=== PATIENT | male | born 1940 | race Caucasian/White ===

== ENCOUNTER 2017-06-13 09:46 | Inpatient (IN) | payer OTHER, MEDICARE ==
[~2017-06-13] VITALS: Ht 195.6 cm; Wt 99.0 kg
[2017-06-13] VITALS (45 sets, daily range): BP systolic 102–181; BP diastolic 60–157; PULSE 106–177; RESP 16–33; TEMP 97.2–99.8; O2SAT 91–99
[~2017-06-13 09:46] MED LIST: ASPI81TA82 PO; LISI-363 PO; ZOCO40TA PO
[2017-06-13] MEDS ORDERED: CARD120T4 PO (09:53)
[2017-06-13] MEDS ORDERED: SIMV20TA PO (09:53)
[2017-06-13] MEDS ORDERED: CARD240C6 PO (09:53)
[2017-06-13] MEDS ORDERED: ASPI81CH6 CHEW (09:53)
--- NOTE | 2017-06-13 10:08 | PD ---
HPI Chief Complaint: Cardiac Complaint Time Seen by Provider: 09:53 Travel History International Travel<30 days: No Contact w/Intl Traveler<30days: No Traveled to known affect area: No History of Present Illness HPI This patient complains of generalized weakness. He feels lightheaded. He called paramedics. He was brought here and found to be in A. fib with RVR with a rate of 170. He's been having some low central sternal chest pain. He says he had a nuclear stress test 2 weeks ago in the office of his manager investment Dr. Butts. He denies syncope. Symptoms severity is moderate. No shortness of breath. No alleviating factors. No exacerbating factors. He denies blood thinners. He says he has no history of atrial fibrillation or flutter. Duration one day PFSH Past Medical History Hx Anticoagulant Therapy: Yes Cancer: No Cardiovascular Problems: Yes High Cholesterol: Yes Endocrine: No Gastrointestinal Disorders: Yes (DIARHEA FOR 1 WEEK 04-29-11) Genitourinary: No Hypertension: Yes Immune Disorder: No Musculoskeletal: No Neurologic: Yes Psychiatric: No Reproductive: No Respiratory: No Seizures: Yes (TODAY 04-29-11) Past Surgical History Surgical History: No Previous Surgery Social History Alcohol Use: No Tobacco Use: No Substance Use: No Allergies-Medications (Allergen,Severity, Reaction): Coded Allergies: No Known Allergies (Unverified Allergy, Unknown, 06/13/17) Reported Meds & Prescriptions Reported Meds & Active Scripts Active Reported [Blood Thinner] Simvastatin 20 Mg Tab 20 Mg PO DAILY Cardizem CD 24 HR (Diltiazem CD 24 HR) 240 Mg Caper 240 Mg PO AM Cardizem (Diltiazem HCl) 120 Mg Tab 120 Mg PO QID Review of Systems General / Constitutional: No: Fever Eyes: No: Visual changes HENT: Positive: Lightheadedness, No: Headaches Cardiovascular: Positive: Chest Pain or Discomfort, Irregular Rhythm, Tachycardia Respiratory: No: Shortness of Breath Gastrointestinal: No: Abdominal Pain Genitourinary: No: Dysuria Musculoskeletal: No: Pain Skin: No Rash Neurologic: No: Weakness Psychiatric: No: Depression Endocrine: No: Polydipsia Hematologic/Lymphatic: No: Easy Bruising Physical Exam Narrative GENERAL: Well-nourished, well-developed patient with rapid A. fib of 170 . SKIN: Focused skin assessment reveals no rash and nodules. Skin is Warm and dry. HEAD: Atraumatic. Normocephalic. EYES: Pupils equal and round. No scleral icterus. No injection or drainage. ENT: No nasal bleeding or discharge. Mucous membranes pink and moist. NECK: Trachea midline. No JVD. CARDIOVASCULAR: Irregularly irregular rhythm. No murmur appreciated. Heart rate 170 RESPIRATORY: No accessory muscle use. Clear to auscultation. Breath sounds equal bilaterally. GASTROINTESTINAL: Abdomen soft, non-tender, nondistended. Hepatic and splenic margins not palpable. MUSCULOSKELETAL: No obvious deformities. No clubbing. No cyanosis. No edema. NEUROLOGICAL: Awake and alert. No obvious cranial nerve deficits. Motor grossly within normal limits. Normal speech. PSYCHIATRIC: Appropriate mood and affect; insight and judgment normal. Data Data Last Documented VS Vital Signs Date Time Temp Pulse Resp B/P (MAP) Pulse Ox O2 Delivery O2 Flow Rate FiO2 06/13/17 10:53 139 18 119/76 (90) 92 Nasal Cannula 2.00 06/13/17 09:48 99.2 Orders Orders Electrocardiogram (06/13/17 10:02) Basic Metabolic Panel (Bmp) (06/13/17 10:02) Ckmb (Isoenzyme) Profile (06/13/17 10:02) Complete Blood Count With Diff (06/13/17 10:02) Magnesium (Mg) (06/13/17 10:02) Prothrombin Time / Inr (Pt) (06/13/17 10:02) Act Partial Throm Time (Ptt) (06/13/17 10:02) Troponin I (06/13/17 10:02) Chest, Single Ap (06/13/17 10:02) Ecg Monitoring (06/13/17 10:02) Iv Access Insert/Monitor (06/13/17 10:02) Oximetry (06/13/17 10:02) Aspirin (Aspirin) (06/13/17 10:15) Sodium Chloride 0.9% Flush (Ns Flush) (06/13/17 10:15) Diltiazem Inj (Cardizem Inj) (06/13/17 10:15) Diltiazem Inj (Cardizem Inj) (06/13/17 11:00) Sodium Chloride 0.9% Flush (Ns Flush) (06/13/17 11:00) Diltiazem Inj (Cardizem Inj) (06/13/17 11:00) Admit Order (Ed Use Only) (06/13/17 11:16) Labs Laboratory Tests Test 06/13/17 09:50 White Blood Count 15.0 TH/MM3 Red Blood Count 4.61 MIL/MM3 Hemoglobin 15.2 GM/DL Hematocrit 45.2 % Mean Corpuscular Volume 97.9 FL Mean Corpuscular Hemoglobin 33.0 PG Mean Corpuscular Hemoglobin Concent 33.7 % Red Cell Distribution Width 14.1 % Platelet Count 180 TH/MM3 Mean Platelet Volume 9.5 FL Neutrophils (%) (Auto) 81.2 % Lymphocytes (%) (Auto) 6.4 % Monocytes (%) (Auto) 7.6 % Eosinophils (%) (Auto) 0.0 % Basophils (%) (Auto) 4.8 % Neutrophils # (Auto) 12.2 TH/MM3 Lymphocytes # (Auto) 1.0 TH/MM3 Monocytes # (Auto) 1.1 TH/MM3 Eosinophils # (Auto) 0.0 TH/MM3 Basophils # (Auto) 0.7 TH/MM3 CBC Comment AUTO DIFF Prothrombin Time 11.3 SEC Prothromb Time International Ratio 1.1 RATIO Activated Partial Thromboplast Time 32.6 SEC Blood Urea Nitrogen 12 MG/DL Creatinine 1.10 MG/DL Random Glucose 122 MG/DL Calcium Level 9.1 MG/DL Magnesium Level 1.9 MG/DL Sodium Level 136 MEQ/L Potassium Level 3.8 MEQ/L Chloride Level 100 MEQ/L Carbon Dioxide Level 26.4 MEQ/L Anion Gap 10 MEQ/L Estimat Glomerular Filtration Rate 65 ML/MIN Total Creatine Kinase 80 U/L Troponin I LESS THAN 0.02 NG/ML MDM Medical Decision Making Medical Screen Exam Complete: Yes Emergency Medical Condition: Yes Medical Record Reviewed: Yes Differential Diagnosis A. fib with RVR, SVT, ACS Narrative Course I have reviewed the patient's electronic medical record. Reviewed his EKG which shows A. fib at a rate of 170 Is confirmed on extended cardiac monitoring I gave him 20 mg IV Cardizem for rate control He is slightly hypertensive on arrival Lab studies sent On recheck his heart rate is now 130s. I gave him a second bolus of Cardizem I am initiating a Cardizem drip I reviewed his labs. CBC and metabolic studies reasonably normal Cardiac enzymes negative for one set an INR 1.1 Patient thinks he may be on a blood thinner but doesn't know for sure He is certainly not therapeutic on Coumadin but may be a novel anti-coagulant I placed a call to the hospitalist to discuss He will require admission for rate control and cardiac monitoring Critical Care Narrative Aggregate critical care time was 36 minutes. Time to perform other separately billable procedures was not included in the critical care time. My time did not include minutes spent treating any other patients simultaneously or on activities that did not directly contribute to the patient's treatment. The services I provided to this patient were to treat and/or prevent clinically significant deterioration that could result in: Cardiogenic shock, lethal arrhythmia, cardiopulmonary arrest I provided critical care services requiring my management, as noted below: Chart data review, documentation time, medication orders and management, vital sign assessments/reviewing monitor data, ordering and reviewing lab tests, ordering and interpreting/reviewing x-rays and diagnostic studies, care of the patient and discussion of the patient with the admitting physicians. Diagnosis Primary Impression: Atrial fibrillation with RVR Additional Impression: Generalized weakness Admitting Information Admitting Physician Requests: Zackary Sevilla MD Jun 13, 2017 10:08
[2017-06-13] MEDS ORDERED: DILTIAZEM HCL 25 MG/5 ML VIAL IV ONE ×2 (10:15→11:00)
[2017-06-13] MEDS ORDERED: ASPIRIN 325 MG TAB PO ONE (10:15)
[2017-06-13] MEDS ORDERED: SODIUM CHLORIDE 0.9% FLUSH 10 ML FLUSH IVF PRN (10:15)
[2017-06-13 10:21] LABS: AUTOMATED NEUTROPHIL # 12.2 TH/MM3 (1.8-7.7); BASOPHIL # 0.7 TH/MM3 (0-0.2); BASOPHIL % 4.8 % (0.0-2.0); CHLORIDE 100 MEQ/L (98-107); HEMATOCRIT 45.2 % (39.0-51.0); HEMOGLOBIN 15.2 GM/DL (13.0-17.0); LYMPH % 6.4 % (9.0-44.0); MEAN CELL VOLUME 97.9 FL (80.0-100.0); MEAN CORPUSCULAR HGB CONC 33.7 % (32.0-36.0); MEAN PLATELET VOLUME 9.5 FL (7.0-11.0); MONO % 7.6 % (0.0-8.0); MONOCYTE # 1.1 TH/MM3 (0-0.9); NEUT % 81.2 % (16.0-70.0); PLATELET COUNT 180 TH/MM3 (150-450); RED BLOOD COUNT 4.61 MIL/MM3 (4.50-5.90); RED CELL DISTRIBUTION WIDTH 14.1 % (11.6-17.2); SODIUM (NA) 136 MEQ/L (136-145)
[2017-06-13 10:24] LABS: BICARBONATE 26.4 MEQ/L (21.0-32.0); BLOOD UREA NITROGEN 12 MG/DL (7-18); CALCIUM 9.1 MG/DL (8.5-10.1); GLUCOSE,RANDOM 122 MG/DL (74-106); MAGNESIUM 1.9 MG/DL (1.5-2.5)
[2017-06-13 10:25] LABS: INTERNATIONAL NORMALIZED RATIO 1.1 RATIO; PROTHROMBIN TIME - PATIENT 11.3 SEC (9.8-11.6)
[2017-06-13 10:28] LABS: GLOMERULAR FILTRATION RATE 65 ML/MIN (>89)
[2017-06-13 10:32] LABS: TROPONIN I LESS THAN 0.02 NG/ML (0.02-0.05)
--- NOTE | 2017-06-13 10:32 | RADRPT ---
EXAM DATE/TIME: 06/13/2017 10:08 [facility] COMPARISON: No previous studies available for comparison. INDICATIONS : Chest pain. MEDICAL HISTORY : Hypertension. SURGICAL HISTORY : None. ENCOUNTER: Initial ACUITY: 1 day PAIN SCORE: 7/10 LOCATION: Bilateral chest FINDINGS: The heart is at the upper limits of normal in size. There are diffuse chronic appearing interstitial changes. There are atelectatic changes at the left lung base. No pneumothorax is present. Visualized bony structures demonstrate degenerative changes and an old, healed fracture of the left p roximal humerus but are otherwise intact. CONCLUSION: 1. COPD changes with left basilar atelectasis or scarring. Bonifacio Bradshaw MD on June 13, 2017 at 10:29 Board Certified Radiologist. This report was verified electronically.
[2017-06-13] MEDS ORDERED: SODIUM CHLORIDE 0.9% FLUSH 10 ML FLUSH IV FLUSH PRN ×2 (11:00→11:30)
[2017-06-13] MEDS ORDERED: BLOOD THINNER (11:10)
[2017-06-13 11:23] LABS: BANDS 4 % (0-6); LYMPHOCYTES 5 % (9-44); MONOCYTES 6 % (0-8); NEUTROPHIL # MANUAL DIFF 13.4 TH/MM3 (1.8-7.7); POLYS (SEG NEUTROPHILS) 85 % (16-70)
[2017-06-13] MEDS: DILTIAZEM INJ 125 MG in SODIUM CHLORIDE 0.9% INJ 100 ML IV PRN (11:26)
[2017-06-13] MEDS ORDERED: NALOXONE HCL 0.4 MG/ML AMP IV PUSH PRN (11:30)
--- NOTE | 2017-06-13 11:33 | HHI.HP ---
[facility] Primary Care Physician Jaky Ragland MD Admission Diagnosis afib with rvr, gen weakness Diagnoses: Travel History International Travel<30 Days: No Contact w/Intl Traveler <30 Da: No Traveled to Known Affected Are: No History of Present Illness Mr. Lugo is a 77-year-old male. He is here secondary to weakness and chest pain. He is found to have an acute onset of atrial fibrillation with RVR. He cannot recall any prior history of atrial fibrillation but he is on Cardizem baseline and may take Coumadin. However, this may be new onset atrial fibrillation. He is chest pain-free when seen. At time of admit and with chest pain his heart rate have been in the 170s. She is now in the 130s when seen in the ER. Symptoms are improved. As an outpatient he follows with Dr. Butts as his senior officer. He reports that he had a recent workup with cardiology and cannot recall any concerning findings on the workup. He has no other complaints at this time. She's been started on IV diltiazem and will be admitted to the ICU. Review of Systems Constitutional: DENIES: Fatigue, Fever, Chills Eyes: DENIES: Blurred vision, Diplopia, Eye inflammation Ears, nose, mouth, throat: DENIES: Hearing loss, Vertigo, Nasal discharge Respiratory: COMPLAINS OF: Shortness of breath, DENIES: Cough, Wheezing Cardiovascular: COMPLAINS OF: Chest pain, DENIES: Palpitations, Syncope Gastrointestinal: DENIES: Abdominal pain, Black stools, Bloody stools Musculoskeletal: DENIES: Joint pain, Muscle aches, Stiffness, Joint Swelling Integumentary: DENIES: Abnormal pigmentation, Nail changes, Pruritus, Rash Hematologic/lymphatic: DENIES: Bruising, Lymphadenopathy Immunologic/allergic: DENIES: Eczema, Urticaria Neurologic: DENIES: Abnormal gait, Headache, Paresthesias Psychiatric: DENIES: Anxiety, Confusion, Hallucinations Past Family Social History Past Medical History Hyperlipidemia Hypertension History of seizure Past Surgical History None Reported Medications Reported Meds & Active Scripts Active Reported [Blood Thinner] Simvastatin 20 Mg Tab 20 Mg PO DAILY Cardizem CD 24 HR (Diltiazem CD 24 HR) 240 Mg Caper 240 Mg PO AM Cardizem (Diltiazem HCl) 120 Mg Tab 120 Mg PO QID Allergies: Coded Allergies: No Known Allergies (Unverified Allergy, Unknown, 06/13/17) Active Ordered Medications Administered Medications Medications (Trade) Dose Ordered Sig/Low Route PRN Reason Start Time Stop Time Status Last Admin Dose Admin Sodium Chloride (NS Flush) 2 ml UNSCH PRN IVF FLUSH AFTER USING IV ACCESS 06/13/17 10:15 06/13/17 10:11 Diltiazem HCl 125 mg/Sodium Chloride 125 ml @ 5 mls/hr TITRATE PRN IV tachycardia 06/13/17 11:00 06/13/17 11:26 Sodium Chloride (NS Flush) 2 ml UNSCH PRN IV FLUSH FLUSH AFTER USING IV ACCESS 06/13/17 11:00 06/13/17 11:02 Family History Continuous cardiac arrest in patient's daughter No known disease in mother and father Social History No smoking, no alcohol abuse, no illicit substance abuse Physical Exam Vital Signs Vital Signs Date Time Temp Pulse Resp B/P (MAP) Pulse Ox O2 Delivery O2 Flow Rate FiO2 06/13/17 11:26 150 115/67 06/13/17 11:17 143 16 115/67 (83) 92 Nasal Cannula 2.00 06/13/17 10:53 139 18 119/76 (90) 92 Nasal Cannula 2.00 06/13/17 10:14 129 20 102/68 (79) 95 Nasal Cannula 2.00 06/13/17 10:04 18 99 Nasal Cannula 2.00 06/13/17 09:48 99.2 177 20 149/105 (120) 93 Physical Exam GENERAL: NAD, A&Ox3 HEAD: Normocephalic. NECK: Supple, trachea midline. No lymphadenopathy. EYES: No scleral icterus. No injection or drainage. CARDIOVASCULAR: Tachycardic rhythm with irregular rate. Without murmurs, gallops, or rubs. RESPIRATORY: Breath sounds equal bilaterally. No accessory muscle use. GASTROINTESTINAL: Abdomen soft, non-tender, nondistended. MUSCULOSKELETAL: No cyanosis, or edema. SKIN: Warm and dry. NEURO: No focal neurological deficitis. Laboratory Laboratory Tests Test 06/13/17 09:50 White Blood Count 15.0 Red Blood Count 4.61 Hemoglobin 15.2 Hematocrit 45.2 Mean Corpuscular Volume 97.9 Mean Corpuscular Hemoglobin 33.0 Mean Corpuscular Hemoglobin Concent 33.7 Red Cell Distribution Width 14.1 Platelet Count 180 Mean Platelet Volume 9.5 Neutrophils (%) (Auto) 81.2 Lymphocytes (%) (Auto) 6.4 Monocytes (%) (Auto) 7.6 Eosinophils (%) (Auto) 0.0 Basophils (%) (Auto) 4.8 Neutrophils # (Auto) 12.2 Lymphocytes # (Auto) 1.0 Monocytes # (Auto) 1.1 Eosinophils # (Auto) 0.0 Basophils # (Auto) 0.7 CBC Comment AUTO DIFF Differential Total Cells Counted 100 Neutrophils % (Manual) 85 Band Neutrophils % 4 Lymphocytes % 5 Monocytes % 6 Neutrophils # (Manual) 13.4 Differential Comment FINAL DIFF MANUAL Platelet Estimate NORMAL Platelet Morphology Comment NORMAL Prothrombin Time 11.3 Prothromb Time International Ratio 1.1 Activated Partial Thromboplast Time 32.6 Blood Urea Nitrogen 12 Creatinine 1.10 Random Glucose 122 Calcium Level 9.1 Magnesium Level 1.9 Sodium Level 136 Potassium Level 3.8 Chloride Level 100 Carbon Dioxide Level 26.4 Anion Gap 10 Estimat Glomerular Filtration Rate 65 Total Creatine Kinase 80 Troponin I LESS THAN 0.02 Result Diagram: 06/13/1750 06/13/1750 Caprini VTE Risk Assessment Caprini VTE Risk Assessment: Mod/High Risk (score >= 2) Caprini Risk Assessment Model Point Value = 1 Point Value = 2 Point Value = 3 Point Value = 5 Age 41-60 Minor surgery BMI > 25 kg/m2 Swollen legs Varicose veins or History of unexplained or recurrent spontaneous Oral contraceptives or hormone replacement Sepsis (< 1 month) Serious lung disease, including pneumonia (< 1 month) Abnormal pulmonary function Acute myocardial infarction Congestive heart failure (< 1 month) History of inflammatory bowel disease Medical patient at bed rest Age 61-74 Arthroscopic surgery Major open surgery (> 45 min) Laparoscopic surgery (> 45 min) Malignancy Confined to bed (> 72 hours) Immobilizing plaster cast Central venous access Age >= 75 History of VTE Family history of VTE Factor V Leiden Prothrombin [id number] Lupus anticoagulant Anticardiolipin antibodies Elevated serum homocysteine Heparin-induced thrombocytopenia Other congenital or acquired thrombophilia Stroke (< 1 month) Elective arthroplasty Hip, pelvis, or leg fracture Acute spinal cord injury (< 1 month) Prophylaxis Regimen Total Risk Factor Score Risk Level Prophylaxis Regimen 0-1 Low Early ambulation 2 Moderate Order ONE of the following: *Sequential Compression Device (SCD) *Heparin 5000 units SQ BID 3-4 Higher Order ONE of the following medications: *Heparin 5000 units SQ TID *Enoxaparin/Lovenox 40 mg SQ daily (WT < 150 kg, CrCl > 30 mL/min) *Enoxaparin/Lovenox 30 mg SQ daily (WT < 150 kg, CrCl > 10-29 mL/min) *Enoxaparin/Lovenox 30 mg SQ BID (WT < 150 kg, CrCl > 30 mL/min) AND/OR *Sequential Compression Device (SCD) 5 or more Highest Order ONE of the following medications: *Heparin 5000 units SQ TID (Preferred with Epidurals) *Enoxaparin/Lovenox 40 mg SQ daily (WT < 150 kg, CrCl > 30 mL/min) *Enoxaparin/Lovenox 30 mg SQ daily (WT < 150 kg, CrCl > 10-29 mL/min) *Enoxaparin/Lovenox 30 mg SQ BID (WT < 150 kg, CrCl > 30 mL/min) AND *Sequential Compression Device (SCD) Assessment and Plan Problem List: (1) Atrial fibrillation with RVR ICD Code: I48.91 - Unspecified atrial fibrillation Status: Acute (2) Generalized weakness ICD Code: R53.1 - Weakness Status: Acute Assessment and Plan 77-year-old male admitted secondary to A. fib RVR A. fib RVR Chest pain IV diltiazem Admit to ICU Cardiology consulted Lovenox initiated Monitor for rate control Evaluate for ACS Follow cardiac enzymes Follow serial EKGs Aspirin daily When necessary oxygen When necessary morphine for pain. When necessary nitroglycerin Follow on telemetry Hyperlipidemia Continue present treatment Follow as an outpatient Hypertension Continue baseline treatment Follow blood pressures Adjust treatments as needed History of seizure Renal history in isolated, no recurrence Follow clinically DVT prophylaxis Lovenox Physician Certification 2 Midnight Certification Type: Admission for Inpatient Services Order for Inpatient Services The services are ordered in accordance with Medicare regulations or non- Medicare payer requirements, as applicable. In the case of services not specified as inpatient-only, they are appropriately provided as inpatient services in accordance with the 2-midnight benchmark. Estimated LOS (days): 3 days is the estimated time the patient will need to remain in the hospital, assuming treatment plan goals are met and no additional complications. Post-Hospital Plan: Home Bonifacio Vega MD Jun 13, 2017 11:33
[2017-06-13] MEDS ORDERED: ENOXAPARIN SODIUM 40 MG/0.4 ML SYRINGE SQ SCH (12:00)
[2017-06-13] MEDS ORDERED: ONDANSETRON HCL 4 MG/2 ML VIAL IVP PRN (12:00)
[2017-06-13] MEDS ORDERED: MAGNESIUM HYDROXIDE SUSP 30 ML CUP PO PRN (12:00)
[2017-06-13] MEDS ORDERED: NITROGLYCERIN 0.4 MG SL 25 TABS/BTL SL PRN (13:00)
[2017-06-13] MEDS ORDERED: MORPHINE SULFATE 4 MG/ML INJ IV PUSH PRN ×2 (13:00)
--- NOTE | 2017-06-13 13:41 | EKG ---
Date Performed: 06/13/2017 Time Performed: 09:50:59 PTAGE: 77 years EKG: ATRIAL FIBRILLATION WITH RAPID VENTRICULAR RESPONSE WITH ABERRANT CONDUCTION OR VENTRICULAR PREMATURE COMPLEXES RIGHT BUNDLE BRANCH BLOCK ST DEPRESSION, CONSIDER SUBENDOCARDIAL INJURY ABNORMAL ECG Compared to PREVIOUS TRACING the patient has developed atrial fibrillation with a rapid v response. There has been an increase in the inferolateral ST segment changes PREVIOUS TRACIN04/29/2011 11.17 DOCTOR: Criss Larson Interpretating Date/Time 06/13/2017 13:39:23
[2017-06-13] MEDS: SODIUM CHLORIDE 0.9% FLUSH 10 ML FLUSH IV FLUSH SCH (20:50)
[2017-06-14] VITALS (34 sets, daily range): BP systolic 110–147; BP diastolic 60–78; PULSE 94–120; RESP 25–43; TEMP 98.9–100.2; O2SAT 88–96
[2017-06-14] MEDS: DILTIAZEM INJ 125 MG in SODIUM CHLORIDE 0.9% INJ 100 ML IV PRN ×2 (02:48→11:21)
[2017-06-14 04:41] LABS: AUTOMATED NEUTROPHIL # 9.9 TH/MM3 (1.8-7.7); BASOPHIL # 0.2 TH/MM3 (0-0.2); BASOPHIL % 1.8 % (0.0-2.0); EOSINOPHIL % 0.1 % (0.0-4.0); HEMATOCRIT 43.1 % (39.0-51.0); HEMOGLOBIN 14.2 GM/DL (13.0-17.0); LYMPH % 7.3 % (9.0-44.0); LYMPHOCYTE # 0.9 TH/MM3 (1.0-4.8); MEAN CELL VOLUME 98.5 FL (80.0-100.0); MEAN CORPUSCULAR HEMOGLOBIN 32.4 PG (27.0-34.0); MEAN CORPUSCULAR HGB CONC 32.9 % (32.0-36.0); MEAN PLATELET VOLUME 9.3 FL (7.0-11.0); MONO % 6.3 % (0.0-8.0); MONOCYTE # 0.7 TH/MM3 (0-0.9); NEUT % 84.5 % (16.0-70.0); PLATELET COUNT 166 TH/MM3 (150-450); RED BLOOD COUNT 4.37 MIL/MM3 (4.50-5.90); WHITE BLOOD COUNT 11.8 TH/MM3 (4.0-11.0)
[2017-06-14 04:49] LABS: CHLORIDE 100 MEQ/L (98-107); SODIUM (NA) 134 MEQ/L (136-145)
[2017-06-14 04:52] LABS: CALCIUM 8.3 MG/DL (8.5-10.1)
[2017-06-14 04:53] LABS: ALBUMIN 2.7 GM/DL (3.4-5.0); BICARBONATE 24.3 MEQ/L (21.0-32.0); BLOOD UREA NITROGEN 16 MG/DL (7-18); GLUCOSE,RANDOM 123 MG/DL (74-106)
[2017-06-14 04:56] LABS: ALT (GPT) 14 U/L (12-78); AST (GOT) 40 U/L (15-37); GLOMERULAR FILTRATION RATE 72 ML/MIN (>89)
[2017-06-14 04:57] LABS: TOTAL BILIRUBIN ADULT 1.3 MG/DL (0.2-1.0)
[2017-06-14 04:58] LABS: TOTAL PROTEIN 7.3 GM/DL (6.4-8.2)
[2017-06-14 04:59] LABS: ALKALINE PHOSPHATASE 61 U/L (45-117)
[2017-06-14] MEDS: SODIUM CHLORIDE 0.9% FLUSH 10 ML FLUSH IV FLUSH SCH ×2 (09:00→20:30)
[2017-06-14] MEDS: METOPROLOL TARTRATE 25 MG TAB PO SCH ×2 (09:31→20:30)
[2017-06-14] MEDS: DILTIAZEM-CD 240 MG CAP ER PO SCH (09:31)
[2017-06-14] MEDS: ENOXAPARIN SODIUM 60 MG/0.6 ML SYRINGE SQ SCH ×2 (09:31→20:30)
--- NOTE | 2017-06-14 09:34 | MB ---
cc: Sabine Tejada MD DATE OF CONSULT: 06/14/2017 REASON FOR CONSULTATION: Atrial fibrillation. HISTORY OF PRESENT ILLNESS: Mr. Lugo is a 77-year-old patient of my partner, Dr. Butts. He was diagnosed with atrial fibrillation earlier this year. He did have further testing with a nuclear stress test that showed an EF of 57% and a probable inferior OH. The patient reports he was doing well until about 3 days ago when he began having diarrhea. He had progressive weakness and presented to the emergency room with diarrhea, and was found to have a heart rate in the 170s. The patient does report that he had some chest pain and pointed to his epigastric region. The patient is currently pain free. PAST MEDICAL HISTORY: Significant for hypertension, hyperlipidemia, atrial fibrillation, COPD, right bundle branch block, aortic and mitral regurgitation. ALLERGIES: NO KNOWN DRUG ALLERGIES. OUTPATIENT MEDICATIONS: 1. Reportedly include Cardizem 240 mg q.a.m. and 120 mg q.p.m. 2. Simvastatin. 3. Coumadin - though the patient does not recall. FAMILY HISTORY: Positive for daughter who had a cardiac arrest. SOCIAL HISTORY: The patient does not drink or smoke. REVIEW OF SYSTEMS: Except as mentioned in the HPI, all 12 systems are negative. PHYSICAL EXAMINATION: VITAL SIGNS: 108, 20, 114/69 with a saturation of 90. GENERAL: He is an obese man, who is in no apparent distress. NECK: Free from JVD. LUNGS: A bit decreased and clear to auscultation. CARDIOVASCULAR: He has an irregularly irregular rhythm. No rubs or gallops were appreciated. ABDOMEN: Soft. EXTREMITIES: Free from edema. Chest x-ray shows COPD changes with left basilar atelectasis or scarring. LABORATORY DATA: Significant for an INR of 1.1, a white count initially of 15. His serial troponins are less than 0.02 and his glucose is 123. Telemetry - shows atrial fibrillation with rapid ventricular rate. EKG - shows atrial fibrillation with rapid ventricular rate. There is a right bundle branch block and nonspecific ST-T wave changes. IMPRESSIONS AND RECOMMENDATIONS: Atrial fibrillation - the patient does report compliance. It is not clear if he was actually absorbing the Cardizem in light of his 3 days of diarrhea. He is doing fair with the IV Cardizem and did not get his p.m. dose of medications. At this point, I would like to restart his p.o. Cardizem. I will add metoprolol to optimize his rate control. Regarding anticoagulation, Lovenox is reasonable until he achieves a therapeutic ACT with his Coumadin. Coumadin should be started and managed by the primary team to achieve an INR of 2.0-3.0. Atypical chest pain - the patient did have a recent stress test, which was not ischemic. His enzymes were negative for acute event. As well his pain was epigastric in origin and may have been related to his GI issues or his atrial fibrillation rapid ventricular response. At this point, I would follow him closely and consider further evaluation if he has recurrent symptoms. Elevated glucose - this would be per the primary team to evaluate further for diabetes. Diarrhea - per the primary team and as above, this may have exacerbated his atrial fibrillation. MD CECILLE Miller/FRANCISCO , 08:51 AM , 09:32 AM
--- NOTE | 2017-06-14 11:13 | EKG ---
Date Performed: 06/13/2017 Time Performed: 20:46:06 PTAGE: 77 years EKG: ATRIAL FIBRILLATION WITH RAPID VENTRICULAR RESPONSE WITH ABERRANT CONDUCTION OR VENTRICULAR PREMATURE COMPLEXES RIGHT BUNDLE BRANCH BLOCK ABNORMAL ECG PREVIOUS TRACING : 06/13/2017 13.51 Since the previous tracing, no significant change noted DOCTOR: Mazin Palacio Interpretating Date/Time 06/14/2017 11:10:23
--- NOTE | 2017-06-14 14:06 | EKG ---
Date Performed: 06/13/2017 Time Performed: 13:51:47 PTAGE: 77 years EKG: ATRIAL FIBRILLATION WITH RAPID VENTRICULAR RESPONSE WITH ABERRANT CONDUCTION OR VENTRICULAR PREMATURE COMPLEXES RIGHT BUNDLE BRANCH BLOCK ST DEPRESSION, CONSIDER SUBENDOCARDIAL INJURY ABNORMAL ECG PREVIOUS TRACING : 06/13/2017 09.50 Continued clinical correlation recommended. DOCTOR: Mazin Palacio Interpretating Date/Time 06/14/2017 14:04:49
--- NOTE | 2017-06-14 17:36 | HHI.PR ---
Subjective Remarks Rate control is improved but not resolved. Patient is starting to feel better. Metoprolol has been added to by mouth Cardizem. Coumadin recommended. Objective Vital Signs Date Time Temp Pulse Resp B/P (MAP) Pulse Ox O2 Delivery O2 Flow Rate FiO2 06/14/17 16:02 104 37 120/71 (87) 93 06/14/17 15:15 112 06/14/17 15:02 102 35 132/72 (92) 89 06/14/17 14:02 98 34 116/69 (85) 91 06/14/17 13:02 98 38 133/60 (84) 91 06/14/17 13:02 98.9 98 38 133/60 (84) 91 06/14/17 13:00 100 39 90 06/14/17 12:02 98 43 121/67 (85) 91 06/14/17 11:21 100 111/78 06/14/17 11:15 99 06/14/17 11:02 94 35 111/78 (89) 96 06/14/17 10:02 114 31 110/68 (82) 92 06/14/17 09:02 99.6 114 32 128/61 (83) 93 06/14/17 08:05 93 Nasal Cannula 2.00 06/14/17 08:02 100 25 124/72 (89) 92 06/14/17 07:15 106 06/14/17 07:02 100 27 118/74 (89) 93 06/14/17 06:02 108 26 114/69 (84) 90 06/14/17 05:12 114 34 118/72 (87) 91 06/14/17 04:43 113 06/14/17 04:02 99.5 106 28 135/71 (92) 91 06/14/17 03:02 104 27 123/70 (87) 90 06/14/17 03:00 105 06/14/17 02:48 116 132/73 06/14/17 02:03 100.2 118 31 132/73 (92) 90 06/14/17 01:45 108 27 135/76 (95) 90 06/14/17 01:30 120 31 135/76 (95) 89 06/14/17 01:15 110 30 146/66 (92) 91 06/14/17 01:00 110 30 147/65 (92) 91 06/14/17 00:02 114 06/14/17 00:00 112 30 144/70 (94) 91 06/13/17 23:23 97.2 114 31 152/80 (104) 93 06/13/17 23:15 118 33 128/82 (97) 92 06/13/17 23:00 115 06/13/17 23:00 114 32 128/70 (89) 94 06/13/17 22:45 116 33 139/87 (104) 91 06/13/17 22:30 112 31 117/69 (85) 93 06/13/17 22:15 108 30 138/77 (97) 94 06/13/17 22:00 112 30 131/72 (91) 94 06/13/17 22:00 92 Nasal Cannula 2.00 06/13/17 22:00 114 06/13/17 21:45 116 29 152/89 (110) 93 06/13/17 21:30 112 28 140/69 (92) 93 06/13/17 21:15 112 29 155/72 (99) 92 06/13/17 21:00 114 29 155/78 (103) 91 06/13/17 20:00 110 31 119/74 (89) 92 06/13/17 19:52 99.8 106 28 108/70 (83) 92 06/13/17 18:45 120 31 140/67 (91) 92 06/13/17 18:30 128 33 121/73 (89) 92 06/13/17 18:15 124 33 145/77 (99) 91 06/13/17 18:00 98.0 132 32 147/73 (97) 91 06/13/17 17:45 128 33 124/79 (94) 91 I/O 06/13/17 06/13/17 06/13/17 06/14/17 06/14/17 06/14/17 07:00 15:00 23:00 07:00 15:00 23:00 # Voids 2 # Bowel Movements 1 Result Diagram: 06/14/1742906/14/17429 Objective Remarks GENERAL: NAD, A&Ox3 HEAD: Normocephalic. NECK: Supple, trachea midline. No lymphadenopathy. EYES: No scleral icterus. No injection or drainage. CARDIOVASCULAR: Irregularly irregular rhythm with tachycardic rate. Without murmurs, gallops, or rubs. RESPIRATORY: Breath sounds equal bilaterally. No accessory muscle use. GASTROINTESTINAL: Abdomen soft, non-tender, nondistended. MUSCULOSKELETAL: No cyanosis, or edema. SKIN: Warm and dry. NEURO: No focal neurological deficitis. A/P Problem List: (1) Atrial fibrillation with RVR ICD Code: I48.91 - Unspecified atrial fibrillation Status: Acute (2) Generalized weakness ICD Code: R53.1 - Weakness Status: Acute Assessment and Plan 77-year-old male admitted secondary to A. fib RVR Constipation treatment started. Cardizem and metoprolol for a-fib RVR. Continue to monitor on telemetry. Labs reviewed. Follow electrolytes and CBC. Continue to monitor labs. Labs ordered for further monitoring. A. fib RVR Chest pain IV diltiazem Admit to ICU Cardiology consulted Tomasanox initiated Monitor for rate control Negative ACS evaluation Follow cardiac enzymes Follow on telemetry Hyperlipidemia Continue present treatment Follow as an outpatient Hypertension Continue baseline treatment Follow blood pressures Adjust treatments as needed History of seizure Renal history in isolated, no recurrence Follow clinically DVT prophylaxis Bonifacio Varma MD Jun 14, 2017 17:36
[2017-06-14] MEDS ORDERED: MAGNESIUM HYDROXIDE SUSP 30 ML CUP PO PRN (17:45)
[2017-06-14] MEDS: DILTIAZEM-CD 120 MG CAP ER PO SCH (17:50)
[2017-06-14] MEDS ORDERED: WARFARIN SOD 5 MG TAB PO ONE (18:00)
[2017-06-14] MEDS: DOCUSATE SODIUM 100 MG CAP PO SCH (20:30)
[2017-06-14] MEDS ORDERED: FUROSEMIDE 20 MG/2 ML VIAL IV PUSH ONE (22:30)
[2017-06-15] VITALS (16 sets, daily range): BP systolic 101–151; BP diastolic 57–72; PULSE 78–114; RESP 28–40; TEMP 97.9–99.3; O2SAT 90–94
[2017-06-15 06:11] LABS: AUTOMATED NEUTROPHIL # 9.4 TH/MM3 (1.8-7.7); BASOPHIL # 0.1 TH/MM3 (0-0.2); BASOPHIL % 0.9 % (0.0-2.0); EOSINOPHIL % 0.1 % (0.0-4.0); HEMATOCRIT 42.3 % (39.0-51.0); HEMOGLOBIN 14.2 GM/DL (13.0-17.0); LYMPH % 7.1 % (9.0-44.0); LYMPHOCYTE # 0.8 TH/MM3 (1.0-4.8); MEAN CELL VOLUME 98.5 FL (80.0-100.0); MEAN CORPUSCULAR HEMOGLOBIN 33.1 PG (27.0-34.0); MEAN CORPUSCULAR HGB CONC 33.6 % (32.0-36.0); MEAN PLATELET VOLUME 8.9 FL (7.0-11.0); MONO % 5.7 % (0.0-8.0); MONOCYTE # 0.6 TH/MM3 (0-0.9); NEUT % 86.2 % (16.0-70.0); PLATELET COUNT 164 TH/MM3 (150-450); RED CELL DISTRIBUTION WIDTH 14.3 % (11.6-17.2); WHITE BLOOD COUNT 10.9 TH/MM3 (4.0-11.0)
[2017-06-15 06:20] LABS: CHLORIDE 102 MEQ/L (98-107); SODIUM (NA) 138 MEQ/L (136-145)
[2017-06-15 06:22] LABS: INTERNATIONAL NORMALIZED RATIO 1.1 RATIO; PROTHROMBIN TIME - PATIENT 11.2 SEC (9.8-11.6)
[2017-06-15 06:25] LABS: CALCIUM 8.6 MG/DL (8.5-10.1)
[2017-06-15 06:26] LABS: ALBUMIN 2.7 GM/DL (3.4-5.0); BICARBONATE 27.6 MEQ/L (21.0-32.0); BLOOD UREA NITROGEN 24 MG/DL (7-18); GLUCOSE,RANDOM 121 MG/DL (74-106)
[2017-06-15 07:49] LABS: ALKALINE PHOSPHATASE 66 U/L (45-117); ALT (GPT) 30 U/L (12-78); AST (GOT) 68 U/L (15-37); GLOMERULAR FILTRATION RATE 65 ML/MIN (>89); TOTAL BILIRUBIN ADULT 1.1 MG/DL (0.2-1.0); TOTAL PROTEIN 7.5 GM/DL (6.4-8.2)
[2017-06-15] MEDS: METOPROLOL TARTRATE 25 MG TAB PO SCH ×2 (07:56→20:07)
[2017-06-15] MEDS: DILTIAZEM-CD 240 MG CAP ER PO SCH (07:56)
[2017-06-15] MEDS: SODIUM CHLORIDE 0.9% FLUSH 10 ML FLUSH IV FLUSH SCH ×2 (07:56→20:08)
[2017-06-15] MEDS: ASPIRIN 325 MG TAB PO SCH (07:56)
[2017-06-15] MEDS: DOCUSATE SODIUM 100 MG CAP PO SCH ×2 (07:56→20:08)
[2017-06-15] MEDS: ENOXAPARIN SODIUM 60 MG/0.6 ML SYRINGE SQ SCH ×2 (08:00→20:07)
--- NOTE | 2017-06-15 11:20 | RADRPT ---
EXAM DATE/TIME: 06/15/2017 11:04 [facility] COMPARISON: CHEST SINGLE AP, June 13, 2017, 10:08. INDICATIONS : Short of breath MEDICAL HISTORY : None. SURGICAL HISTORY : None. ENCOUNTER: Subsequent ACUITY: 4 - 6 days PAIN SCORE: 0/10 LOCATION: Bilateral chest FINDINGS: AP upright portable view of the chest again demonstrate mild enlargement of the cardiac silhouette wi th bilateral interstitial prominence, worse within the lung bases. 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 CONCLUSION: Stable lung exam concerning for interstitial fibrosis. Kimber Alvarez MD on June 15, 2017 at 11:16 Board Certified Radiologist. This report was verified electronically.
--- NOTE | 2017-06-15 11:24 | HHI.PR ---
Subjective Remarks White blood cell count has trended back to normal. Patient continues to have shortness of breath. Heart rate is stabilized with Cardizem and metoprolol. Coumadin showed no increase in INR and patient was switched to Xarelto as a treatment. Objective Vital Signs Date Time Temp Pulse Resp B/P (MAP) Pulse Ox O2 Delivery O2 Flow Rate FiO2 06/15/17 10:02 78 28 101/63 (76) 93 06/15/17 08:02 97.9 106 40 135/64 (87) 91 06/15/17 08:00 86 06/15/17 04:02 99.3 90 28 107/67 (80) 93 06/15/17 04:00 92 06/15/17 00:02 82 29 105/63 (77) 92 06/15/17 00:00 80 06/14/17 21:50 93 Venturi Mask 6.00 50 06/14/17 21:04 93 Nasal Cannula 4.00 06/14/17 20:02 100.0 98 26 115/63 (80) 91 06/14/17 20:00 102 06/14/17 18:02 106 35 134/69 (90) 88 06/14/17 17:02 99.1 104 31 131/69 (89) 92 06/14/17 16:02 104 37 120/71 (87) 93 06/14/17 15:15 112 06/14/17 15:02 102 35 132/72 (92) 89 06/14/17 14:02 98 34 116/69 (85) 91 06/14/17 13:02 98 38 133/60 (84) 91 06/14/17 13:02 98.9 98 38 133/60 (84) 91 06/14/17 13:00 100 39 90 06/14/17 12:02 98 43 121/67 (85) 91 I/O 06/14/17 06/14/17 06/14/17 06/15/17 06/15/17 06/15/17 06:59 14:59 22:59 06:59 14:59 22:59 Intake Total 360 ml Output Total 750 ml Balance 360 ml -750 ml Intake Oral 360 ml Output Urine Total 750 ml # Voids 2 # Bowel Movements 0 Result Diagram: 06/15/17 0550 06/15/17 0550 Objective Remarks GENERAL: NAD, A&Ox3 HEAD: Normocephalic. NECK: Supple, trachea midline. No lymphadenopathy. EYES: No scleral icterus. No injection or drainage. CARDIOVASCULAR: Irregularly irregular rhythm with tachycardic rate. Without murmurs, gallops, or rubs. RESPIRATORY: Breath sounds equal bilaterally. No accessory muscle use. GASTROINTESTINAL: Abdomen soft, non-tender, nondistended. MUSCULOSKELETAL: No cyanosis, or edema. SKIN: Warm and dry. NEURO: No focal neurological deficitis. A/P Problem List: (1) Atrial fibrillation with RVR ICD Code: I48.91 - Unspecified atrial fibrillation Status: Acute (2) Generalized weakness ICD Code: R53.1 - Weakness Status: Acute Assessment and Plan 77-year-old male admitted secondary to A. fib RVR Not yet stable for discharge due to respiratory distress. Obtain chest x-ray and echocardiogram. Consider Lasix of pulmonary edema is a part of this. For now his heart rate is improved and he will be treated with Cardizem, metoprolol , and Xarelto, in regards his previous A. fib with RVR. Labs reviewed. Follow potassium and replace as needed. Continue to monitor labs. Labs ordered for further monitoring. A. fib RVR Chest pain IV diltiazem Admit to ICU Cardiology consulted Lovenox initiated Monitor for rate control Negative ACS evaluation Follow cardiac enzymes Follow on telemetry Hyperlipidemia Continue present treatment Follow as an outpatient Hypertension Continue baseline treatment Follow blood pressures Adjust treatments as needed History of seizure Renal history in isolated, no recurrence Follow clinically DVT prophylaxis Bonifacio Varma MD Jun 15, 2017 11:24
[2017-06-15] MEDS: RIVAROXABAN 15 MG TAB PO SCH ×2 (11:36→20:07)
[2017-06-15 13:55] LABS: HEMOGLOBIN A1C 5.3 % (4.3-6.0)
[2017-06-15] MEDS ORDERED: WARFARIN SOD 5 MG TAB PO SCH (16:00)
[2017-06-15] MEDS: DILTIAZEM-CD 120 MG CAP ER PO SCH (16:48)
[2017-06-15] MEDS ORDERED: predniSONE 20 MG TAB PO ONE (17:00)
[2017-06-15] MEDS: predniSONE 20 MG TAB PO SCH (20:07)
[2017-06-16] VITALS (26 sets, daily range): BP systolic 109–157; BP diastolic 55–75; PULSE 88–154; RESP 25–45; TEMP 97.6–98.8; O2SAT 86–93
[2017-06-16] MEDS: DILTIAZEM-CD 240 MG CAP ER PO SCH (08:09)
[2017-06-16] MEDS: RIVAROXABAN 15 MG TAB PO SCH ×2 (08:09→19:43)
[2017-06-16] MEDS: DOCUSATE SODIUM 100 MG CAP PO SCH ×2 (08:09→19:43)
[2017-06-16] MEDS: predniSONE 20 MG TAB PO SCH ×2 (08:10→19:43)
[2017-06-16] MEDS: SODIUM CHLORIDE 0.9% FLUSH 10 ML FLUSH IV FLUSH SCH ×2 (08:10→19:42)
[2017-06-16] MEDS: ASPIRIN 325 MG TAB PO SCH (08:10)
[2017-06-16] MEDS: METOPROLOL TARTRATE 25 MG TAB PO SCH ×2 (08:11→19:42)
--- NOTE | 2017-06-16 11:57 | HHI.PR ---
Subjective Remarks Echocardiogram results pending. Steroids initiated yesterday without much benefit seen thus far. Pulmonology evaluation pending. Further history, patient says that his grandmother may have had lung disease and his 26-year-old granddaughter has been diagnosed with COPD, she is not a smoker. There may be an element of familial palmar fibrosis if x-ray findings are accurate. Objective Vital Signs Date Time Temp Pulse Resp B/P (MAP) Pulse Ox O2 Delivery O2 Flow Rate FiO2 06/16/17 07:50 92 Venturi Mask 50 06/16/17 04:02 98.8 90 25 109/66 (80) 93 06/16/17 04:00 88 06/16/17 00:02 97.6 92 31 119/69 (86) 91 06/16/17 00:00 94 06/15/17 22:05 92 Venturi Mask 6.00 50 06/15/17 20:02 98.8 114 39 151/72 (98) 90 06/15/17 20:00 112 06/15/17 16:02 100 06/15/17 16:02 98.5 100 31 148/62 (90) 91 06/15/17 14:02 92 32 117/66 (83) 92 06/15/17 14:00 94 06/15/17 13:02 92 06/15/17 13:02 92 35 118/57 (77) 94 06/15/17 12:02 98.2 82 34 106/63 (77) 94 06/15/17 12:02 82 I/O 06/15/17 06/15/17 06/15/17 06/16/17 06/16/17 06/16/17 07:00 15:00 23:00 07:00 15:00 23:00 Output Total 750 ml 600 ml Balance -750 ml -600 ml Output Urine Total 750 ml 600 ml # Bowel Movements 0 Result Diagram: 06/15/17 0550 06/15/17 0550 Objective Remarks GENERAL: NAD, A&Ox3 HEAD: Normocephalic. NECK: Supple, trachea midline. No lymphadenopathy. EYES: No scleral icterus. No injection or drainage. CARDIOVASCULAR: Irregularly irregular rhythm with tachycardic rate. Without murmurs, gallops, or rubs. RESPIRATORY: Breath sounds equal bilaterally. No accessory muscle use. GASTROINTESTINAL: Abdomen soft, non-tender, nondistended. MUSCULOSKELETAL: No cyanosis, or edema. SKIN: Warm and dry. NEURO: No focal neurological deficitis. A/P Problem List: (1) Atrial fibrillation with RVR ICD Code: I48.91 - Unspecified atrial fibrillation Status: Acute (2) Generalized weakness ICD Code: R53.1 - Weakness Status: Acute Assessment and Plan 77-year-old male admitted secondary to A. fib RVR Pulmonary fibrosis may be present and contributory. Steroids initiated yesterday. Pulmonary consult pending. This is likely representing an acute exacerbation of his condition. Echocardiogram report pending which may shed further light on the situation. A. fib RVR Chest pain IV diltiazem Admit to ICU Cardiology consulted Lovenox initiated Monitor for rate control Negative ACS evaluation Follow cardiac enzymes Follow on telemetry Hyperlipidemia Continue present treatment Follow as an outpatient Hypertension Continue baseline treatment Follow blood pressures Adjust treatments as needed History of seizure Renal history in isolated, no recurrence Follow clinically DVT prophylaxis Bonifacio Varma MD Jun 16, 2017 11:57
--- NOTE | 2017-06-16 14:55 | MB ---
cc: Charly Payton MD DATE OF CONSULT: REASON FOR CONSULTATION: Possible pulmonary fibrosis. HISTORY OF PRESENT ILLNESS: The patient is a pleasant 77-year-old gentleman who came to the hospital because he was having weakness and chest pain. He was found to have atrial fibrillation with RVR. The patient does have some shortness of breath. He denied any significant wheezing or coughing. He is not aware of any previous CAT scans or history of any interstitial lung disease. He does not have any hemoptysis or sputum production. PAST MEDICAL HISTORY: Reviewed in detail. It is positive for hyperlipidemia, hypertension and seizures. MEDICATIONS: Reviewed in detail. He is on Cardizem and simvastatin. FAMILY HISTORY: Positive for cardiac arrest in his daughter. SOCIAL HISTORY: No history of smoking or alcohol use. REVIEW OF SYSTEMS: Negative except for as mentioned in the HPI. PHYSICAL EXAMINATION: VITAL SIGNS: Showed temperature 98.8, pulse 90, respiratory rate 25, blood pressure 109/66, sating 93% on 50% Ventimask. HEAD AND NECK: Atraumatic, normocephalic. Trachea midline. LUNGS: Mild basilar crackles. HEART: Normal S1, S2. ABDOMEN: Soft. It is not tender. EXTREMITIES: Trace edema. NEUROLOGIC: Alert, oriented x 3, moves all extremities. IMAGING: I reviewed his imaging. I reviewed his last chest x-ray. That did show interstitial infiltrates, more over the bases suggestive of possible pulmonary edema with possible interstitial lung disease as well. LABORATORY DATA: Reviewed. He has a WBC 10.9, hemoglobin 14.2. BUN 12, creatinine 1.1. ASSESSMENT AND PLAN: 1. Possible interstitial lung disease. 2. Atrial fibrillation with rapid ventricular response. 3. Possible congestive heart failure. I had a long discussion with the patient and at this point, to me, it is not clear how much his interstitial lung disease is contributing to his symptoms and the hypoxia. I would like the patient to be optimized from a cardiac perspective and from a volume perspective. Once he is optimized cardiac and volume , I would like to get a high resolution CAT scan that includes expiratory, inspiratory, prone and supine films. This will give us a good idea about the interstitial lung disease that he has and that will help us in our differential diagnosis. At this point, I do not recommend any steroid therapy, and I do not recommend any treatment or intervention for his possible interstitial lung disease until we finish our workup. At this point, I would like to have him optimized from a cardiac perspective. Thank you for this consultation. MD JOSH Escobar/FRANCISCO , 01:45 PM , 02:52 PM
--- NOTE | 2017-06-16 16:46 | ECHRPT ---
Indication: ATRIAL FIB AND FLUTTER CONCLUSIONS Normal left ventricular size. Wall thickness is normal. The left ventricular systolic function is low normal with an estimated ejection fraction in the rang e of 50- 55%. Trace mitral valve regurgitation. There is trace tricuspid valve regurgitation. The estimated pulmonary arterial pressure is 44 mmHg. BP: 109 / 66 HR: 92 Rhythm: MEASUREMENTS (Male / Female) Normal Values Technical Quality: 2D ECHO LV Diastolic Diameter PLAX 4.4 cm 4.2 - 5.9 / 3.9 - 5.3 cm LV Systolic Diameter PLAX 3.5 cm IVS Diastolic Thickness 0.9 cm 0.6 - 1.0 / 0.6 - 0.9 cm LVPW Diastolic Thickness 0.9 cm 0.6 - 1.0 / 0.6 - 0.9 cm LV Relative Wall Thickness 0.4 RV Internal Dim ED PLAX 2.3 cm LVOT Diameter 2.5 cm Aortic Root Diameter 3.6 cm LA Systolic Diameter LX 4.1 cm 3.0 - 4.0 / 2.7 - 3.8 cm M-MODE AV Cusp Separation MM 2.0 cm DOPPLER AV Peak Velocity 117.3 cm/s AV Peak Gradient 5.5 mmHg AV Mean Gradient 3.5 mmHg AV Velocity Time Integral 15.0 cm LVOT Peak Velocity 56.6 cm/s LVOT Peak Gradient 1.3 mmHg LVOT Velocity Time Integral 8.6 cm AV Area Cont Eq vti 2.8 cm AV Area Cont Eq pk 2.4 cm Mitral E Point Velocity 56.9 cm/s LV E' Lateral Velocity 11.0 cm/s Mitral E to LV E' Lateral Ratio 5.2 LV E' Septal Velocity 11.4 cm/s Mitral E to LV E' Septal Ratio 5.0 TR Peak Velocity 290.0 cm/s TR Peak Gradient 33.6 mmHg Right Atrial Pressure 10.0 mmHg Pulmonary Artery Systolic Pressu 43.6 mmHg Right Ventricular Systolic Press 43.6 mmHg PV Peak Velocity 81.6 cm/s PV Peak Gradient 2.7 mmHg FINDINGS LEFT VENTRICLE Normal left ventricular size. Wall thickness is normal. The left ventricular systolic function is low normal with an estimated ejection fraction in the rang e of 50- 55%. RIGHT VENTRICLE Normal right ventricular size and systolic function. LEFT ATRIUM The left atrial size is normal. RIGHT ATRIUM The right atrial size is normal. ATRIAL SEPTUM The interatrial septum not well visualized. AORTA The aortic root and proximal ascending aorta are not well visualized. MITRAL VALVE Trace mitral valve regurgitation. AORTIC VALVE Trileaflet aortic valve. No aortic valve stenosis or regurgitation. TRICUSPID VALVE There is trace tricuspid valve regurgitation. The estimated pulmonary arterial pressure is 43.6 mmHg. PULMONARY VALVE The pulmonary valve is not well visualized. VESSELS The inferior vena cava is normal in size. PERICARDIUM A prominent epicardial fat pad is present. Jef Avila MD, FACC (Electronically Signed) Final Date:16 June 2017 16:45
[2017-06-16] MEDS: DILTIAZEM-CD 120 MG CAP ER PO SCH (18:00)
[2017-06-17] VITALS (14 sets, daily range): BP systolic 98–135; BP diastolic 57–74; PULSE 92–122; RESP 22–37; TEMP 97.2–98.9; O2SAT 88–97
[2017-06-17 04:52] LABS: HEMOGLOBIN 11.9 GM/DL (13.0-17.0); MEAN CELL VOLUME 98.4 FL (80.0-100.0); MEAN CORPUSCULAR HEMOGLOBIN 32.7 PG (27.0-34.0); MEAN CORPUSCULAR HGB CONC 33.2 % (32.0-36.0); MEAN PLATELET VOLUME 10.3 FL (7.0-11.0); PLATELET COUNT 214 TH/MM3 (150-450); RED BLOOD COUNT 3.66 MIL/MM3 (4.50-5.90); RED CELL DISTRIBUTION WIDTH 14.3 % (11.6-17.2); WHITE BLOOD COUNT 10.5 TH/MM3 (4.0-11.0)
[2017-06-17 05:08] LABS: CALCIUM 8.2 MG/DL (8.5-10.1)
[2017-06-17 05:09] LABS: BICARBONATE 27.3 MEQ/L (21.0-32.0)
[2017-06-17 05:32] LABS: CREATININE 1.1 MG/DL (0.60-1.30)
[2017-06-17] MEDS: SODIUM CHLORIDE 0.9% FLUSH 10 ML FLUSH IV FLUSH SCH ×2 (09:10→21:20)
[2017-06-17] MEDS: ASPIRIN 325 MG TAB PO SCH (09:11)
[2017-06-17] MEDS: RIVAROXABAN 15 MG TAB PO SCH ×2 (09:11→21:19)
[2017-06-17] MEDS: DILTIAZEM-CD 240 MG CAP ER PO SCH (09:11)
[2017-06-17] MEDS: METOPROLOL TARTRATE 25 MG TAB PO SCH ×2 (09:11→21:20)
[2017-06-17] MEDS: DOCUSATE SODIUM 100 MG CAP PO SCH ×2 (09:11→21:00)
[2017-06-17] MEDS: predniSONE 20 MG TAB PO SCH (09:11)
--- NOTE | 2017-06-17 14:06 | HHI.PR ---
Subjective Remarks Patient seen and evaluated in follow-up for respiratory failure now known to have pulmonary fibrosis Pulmonary consult appreciated. Patient tolerating current oxygen without difficulty although he did require partial non-rebreather and Venturi mask overnight Diarrhea resolved Objective Vitals Vital Signs Date Time Temp Pulse Resp B/P (MAP) Pulse Ox O2 Delivery O2 Flow Rate FiO2 06/17/17 12:00 92 06/17/17 10:00 96 06/17/17 08:00 110 06/17/17 04:10 98.6 104 25 102/74 (83) 97 06/17/17 04:00 102 06/17/17 00:10 98.9 118 37 132/67 (88) 90 06/17/17 00:00 106 06/16/17 20:45 92 Partial Rebreather 15.00 06/16/17 20:10 97.8 138 45 148/55 (86) 87 06/16/17 20:00 154 06/16/17 17:30 115 18 17:15 150 06/16/17 17:00 140 06/16/17 16:45 146 18 16:30 130 18 16:30 130 35 157/73 (101) 92 06/16/17 16:15 134 06/16/17 16:00 132 06/16/17 16:00 123 06/16/17 16:00 98.1 06/16/17 15:00 122 06/16/17 14:00 112 I/O 06/16/17 06/16/17 06/16/17 06/17/17 06/17/17 06/17/17 07:00 15:00 23:00 07:00 15:00 23:00 Output Total 600 ml 700 ml 800 ml Balance -600 ml -700 ml -800 ml Output Urine Total 600 ml 700 ml 800 ml Result Diagram: 06/17/17 0435 06/17/17 0435 Imaging Last Impressions Chest X-Ray 06/15/17 0000 Signed Impressions: Service Date/Time: Thursday, June 15, 2017 11:04 - CONCLUSION: Stable lung exam concerning for interstitial fibrosis. Kimber Alvarez MD Objective Remarks GENERAL: This is a frail elderly gentleman CARDIOVASCULAR: Regular rate and rhythm without murmurs, gallops, or rubs. RESPIRATORY: Decreased airflow bilaterally with fine crackles GASTROINTESTINAL: Abdomen soft, non-tender, nondistended. Normal active bowel sounds MUSCULOSKELETAL: Extremities without clubbing, cyanosis, or edema. NEURO: Alert & Oriented x4 to person, place, time, situation. Moves all ext x4 A/P Problem List: (1) Atrial fibrillation with RVR ICD Code: I48.91 - Unspecified atrial fibrillation Status: Acute Plan: Patient's heart rate is improved Lovenox to bridge with Coumadin and Cardizem as tolerated Blood pressure has been running a bit low, but this appears to be normal for him Cardiology consult appreciated (2) Generalized weakness ICD Code: R53.1 - Weakness Status: Acute (3) Acute hypoxemic respiratory failure ICD Code: J96.01 - Acute respiratory failure with hypoxia Plan: Apparently from chronic fibrosis Pulmonary consult appreciated Continue with bronchodilators, continued workup in progress patient education provided at the bedside CT thorax (4) Diarrhea ICD Code: R19.7 - Diarrhea, unspecified Plan: I called lab re cdiff and apparently the patient's diarrhea has resolved enough that they never did receive a collection Discharge Planning Rehab Amaris Dee MD Jun 17, 2017 14:06
[2017-06-17] MEDS: DILTIAZEM-CD 120 MG CAP ER PO SCH (17:53)
--- NOTE | 2017-06-17 21:22 | HHI.PR ---
Subjective Remarks feekls same still hypoxic Objective Vital Signs Date Time Temp Pulse Resp B/P (MAP) Pulse Ox O2 Delivery O2 Flow Rate FiO2 06/17/17 20:00 122 06/17/17 20:00 97.2 121 22 135/64 (87) 96 06/17/17 16:00 97.6 112 27 104/57 (73) 89 06/17/17 16:00 108 06/17/17 14:00 94 06/17/17 14:00 96 27 112/72 (85) 89 06/17/17 12:00 92 06/17/17 12:00 97.4 92 27 98/71 (80) 89 06/17/17 11:30 90 Nasal Cannula 6.00 06/17/17 10:00 96 06/17/17 10:00 94 33 127/69 (88) 88 06/17/17 08:00 90 Nasal Cannula 6.00 06/17/17 08:00 97.5 114 26 118/69 (85) 90 06/17/17 08:00 110 06/17/17 07:20 96 Partial Rebreather 15.00 06/17/17 04:10 98.6 104 25 102/74 (83) 97 06/17/17 04:00 102 06/17/17 00:10 98.9 118 37 132/67 (88) 90 06/17/17 00:00 106 I/O 06/16/17 06/16/17 06/16/17 06/17/17 06/17/17 06/17/17 07:00 15:00 23:00 07:00 15:00 23:00 Intake Total 750 ml Output Total 600 ml 700 ml 800 ml 700 ml Balance -600 ml -700 ml -800 ml 50 ml Intake Oral 750 ml Output Urine Total 600 ml 700 ml 800 ml 700 ml # Bowel Movements 0 Result Diagram: 06/17/1743406/17/17434 Objective Remarks HEAD AND NECK: Atraumatic, normocephalic. Trachea midline. LUNGS: Mild basilar crackles. HEART: Normal S1, S2. ABDOMEN: Soft. It is not tender. EXTREMITIES: Trace edema., less NEUROLOGIC: Alert, oriented x 3, moves all extremities. Assessment and Plan Assessment and Plan Hypoxia ILD CHF volume overload cont current plan optimize volume status will follow up on the CT .. wean off fio2 as tolerated D/W RN at bedside .. Charly Payton MD Jun 17, 2017 21:22
[2017-06-18] VITALS (63 sets, daily range): BP systolic 66–171; BP diastolic 43–89; PULSE 89–148; RESP 17–44; TEMP 98–100.7; O2SAT 68–100
[2017-06-18] MEDS ORDERED: DILTIAZEM HCL 25 MG/5 ML VIAL IV SCH (05:00)
[2017-06-18] MEDS ORDERED: DILTIAZEM HCL 25 MG/5 ML VIAL IV ONE (05:00)
--- NOTE | 2017-06-18 05:08 | RADRPT ---
EXAM DATE/TIME: 06/18/2017 04:54 [facility] COMPARISON: CHEST SINGLE AP, June 15, 2017, 11:04. INDICATIONS : Respiratory distress. MEDICAL HISTORY : Hypertension. SURGICAL HISTORY : None. ENCOUNTER: Subsequent ACUITY: 4 - 6 days PAIN SCORE: Non-responsive. LOCATION: Bilateral chest FINDINGS: The hemidiaphragms and costophrenic angles are not included in the [id number] of the exam. There is ill-defined patchy infiltrates in the left lower lung which have similar features prior portable c hest. The heart is mildly enlarged and the descending thoracic aorta is tortuous, similar to prior.. CONCLUSION: Patchy infiltrates in the left lower lung. Hemidiaphragms and costophrenic angles are not included i n the [id number]. Alexys Laurent MD on June 18, 2017 at 5:05 Board Certified Radiologist. This report was verified electronically.
[2017-06-18 05:29] LABS: AUTOMATED NEUTROPHIL # 11.9 TH/MM3 (1.8-7.7); BASOPHIL # 0.3 TH/MM3 (0-0.2); BASOPHIL % 2.1 % (0.0-2.0); LYMPHOCYTE # 1.1 TH/MM3 (1.0-4.8); MEAN CELL VOLUME 97.5 FL (80.0-100.0); MEAN CORPUSCULAR HEMOGLOBIN 32.6 PG (27.0-34.0); MEAN CORPUSCULAR HGB CONC 33.5 % (32.0-36.0); MEAN PLATELET VOLUME 9.5 FL (7.0-11.0); MONO % 7.2 % (0.0-8.0); NEUT % 82.7 % (16.0-70.0); PLATELET COUNT 236 TH/MM3 (150-450); RED BLOOD COUNT 3.38 MIL/MM3 (4.50-5.90); RED CELL DISTRIBUTION WIDTH 14.3 % (11.6-17.2); WHITE BLOOD COUNT 14.3 TH/MM3 (4.0-11.0)
[2017-06-18] MEDS ORDERED: SODIUM CHLORIDE 0.9% 500 ML- REPEAT BAG IV ONE (05:45)
[2017-06-18] MEDS ORDERED: SODIUM CHLORIDE 0.9% 500 ML IV ONE (05:45)
[2017-06-18 05:51] LABS: CHLORIDE 104 MEQ/L (98-107); SODIUM (NA) 140 MEQ/L (136-145)
[2017-06-18 05:56] LABS: CALCIUM 8.2 MG/DL (8.5-10.1)
[2017-06-18] MEDS ORDERED: PANTOPRAZOLE 80 MG/35 ML NS - BOLUS IV ONE ×2 (06:00)
[2017-06-18] MEDS: PANTOPRAZOLE 80 MG/100 ML NS IV SCH ×4 (06:00→15:39)
[2017-06-18 06:11] LABS: LACTIC ACID SEPSIS PROTOCOL 2.5 mmol/L (0.4-2.0)
[2017-06-18 06:16] LABS: BANDS 5 % (0-6); LYMPHOCYTES 9 % (9-44); MONOCYTES 12 % (0-8); NEUTROPHIL # MANUAL DIFF 11.3 TH/MM3 (1.8-7.7); POLYS (SEG NEUTROPHILS) 74 % (16-70)
[2017-06-18 06:19] LABS: ALBUMIN 2.1 GM/DL (3.4-5.0); ALKALINE PHOSPHATASE 68 U/L (45-117); ALT (GPT) 67 U/L (12-78); AST (GOT) 140 U/L (15-37); BICARBONATE 26.1 MEQ/L (21.0-32.0); BLOOD UREA NITROGEN 67 MG/DL (7-18); GLOMERULAR FILTRATION RATE 72 ML/MIN (>89); GLUCOSE,RANDOM 135 MG/DL (74-106); TOTAL BILIRUBIN ADULT 0.4 MG/DL (0.2-1.0); TOTAL PROTEIN 6.3 GM/DL (6.4-8.2); TROPONIN I LESS THAN 0.02 NG/ML (0.02-0.05)
--- NOTE | 2017-06-18 06:32 | RADRPT ---
EXAM DATE/TIME: 06/18/2017 05:38 [facility] COMPARISON: CHEST SINGLE AP, June 15, 2017, 11:04. CHEST SINGLE AP, June 18, 2017, 4:54. INDICATIONS : Short of breath. RADIATION DOSE: 19.70 CTDIvol (mGy) MEDICAL HISTORY : Cardiovascular disease. Seizures. SURGICAL HISTORY : None. ENCOUNTER: Initial ACUITY: 2 days PAIN SCALE: 0/10 LOCATION: chest TECHNIQUE: Volumetric scanning of the chest was performed. Using automated exposure control and adjustment of t he mA and/or kV according to patient size, radiation dose was kept as low as reasonably achievable to obtain optimal diagnostic quality images. DICOM format image data is available electronically for r eview and comparison. Follow-up recommendations for detected pulmonary nodules are based at a minimum on nodule size and pa tient risk factors according to Fleischner Society Guidelines. FINDINGS: LUNGS: Bilateral lower lobe consolidation with air bronchograms involving portions of the basal segments gt aterally; the consolidation is larger on the left than on the right. The upper lobes are clear. No evidence of pneumothorax. PLEURAE: There is no pleural thickening or pleural effusion. MEDIASTINUM: The heart and great vessels demonstrate no acute abnormality. There is no mediastinal or hilar lymph adenopathy. AXILLAE: Within normal limits. No lymphadenopathy. MUSCULOSKELETAL: Within normal limits for patient age. MISCELLANEOUS: The visualized upper abdominal organs demonstrate no acute abnormality. CONCLUSION: 1. Bilateral lower lobe multisegmental consolidative infiltrates, left larger than right. Alexys Laurent MD on June 18, 2017 at 6:29 Board Certified Radiologist. This report was verified electronically.
[2017-06-18] MEDS ORDERED: ETOMIDATE 20 MG/10 ML VIAL ONE (07:17)
[2017-06-18] MEDS ORDERED: PROPOFOL 500 MG/50 ML INJ 50 ML ONE (07:18)
[2017-06-18] MEDS: MIDAZOLAM HCL 5 MG/ML VIAL (1 ML) ONE (07:29)
[2017-06-18] MEDS ORDERED: VANCOMYCIN 1,000 MG/NS 250 ML IV ONE ×2 (07:30)
[2017-06-18] MEDS ORDERED: PIPERACILLIN/TAZ 4.5 GM VIAL 4.5 GM in SODIUM CHLORIDE 0.9% INJ 100 ML IV ONE (08:00)
[2017-06-18] MEDS ORDERED: SUCCINYLCHOLINE CHLORIDE 200 MG/10 ML VIAL IV ONE (08:00)
[2017-06-18] MEDS ORDERED: ETOMIDATE 20 MG/10 ML VIAL IV PUSH ONE (08:00)
[2017-06-18] MEDS ORDERED: MIDAZOLAM HCL 5 MG/5 ML VIAL IV ONE (08:00)
--- NOTE | 2017-06-18 08:12 | RADRPT ---
EXAM DATE/TIME: 06/18/2017 07:45 [facility] COMPARISON: CHEST SINGLE AP, June 18, 2017, 4:54. INDICATIONS : Post intubation. MEDICAL HISTORY : Cardiovascular disease. Hypertension SURGICAL HISTORY : None. ENCOUNTER: Subsequent ACUITY: 4 - 6 days PAIN SCORE: Non-responsive. LOCATION: Bilateral chest FINDINGS: A single view of the chest is again limited as bases are not completely included on this exam. Patchy bibasilar airspace disease is again identified possibly some developing right perihilar infiltrate a s well. As the costophrenic angles are not included on this image, cannot evaluate for effusions. Hea rt size is normal. Endotracheal tube is appropriately positioned above the lobito the level of the cl avicular heads. Nasogastric tube enters the stomach at the GE junction is not included on this image and therefore, cannot determine the distal extent. CONCLUSION: 1. Bibasilar patchy airspace disease and possibly some developing right perihilar infiltrate as well. 2. Endotracheal tube with the tip at the clavicular heads. 3. Limited exam. Bases are incompletely evaluated. Amish Bush MD on June 18, 2017 at 8:06 Board Certified Radiologist. This report was verified electronically.
[2017-06-18] MEDS: fentaNYL DRIP 250 ML IV PRN (08:20)
[2017-06-18] MEDS: MIDAZOLAM 100 MG/100 ML INJ 100 ML IV PRN ×2 (08:20→18:35)
[2017-06-18] MEDS: DILTIAZEM 125 MG/NS 100 ML IV PRN ×4 (08:20→16:16)
[2017-06-18] MEDS: DOCUSATE SODIUM 100 MG CAP PO SCH ×2 (09:00→19:42)
[2017-06-18] MEDS: DILTIAZEM-CD 240 MG CAP ER PO SCH (09:00)
--- NOTE | 2017-06-18 09:01 | PD ---
Physical Exam Date Seen by Provider: Jun 18, 2017 Time Seen by Provider: 04:37 Narrative GENERAL: Well-developed well-nourished pale adult male in moderate respiratory distress with tachypnea; on rn cardiac with atrial fibrillation with RVR and systolic pressure hypotensive; GCS 15 SKIN: Warm and dry. HEAD: Normocephalic. EYES: No scleral icterus. No injection or drainage. NECK: Supple, trachea midline. No JVD or lymphadenopathy. CARDIOVASCULAR: Increased irregularly irregular rate and rhythm without murmurs , gallops, or rubs. RESPIRATORY: Breath sounds equal bilaterally. No accessory muscle use. GASTROINTESTINAL: Abdomen soft, non-tender, nondistended. Rectal exam: Normal sphincter tone melanotic stool on glove briskly Hemoccult positive MUSCULOSKELETAL: No cyanosis, or edema. BACK: Nontender without obvious deformity. No CVA tenderness. Data Data Orders Orders Electrocardiogram (06/13/17 10:02) Basic Metabolic Panel (Bmp) (06/13/17 10:02) Ckmb (Isoenzyme) Profile (06/13/17 10:02) Complete Blood Count With Diff (06/13/17 10:02) Magnesium (Mg) (06/13/17 10:02) Prothrombin Time / Inr (Pt) (06/13/17 10:02) Act Partial Throm Time (Ptt) (06/13/17 10:02) Troponin I (06/13/17 10:02) Chest, Single Ap (06/13/17 10:02) Ecg Monitoring (06/13/17 10:02) Iv Access Insert/Monitor (06/13/17 10:02) Oximetry (06/13/17 10:02) Aspirin (Aspirin) (06/13/17 10:15) Sodium Chloride 0.9% Flush (Ns Flush) (06/13/17 10:15) Diltiazem Inj (Cardizem Inj) (06/13/17 10:15) Diltiazem Inj (Cardizem Inj) (06/13/17 11:00) Sodium Chloride 0.9% Flush (Ns Flush) (06/13/17 11:00) Diltiazem Inj (Cardizem Inj) (06/13/17 11:00) Admit Order (Ed Use Only) (06/13/17 11:16) Labs Laboratory Tests Test 06/13/17 09:50 White Blood Count 15.0 TH/MM3 Red Blood Count 4.61 MIL/MM3 Hemoglobin 15.2 GM/DL Hematocrit 45.2 % Mean Corpuscular Volume 97.9 FL Mean Corpuscular Hemoglobin 33.0 PG Mean Corpuscular Hemoglobin Concent 33.7 % Red Cell Distribution Width 14.1 % Platelet Count 180 TH/MM3 Mean Platelet Volume 9.5 FL Neutrophils (%) (Auto) 81.2 % Lymphocytes (%) (Auto) 6.4 % Monocytes (%) (Auto) 7.6 % Eosinophils (%) (Auto) 0.0 % Basophils (%) (Auto) 4.8 % Neutrophils # (Auto) 12.2 TH/MM3 Lymphocytes # (Auto) 1.0 TH/MM3 Monocytes # (Auto) 1.1 TH/MM3 Eosinophils # (Auto) 0.0 TH/MM3 Basophils # (Auto) 0.7 TH/MM3 CBC Comment AUTO DIFF Differential Total Cells Counted 100 Neutrophils % (Manual) 85 % Band Neutrophils % 4 % Lymphocytes % 5 % Monocytes % 6 % Neutrophils # (Manual) 13.4 TH/MM3 Differential Comment FINAL DIFF MANUAL Platelet Estimate NORMAL Platelet Morphology Comment NORMAL Prothrombin Time 11.3 SEC Prothromb Time International Ratio 1.1 RATIO Activated Partial Thromboplast Time 32.6 SEC Blood Urea Nitrogen 12 MG/DL Creatinine 1.10 MG/DL Random Glucose 122 MG/DL Calcium Level 9.1 MG/DL Magnesium Level 1.9 MG/DL Sodium Level 136 MEQ/L Potassium Level 3.8 MEQ/L Chloride Level 100 MEQ/L Carbon Dioxide Level 26.4 MEQ/L Anion Gap 10 MEQ/L Estimat Glomerular Filtration Rate 65 ML/MIN Total Creatine Kinase 80 U/L Troponin I LESS THAN 0.02 NG/ML [facility] Medical Record Reviewed: Yes Supervised Visit with SONAM: No Differential Diagnosis Atrial fibrillation with RVR, acute respiratory distress impending respiratory failure hypoxemia hypotension GI bleed sepsis; also to consider pulmonary embolism pulmonary edema [facility] Narrative Course Asked to see patient as part of evaluation for [place] patient identified to be in acute distress with BiPAP in place with hypotension and atrial fibrillation with RVR patient with GCS of 15; patient denying any pain; patient administered fluid bolus; chest x-ray ordered along with CBC and metabolic panel troponin CK coagulation studies lactic acid blood culture and ABG; patient identifies ABG to show respiratory alkalosis with hypoxemia patient receiving fluid challenge with improving O2 saturations by rn cardiac and pulse oximetry rate reduction blood pressure elevation; patient's case discussed with managing admission physician Dr. Haji and body engineer Dr. Michel Patient's care transferred back over to Dr. Zarate with plan for care to be transferred to body engineer; plan for patient to be seen this am by body engineer. Patient with ongoing respiratory distress and ongoing tachypnea and work of breathing repeat ABG shows patient with minimal improvement of O2 saturation 100 % BiPAP therefore plan was made to intubate patient patient desirous of intubation and agrees to proceeding with intubation for ongoing problem management. [employer] notified patient has undergone intubation [facility] MD notified of body engineer request patient to be transferred emergently to [facility] Central line placed by Dr Schwartz Procedures Procedure Narrative After the risks and benefits were discussed the following procedure was performed: INTUBATION: The patient was put in optimal position for the procedure. Rapid sequence intubation was initiated by in using 20 milligrams of etomidate IV and 100milligrams of succinyl choline IV. The patient was intubated with a 7.5 cuffed endotracheal tube. Tube placement was confirmed by visualization of the tube and balloon passing through the cords, capnometry and subsequent chest x- ray. Breath sounds were equal and well aerated bilaterally postintubation. No breath sounds over stomach. Patient tolerated procedure well. Postintubation chest x-ray ordered Physician Communication Physician Communication discussed to body engineer and [facility] Diagnosis Primary Impression: Atrial fibrillation with RVR Additional Impressions: Generalized weakness Acute hypoxemic respiratory failure GIB (gastrointestinal bleeding) Qualified Codes: K92.2 - Gastrointestinal hemorrhage, unspecified Amy López MD Jun 18, 2017 09:01
--- NOTE | 2017-06-18 09:05 | PD ---
Physical Exam Narrative CENTRAL VENOUS LINE: The site was prepped with chlorohexidine and sterilely draped. It was infiltrated with 1% lidocaine plain. The deep vein was visualized by ultrasound and cannulated using normal Seldinger technique. A central line was placed in the right femoral site and secured with simple interrupted suture. The site was sterilely dressed. The patient tolerated the procedure well. Data Data Orders Orders Electrocardiogram (06/13/17 10:02) Basic Metabolic Panel (Bmp) (06/13/17 10:02) Ckmb (Isoenzyme) Profile (06/13/17 10:02) Complete Blood Count With Diff (06/13/17 10:02) Magnesium (Mg) (06/13/17 10:02) Prothrombin Time / Inr (Pt) (06/13/17 10:02) Act Partial Throm Time (Ptt) (06/13/17 10:02) Troponin I (06/13/17 10:02) Chest, Single Ap (06/13/17 10:02) Ecg Monitoring (06/13/17 10:02) Iv Access Insert/Monitor (06/13/17 10:02) Oximetry (06/13/17 10:02) Aspirin (Aspirin) (06/13/17 10:15) Sodium Chloride 0.9% Flush (Ns Flush) (06/13/17 10:15) Diltiazem Inj (Cardizem Inj) (06/13/17 10:15) Diltiazem Inj (Cardizem Inj) (06/13/17 11:00) Sodium Chloride 0.9% Flush (Ns Flush) (06/13/17 11:00) Diltiazem Inj (Cardizem Inj) (06/13/17 11:00) Admit Order (Ed Use Only) (06/13/17 11:16) Labs Laboratory Tests Test 06/13/17 09:50 White Blood Count 15.0 TH/MM3 Red Blood Count 4.61 MIL/MM3 Hemoglobin 15.2 GM/DL Hematocrit 45.2 % Mean Corpuscular Volume 97.9 FL Mean Corpuscular Hemoglobin 33.0 PG Mean Corpuscular Hemoglobin Concent 33.7 % Red Cell Distribution Width 14.1 % Platelet Count 180 TH/MM3 Mean Platelet Volume 9.5 FL Neutrophils (%) (Auto) 81.2 % Lymphocytes (%) (Auto) 6.4 % Monocytes (%) (Auto) 7.6 % Eosinophils (%) (Auto) 0.0 % Basophils (%) (Auto) 4.8 % Neutrophils # (Auto) 12.2 TH/MM3 Lymphocytes # (Auto) 1.0 TH/MM3 Monocytes # (Auto) 1.1 TH/MM3 Eosinophils # (Auto) 0.0 TH/MM3 Basophils # (Auto) 0.7 TH/MM3 CBC Comment AUTO DIFF Differential Total Cells Counted 100 Neutrophils % (Manual) 85 % Band Neutrophils % 4 % Lymphocytes % 5 % Monocytes % 6 % Neutrophils # (Manual) 13.4 TH/MM3 Differential Comment FINAL DIFF MANUAL Platelet Estimate NORMAL Platelet Morphology Comment NORMAL Prothrombin Time 11.3 SEC Prothromb Time International Ratio 1.1 RATIO Activated Partial Thromboplast Time 32.6 SEC Blood Urea Nitrogen 12 MG/DL Creatinine 1.10 MG/DL Random Glucose 122 MG/DL Calcium Level 9.1 MG/DL Magnesium Level 1.9 MG/DL Sodium Level 136 MEQ/L Potassium Level 3.8 MEQ/L Chloride Level 100 MEQ/L Carbon Dioxide Level 26.4 MEQ/L Anion Gap 10 MEQ/L Estimat Glomerular Filtration Rate 65 ML/MIN Total Creatine Kinase 80 U/L Troponin I LESS THAN 0.02 NG/ML MDM Supervised Visit with SONAM: Yes Diagnosis Primary Impression: Atrial fibrillation with RVR Additional Impressions: GIB (gastrointestinal bleeding) Qualified Codes: K92.2 - Gastrointestinal hemorrhage, unspecified Generalized weakness Acute hypoxemic respiratory failure Uri Schwartz MD Jun 18, 2017 09:05
[2017-06-18] MEDS ORDERED: CHLORHEXIDINE GLUCONATE 2 % 1 PACK (2 CLOTHS)(extra cloths) TOPICAL PRN (09:30)
[2017-06-18] MEDS ORDERED: ROCURONIUM INJ 50 MG/5 ML VIAL ONE (10:57)
--- NOTE | 2017-06-18 11:22 | RADRPT ---
EXAM DATE/TIME: 06/18/2017 10:56 [place] COMPARISON: CHEST SINGLE AP, June 18, 2017, 7:45. INDICATIONS : Hypoxia. Respiratory failure. MEDICAL HISTORY : Cardiovascular disease. Hypertension SURGICAL HISTORY : None. ENCOUNTER: Subsequent ACUITY: 4 - 6 days PAIN SCORE: Non-responsive. LOCATION: Bilateral chest FINDINGS: The endotracheal tube and NG tube remain in place. There is no pneumothorax. There continues to be sc attered pulmonary infiltrates in both lung bases without significant change compared to the prior italo dy. No significant pleural effusions. The heart size is stable. The bony structures are stable. CONCLUSION: No significant interval change. Slade Olivo MD on June 18, 2017 at 11:18 Board Certified Radiologist. This report was verified electronically.
[2017-06-18] MEDS ORDERED: Vancomycin Consult Pharmacy 1 EA OTHER SCH (11:30)
--- NOTE | 2017-06-18 11:40 | PD.CONS ---
[facility] Service Critical Care Medicine Consult Requested By Hospitalist service Reason for Consult Acute hypoxic respiratory failure Primary Care Physician Jaky Ragland MD History of Present Illness 77-year-old gentleman with history of hypertension, hyperlipidemia, atrial fibrillation, COPD now admitted on 06/13 in [place] with generalized worsening weakness and chest pain. Patient was treated with Cardizem drip and cardiology was consulted. Throughout the hospitalization patient had a gradual worsening hypoxia requiring nonrebreather mask and BiPAP. Pulmonology was consulted and patient had a CT chest that showed possible ILD and pneumonia. This morning patient was found to be in acute respiratory distress that did not respond to BiPAP at 100%, therefore patient was intubated. Patient was also hypotensive and responded to IV fluid bolus. He received 1 dose of vancomycin and 1 dose of Zosyn. There was a report of GI bleed and 2 units PRBC were ordered and 1 unit was transfused already, and patient was started on a PPI drip , however there is no clear documentation about the episode. Patient was transferred to [facility] for further care. Patient was seen immediately on his arrival, hypoxic to low 80s, on PEEP of 5 and FiO2 of 1. Due to vent dyssynchrony and worsening hypoxia patient required 1 dose of paralytic. Stat chest x-ray done did not show evidence of pneumothorax. Vent settings readjusted currently FiO2 of 0.9 and O2 sat of 91%. He is on Cardizem drip at 15 mg/h, on midazolam and fentanyl drips. Review of Systems ROS Limitations: Intubated Past Family Social History Allergies: Coded Allergies: No Known Allergies (Unverified Allergy, Unknown, 06/13/17) Past Medical History Hypertension Hyperlipidemia Atrial fibrillation Right bundle branch block Aortic and mitral regurgitation COPD Past Surgical History None documented Reported Medications Reported Meds & Active Scripts Active Reported [Blood Thinner] Simvastatin 20 Mg Tab 20 Mg PO DAILY Cardizem CD 24 HR (Diltiazem CD 24 HR) 240 Mg Caper 240 Mg PO AM Cardizem (Diltiazem HCl) 120 Mg Tab 120 Mg PO QID Active Ordered Medications Current Medications Medications (Trade) Dose Ordered Sig/Low Route Start Time Stop Time Status Last Admin (NS Flush) 2 ml UNSCH PRN IV FLUSH 06/13/17 11:30 (NS Flush) 2 ml BID IV FLUSH 06/13/17 21:00 06/17/17 21:20 (Zofran Inj) 4 mg Q6H PRN IVP 06/13/17 12:00 (Narcan Inj) 0.4 mg UNSCH PRN IV PUSH 06/13/17 11:30 (Aspirin) 325 mg DAILY PO 06/15/17 09:00 Future Hold 06/17/17 09:11 (Nitrostat Sl) 0.4 mg Q5M PRN SL 06/13/17 13:00 (Morphine Inj) 2 mg Q3H PRN IV PUSH 06/13/17 13:00 (Morphine Inj) 4 mg Q3H PRN IV PUSH 06/13/17 13:00 (Cardizem Cd) 240 mg DAILY PO 06/14/17 09:00 06/17/17 09:11 (Cardizem Cd) 120 mg WITH DINNER PO 06/14/17 18:00 06/17/17 17:53 (Lopressor) 25 mg Q12HR PO 06/14/17 09:00 Future Hold 06/17/17 21:20 (Colace) 100 mg BID PO 06/14/17 21:00 06/17/17 21:00 (Milk Of Magnesia Liq) 30 ml DAILY PRN PO 06/14/17 17:45 (Xarelto) 15 mg BID PO 06/15/17 11:00 Future Hold 06/17/17 21:19 Pantoprazole Sodium 80 mg/ Sodium Chloride 100 ml @ 10 mls/hr Q10H IV 06/18/17 07:00 06/18/17 06:00 Diltiazem HCl 125 mg/Sodium Chloride 125 ml @ 5 mls/hr TITRATE PRN IV 06/18/17 07:00 06/18/17 08:20 Fentanyl Citrate 250 ml @ 5 mls/hr TITRATE PRN IV 06/18/17 08:00 06/18/17 08:20 Midazolam HCl 100 ml @ 2 mls/hr TITRATE PRN IV 06/18/17 08:00 06/18/17 08:20 Miscellaneous Information Patient in critical care unit? Ass... [id number] .XX 06/18/17 10:00 (Chlorhexidine 2% Cloth) 3 pack DAILY@04 TOPICAL 06/19/17 04:00 06/23/17 04:01 (Chlorhexidine 2% Cloth) 3 pack UNSCH PRN TOPICAL 06/18/17 09:30 06/23/17 09:18 (Peridex 0.12% Liq) 15 ml BID@08,20 MT 06/18/17 20:00 Pharmacy Profile Note 0 ml @ 0 mls/hr UNSCH OTHER 06/18/17 11:30 UNV Piperacillin Sod/ Tazobactam Sod 100 ml @ 200 mls/hr Q6H IV 06/18/17 11:30 UNV (Atrovent Neb) 0.5 mg Q4HR NEB NEB 06/18/17 12:00 UNV Family History Unobtainable, patient is intubated Social History Unobtainable, patient is intubated Physical Exam Vital Signs Vital Signs Date Time Temp Pulse Resp B/P (MAP) Pulse Ox O2 Delivery O2 Flow Rate FiO2 06/18/17 10:55 85 100 06/18/17 09:58 130 34 76/58 (64) 92 06/18/17 09:53 132 33 107/61 (76) 93 06/18/17 09:48 128 33 81/46 (58) 92 06/18/17 09:44 100.0 131 33 93/48 92 06/18/17 09:43 130 35 93/48 (63) 92 06/18/17 09:38 138 34 96/64 (75) 93 06/18/17 09:33 140 33 92/60 (71) 93 06/18/17 09:28 132 33 97/58 (71) 94 06/18/17 09:23 132 30 81/48 (59) 95 06/18/17 09:18 134 29 96/57 (70) 95 06/18/17 09:13 130 30 101/64 (76) 94 06/18/17 09:08 132 30 66/52 (57) 94 06/18/17 09:03 138 32 85/64 (71) 94 06/18/17 08:58 132 31 98/60 (73) 92 06/18/17 08:53 136 32 90/51 (64) 91 06/18/17 08:50 138 30 90 06/18/17 08:48 134 32 78/47 (57) 89 06/18/17 08:43 140 28 93/48 (63) 86 06/18/17 08:38 136 26 98/55 (69) 90 318 08:33 136 29 110/66 (81) 95 18 08:28 134 30 110/62 (78) 94 3 08:23 140 31 114/69 (84) 95 318 08:20 130 110/66 3/18 08:18 138 35 118/71 (87) 96 06/18/17 08:13 132 31 104/78 (87) 95 06/18/17 08:08 132 33 113/67 (82) 96 06/18/17 08:03 130 29 91/54 (66) 95 06/18/17 07:58 126 30 100/56 (71) 95 06/18/17 07:55 124 32 66/46 (53) 92 06/18/17 07:53 124 34 93/83 (86) 91 06/18/17 07:45 124 23 171/81 (111) 94 06/18/17 07:45 97 100 06/18/17 07:38 124 17 156/73 (100) 93 06/18/17 07:30 128 38 98/60 (73) 100 06/18/17 07:20 136 37 127/65 (85) 97 06/18/17 07:15 132 37 119/63 (81) 68 06/18/17 07:00 136 39 98/55 (69) 94 18 06:45 128 36 121/63 (82) 93 18 06:39 128 34 111/60 (77) 93 06/18/17 06:30 99.3 128 34 134/61 (85) 96 06/18/17 06:15 134 38 99/59 (72) 93 18 06:06 132 39 75/61 (66) 93 18 05:51 130 37 105/60 (75) 89 06/18/17 05:23 120 38 116/74 (88) 98 06/18/17 05:06 140 32 112/62 (79) 95 18 05:00 144 39 99/59 (72) 91 18 04:54 142 40 103/59 (74) 92 18 04:49 148 41 93/58 (70) 93 06/18/17 04:15 90 100 3 04:14 140 06/18/17 04:11 99.2 138 33 137/65 (89) 91 06/18/17 03:50 140 38 139/61 (87) 89 06/18/17 03:00 124 32 139/61 (87) 90 06/18/17 02:52 98.6 128 34 113/69 (84) 91 06/18/17 02:11 124 31 89/63 (72) 92 06/18/17 00:00 100.7 112 30 110/70 (83) 93 06/18/17 00:00 94 06/17/17 23:00 106 30 114/66 (82) 96 06/17/17 20:30 93 Partial Rebreather 15.00 06/17/17 20:00 122 06/17/17 20:00 97.2 121 22 135/64 (87) 96 06/17/17 19:50 Partial Rebreather 15.00 06/17/17 16:00 97.6 112 27 104/57 (73) 89 06/17/17 16:00 108 06/17/17 14:00 94 06/17/17 14:00 96 27 112/72 (85) 89 06/17/17 12:00 92 06/17/17 12:00 97.4 92 27 98/71 (80) 89 Physical Exam General - elderly gentleman intubated and sedated, ill-appearing HEENT - pupils equal, reactive, sclerae anicteric, neck supple, no nuchal rigidity, neck veins not distended, no carotid bruit, + ETT, + NGT, dried blood around the nose CV - irregular S1, S2, no murmurs, distant, tachycardic Chest - rales at bases, decreased air entry bilateral, no wheezes Abdomen - soft, appears non-tender, distended, BS present, no hepatomegaly, no splenomegaly appreciated Skin - no rashes, no cyanosis Extremities - warm and well perfused, 2+ edema, + peripheral pulses, no clubbing Neuro - limited, intubated, sedated, paralyzed, pupils equal and reactive Laboratory Laboratory Tests Test 06/18/17 04:45 06/18/17 05:00 06/18/17 05:03 06/18/17 07:18 Blood Gas Puncture Site RT BRACHIAL RT RADIAL Blood Gas Patient Temperature 37.0 37.0 Blood Gas HCO3 27 25 Blood Gas Base Excess 3.2 1.3 Blood Gas Oxygen Saturation 92 94 Arterial Blood pH 7.46 7.42 Arterial Blood Partial Pressure CO2 38 40 Arterial Blood Partial Pressure O2 65 82 Arterial Blood Oxygen Content 13.9 13.2 Arterial Blood Carboxyhemoglobin 1.2 1.1 Arterial Blood Methemoglobin 1.0 1.2 Blood Gas Hemoglobin 10.8 9.9 Oxygen Delivery Device BIPAP BIPAP Blood Gas Ventilator Setting IPAP 15/EPAP 5 IPAP 15/EPAP 5 Blood Gas Inspired Oxygen 100 100 White Blood Count 14.3 Red Blood Count 3.38 Hemoglobin 11.0 Hematocrit 33.0 Mean Corpuscular Volume 97.5 Mean Corpuscular Hemoglobin 32.6 Mean Corpuscular Hemoglobin Concent 33.5 Red Cell Distribution Width 14.3 Platelet Count 236 Mean Platelet Volume 9.5 Neutrophils (%) (Auto) 82.7 Lymphocytes (%) (Auto) 8.0 Monocytes (%) (Auto) 7.2 Eosinophils (%) (Auto) 0.0 Basophils (%) (Auto) 2.1 Neutrophils # (Auto) 11.9 Lymphocytes # (Auto) 1.1 Monocytes # (Auto) 1.0 Eosinophils # (Auto) 0.0 Basophils # (Auto) 0.3 CBC Comment AUTO DIFF Differential Total Cells Counted 100 Neutrophils % (Manual) 74 Band Neutrophils % 5 Lymphocytes % 9 Monocytes % 12 Neutrophils # (Manual) 11.3 Differential Comment FINAL DIFF MANUAL Platelet Estimate NORMAL Platelet Morphology Comment CLUMPED Red Cell Morphology Comment NORMAL Blood Urea Nitrogen 67 Creatinine 1.00 Random Glucose 135 Total Protein 6.3 Albumin 2.1 Calcium Level 8.2 Alkaline Phosphatase 68 Aspartate Amino Transf (AST/SGOT) 140 Alanine Aminotransferase (ALT/SGPT) 67 Total Bilirubin 0.4 Sodium Level 140 Potassium Level 4.5 Chloride Level 104 Carbon Dioxide Level 26.1 Anion Gap 10 Estimat Glomerular Filtration Rate 72 Total Creatine Kinase 167 Creatine Kinase MB 0.8 Troponin I LESS THAN 0.02 B-Type Natriuretic Peptide 169 Lactic Acid Level 2.5 Test 06/18/17 08:30 Blood Gas Puncture Site LT RADIAL Blood Gas Patient Temperature 37.0 Blood Gas HCO3 25 Blood Gas Base Excess 0.0 Blood Gas Oxygen Saturation 92 Arterial Blood pH 7.37 Arterial Blood Partial Pressure CO2 44 Arterial Blood Partial Pressure O2 75 Arterial Blood Oxygen Content 13.9 Arterial Blood Carboxyhemoglobin 0.9 Arterial Blood Methemoglobin 1.1 Blood Gas Hemoglobin 10.7 Oxygen Delivery Device VENTILATOR Blood Gas Ventilator Setting 24/600/PEEP5 Blood Gas Inspired Oxygen 100 Date/Time Source Procedure Growth Status 06/18/17 05:10 Blood Arterial Line Aerobic Blood Culture Pending Received 06/18/17 05:10 Blood Arterial Line Anaerobic Blood Culture Pending Received Result Diagram: 06/18/17 0500 06/18/17 0500 Imaging Last Impressions Chest X-Ray 06/18/17 0000 Signed Impressions: Service Date/Time: Sunday, June 18, 2017 10:56 - CONCLUSION: No significant interval change. Slade Olivo MD Chest CT 06/18/17 0000 Signed Impressions: Service Date/Time: Sunday, June 18, 2017 05:38 - CONCLUSION: 1. Bilateral lower lobe multisegmental consolidative infiltrates, left larger than right. Alexys Laurent MD Assessment and Plan Assessment and Plan 1. Acute severe hypoxic respiratory failure 2. Bibasilar pneumonia 3. Atrial fibrillation with RVR 4. Lactic acidosis 5. GI bleed 6. ILD 7. COPD 1. Ventilator settings readjusted, PEEP of 12, PIP of 28, patient synchronized with the vent post paralysis, no auto PEEP 2. Place arterial line and repeat ABG 3. Ventilator bundle and bronchodilators with ipratropium and levalbuterol 4. Start vancomycin and Zosyn 4.5 g every 6 hours 5. Send additional blood cultures, UA and urine culture, sputum culture, Legionella urinary antigen, influenza antigen 6. Repeat lactic acid, troponin, H&H post PRBC transfusion 7. Continue Cardizem drip 8. Hold anticoagulation in the setting of GI bleed 9. On pantoprazole infusion 10. GI consult 11. Patient has a femoral central line. We will continue for now and will place a neck Iine the next 48 hours 12. GI prophylaxis addressed 13. DVT prophylaxis with SCDs 14. Patient followed by cardiology and pulmonary I spent 45 minutes of critical care time managing life-threatening hypoxia, antibiotics, IV fluids, sedation, reviewing data and ordering labs, discussing with nursing staff and respiratory therapist. Patient is critically ill with severe hypoxic respiratory failure, pneumonia, underlying ILD and COPD and he is at extremely high risk for further deterioration and . No family present at bedside. Addendum: Patient was seen multiple times throughout the day. Arterial line was placed for frequent blood gas. Patient became increasingly hypotensive not requiring phenylephrine infusion due to A. fib with RVR. We will stop Cardizem drip and start amiodarone. We will add digoxin if heart rate remains uncontrolled. Continue phenylephrine support to keep map above 65. Vent settings readjusted based on last blood gas. Discussed in detail patient's critical condition with and daughter present at bedside and patient's high likelihood of further clinical worsening and . Mrs. Lugo was called earlier for an update regarding patient's condition and expressed that based on patient's prior wishes in case his heart would stop he would not want to be resuscitated. We will respect patient's wishes and place a DNR order. We will continue all the other supportive care. Bruno Chilel MD Jun 18, 2017 11:40
[2017-06-18] MEDS ORDERED: ROCURONIUM INJ 50 MG/5 ML VIAL IV PUSH ONE (12:45)
[2017-06-18] MEDS: SODIUM CHLORIDE 0.9% FLUSH 10 ML FLUSH IV FLUSH SCH ×2 (12:51→19:43)
[2017-06-18 12:54] LABS: AUTOMATED NEUTROPHIL # 12.9 TH/MM3 (1.8-7.7); BASOPHIL % 0.1 % (0.0-2.0); EOSINOPHIL % 0.1 % (0.0-4.0); HEMATOCRIT 34.2 % (39.0-51.0); HEMOGLOBIN 11.1 GM/DL (13.0-17.0); LYMPHOCYTE # 1.6 TH/MM3 (1.0-4.8); MEAN CELL VOLUME 98.3 FL (80.0-100.0); MEAN CORPUSCULAR HEMOGLOBIN 31.8 PG (27.0-34.0); MEAN CORPUSCULAR HGB CONC 32.4 % (32.0-36.0); MONO % 8.2 % (0.0-8.0); MONOCYTE # 1.3 TH/MM3 (0-0.9); NEUT % 81.6 % (16.0-70.0); PLATELET COUNT 298 TH/MM3 (150-450); RED BLOOD COUNT 3.48 MIL/MM3 (4.50-5.90); RED CELL DISTRIBUTION WIDTH 15.9 % (11.6-17.2); WHITE BLOOD COUNT 15.8 TH/MM3 (4.0-11.0)
[2017-06-18] MEDS: RESP: IPRATROPIUM 0.5 MG/2.5 ML NEB NEB SCH ×4 (13:01→23:36)
[2017-06-18 13:24] LABS: MONOCYTES 7 % (0-8)
[2017-06-18 13:25] LABS: BANDS 28 % (0-6); LYMPHOCYTES 9 % (9-44); METAMYELOCYTES 2 % (0-1); NEUTROPHIL # MANUAL DIFF 13.3 TH/MM3 (1.8-7.7); POLYS (SEG NEUTROPHILS) 54 % (16-70)
[2017-06-18 13:34] LABS: DOHLE BODIES PRESENT (NONE SEEN); TOXIC GRANULATION 2+ (NORMAL)
--- NOTE | 2017-06-18 13:46 | PD.CONS ---
HPI History of Present Illness This is a 77 year old male who presented with weakness and chest pain. He was found to be in AF with RVR with poss interstitial lung disease, PNA. he has been intubated and is hypotensive and tachycardic with low oxygen sats. GI has been consulted for GIB. There is no clear report of bleeding but he is having dark red/brown output from NGT. There is report of guiac pos stool. Per his he was having diarrhea in the last few days but she has not seen any black tarry stool or gross blood. He has hx LGIB. His does not know when his last colonoscopy was or where it was done but says bleeding was found and since then she makes sure to check his stool daily. He was complaining of mid back pain that radiated to the epigastric region. He takes Advil PM intermittently for sleep. He had been taking alot of tums the last few days. He was on coumadin at some point. Pt intubated, hx obtained from EMR and family. PFSH Past Medical History Hyperlipidemia Hypertension History of seizure Past Surgical History None Coded Allergies: No Known Allergies (Unverified Allergy, Unknown, 06/13/17) Family History Continuous cardiac arrest in patient's daughter No known disease in mother and father Social History No smoking, no alcohol abuse, no illicit substance abuse Review of Systems noncontributory GI Exam Vitals I&O Vital Signs Date Time Temp Pulse Resp B/P (MAP) Pulse Ox O2 Delivery O2 Flow Rate FiO2 06/18/17 10:55 85 100 06/18/17 09:58 130 34 76/58 (64) 92 06/18/17 09:53 132 33 107/61 (76) 93 06/18/17 09:48 128 33 81/46 (58) 92 06/18/17 09:44 100.0 131 33 93/48 92 06/18/17 09:43 130 35 93/48 (63) 92 06/18/17 09:38 138 34 96/64 (75) 93 06/18/17 09:33 140 33 92/60 (71) 93 06/18/17 09:28 132 33 97/58 (71) 94 06/18/17 09:23 132 30 81/48 (59) 95 06/18/17 09:18 134 29 96/57 (70) 95 3/20/18 09:13 130 30 101/64 (76) 94 3/20/18 09:08 132 30 66/52 (57) 94 3/20/18 09:03 138 32 85/64 (71) 94 3/20/18 08:58 132 31 98/60 (73) 92 3/20/18 08:53 136 32 90/51 (64) 91 3/20/18 08:50 138 30 90 3/20/18 08:48 134 32 78/47 (57) 89 3/20/18 08:43 140 28 93/48 (63) 86 3/20/18 08:38 136 26 98/55 (69) 90 3/2018 08:33 136 29 110/66 (81) 95 3/20/18 08:28 134 30 110/62 (78) 94 3/20/18 08:23 140 31 114/69 (84) 95 3/20/18 08:20 130 110/66 320/18 08:18 138 35 118/71 (87) 96 3/18 08:13 132 31 104/78 (87) 95 3/20/18 08:08 132 33 113/67 (82) 96 3/20/18 08:03 130 29 91/54 (66) 95 3//18 07:58 126 30 100/56 (71) 95 3/20/18 07:55 124 32 66/46 (53) 92 3/20/18 07:53 124 34 93/83 (86) 91 3/20/18 07:45 124 23 171/81 (111) 94 320/18 07:45 97 100 3/20/18 07:38 124 17 156/73 (100) 93 3/20/18 07:30 128 38 98/60 (73) 100 3/20/18 07:20 136 37 127/65 (85) 97 3/20/18 07:15 132 37 119/63 (81) 68 3/20/18 07:00 136 39 98/55 (69) 94 3/20/18 06:45 128 36 121/63 (82) 93 3/20/18 06:39 128 34 111/60 (77) 93 3/20/18 06:30 99.3 128 34 134/61 (85) 96 3/20/18 06:15 134 38 99/59 (72) 93 06/18/17 06:06 132 39 75/61 (66) 93 06/18/17 05:51 130 37 105/60 (75) 89 06/18/17 05:23 120 38 116/74 (88) 98 06/18/17 05:06 140 32 112/62 (79) 95 06/18/17 05:00 144 39 99/59 (72) 91 06/18/17 04:54 142 40 103/59 (74) 92 06/18/17 04:49 148 41 93/58 (70) 93 06/18/17 04:15 90 100 06/18/17 04:14 140 06/18/17 04:11 99.2 138 33 137/65 (89) 91 06/18/17 03:50 140 38 139/61 (87) 89 06/18/17 03:00 124 32 139/61 (87) 90 06/18/17 02:52 98.6 128 34 113/69 (84) 91 06/18/17 02:11 124 31 89/63 (72) 92 06/18/17 00:00 100.7 112 30 110/70 (83) 93 06/18/17 00:00 94 06/17/17 23:00 106 30 114/66 (82) 96 06/17/17 20:30 93 Partial Rebreather 15.00 06/17/17 20:00 122 06/17/17 20:00 97.2 121 22 135/64 (87) 96 06/17/17 19:50 Partial Rebreather 15.00 06/17/17 16:00 97.6 112 27 104/57 (73) 89 06/17/17 16:00 108 06/17/17 14:00 94 06/17/17 14:00 96 27 112/72 (85) 89 I/O 06/17/1718 06/17/17 06/18/17 06/18/17 06/18/17 07:00 15:00 23:00 07:00 15:00 23:00 Intake Total 750 ml 535 ml 10 ml Output Total 800 ml 700 ml 450 ml Balance -800 ml 50 ml 85 ml 10 ml Intake Oral 750 ml IV Total 535 ml Blood Product IV Normal Saline Flush 10 ml Output Urine Total 800 ml 700 ml 450 ml # Bowel Movements 0 Imaging Last Impressions Chest X-Ray 06/18/17 0000 Signed Impressions: Service Date/Time: Sunday, June 18, 2017 10:56 - CONCLUSION: No significant interval change. Slade Olivo MD Chest CT 06/18/17 0000 Signed Impressions: Service Date/Time: Sunday, June 18, 2017 05:38 - CONCLUSION: 1. Bilateral lower lobe multisegmental consolidative infiltrates, left larger than right. Alexys Laurent MD Laboratory Test 06/18/17 04:45 06/18/17 05:00 06/18/17 05:03 06/18/17 07:18 Blood Gas Puncture Site RT BRACHIAL RT RADIAL Blood Gas Patient Temperature 37.0 37.0 Blood Gas HCO3 27 mmol/L 25 mmol/L Blood Gas Base Excess 3.2 mmol/L 1.3 mmol/L Blood Gas Oxygen Saturation 92 % 94 % Arterial Blood pH 7.46 7.42 Arterial Blood Partial Pressure CO2 38 mmHg 40 mmHg Arterial Blood Partial Pressure O2 65 mmHg 82 mmHg Arterial Blood Oxygen Content 13.9 Vol % 13.2 Vol % Arterial Blood Carboxyhemoglobin 1.2 % 1.1 % Arterial Blood Methemoglobin 1.0 % 1.2 % Blood Gas Hemoglobin 10.8 G/DL 9.9 G/DL Oxygen Delivery Device BIPAP BIPAP Blood Gas Ventilator Setting IPAP 15/EPAP 5 IPAP 15/EPAP 5 Blood Gas Inspired Oxygen 100 % 100 % White Blood Count 14.3 TH/MM3 Red Blood Count 3.38 MIL/MM3 Hemoglobin 11.0 GM/DL Hematocrit 33.0 % Mean Corpuscular Volume 97.5 FL Mean Corpuscular Hemoglobin 32.6 PG Mean Corpuscular Hemoglobin Concent 33.5 % Red Cell Distribution Width 14.3 % Platelet Count 236 TH/MM3 Mean Platelet Volume 9.5 FL Neutrophils (%) (Auto) 82.7 % Lymphocytes (%) (Auto) 8.0 % Monocytes (%) (Auto) 7.2 % Eosinophils (%) (Auto) 0.0 % Basophils (%) (Auto) 2.1 % Neutrophils # (Auto) 11.9 TH/MM3 Lymphocytes # (Auto) 1.1 TH/MM3 Monocytes # (Auto) 1.0 TH/MM3 Eosinophils # (Auto) 0.0 TH/MM3 Basophils # (Auto) 0.3 TH/MM3 CBC Comment AUTO DIFF Differential Total Cells Counted 100 Neutrophils % (Manual) 74 % Band Neutrophils % 5 % Lymphocytes % 9 % Monocytes % 12 % Neutrophils # (Manual) 11.3 TH/MM3 Differential Comment FINAL DIFF MANUAL Platelet Estimate NORMAL Platelet Morphology Comment CLUMPED Red Cell Morphology Comment NORMAL Blood Urea Nitrogen 67 MG/DL Creatinine 1.00 MG/DL Random Glucose 135 MG/DL Total Protein 6.3 GM/DL Albumin 2.1 GM/DL Calcium Level 8.2 MG/DL Alkaline Phosphatase 68 U/L Aspartate Amino Transf (AST/SGOT) 140 U/L Alanine Aminotransferase (ALT/SGPT) 67 U/L Total Bilirubin 0.4 MG/DL Sodium Level 140 MEQ/L Potassium Level 4.5 MEQ/L Chloride Level 104 MEQ/L Carbon Dioxide Level 26.1 MEQ/L Anion Gap 10 MEQ/L Estimat Glomerular Filtration Rate 72 ML/MIN Total Creatine Kinase 167 U/L Creatine Kinase MB 0.8 NG/ML Troponin I LESS THAN 0.02 NG/ML B-Type Natriuretic Peptide 169 PG/ML Lactic Acid Level 2.5 mmol/L Test 06/18/17 08:30 06/18/17 12:22 06/18/17 12:34 Blood Gas Puncture Site LT RADIAL Blood Gas Patient Temperature 37.0 Blood Gas HCO3 25 mmol/L Blood Gas Base Excess 0.0 mmol/L Blood Gas Oxygen Saturation 92 % Arterial Blood pH 7.37 Arterial Blood Partial Pressure CO2 44 mmHg Arterial Blood Partial Pressure O2 75 mmHg Arterial Blood Oxygen Content 13.9 Vol % Arterial Blood Carboxyhemoglobin 0.9 % Arterial Blood Methemoglobin 1.1 % Blood Gas Hemoglobin 10.7 G/DL Oxygen Delivery Device VENTILATOR Blood Gas Ventilator Setting 24/600/PEEP5 Blood Gas Inspired Oxygen 100 % White Blood Count 15.8 TH/MM3 Red Blood Count 3.48 MIL/MM3 Hemoglobin 11.1 GM/DL Hematocrit 34.2 % Mean Corpuscular Volume 98.3 FL Mean Corpuscular Hemoglobin 31.8 PG Mean Corpuscular Hemoglobin Concent 32.4 % Red Cell Distribution Width 15.9 % Platelet Count 298 TH/MM3 Mean Platelet Volume 10.0 FL Neutrophils (%) (Auto) 81.6 % Lymphocytes (%) (Auto) 10.0 % Monocytes (%) (Auto) 8.2 % Eosinophils (%) (Auto) 0.1 % Basophils (%) (Auto) 0.1 % Neutrophils # (Auto) 12.9 TH/MM3 Lymphocytes # (Auto) 1.6 TH/MM3 Monocytes # (Auto) 1.3 TH/MM3 Eosinophils # (Auto) 0.0 TH/MM3 Basophils # (Auto) 0.0 TH/MM3 CBC Comment AUTO DIFF Lactic Acid Level 2.4 mmol/L Troponin I LESS THAN 0.02 NG/ML Date/Time Source Procedure Growth Status 06/18/17 05:10 Blood Arterial Line Aerobic Blood Culture Pending Received 06/18/17 05:10 Blood Arterial Line Anaerobic Blood Culture Pending Received 06/18/17 12:22 Nasal Aspirate Influenza Types A,B Antigen (DANY) - Final NEGATIVE FOR FLU A AND B ANTIGEN.... Complete Physical Examination HEENT: normocephalic; atraumatic; no jaundice. intubated CHEST: CTA CARDIAC: tachy, irr HR ABDOMEN: Soft,protuberant, no hepatosplenomegaly; bowel sounds are present in all four quadrants. dark reddish brown NGT output EXTREMITIES: No clubbing, cyanosis, or edema. SKIN: Normal; no rash; no jaundice. 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 takes NSAIDs at night intermittently. hx LGIB, had colonoscopy on which bleeding was found- no further details on this. did not see any blood in his stool but he has been having loose stools. not stable for procedures at this time - anemia - 2/2 above. hgb dropped from 14 to 11. symptomatic - respiratory failure, bibasilar PNA, AF w/ RVR, GIB, ILD, COPD per [facility] - continue protonix gtt - EGD when stable if family wishes - monitor labs - PRBC as needed - palliative care consult when family is ready - further recs to follow pt seen by myself and Dr Murillo and this note is on her behalf Samina Salmeron Jun 18, 2017 13:46
[2017-06-18] MEDS: LACTATED RINGER'S 1000 ML INJ 1,000 ML IV SCH (14:15)
[2017-06-18] MEDS: PIPERACIL-TAZO 4.5 GM PREMIX 100 ML IV SCH ×2 (14:15→18:02)
[2017-06-18] MEDS ORDERED: SODIUM CHLORID 0.9% 500 ML INJ 500 ML IV ONE ×2 (14:15→17:45)
--- NOTE | 2017-06-18 14:19 | PD.PROCEDR ---
Procedure Note Procedure Procedure: Arterial Line Placement Diagnosis: hypoxic respiratory failure Indications: worsening hypoxia Consent: procedure was discussed in detail with and daughter both present at bedside Description of the Procedure: The left femoral area was prepped and draped sterilely. 1% lidocaine was used for local anesthesia. The artery was located using ultrasound and a needle was advanced into the artery. A 20g catheter was advanced into the artery using a modified Seldinger technique. The catheter was sutured to the skin and a sterile dressing was applied. The catheter was connected to a pressure transducer and an arterial waveform was noted. There were no immediate complications noted. There was minimal EBL. I personally performed the procedure. Bruno Chilel MD Jun 18, 2017 14:19
[2017-06-18 14:31] LABS: BACTERIA, URINE RARE /hpf; BILIRUBIN, URINE NEG (NEG); BLOOD, URINE SMALL (NEG); GLUCOSE,URINE NEG (NEG); HYALINE CAST, URINE 37 /lpf (RARE); KETONE, URINE NEG (NEG); MUCUS URINE FEW /lpf (OCC); NITRITE,URINE NEG (NEG); SQUAMOUS EPITHELIAL CELL URINE 1 /hpf (0-5); URINE COLOR YELLOW (YELLW/STRAW); URINE LEUKOCYTE ESTERASE TRACE (NEG)
--- NOTE | 2017-06-18 14:54 | EKG ---
Date Performed: 06/18/2017 Time Performed: 06:14:05 PTAGE: 77 years EKG: ATRIAL FIBRILLATION WITH RAPID VENTRICULAR RESPONSE WITH ABERRANT CONDUCTION OR VENTRICULAR PREMATURE COMPLEXES RIGHT BUNDLE BRANCH BLOCK ST DEPRESSION, CONSIDER LATERAL ISCHEMIA ABNORMAL ECG PREVIOUS TRACING : 06/13/2017 20.46 No significant change from previous tracing noted. DOCTOR: Rocael Lawson Interpretating Date/Time 06/18/2017 14:53:28
[2017-06-18] MEDS: RESP: LEVALBUTEROL HYDROCHLORIDE 1.25 MG/3 ML NEB (SCH) NEB ×3 (15:38→23:36)
[2017-06-18] MEDS: VANCOMYCIN INJ 1,500 MG in SODIUM CHLORID 0.9% 500 ML INJ 500 ML IV SCH (15:40)
[2017-06-18] MEDS: DILTIAZEM-CD 120 MG CAP ER PO SCH (16:05)
[2017-06-18] MEDS ORDERED: PHENYLEPHRINE HCL 10 MG/ML VIAL ONE (16:43)
[2017-06-18] MEDS: PHENYLEPHRINE 40 MG in D5W 500 ML IV PRN (16:44)
[2017-06-18] MEDS ORDERED: TERBUTALINE INJ 1 MG/ML AMP SQ PRN (17:00)
[2017-06-18] MEDS ORDERED: AMIODARONE INJ 150 MG in DEXTROSE 5% IN WATER 100ML INJ 100 ML IV ONE ×2 (17:48)
[2017-06-18] MEDS ORDERED: AMIODARONE INJ 450 MG in DEXTROSE 5% IN WATE(EXCEL) INJ 241 ML IV PRN ×2 (17:58)
[2017-06-18] MEDS: CHLORHEXIDINE 0.12% (ORAL KIT) 15 ML CUP MT SCH (19:43)
[2017-06-18] MEDS: AMIODARONE INJ 450 MG in SODIUM CHLOR 0.9% (EXCEL) INJ 250 ML IV PRN (19:45)
[2017-06-18] MEDS ORDERED: SODIUM BICARBONATE 8.4% INJ 50 MEQ/50 ML SYR IV ONE (23:45)
[2017-06-19] VITALS (18 sets, daily range): BP systolic 102–120; BP diastolic 52–62; PULSE 77–104; RESP 16–28; TEMP 97.2–98.9; O2SAT 94–100
[2017-06-19] MEDS: PIPERACIL-TAZO 4.5 GM PREMIX 100 ML IV SCH ×4 (01:15→19:07)
[2017-06-19] MEDS: PANTOPRAZOLE 80 MG/100 ML NS IV SCH ×4 (01:47→11:42)
[2017-06-19] MEDS: RESP: IPRATROPIUM 0.5 MG/2.5 ML NEB NEB SCH ×6 (03:13→23:48)
[2017-06-19] MEDS: RESP: LEVALBUTEROL HYDROCHLORIDE 1.25 MG/3 ML NEB (SCH) NEB ×6 (03:13→23:20)
[2017-06-19] MEDS: AMIODARONE INJ 450 MG in SODIUM CHLOR 0.9% (EXCEL) INJ 250 ML IV PRN ×2 (03:39→13:07)
[2017-06-19] MEDS: LACTATED RINGER'S 1000 ML INJ 1,000 ML IV SCH ×2 (03:40→16:22)
[2017-06-19] MEDS: PHENYLEPHRINE 40 MG in D5W 500 ML IV PRN ×3 (03:40→17:23)
[2017-06-19] MEDS: CHLORHEXIDINE GLUCONATE 2 % 1 PACK (2 CLOTHS)(taper/protocol) TOPICAL SCH (04:00)
[2017-06-19 04:37] LABS: AUTOMATED NEUTROPHIL # 15.6 TH/MM3 (1.8-7.7); BASOPHIL % 0.1 % (0.0-2.0); EOSINOPHIL % 0.1 % (0.0-4.0); HEMATOCRIT 28.9 % (39.0-51.0); HEMOGLOBIN 9.5 GM/DL (13.0-17.0); LYMPH % 7.1 % (9.0-44.0); LYMPHOCYTE # 1.3 TH/MM3 (1.0-4.8); MEAN CELL VOLUME 98.7 FL (80.0-100.0); MEAN CORPUSCULAR HEMOGLOBIN 32.4 PG (27.0-34.0); MEAN CORPUSCULAR HGB CONC 32.9 % (32.0-36.0); MEAN PLATELET VOLUME 10.1 FL (7.0-11.0); MONO % 7.1 % (0.0-8.0); MONOCYTE # 1.3 TH/MM3 (0-0.9); NEUT % 85.6 % (16.0-70.0); PLATELET COUNT 294 TH/MM3 (150-450); RED BLOOD COUNT 2.93 MIL/MM3 (4.50-5.90); RED CELL DISTRIBUTION WIDTH 16.2 % (11.6-17.2); WHITE BLOOD COUNT 18.3 TH/MM3 (4.0-11.0)
[2017-06-19] MEDS: MIDAZOLAM 100 MG/100 ML INJ 100 ML IV PRN ×2 (05:32→13:20)
[2017-06-19 05:39] LABS: ALBUMIN 1.7 GM/DL (3.4-5.0); BICARBONATE 26.4 MEQ/L (21.0-32.0); CALCIUM 7.3 MG/DL (8.5-10.1); CALCIUM-PROTEIN CORRECTED 8.2 MG/DL (8.5-10.1); CREATININE 1.53 MG/DL (0.60-1.30); MAGNESIUM 2.6 MG/DL (1.5-2.5); PHOSPHORUS 5.1 MG/DL (2.5-4.9); TOTAL BILIRUBIN ADULT 0.6 MG/DL (0.2-1.0); TOTAL PROTEIN 5.4 GM/DL (6.4-8.2)
--- NOTE | 2017-06-19 05:41 | RADRPT ---
EXAM DATE/TIME: 06/19/2017 04:14 [facility] COMPARISON: CHEST SINGLE AP, June 18, 2017, 10:56. INDICATIONS : Shortness of breath. MEDICAL HISTORY : Cardiovascular disease. Seizures SURGICAL HISTORY : None. ENCOUNTER: Subsequent ACUITY: 1 week PAIN SCORE: Non-responsive. LOCATION: Bilateral chest FINDINGS: ET tube tip although the lobito. Gastric tube tip projects within the stomach. Increasing consolida tion in the left lower lobe with loss of delineation of the medial one half the left hemidiaphragm. Diffuse areas of acinar density in the right mid and lower lung are also slightly more prominent than on prior. Heart is stable in configuration. CONCLUSION: Increasing left lower lobe consolidation and patchy airspace opacities in the right lung. Alexys Laurent MD on June 19, 2017 at 5:39 Board Certified Radiologist. This report was verified electronically.
[2017-06-19 06:47] LABS: BANDS 19 % (0-6); CORRECTED NUCLEATED RBC 5 /100 WBC (0-0); LYMPHOCYTES 11 % (9-44); METAMYELOCYTES 1 % (0-1); MONOCYTES 7 % (0-8); MYELOCYTES 1 % (0-0); NEUTROPHIL # MANUAL DIFF 14.6 TH/MM3 (1.8-7.7); NUCLEATED RED BLOOD CELL 5 (0-0); PLASMA CELLS 1 % (0-0); POLYS (SEG NEUTROPHILS) 59 % (16-70)
[2017-06-19 06:48] LABS: TOXIC GRANULATION 1+ (NORMAL); TOXIC VACUOLATION PRESENT (NONE SEEN)
[2017-06-19] MEDS: fentaNYL DRIP 250 ML IV PRN (06:52)
[2017-06-19] MEDS: CHLORHEXIDINE 0.12% (ORAL KIT) 15 ML CUP MT SCH (08:53)
[2017-06-19] MEDS: DILTIAZEM-CD 240 MG CAP ER PO SCH (09:00)
[2017-06-19] MEDS: DOCUSATE SODIUM 100 MG CAP PO SCH ×2 (09:00→21:44)
[2017-06-19] MEDS: VANCOMYCIN INJ 1,500 MG in SODIUM CHLORID 0.9% 500 ML INJ 500 ML IV SCH (09:47)
[2017-06-19] MEDS: SODIUM CHLORIDE 0.9% FLUSH 10 ML FLUSH IV FLUSH SCH ×2 (09:47→21:00)
[2017-06-19] MEDS ORDERED: ALBUMIN 5% INJ 500 ML IV ONE (11:30)
--- NOTE | 2017-06-19 11:44 | HHI.CCPN ---
Subjective Remarks/Hospital Course 06/18: 77-year-old gentleman with history of hypertension, hyperlipidemia, atrial fibrillation, COPD now admitted on 06/13 in [place] with generalized worsening weakness and chest pain. Patient was treated with Cardizem drip and cardiology was consulted. Throughout the hospitalization patient had a gradual worsening hypoxia requiring nonrebreather mask and BiPAP. Pulmonology was consulted and patient had a CT chest that showed possible ILD and pneumonia. This morning patient was found to be in acute respiratory distress that did not respond to BiPAP at 100%, therefore patient was intubated. Patient was also hypotensive and responded to IV fluid bolus. He received 1 dose of vancomycin and 1 dose of Zosyn. There was a report of GI bleed and 2 units PRBC were ordered and 1 unit was transfused already, and patient was started on a PPI drip , however there is no clear documentation about the episode. Patient was transferred to [facility] for further care. Patient was seen immediately on his arrival, hypoxic to low 80s, on PEEP of 5 and FiO2 of 1. Due to vent dyssynchrony and worsening hypoxia patient required 1 dose of paralytic. Stat chest x-ray done did not show evidence of pneumothorax. Vent settings readjusted currently FiO2 of 0.9 and O2 sat of 91%. He is on Cardizem drip at 15 mg/h, on midazolam and fentanyl drips. 06/19: No events over the night. Patient remains on an FiO2 of 1 and PEEP of 12. On amiodarone drip off Cardizem with heart rate in the 90s still in A. fib. He requires blood pressure support with phenylephrine currently at 100. T -max of 100.7 yesterday. Patient is sedated with midazolam and fentanyl drips. Chest x-ray reviewed, worsening bilateral infiltrates. ET tube approximately 7 cm above lobito. Objective Vital Signs Date Time Temp Pulse Resp B/P (MAP) Pulse Ox O2 Delivery O2 Flow Rate FiO2 06/19/17 11:20 98 90 06/19/17 09:48 92 108/50 06/19/17 04:00 98.9 16 06/17/17 20:30 Partial Rebreather 15.00 Intake and Output 06/19/17 06/19/17 06/20/17 08:00 16:00 00:00 Intake Total 2740 ml Output Total 500 ml Balance 2240 ml Result Diagram: 06/19/1741006/19/17410 Other Results Blood cultures reviewed, growing gram-positive cocci in pairs, clusters, chains. Microbiology Date/Time Source Procedure Growth Status 06/18/17 12:22 Nasal Aspirate Influenza Types A,B Antigen (DANY) - Final NEGATIVE FOR FLU A AND B ANTIGEN.... Complete 06/18/17 13:20 Urine Catheterized Urine Legionella Antigen - Final PRESUMPTIVE NEGATIVE FOR LEGIONELLA P... Complete Laboratory Tests Test 06/18/17 13:55 06/18/17 15:04 06/18/17 21:28 06/19/17 05:36 Blood Gas Puncture Site ART LINE ART LINE 100 ART LINE Blood Gas Patient Temperature 98.6 98.6 98.6 98.6 Blood Gas HCO3 25 mmol/L (22-26) 24 mmol/L (22-26) 20 mmol/L (22-26) 22 mmol/L (22-26) Blood Gas Base Excess -2.8 mmol/L (-2-2) -3.1 mmol/L (-2-2) -6.0 mmol/L (-2-2) -3.3 mmol/L (-2-2) Blood Gas Oxygen Saturation 90 % (90-100) 92 % (90-100) 93 % (90-100) 97 % ( 90-100) Arterial Blood pH 7.17 (7.380-7.420) 7.22 (7.380-7.420) 7.23 (7.380-7.420) 7.28 (7.380-7.420) Arterial Blood Partial Pressure CO2 70 mmHg (38-42) 60 mmHg (38-42) 50 mmHg (38-42) 49 mmHg (38-42) Arterial Blood Partial Pressure O2 79 mmHg (61-120) 84 mmHg (61-120) 86 mmHg (61-120) 122 mmHg (61-120) Arterial Blood Oxygen Content 14.0 Vol % (12.0-20.0) 13.4 Vol % (12.0-20.0) 13.1 Vol % (12.0-20.0) 12.5 Vol % (12.0-20.0) Arterial Blood Carboxyhemoglobin 0.7 % (0-4) 0.8 % (0-4) 0.8 % (0-4) 0.9 % (0-4) Arterial Blood Methemoglobin 0.8 % (0-2) 0.9 % (0-2) 1.0 % (0-2) 0.8 % (0-2) Blood Gas Hemoglobin 11.0 G/DL (12.0-16.0) 10.2 G/DL (12.0-16.0) 9.9 G/DL (12.0-16.0) 9.0 G/DL (12.0-16.0) Oxygen Delivery Device VENTILATOR VENTILATOR VENTILATOR VENTILATOR Blood Gas Ventilator Setting PRVC/AC PRVC PRVC/ AC PRVC/AC Blood Gas Inspired Oxygen 100 % 100 % 100 % Imaging Last 24 hours Impressions Chest X-Ray 06/19/17 0600 Signed Impressions: Service Date/Time: Monday, June 19, 2017 04:14 - CONCLUSION: Increasing left lower lobe consolidation and patchy airspace opacities in the right lung. Alexys Laurent MD Last Impressions Chest X-Ray 06/18/17 0000 Signed Impressions: Service Date/Time: Sunday, June 18, 2017 10:56 - CONCLUSION: No significant interval change. Slade Olivo MD Chest CT 06/18/17 0000 Signed Impressions: Service Date/Time: Sunday, June 18, 2017 05:38 - CONCLUSION: 1. Bilateral lower lobe multisegmental consolidative infiltrates, left larger than right. Alexys Laurent MD Objective Remarks General - elderly gentleman intubated and sedated, ill-appearing HEENT - pupils are equal, small and reactive, sclerae are anicteric, neck is supple, no rigidity, no JVD, + ETT, + NGT CV - irregular heart sounds, no murmurs, distant Chest - improved air entry bilateral, no wheezes Abdomen - soft, appears non-tender, distended, BS decreased Skin - no rashes, no cyanosis Extremities - warm, 2+ edema, + peripheral pulses, right femoral central line (3 /20) -site is clean, left femoral arterial line (3/20) -site is clean as well Neuro - limited, intubated and sedated, does not withdraw to painful stimuli, does not follow commands, pupils small and sluggishly reactive A/P Assessment and Plan 1. Acute severe hypoxic respiratory failure -still with very high FiO2 and PEEP requirements 2. Bibasilar pneumonia -suspect staph aureus 3. Gram-positive septicemia, suspect staph and possible strep 4. Circulatory shock, likely septic, sedation meds might be contributing 5. Atrial fibrillation with RVR -better controlled, however he remains in A. fib 6. Lactic acidosis 7. GI bleed -no melena, no hematemesis, no hematochezia since admission to [facility] 8. ILD 9. COPD 1. Ventilator settings readjusted after morning ABG, respiratory rate increased to 20, PEEP of 12, FiO2 at 0.9. Patient is synchronized with event, no auto PEEP, PIP 27 2. Ventilator bundle and bronchodilators with ipratropium and levalbuterol 3. Continue phenylephrine to keep map above 65 4. Continue amiodarone at 0.5 5. Continue Vanco and Zosyn pending cultures 6. Repeat blood cultures 2 7. Continue to hold aspirin and anticoagulation in the setting of GI bleed 8. Appreciate GI consult 9. On pantoprazole infusion 10. We will exchange femoral central line 20 internal jugular tomorrow 11. Repeat labs at 3 PM 12. GI prophylaxis addressed 13. DVT prophylaxis with SCDs 14. N.p.o. for now 15. Alternative code per patient's known wishes expressed by . We will ask family if they want palliative care consult involved 16. Advance ET tube 2 cm -done I spent 35 minutes of critical care time managing ventilator, pressors, antibiotics, IV fluids, sedation, reviewing data and ordering labs, discussing with nursing staff and respiratory therapist. Patient is critically ill with severe hypoxic respiratory failure, pneumonia, underlying ILD and COPD and he is at extremely high risk for further deterioration and . No family present at bedside. Bruno Chilel MD Jun 19, 2017 11:44
--- NOTE | 2017-06-19 14:39 | HHI.GIFU ---
Subjective Remarks Resting in the bed currently on mechanical ventilation, sedation, NG tube to low intermittent suction no obvious blood noted Spoke with nurse no melena or rectal bleeding Afebrile Hanks catheter shows medium yellow urine without hematuria (Yaa Hu) Objective Vitals I&O Vital Signs Date Time Temp Pulse Resp B/P (MAP) Pulse Ox O2 Delivery O2 Flow Rate FiO2 06/19/17 13:07 82 114/56 06/19/17 11:20 98 90 06/19/17 11:15 90 06/19/17 10:49 100 100 06/19/17 09:48 92 108/50 06/19/17 08:00 100 06/19/17 07:57 100 100 06/19/17 06:00 94 06/19/17 04:00 100 06/19/17 04:00 91 06/19/17 04:00 98.9 91 16 109/52 (71) 95 06/19/17 03:40 95 94/53 06/19/17 03:39 95 110/52 06/19/17 03:14 94 100 06/19/17 00:00 100 06/19/17 00:00 98.9 104 16 111/52 (71) 95 Automatic Cuff 06/19/17 00:00 98.9 104 28 111/52 (71) 95 06/19/17 00:00 100 06/18/17 23:38 97 100 06/18/17 20:00 89 06/18/17 20:00 100 06/18/17 20:00 98.0 99 29 102/53 (69) 94 06/18/17 19:45 106 92/44 06/18/17 18:44 103 105/48 06/18/17 17:30 103 71/52 06/18/17 17:05 104 98/45 06/18/17 16:44 128 66/49 06/18/17 16:16 118 79/55 06/18/17 16:00 128 06/18/17 16:00 98.2 128 28 96/43 (60) 100 06/18/17 16:00 100 06/18/17 15:39 96 100 I/O 06/18/17 06/18/17 06/18/17 06/19/17 06/19/17 06/19/17 07:00 15:00 23:00 07:00 15:00 23:00 Intake Total 535 ml 1040 ml 1643 ml 2300 ml 940 ml Output Total 450 ml 450 ml 500 ml Balance 85 ml 1040 ml 1193 ml 1800 ml 940 ml IV Total 535 ml 600 ml 1643 ml 2300 ml 940 ml Packed Cells 400 ml Blood Product IV Normal Saline Flush 40 ml Output Urine Total 450 ml 400 ml 500 ml Gastric Drainage Total 50 ml 0 ml # Bowel Movements 1 0 Laboratory Laboratory Tests Test 06/18/17 15:04 06/18/17 20:02 06/18/17 21:28 06/19/17 04:11 Blood Gas Puncture Site ART LINE 100 Blood Gas Patient Temperature 98.6 98.6 Blood Gas HCO3 24 20 Blood Gas Base Excess -3.1 -6.0 Blood Gas Oxygen Saturation 92 93 Arterial Blood pH 7.22 7.23 Arterial Blood Partial Pressure CO2 60 50 Arterial Blood Partial Pressure O2 84 86 Arterial Blood Oxygen Content 13.4 13.1 Arterial Blood Carboxyhemoglobin 0.8 0.8 Arterial Blood Methemoglobin 0.9 1.0 Blood Gas Hemoglobin 10.2 9.9 Oxygen Delivery Device VENTILATOR VENTILATOR Blood Gas Ventilator Setting PRVC PRVC/ AC Blood Gas Inspired Oxygen 100 Lactic Acid Level 2.7 White Blood Count 18.3 Red Blood Count 2.93 Hemoglobin 9.5 Hematocrit 28.9 Mean Corpuscular Volume 98.7 Mean Corpuscular Hemoglobin 32.4 Mean Corpuscular Hemoglobin Concent 32.9 Red Cell Distribution Width 16.2 Platelet Count 294 Mean Platelet Volume 10.1 Neutrophils (%) (Auto) 85.6 Lymphocytes (%) (Auto) 7.1 Monocytes (%) (Auto) 7.1 Eosinophils (%) (Auto) 0.1 Basophils (%) (Auto) 0.1 Neutrophils # (Auto) 15.6 Lymphocytes # (Auto) 1.3 Monocytes # (Auto) 1.3 Eosinophils # (Auto) 0.0 Basophils # (Auto) 0.0 CBC Comment AUTO DIFF Differential Total Cells Counted 100 Neutrophils % (Manual) 59 Band Neutrophils % 19 Lymphocytes % 11 Monocytes % 7 Eosinophils % 1 Neutrophils # (Manual) 14.6 Metamyelocytes 1 Myelocytes 1 Nucleated Red Blood Cells 5 Differential Comment FINAL DIFF MANUAL Plasma Cells 1 Toxic Granulation 1+ Toxic Vacuolation PRESENT Platelet Estimate NORMAL Platelet Morphology Comment NORMAL Blood Urea Nitrogen 71 Creatinine 1.53 Random Glucose 170 Total Protein 5.4 Albumin 1.7 Calcium Level 7.3 Phosphorus Level 5.1 Magnesium Level 2.6 Alkaline Phosphatase 96 Aspartate Amino Transf (AST/SGOT) 56 Alanine Aminotransferase (ALT/SGPT) 41 Total Bilirubin 0.6 Sodium Level 143 Potassium Level 4.9 Chloride Level 108 Carbon Dioxide Level 26.4 Anion Gap 9 Estimat Glomerular Filtration Rate 44 Protein Corrected Calcium 8.2 Test 06/19/17 05:36 Blood Gas Puncture Site ART LINE Blood Gas Patient Temperature 98.6 Blood Gas HCO3 22 Blood Gas Base Excess -3.3 Blood Gas Oxygen Saturation 97 Arterial Blood pH 7.28 Arterial Blood Partial Pressure CO2 49 Arterial Blood Partial Pressure O2 122 Arterial Blood Oxygen Content 12.5 Arterial Blood Carboxyhemoglobin 0.9 Arterial Blood Methemoglobin 0.8 Blood Gas Hemoglobin 9.0 Oxygen Delivery Device VENTILATOR Blood Gas Ventilator Setting PRVC/AC Blood Gas Inspired Oxygen 100 Date/Time Source Procedure Growth Status 06/18/17 05:10 Blood Arterial Line Aerobic Blood Culture - Preliminary Staph Sp Coagulase Negative Resulted 06/18/17 05:10 Anaerobic Blood Culture - Preliminary Gram Positive Cocci Resulted 06/18/17 12:22 Nasal Aspirate Influenza Types A,B Antigen (DANY) - Final NEGATIVE FOR FLU A AND B ANTIGEN.... Complete 06/18/17 13:20 Urine Catheterized Urine Urine Culture - Preliminary RESULTS PENDING Resulted Imaging Last Impressions Chest X-Ray 06/19/17 0600 Signed Impressions: Service Date/Time: Monday, June 19, 2017 04:14 - CONCLUSION: Increasing left lower lobe consolidation and patchy airspace opacities in the right lung. Alexys Laurent MD Chest CT 06/18/17 0000 Signed Impressions: Service Date/Time: Sunday, June 18, 2017 05:38 - CONCLUSION: 1. Bilateral lower lobe multisegmental consolidative infiltrates, left larger than right. Alexys Laurent MD Administered Medications Medications (Trade) Dose Ordered Sig/Low Route PRN Reason Start Time Stop Time Status Last Admin Dose Admin Sodium Chloride (NS Flush) 2 ml BID IV FLUSH 06/13/17 21:00 06/19/17 09:47 Metoprolol Tartrate (Lopressor) 25 mg Q12HR PO 06/14/17 09:00 Future Hold 06/17/17 21:20 Docusate Sodium (Colace) 100 mg BID PO 06/14/17 21:00 06/18/17 19:42 Rivaroxaban (Xarelto) 15 mg BID PO 06/15/17 11:00 Future Hold 06/17/17 21:19 Pantoprazole Sodium 80 mg/ Sodium Chloride 100 ml @ 10 mls/hr Q10H IV 06/18/17 07:00 06/19/17 11:42 Fentanyl Citrate 250 ml @ 5 mls/hr TITRATE PRN IV SEDATION 06/18/17 08:00 06/19/17 06:52 Midazolam HCl 100 ml @ 2 mls/hr TITRATE PRN IV SEDATION 06/18/17 08:00 06/19/17 13:20 Miscellaneous Information Patient in critical care unit? Ass... [id number] .[id number] 06/18/17 10:00 06/18/17 12:51 Chlorhexidine Gluconate (Chlorhexidine 2% Cloth) 3 pack DAILY@04 TOPICAL 06/19/17 04:00 06/23/17 04:01 06/19/17 04:00 Piperacillin Sod/ Tazobactam Sod 100 ml @ 200 mls/hr Q6H IV 06/18/17 13:00 06/19/17 13:21 Ipratropium [place] (Atrovent Neb) 0.5 mg Q4HR NEB NEB 06/18/17 12:00 06/19/17 14:24 Vancomycin HCl 1500 mg/Sodium Chloride 515 ml @ 250 mls/hr Q18H IV 06/18/17 15:00 Future Hold 06/19/17 09:47 Lactated Ringer's 1,000 ml @ 100 mls/hr Q10H IV 06/18/17 14:15 06/19/17 03:40 Levalbuterol HCl (Xopenex Neb) 1.25 mg Q4HR NEB NEB 06/18/17 16:00 06/19/17 14:24 Phenylephrine HCl 40 mg/Dextrose 500 ml @ 30 mls/hr TITRATE PRN IV Blood Pressure Management 06/18/17 17:00 06/19/17 09:48 Amiodarone HCl 450 mg/Sodium Chloride 259 ml @ 33.33 mls/ hr [id number] PRN IV Per Protocol 06/18/17 18:15 06/19/17 13:07 Physical Exam HEENT:normocephalic; atraumatic; no jaundice. Obese, NG tube to low intermittent suction NECK: Neck is supple, large CHEST: Diminished breath sounds predominantly in bases CARDIAC: Regular rate and rhythm ABDOMEN: Large, taut, ,no hepatosplenomegaly; bowel sounds are more prevalent in the lower quadrants. Possible palpable bowel left lower quadrant. EXTREMITIES: No clubbing, cyanosis, or edema. SKIN: Normal; no rash; no jaundice. No rashes SENIOR ARCHITECT: Sedated (Yaa Hu) Assessment and Plan Plan ASSESSMENT - ?guiac pos stool, bloody NGT output - poss UGIB. takes NSAIDs at night intermittently. hx LGIB, had colonoscopy on which bleeding was found- no further details on this. did not see any blood in his stool but he has been having loose stools. not stable for procedures at this time - anemia - 2/2 above. hgb dropped from 14 to 11. symptomatic - respiratory failure, bibasilar PNA, AF w/ RVR, GIB, ILD, COPD per CCM 06/19/17 patient continues to be on ventilator support, sedation, and max Ad- drip. No family is present. NG tube connected to low intermittent suction no obvious bleeding noted. Anemia unspecified an unknown source for now, received 1 unit packed RBCs yesterday. No BM noted, palpable left lower quadrant bowel. Questionable constipation. PLAN - Hemoccult stools 2 - continue protonix gtt - EGD when stable - Dulcolax suppository 1 - monitor labs with special attention to hemoglobin - PRBC as needed - Consider palliative care consult for evaluation of patient's wishes through the eyes of the family, critically ill patient. - further recs to follow pt seen by myself and Dr Murillo and this note is on her behalf (Yaa Hu) Physician Comments agree with above (Miladis Murillo MD) Yaa Hu Jun 19, 2017 14:39 Miladis Murillo MD Jun 19, 2017 19:31
[2017-06-19] MEDS ORDERED: BISACODYL 10 MG SUPP RECTAL ONE (15:00)
[2017-06-19 15:41] LABS: BASOPHIL % 0.2 % (0.0-2.0); EOSINOPHIL # 0.1 TH/MM3 (0-0.4); EOSINOPHIL % 0.3 % (0.0-4.0); HEMATOCRIT 25.9 % (39.0-51.0); HEMOGLOBIN 8.4 GM/DL (13.0-17.0); LYMPH % 5.5 % (9.0-44.0); LYMPHOCYTE # 0.9 TH/MM3 (1.0-4.8); MEAN CELL VOLUME 99.1 FL (80.0-100.0); MEAN CORPUSCULAR HEMOGLOBIN 32.1 PG (27.0-34.0); MEAN CORPUSCULAR HGB CONC 32.4 % (32.0-36.0); MEAN PLATELET VOLUME 10.2 FL (7.0-11.0); MONO % 5.9 % (0.0-8.0); NEUT % 88.1 % (16.0-70.0); PLATELET COUNT 255 TH/MM3 (150-450); RED BLOOD COUNT 2.61 MIL/MM3 (4.50-5.90); RED CELL DISTRIBUTION WIDTH 16.1 % (11.6-17.2); WHITE BLOOD COUNT 17.1 TH/MM3 (4.0-11.0)
[2017-06-19 16:00] LABS: BICARBONATE 29.9 MEQ/L (21.0-32.0); CALCIUM 7.1 MG/DL (8.5-10.1); CREATININE 1.25 MG/DL (0.60-1.30)
[2017-06-19 16:46] LABS: CALCIUM-PROTEIN CORRECTED 7.9 MG/DL (8.5-10.1); TOTAL PROTEIN 5.5 GM/DL (6.4-8.2)
[2017-06-19 18:26] LABS: BANDS 18 % (0-6); LYMPHOCYTES 7 % (9-44); METAMYELOCYTES 1 % (0-1); MONOCYTES 2 % (0-8); NEUTROPHIL # MANUAL DIFF 15.4 TH/MM3 (1.8-7.7); PLASMA CELLS 1 % (0-0); POLYS (SEG NEUTROPHILS) 71 % (16-70)
[2017-06-20] VITALS (17 sets, daily range): BP systolic 111–138; BP diastolic 60–76; PULSE 77–106; RESP 24; TEMP 97.6–98.7; O2SAT 95–100
[2017-06-20] MEDS: PANTOPRAZOLE 80 MG/100 ML NS IV SCH ×6 (00:23→18:39)
[2017-06-20] MEDS: LACTATED RINGER'S 1000 ML INJ 1,000 ML IV SCH ×2 (00:23→06:32)
[2017-06-20] MEDS: PIPERACIL-TAZO 4.5 GM PREMIX 100 ML IV SCH ×4 (00:24→18:39)
[2017-06-20] MEDS: PHENYLEPHRINE 40 MG in D5W 500 ML IV PRN ×3 (00:25→20:11)
[2017-06-20] MEDS: MIDAZOLAM 100 MG/100 ML INJ 100 ML IV PRN ×3 (00:28→20:12)
[2017-06-20 02:45] LABS: AUTOMATED NEUTROPHIL # 14.6 TH/MM3 (1.8-7.7); BASOPHIL % 0.3 % (0.0-2.0); EOSINOPHIL # 0.2 TH/MM3 (0-0.4); EOSINOPHIL % 1.1 % (0.0-4.0); HEMOGLOBIN 8.2 GM/DL (13.0-17.0); LYMPH % 5.4 % (9.0-44.0); LYMPHOCYTE # 0.9 TH/MM3 (1.0-4.8); MEAN CELL VOLUME 98.3 FL (80.0-100.0); MEAN CORPUSCULAR HEMOGLOBIN 32.3 PG (27.0-34.0); MEAN CORPUSCULAR HGB CONC 32.9 % (32.0-36.0); MEAN PLATELET VOLUME 9.8 FL (7.0-11.0); MONO % 4.6 % (0.0-8.0); MONOCYTE # 0.8 TH/MM3 (0-0.9); NEUT % 88.6 % (16.0-70.0); PLATELET COUNT 251 TH/MM3 (150-450); RED BLOOD COUNT 2.55 MIL/MM3 (4.50-5.90); RED CELL DISTRIBUTION WIDTH 16.2 % (11.6-17.2); WHITE BLOOD COUNT 16.5 TH/MM3 (4.0-11.0)
[2017-06-20] MEDS: RESP: LEVALBUTEROL HYDROCHLORIDE 1.25 MG/3 ML NEB (SCH) NEB ×6 (03:03→23:46)
[2017-06-20] MEDS: RESP: IPRATROPIUM 0.5 MG/2.5 ML NEB NEB SCH ×6 (03:04→23:45)
[2017-06-20 03:08] LABS: ALBUMIN 1.9 GM/DL (3.4-5.0); CALCIUM-PROTEIN CORRECTED 7.8 MG/DL (8.5-10.1); MAGNESIUM 2.5 MG/DL (1.5-2.5); PHOSPHORUS 2.2 MG/DL (2.5-4.9); TOTAL BILIRUBIN ADULT 0.4 MG/DL (0.2-1.0); TOTAL PROTEIN 5.5 GM/DL (6.4-8.2)
[2017-06-20 03:09] LABS: BANDS 2 % (0-6); CORRECTED NUCLEATED RBC 4 /100 WBC (0-0); LYMPHOCYTES 9 % (9-44); MONOCYTES 2 % (0-8); MYELOCYTES 1 % (0-0); NEUTROPHIL # MANUAL DIFF 14.2 TH/MM3 (1.8-7.7); NUCLEATED RED BLOOD CELL 4 (0-0); POLYS (SEG NEUTROPHILS) 82 % (16-70); PROMYELOCYTES 1 % (0-0)
[2017-06-20] MEDS: CHLORHEXIDINE GLUCONATE 2 % 1 PACK (2 CLOTHS)(taper/protocol) TOPICAL SCH (03:28)
--- NOTE | 2017-06-20 03:50 | RADRPT ---
EXAM DATE/TIME: 06/20/2017 02:22 [facility] COMPARISON: CHEST SINGLE AP, June 19, 2017, 4:14. INDICATIONS : Short of breath. MEDICAL HISTORY : Cardiovascular disease. Seizures SURGICAL HISTORY : None. ENCOUNTER: Subsequent ACUITY: 1 week PAIN SCORE: Non-responsive. LOCATION: Bilateral chest FINDINGS: ET tube tip well above the lobito. Gastric tube traverses the [id number]. Persistent consolidati on left lower lobe. Patchy infiltrates in the right lower lung similar to prior. Stable heart size. CONCLUSION: Stable left lower lobe consolidation and patchy infiltrates in the right lower lung. Alexys Laurent MD on June 20, 2017 at 3:47 Board Certified Radiologist. This report was verified electronically.
[2017-06-20] MEDS: DOCUSATE SODIUM 100 MG CAP PO SCH ×2 (08:52→21:00)
[2017-06-20] MEDS: SODIUM CHLORIDE 0.9% FLUSH 10 ML FLUSH IV FLUSH SCH ×2 (08:55→21:00)
[2017-06-20] MEDS ORDERED: VANCOMYCIN INJ 1,500 MG in SODIUM CHLORID 0.9% 500 ML INJ 500 ML IV SCH ×2 (11:00→12:00)
--- NOTE | 2017-06-20 11:07 | HHI.CCPN ---
Subjective Remarks/Hospital Course 06/18: 77-year-old gentleman with history of hypertension, hyperlipidemia, atrial fibrillation, COPD now admitted on 06/13 in [place] with generalized worsening weakness and chest pain. Patient was treated with Cardizem drip and cardiology was consulted. Throughout the hospitalization patient had a gradual worsening hypoxia requiring nonrebreather mask and BiPAP. Pulmonology was consulted and patient had a CT chest that showed possible ILD and pneumonia. This morning patient was found to be in acute respiratory distress that did not respond to BiPAP at 100%, therefore patient was intubated. Patient was also hypotensive and responded to IV fluid bolus. He received 1 dose of vancomycin and 1 dose of Zosyn. There was a report of GI bleed and 2 units PRBC were ordered and 1 unit was transfused already, and patient was started on a PPI drip , however there is no clear documentation about the episode. Patient was transferred to [facility] for further care. Patient was seen immediately on his arrival, hypoxic to low 80s, on PEEP of 5 and FiO2 of 1. Due to vent dyssynchrony and worsening hypoxia patient required 1 dose of paralytic. Stat chest x-ray done did not show evidence of pneumothorax. Vent settings readjusted currently FiO2 of 0.9 and O2 sat of 91%. He is on Cardizem drip at 15 mg/h, on midazolam and fentanyl drips. 06/19: No events over the night. Patient remains on an FiO2 of 1 and PEEP of 12. On amiodarone drip off Cardizem with heart rate in the 90s still in A. fib. He requires blood pressure support with phenylephrine currently at 100. T -max of 100.7 yesterday. Patient is sedated with midazolam and fentanyl drips. Chest x-ray reviewed, worsening bilateral infiltrates. ET tube approximately 7 cm above lobito. 06/20: No events over the night. Patient remains on phenylephrine at 110 and amiodarone infusion. Sedated with Versed and fentanyl. Afebrile. Good urine output, more than 2 L over the last 24 hours. On 0.7 FiO2. Chest x-ray reviewed this morning, no significant change compared to yesterday. Dark bloody aspirate in the NG tube noted. Objective Vital Signs Date Time Temp Pulse Resp B/P (MAP) Pulse Ox O2 Delivery O2 Flow Rate FiO2 06/20/17 08:22 99 70 06/20/17 04:00 97.8 100 24 120/66 (84) 06/19/17 23:55 Ventilator 06/17/17 20:30 15.00 Intake and Output 06/20/17 06/20/17 06/20/17 07:59 15:59 23:59 Intake Total 0 ml Output Total 1050 ml Balance -1050 ml Result Diagram: 06/20/17 0230 06/20/17 0230 Other Results Microbiology Date/Time Source Procedure Growth Status 06/19/17 15:51 Blood Peripheral Aerobic Blood Culture Pending Received 06/19/17 15:51 Blood Peripheral Anaerobic Blood Culture Pending Received 06/19/17 15:42 Blood Peripheral Aerobic Blood Culture Pending Received 06/19/17 15:42 Blood Peripheral Anaerobic Blood Culture Pending Received 06/18/17 05:10 Blood Arterial Line Aerobic Blood Culture - Preliminary Staph Sp Coagulase Negative Resulted 06/18/17 05:10 Anaerobic Blood Culture - Preliminary Gram Positive Cocci Resulted 06/18/17 12:22 Nasal Aspirate Influenza Types A,B Antigen (DANY) - Final NEGATIVE FOR FLU A AND B ANTIGEN.... Complete 06/18/17 12:00 Sputum Endotracheal Gram Stain - Final Resulted 06/18/17 12:00 Sputum Culture - Preliminary Streptococcus Pneumoniae Resulted 06/18/17 13:20 Urine Catheterized Urine Urine Culture - Preliminary NO GROWTH IN 24 HOURS. Resulted 06/18/17 13:20 Urine Catheterized Urine Legionella Antigen - Final PRESUMPTIVE NEGATIVE FOR LEGIONELLA P... Complete Microbiology Date/Time Source Procedure Growth Status 06/18/17 12:22 Nasal Aspirate Influenza Types A,B Antigen (DANY) - Final NEGATIVE FOR FLU A AND B ANTIGEN.... Complete 06/18/17 13:20 Urine Catheterized Urine Legionella Antigen - Final PRESUMPTIVE NEGATIVE FOR LEGIONELLA P... Complete Laboratory Tests Test 06/19/17 14:53 06/20/17 04:36 Blood Gas Puncture Site ART LINE ART LINE Blood Gas Patient Temperature 98.6 98.6 Blood Gas HCO3 26 mmol/L (22-26) 26 mmol/L (22-26) Blood Gas Base Excess -0.9 mmol/L (-2-2) 0.8 mmol/L (-2-2) Blood Gas Oxygen Saturation 92 % (90-100) 96 % (90-100) Arterial Blood pH 7.25 (7.380-7.420) 7.35 (7.380-7.420) Arterial Blood Partial Pressure CO2 60 mmHg (38-42) 48 mmHg (38-42) Arterial Blood Partial Pressure O2 78 mmHg (61-120) 95 mmHg (61-120) Arterial Blood Oxygen Content 21.6 Vol % (12.0-20.0) 10.7 Vol % (12.0-20.0) Arterial Blood Carboxyhemoglobin 0.7 % (0-4) 1.1 % (0-4) Arterial Blood Methemoglobin 0.8 % (0-2) 0.9 % (0-2) Blood Gas Hemoglobin 16.6 G/DL (12.0-16.0) 7.8 G/DL (12.0-16.0) Oxygen Delivery Device VENTILATOR VENTILATOR Blood Gas Ventilator Setting PRVC/AC: PRVC/AC Blood Gas Inspired Oxygen 70 % 70 % Imaging Last 24 hours Impressions Chest X-Ray 06/20/17 0600 Signed Impressions: Service Date/Time: May 02:22 - CONCLUSION: Stable left lower lobe consolidation and patchy infiltrates in the right lower lung. Alexys Laurent MD Last 24 hours Impressions Chest X-Ray 06/19/17 0600 Signed Impressions: Service Date/Time: Monday, June 19, 2017 04:14 - CONCLUSION: Increasing left lower lobe consolidation and patchy airspace opacities in the right lung. Alexys Laurent MD Last Impressions Chest X-Ray 06/18/17 0000 Signed Impressions: Service Date/Time: Sunday, June 18, 2017 10:56 - CONCLUSION: No significant interval change. Slade Olivo MD Chest CT 06/18/17 0000 Signed Impressions: Service Date/Time: Sunday, June 18, 2017 05:38 - CONCLUSION: 1. Bilateral lower lobe multisegmental consolidative infiltrates, left larger than right. Alexys Laurent MD Objective Remarks General - elderly gentleman intubated, sedated, ill-appearing HEENT - pupils equal, reactive, sclerae anicteric, neck supple, no neck vein distention, orally intubated, + NGT CV - irregular S1 and S2, no murmurs, rubs or gallops Chest -scattered coarse breath sounds, improved air entry bilateral, no wheezes Abdomen - soft, appears non-tender, distended, BS decreased Skin - no rashes, no cyanosis Extremities - warm, 2+ edema, + peripheral pulses, right femoral central line (3 /20), left femoral arterial line (3/20) -both sites clean Neuro - limited, intubated and sedated, does not withdraw to painful stimuli, does not follow commands, pupils equal and reactive A/P Assessment and Plan 1. Acute severe hypoxic respiratory failure -slightly improved FiO2 requirements, still on a PEEP of 12 2. Strep pneumo pneumonia 3. Gram-positive septicemia -microorganisms in process of being identified 4. Circulatory shock, likely septic, sedation meds might be contributing - remains on phenylephrine drip 5. Atrial fibrillation with RVR -better controlled, however he remains in A. fib 6. Lactic acidosis 7. GI bleed -some bloody aspirate from NG tube, hemoglobin trending down 8. ILD 9. COPD 1. Continue PRVC at current vent settings. PIP is 30, patient synchronized with event, no auto PEEP. Maintain PEEP of 12 for now, taper FiO2 0.6 as tolerated 2. Ventilator bundle and bronchodilators with ipratropium and levalbuterol 3. Continue phenylephrine to keep map above 65 4. Continue amiodarone at 0.5 5. Continue Vanco and Zosyn pending cultures 6. Depending on the microorganism identification in the blood might need ROHITH 7. Continue to hold aspirin and anticoagulation in the setting of GI bleed 8. Appreciate GI consult 9. On pantoprazole infusion 10. We will exchange femoral central line to an internal jugular today if family agrees 11. Repeat CBC later today 12. GI prophylaxis addressed 13. DVT prophylaxis with SCDs 14. N.p.o. for now 15. Alternative code per patient's known wishes expressed by . We will ask family if they want palliative care consult involved I spent 32 minutes of critical care time managing ventilator, pressors, antibiotics, IV fluids, sedation, reviewing data and ordering labs, discussing with nursing staff and respiratory therapist. Patient is critically ill with severe hypoxic respiratory failure, pneumonia, underlying ILD and COPD and he is at extremely high risk for further deterioration and . No family present at bedside. Addendum: Repeat hemoglobin this afternoon at 7.4. Due to continued dark NG tube aspirate, hemodynamic instability requiring phenylephrine (however not due to hemorrhage) and constant decline in hemoglobin we will transfuse 1 unit PRBC in anticipation that the next hemoglobin would be below 7. Bruno Chilel MD Jun 20, 2017 11:07
--- NOTE | 2017-06-20 11:39 | HHI.PR ---
Subjective Remarks This progress note was done on 06/19/2017 however being written on 06/20/2017 the patient deteriorated he is doing worse. he is intubated on mechanical ventilator. he is in shock on pressors. Objective Vital Signs Date Time Temp Pulse Resp B/P (MAP) Pulse Ox O2 Delivery O2 Flow Rate FiO2 06/20/17 08:22 99 70 06/20/17 04:00 97.8 100 24 120/66 (84) 100 06/20/17 04:00 70 06/20/17 04:00 96 06/20/17 03:32 100 70 06/20/17 00:25 95 105/61 06/20/17 00:00 97.7 77 24 116/60 (78) 100 06/20/17 00:00 96 06/20/17 00:00 70 06/19/17 23:55 97 Ventilator 06/19/17 23:49 100 70 06/19/17 20:04 98 70 06/19/17 20:03 98 Ventilator 06/19/17 20:00 70 06/19/17 20:00 77 06/19/17 20:00 97.6 77 24 120/62 (81) 98 06/19/17 17:23 90 105/53 06/19/17 16:00 97.8 86 24 102/57 (72) 98 06/19/17 16:00 86 06/19/17 16:00 70 06/19/17 15:30 70 06/19/17 15:08 94 70 06/19/17 14:30 70 06/19/17 14:00 88 06/19/17 13:07 82 114/56 06/19/17 12:30 80 06/19/17 12:00 90 06/19/17 12:00 91 06/19/17 12:00 97.8 91 20 111/55 (73) 97 I/O 06/19/17 06/19/17 06/19/17 06/20/17 06/20/17 06/20/17 07:00 15:00 23:00 07:00 15:00 23:00 Intake Total 2300 ml 940 ml 2589 ml 0 ml Output Total 500 ml 965 ml 1050 ml Balance 1800 ml 940 ml 1624 ml -1050 ml Intake Oral 0 ml IV Total 2300 ml 940 ml 2589 ml Output Urine Total 500 ml 925 ml 1000 ml Gastric Drainage Total 0 ml 40 ml 50 ml # Bowel Movements 0 0 4 Result Diagram: 06/20/17 0230 06/20/17 0230 Objective Remarks general appearance: Critically ill head and neck: Intubated ET tube in place LUNGS: Mild basilar crackles. HEART: Normal S1, S2. tachycardia ABDOMEN: Soft. It is not tender. EXTREMITIES: Trace edema., less NEUROLOGIC: sedated Assessment and Plan Assessment and Plan acute hypoxic respiratory failure pneumonia sepsis with shockHypoxia possible ILD CHF cont current plan as per the adult health clinical nurse specialist antibiotics optimize volume status wean off fio2 as tolerated D/W RN at bedside .. I will defer all medical management at this point to the laborer operator. Please call me if needed and after extubation. Again this encounter with the patient happened on 06/19/2017 Charly Payton MD Jun 20, 2017 11:39
--- NOTE | 2017-06-20 12:59 | PD.PROCEDR ---
Central Line Procedure REASON FOR PROCEDURE Central venous access PROCEDURE PERFORMED Central line placement: Right internal jugular CONSENT Informed consent for procedure was obtained from . The risks and benefits of the procedure were discussed to include but limited to bleeding, clot formation, infection, and even . ANESTHESIA Local injection of 1% Lidocaine DESCRIPTION OF THE PROCEDURE The patient was placed in supine, mild Trendelenburg position. The area was exposed and cleansed with ChloraPrep, times two. Large sterile drape was used to cover the patient, with the site exposed, under sterile conditions including cap, face mask, sterile gown, and sterile gloves. On single attempt, the introducer needle was inserted with negative pressure in syringe and venous flash was obtained. The guide wire was then advanced without any restriction and the needle was removed. The dilator was used without any complications. Using Seldinger technique the central venous catheter was advanced over the guide wire to a depth of 16 centimeters. The guide wire was removed. All ports were aspirated with dark venous blood return and flushed easily with sterile saline. All ports were capped. Antibiotic disc was placed around central line at puncture site. The central line was secured to the skin with two interrupted 2.0 silk sutures. The area was bandaged with sterile see- through central line bandage. RADIOLOGICAL DATA Ultrasound guidance was used to locate the vein. Doppler/color flow was used to confirm venous flow. Correct guidewire placement was verified using ultrasound. A CXR was ordered. COMPLICATIONS: No apparent complications ESTIMATED BLOOD LOSS: Less than 1 cc. Bruno Chilel MD Jun 20, 2017 12:59
--- NOTE | 2017-06-20 13:48 | HHI.GIFU ---
Subjective Remarks Pt remains sedated and mechanically ventilated NGT to LIWS with dark, bloody secretions Remains on high amount of Ad, per RN BP has been labile Titrating FiO2 down from 70% to 60% (Ayesha Sawant) Objective Vitals I&O Vital Signs Date Time Temp Pulse Resp B/P (MAP) Pulse Ox O2 Delivery O2 Flow Rate FiO2 06/20/17 13:25 100 60 06/20/17 12:00 98.7 106 24 111/63 (79) 100 06/20/17 12:00 85 06/20/17 12:00 70 06/20/17 11:38 100 70 06/20/17 08:22 99 70 06/20/17 08:00 70 06/20/17 08:00 97.6 77 24 120/62 (81) 98 06/20/17 08:00 77 06/20/17 04:00 97.8 100 24 120/66 (84) 100 06/20/17 04:00 70 06/20/17 04:00 96 06/20/17 03:32 100 70 06/20/17 00:25 95 105/61 06/20/17 00:00 97.7 77 24 116/60 (78) 100 06/20/17 00:00 96 06/20/17 00:00 70 06/19/17 23:55 97 Ventilator 06/19/17 23:49 100 70 06/19/17 20:04 98 70 06/19/17 20:03 98 Ventilator 06/19/17 20:00 70 06/19/17 20:00 77 06/19/17 20:00 97.6 77 24 120/62 (81) 98 06/19/17 17:23 90 105/53 06/19/17 16:00 97.8 86 24 102/57 (72) 98 06/19/17 16:00 86 06/19/17 16:00 70 06/19/17 15:30 70 06/19/17 15:08 94 70 06/19/17 14:30 70 06/19/17 14:00 88 I/O 06/19/17 06/19/17 06/19/17 06/20/17 06/20/17 06/20/17 07:00 15:00 23:00 07:00 15:00 23:00 Intake Total 2300 ml 940 ml 2589 ml 0 ml Output Total 500 ml 965 ml 1050 ml Balance 1800 ml 940 ml 1624 ml -1050 ml Intake Oral 0 ml IV Total 2300 ml 940 ml 2589 ml Output Urine Total 500 ml 925 ml 1000 ml Gastric Drainage Total 0 ml 40 ml 50 ml # Bowel Movements 0 0 4 Laboratory Laboratory Tests Test 06/19/17 14:53 06/19/17 15:00 06/19/17 15:09 06/20/17 02:30 Blood Gas Puncture Site ART LINE Blood Gas Patient Temperature 98.6 Blood Gas HCO3 26 Blood Gas Base Excess -0.9 Blood Gas Oxygen Saturation 92 Arterial Blood pH 7.25 Arterial Blood Partial Pressure CO2 60 Arterial Blood Partial Pressure O2 78 Arterial Blood Oxygen Content 21.6 Arterial Blood Carboxyhemoglobin 0.7 Arterial Blood Methemoglobin 0.8 Blood Gas Hemoglobin 16.6 Oxygen Delivery Device VENTILATOR Blood Gas Ventilator Setting PRVC/AC: Blood Gas Inspired Oxygen 70 White Blood Count 17.1 16.5 Red Blood Count 2.61 2.55 Hemoglobin 8.4 8.2 Hematocrit 25.9 25.0 Mean Corpuscular Volume 99.1 98.3 Mean Corpuscular Hemoglobin 32.1 32.3 Mean Corpuscular Hemoglobin Concent 32.4 32.9 Red Cell Distribution Width 16.1 16.2 Platelet Count 255 251 Mean Platelet Volume 10.2 9.8 Neutrophils (%) (Auto) 88.1 88.6 Lymphocytes (%) (Auto) 5.5 5.4 Monocytes (%) (Auto) 5.9 4.6 Eosinophils (%) (Auto) 0.3 1.1 Basophils (%) (Auto) 0.2 0.3 Neutrophils # (Auto) 15.0 14.6 Lymphocytes # (Auto) 0.9 0.9 Monocytes # (Auto) 1.0 0.8 Eosinophils # (Auto) 0.1 0.2 Basophils # (Auto) 0.0 0.0 CBC Comment AUTO DIFF AUTO DIFF Differential Total Cells Counted 100 100 Neutrophils % (Manual) 71 82 Band Neutrophils % 18 2 Lymphocytes % 7 9 Monocytes % 2 2 Neutrophils # (Manual) 15.4 14.2 Metamyelocytes 1 Differential Comment FINAL DIFF MANUAL FINAL DIFF MANUAL Plasma Cells 1 Platelet Estimate NORMAL NORMAL Platelet Morphology Comment ENLARGED NORMAL Blood Urea Nitrogen 61 45 Creatinine 1.25 1.00 Random Glucose 160 129 Total Protein 5.5 5.5 Calcium Level 7.1 7.0 Sodium Level 144 145 Potassium Level 4.4 4.4 Chloride Level 109 110 Carbon Dioxide Level 29.9 29.0 Anion Gap 5 6 Estimat Glomerular Filtration Rate 56 72 Protein Corrected Calcium 7.9 7.8 Lactic Acid Level 2.2 Eosinophils % 3 Myelocytes 1 Promyelocytes 1 Nucleated Red Blood Cells 4 Albumin 1.9 Phosphorus Level 2.2 Magnesium Level 2.5 Alkaline Phosphatase 50 Aspartate Amino Transf (AST/SGOT) 45 Alanine Aminotransferase (ALT/SGPT) 31 Total Bilirubin 0.4 Random Vancomycin Level 11.0 Test 06/20/17 04:36 Blood Gas Puncture Site ART LINE Blood Gas Patient Temperature 98.6 Blood Gas HCO3 26 Blood Gas Base Excess 0.8 Blood Gas Oxygen Saturation 96 Arterial Blood pH 7.35 Arterial Blood Partial Pressure CO2 48 Arterial Blood Partial Pressure O2 95 Arterial Blood Oxygen Content 10.7 Arterial Blood Carboxyhemoglobin 1.1 Arterial Blood Methemoglobin 0.9 Blood Gas Hemoglobin 7.8 Oxygen Delivery Device VENTILATOR Blood Gas Ventilator Setting PRVC/AC Blood Gas Inspired Oxygen 70 Date/Time Source Procedure Growth Status 06/19/17 15:51 Blood Peripheral Aerobic Blood Culture - Preliminary NO GROWTH IN 1 DAY Resulted 06/19/17 15:51 Blood Peripheral Anaerobic Blood Culture - Preliminary NO GROWTH IN 1 DAY Resulted 06/18/17 12:22 Nasal Aspirate Influenza Types A,B Antigen (DANY) - Final NEGATIVE FOR FLU A AND B ANTIGEN.... Complete 06/18/17 13:20 Urine Catheterized Urine Urine Culture - Preliminary NO GROWTH IN 24 HOURS. Resulted Imaging Last Impressions Chest X-Ray 06/20/17 0600 Signed Impressions: Service Date/Time: May 02:22 - CONCLUSION: Stable left lower lobe consolidation and patchy infiltrates in the right lower lung. Alexys Laurent MD Chest CT 06/18/17 0000 Signed Impressions: Service Date/Time: Sunday, June 18, 2017 05:38 - CONCLUSION: 1. Bilateral lower lobe multisegmental consolidative infiltrates, left larger than right. Alexys Laurent MD Physical Exam HEENT: Normocephalic; atraumatic CHEST: Respirations synchronized with vent CARDIAC: Irregular, elevated rate ABDOMEN: Distended, semi-firm, bowel sounds active. NGT to LIWS with dark, bloody output SKIN: Normal; no rash; no jaundice. No rashes [employer]: Sedated (Ayesha Sawant) Assessment and Plan Plan ASSESSMENT - ?guiac pos stool, bloody NGT output - poss UGIB. takes NSAIDs at night intermittently. hx LGIB, had colonoscopy on which bleeding was found- no further details on this. did not see any blood in his stool but he has been having loose stools. not stable for procedures at this time - anemia - 2/2 above. hgb dropped from 14 to 11. symptomatic - respiratory failure, bibasilar PNA, AF w/ RVR, GIB, ILD, COPD per [facility] 06/19/17 patient continues to be on ventilator support, sedation, and max Ad- drip. No family is present. NG tube connected to low intermittent suction no obvious bleeding noted. Anemia unspecified an unknown source for now, received 1 unit packed RBCs yesterday. No BM noted, palpable left lower quadrant bowel. Questionable constipation. (06/20) Pt remains on high dose of Ad gtt, per RN BP has been labile. Respiratory weaned from 70% FiO2 to 60% FiO2. Drop in H/H noted, was 11.1/34.2 on june 18 currently 8.2/25. NGT to LIWS with dark, blood secretions noted. Pt remains unstable at this time. Plan is for EGD when more stable. emergently if requested by [facility]. Will continue to monitor PLAN - Protonix gtt - Monitor H/H - Will continue to monitor and EGD when stable - EGD emergent if needed per [facility] request - Further recommendations based on clinical course Pt has been seen and examined by myself and Dr. Murillo and this note is written on her behalf (Ayesha Sawant) Physician Comments agree with above (Miladis Murillo MD) Ayesha Sawant Jun 20, 2017 13:48 Miladis Murillo MD Jun 20, 2017 15:28
--- NOTE | 2017-06-20 14:13 | RADRPT ---
EXAM DATE/TIME: 06/20/2017 13:09 [facility] COMPARISON: CHEST SINGLE AP, June 20, 2017, 2:22. INDICATIONS : Infiltrate. MEDICAL HISTORY : Cardiovascular disease. Seizures. SURGICAL HISTORY : None. ENCOUNTER: Subsequent ACUITY: 1 week PAIN SCORE: Non-responsive. LOCATION: Bilateral chest FINDINGS: An endotracheal tube has its tip 4 cm above the lobito. A nasogastric tube has tip below diaphragm. R ight internal jugular central line has its tip in the superior vena cava. There is no pneumothorax. B ibasilar infiltrates are stable. CONCLUSION: 1. Stable bibasilar infiltrates. 2. No pneumothorax status post placement of right internal jugular central line which has its tip in superior vena cava. Femi Wade MD on June 20, 2017 at 14:10 Board Certified Radiologist. This report was verified electronically.
[2017-06-20 15:43] LABS: AUTOMATED NEUTROPHIL # 12.9 TH/MM3 (1.8-7.7); BASOPHIL % 0.2 % (0.0-2.0); EOSINOPHIL # 0.2 TH/MM3 (0-0.4); EOSINOPHIL % 1.4 % (0.0-4.0); HEMATOCRIT 22.7 % (39.0-51.0); HEMOGLOBIN 7.4 GM/DL (13.0-17.0); LYMPH % 5.6 % (9.0-44.0); LYMPHOCYTE # 0.8 TH/MM3 (1.0-4.8); MEAN CELL VOLUME 98.9 FL (80.0-100.0); MEAN CORPUSCULAR HEMOGLOBIN 32.3 PG (27.0-34.0); MEAN CORPUSCULAR HGB CONC 32.7 % (32.0-36.0); MEAN PLATELET VOLUME 9.6 FL (7.0-11.0); MONO % 4.8 % (0.0-8.0); MONOCYTE # 0.7 TH/MM3 (0-0.9); PLATELET COUNT 245 TH/MM3 (150-450); RED CELL DISTRIBUTION WIDTH 15.9 % (11.6-17.2); WHITE BLOOD COUNT 14.7 TH/MM3 (4.0-11.0)
[2017-06-20 17:57] LABS: BANDS 7 % (0-6); CORRECTED NUCLEATED RBC 1 /100 WBC (0-0); LYMPHOCYTES 9 % (9-44); MONOCYTES 3 % (0-8); MYELOCYTES 3 % (0-0); NEUTROPHIL # MANUAL DIFF 12.6 TH/MM3 (1.8-7.7); NUCLEATED RED BLOOD CELL 1 (0-0); POLYS (SEG NEUTROPHILS) 72 % (16-70); PROMYELOCYTES 4 % (0-0); TOXIC GRANULATION 1+ (NORMAL)
[2017-06-20 17:58] LABS: TOXIC VACUOLATION PRESENT (NONE SEEN)
[2017-06-20] MEDS: AMIODARONE INJ 450 MG in SODIUM CHLOR 0.9% (EXCEL) INJ 250 ML IV PRN (19:53)
[2017-06-20] MEDS ORDERED: PHARMACY ORDERED LAB ONE (20:45)
[2017-06-21] VITALS (11 sets, daily range): BP systolic 108–135; BP diastolic 53–84; PULSE 91–126; RESP 24–26; TEMP 98.7–100.9; O2SAT 93–98
[2017-06-21] MEDS: PIPERACIL-TAZO 4.5 GM PREMIX 100 ML IV SCH (01:00)
[2017-06-21] MEDS: RESP: IPRATROPIUM 0.5 MG/2.5 ML NEB NEB SCH ×5 (03:32→21:33)
[2017-06-21] MEDS: RESP: LEVALBUTEROL HYDROCHLORIDE 1.25 MG/3 ML NEB (SCH) NEB ×5 (03:32→21:33)
[2017-06-21] MEDS: CHLORHEXIDINE GLUCONATE 2 % 1 PACK (2 CLOTHS)(taper/protocol) TOPICAL SCH (04:00)
--- NOTE | 2017-06-21 04:50 | RADRPT ---
EXAM DATE/TIME: 06/21/2017 02:31 [facility] COMPARISON: CHEST SINGLE AP, June 20, 2017, 13:09. INDICATIONS : Followup pulmonary infiltrate. MEDICAL HISTORY : Cardiovascular disease. Seizures. SURGICAL HISTORY : None. ENCOUNTER: Subsequent ACUITY: 1 week PAIN SCORE: Non-responsive. LOCATION: Bilateral chest FINDINGS: 2 AP semierect views of the chest were obtained and again demonstrated endotracheal tube in place wit h the tip approximately 4 cm above the lobito. The nasogastric tube and right internal jugular centra l venous line remain in place. There has been interval improvement in hazy opacity at the right lung base. Patchy opacity remains in the left lung base. The heart size is at the upper limits of normal. CONCLUSION: 1. Interval improvement in right basilar opacity. 2. The left basilar opacity is stable. Moy Gandhi MD on June 21, 2017 at 4:46 Board Certified Radiologist. This report was verified electronically.
[2017-06-21 05:51] LABS: AUTOMATED NEUTROPHIL # 12.3 TH/MM3 (1.8-7.7); BASOPHIL # 0.1 TH/MM3 (0-0.2); BASOPHIL % 0.7 % (0.0-2.0); EOSINOPHIL # 0.2 TH/MM3 (0-0.4); EOSINOPHIL % 1.3 % (0.0-4.0); HEMATOCRIT 24.4 % (39.0-51.0); HEMOGLOBIN 8.1 GM/DL (13.0-17.0); LYMPH % 9.5 % (9.0-44.0); LYMPHOCYTE # 1.4 TH/MM3 (1.0-4.8); MEAN CELL VOLUME 95.7 FL (80.0-100.0); MEAN CORPUSCULAR HEMOGLOBIN 31.7 PG (27.0-34.0); MEAN CORPUSCULAR HGB CONC 33.1 % (32.0-36.0); MEAN PLATELET VOLUME 9.3 FL (7.0-11.0); MONO % 4.3 % (0.0-8.0); MONOCYTE # 0.6 TH/MM3 (0-0.9); NEUT % 84.2 % (16.0-70.0); PLATELET COUNT 284 TH/MM3 (150-450); RED BLOOD COUNT 2.55 MIL/MM3 (4.50-5.90); WHITE BLOOD COUNT 14.6 TH/MM3 (4.0-11.0)
[2017-06-21 06:07] LABS: ALBUMIN 1.7 GM/DL (3.4-5.0); BICARBONATE 31.7 MEQ/L (21.0-32.0); CALCIUM 7.3 MG/DL (8.5-10.1); CALCIUM-PROTEIN CORRECTED 8.3 MG/DL (8.5-10.1); CREATININE 0.8 MG/DL (0.60-1.30); MAGNESIUM 2.5 MG/DL (1.5-2.5); PHOSPHORUS 1.9 MG/DL (2.5-4.9); TOTAL BILIRUBIN ADULT 0.4 MG/DL (0.2-1.0); TOTAL PROTEIN 5.3 GM/DL (6.4-8.2)
[2017-06-21] MEDS: PANTOPRAZOLE 80 MG/100 ML NS IV SCH ×4 (06:36→15:34)
--- NOTE | 2017-06-21 07:47 | HHI.CCPN ---
Subjective Remarks/Hospital Course 06/18: 77-year-old gentleman with history of hypertension, hyperlipidemia, atrial fibrillation, COPD now admitted on 06/13 in [place] with generalized worsening weakness and chest pain. Patient was treated with Cardizem drip and cardiology was consulted. Throughout the hospitalization patient had a gradual worsening hypoxia requiring nonrebreather mask and BiPAP. Pulmonology was consulted and patient had a CT chest that showed possible ILD and pneumonia. This morning patient was found to be in acute respiratory distress that did not respond to BiPAP at 100%, therefore patient was intubated. Patient was also hypotensive and responded to IV fluid bolus. He received 1 dose of vancomycin and 1 dose of Zosyn. There was a report of GI bleed and 2 units PRBC were ordered and 1 unit was transfused already, and patient was started on a PPI drip , however there is no clear documentation about the episode. Patient was transferred to [facility] for further care. Patient was seen immediately on his arrival, hypoxic to low 80s, on PEEP of 5 and FiO2 of 1. Due to vent dyssynchrony and worsening hypoxia patient required 1 dose of paralytic. Stat chest x-ray done did not show evidence of pneumothorax. Vent settings readjusted currently FiO2 of 0.9 and O2 sat of 91%. He is on Cardizem drip at 15 mg/h, on midazolam and fentanyl drips. 06/19: No events over the night. Patient remains on an FiO2 of 1 and PEEP of 12. On amiodarone drip off Cardizem with heart rate in the 90s still in A. fib. He requires blood pressure support with phenylephrine currently at 100. T -max of 100.7 yesterday. Patient is sedated with midazolam and fentanyl drips. Chest x-ray reviewed, worsening bilateral infiltrates. ET tube approximately 7 cm above lobito. 06/20: No events over the night. Patient remains on phenylephrine at 110 and amiodarone infusion. Sedated with Versed and fentanyl. Afebrile. Good urine output, more than 2 L over the last 24 hours. On 0.7 FiO2. Chest x-ray reviewed this morning, no significant change compared to yesterday. Dark bloody aspirate in the NG tube noted. 06/21: No acute events over the night. Still with some dark NG tube aspirate. Received 1 unit PRBC yesterday evening. Patient still requiring phenylephrine at 150 and amiodarone infusion at 0.5. Sedation is achieved with midazolam and fentanyl. FiO2 currently at 0.55. Chest x-ray without significant change. T- max 98.7. Objective Vital Signs Date Time Temp Pulse Resp B/P (MAP) Pulse Ox O2 Delivery O2 Flow Rate FiO2 06/21/17 04:00 55 06/21/17 04:00 98.7 91 24 135/84 (101) 97 06/19/17 23:55 Ventilator 06/17/17 20:30 15.00 Intake and Output 06/21/17 06/21/17 06/22/17 08:00 16:00 00:00 Intake Total 2209.7 ml Output Total 850 ml Balance 1359.7 ml Result Diagram: 06/21/17 0530 06/21/17 0530 Other Results Microbiology Date/Time Source Procedure Growth Status 06/19/17 15:51 Blood Peripheral Aerobic Blood Culture - Preliminary NO GROWTH IN 1 DAY Resulted 06/19/17 15:51 Blood Peripheral Anaerobic Blood Culture - Preliminary NO GROWTH IN 1 DAY Resulted 06/19/17 15:42 Blood Peripheral Aerobic Blood Culture - Preliminary NO GROWTH IN 1 DAY Resulted 06/19/17 15:42 Blood Peripheral Anaerobic Blood Culture - Preliminary NO GROWTH IN 1 DAY Resulted 06/18/17 12:22 Nasal Aspirate Influenza Types A,B Antigen (DANY) - Final NEGATIVE FOR FLU A AND B ANTIGEN.... Complete 06/18/17 12:00 Sputum Endotracheal Gram Stain - Final Resulted 06/18/17 12:00 Sputum Culture - Preliminary Streptococcus Pneumoniae Resulted 06/18/17 13:20 Urine Catheterized Urine Urine Culture - Preliminary NO GROWTH IN 24 HOURS. Resulted 06/18/17 13:20 Urine Catheterized Urine Legionella Antigen - Final PRESUMPTIVE NEGATIVE FOR LEGIONELLA P... Complete Laboratory Tests Test 06/21/17 03:41 Blood Gas Puncture Site ART LINE Blood Gas Patient Temperature 98.6 Blood Gas HCO3 27 mmol/L (22-26) Blood Gas Base Excess 2.6 mmol/L (-2-2) Blood Gas Oxygen Saturation 95 % (90-100) Arterial Blood pH 7.38 (7.380-7.420) Arterial Blood Partial Pressure CO2 47 mmHg (38-42) Arterial Blood Partial Pressure O2 87 mmHg (61-120) Arterial Blood Oxygen Content 10.9 Vol % (12.0-20.0) Arterial Blood Carboxyhemoglobin 1.3 % (0-4) Arterial Blood Methemoglobin 0.8 % (0-2) Blood Gas Hemoglobin 8.0 G/DL (12.0-16.0) Oxygen Delivery Device VENTILATOR Blood Gas Ventilator Setting SEE COMMENTS Blood Gas Inspired Oxygen 55 % Imaging Last 24 hours Impressions Chest X-Ray 06/21/17 0600 Signed Impressions: Service Date/Time: Wednesday, June 21, 2017 02:31 - CONCLUSION: 1. Interval improvement in right basilar opacity. 2. The left basilar opacity is stable. Moy Gandhi MD Last 24 hours Impressions Chest X-Ray 06/20/17 0600 Signed Impressions: Service Date/Time: May 02:22 - CONCLUSION: Stable left lower lobe consolidation and patchy infiltrates in the right lower lung. Alexys Laurent MD Last 24 hours Impressions Chest X-Ray 06/19/17 0600 Signed Impressions: Service Date/Time: Monday, June 19, 2017 04:14 - CONCLUSION: Increasing left lower lobe consolidation and patchy airspace opacities in the right lung. Alexys Laurent MD Last Impressions Chest X-Ray 06/18/17 0000 Signed Impressions: Service Date/Time: Sunday, June 18, 2017 10:56 - CONCLUSION: No significant interval change. Slade Olivo MD Chest CT 06/18/17 0000 Signed Impressions: Service Date/Time: Sunday, June 18, 2017 05:38 - CONCLUSION: 1. Bilateral lower lobe multisegmental consolidative infiltrates, left larger than right. Alexys Laurent MD Objective Remarks General - elderly gentleman intubated and sedated, ill-appearing, unresponsive HEENT - pupils are equal and reactive, sclerae are anicteric, neck is supple, no JVD, no carotid bruit, + ETT and NGT, + RIJ CVC (06/20) - site is clean CV - irregular heart sounds, no murmurs, rubs or gallops Chest - still with scattered coarse breath sounds, improved air entry bilateral , no wheezes Abdomen - soft, appears non-tender, distended, BS decreased Skin - no rashes, no cyanosis Extremities - 2+ edema, + peripheral pulses, warm and well-perfused, left femoral arterial line (06/18) - site is clear Neuro - limited, intubated and sedated, does not withdraw to painful stimuli, does not follow commands, pupils are equal and reactive A/P Assessment and Plan 1. Acute severe hypoxic respiratory failure -slow improvement in FiO2 requirements, still on a PEEP of 12 2. Strep pneumo pneumonia -afebrile, leukocytosis slowly trending down 3. Viridans strep and coag negative staph septicemia -suspect that coag negative staph is a contaminant 4. Circulatory shock, likely septic, sedation meds might be contributing - remains on phenylephrine drip 5. Atrial fibrillation with RVR -better controlled, however he remains in A. fib 6. Lactic acidosis 7. GI bleed -some bloody aspirate from NG tube, hemoglobin trending down, received PRBC transfusion last night 8. ILD 9. COPD 1. Continue PRVC at current vent settings. PIP is 31, patient synchronized with event, no auto PEEP. Maintain PEEP of 12 for now, taper FiO2 to 0.5 as tolerated. Once patient 0.4 FiO2 would slowly start titrating down PEEP 2. Ventilator bundle and bronchodilators with ipratropium and levalbuterol 3. Continue phenylephrine to keep map above 65 4. Continue amiodarone at 0.5 5. Stop Vanco and continue Zosyn for now but decrease dose to 3.375 every 6 hours 6. Repeat echo to rule out vegetation due to strep viridans in blood 7. Continue to hold aspirin and anticoagulation in the setting of GI bleed 8. Appreciate GI consult. Will need EGD once oxygenation and PEEP are improved or emergently if bleeding worsens 9. On pantoprazole infusion 10. Femoral central line removed 11. Repeat blood cultures are pending 12. GI prophylaxis addressed 13. DVT prophylaxis with SCDs 14. N.p.o. for now 15. Alternative code per patient's known wishes expressed by . I spent 31 minutes of critical care time managing ventilator, pressors, antibiotics, IV fluids, sedation, reviewing data and ordering labs, discussing with nursing staff and respiratory therapist. Patient is critically ill with severe hypoxic respiratory failure, pneumonia, underlying ILD and COPD and he is at extremely high risk for further deterioration and . Discussed with family in detail at bedside. Bruno Chilel MD 23, 2018 07:47
[2017-06-21 08:24] LABS: BANDS 13 % (0-6); CORRECTED NUCLEATED RBC 7 /100 WBC (0-0); LYMPHOCYTES 10 % (9-44); METAMYELOCYTES 3 % (0-1); MONOCYTES 3 % (0-8); MYELOCYTES 3 % (0-0); NEUTROPHIL # MANUAL DIFF 12.7 TH/MM3 (1.8-7.7); NUCLEATED RED BLOOD CELL 7 (0-0); POLYS (SEG NEUTROPHILS) 68 % (16-70)
[2017-06-21] MEDS: ARTIFICIAL TEARS OPTH SOLN 15 ML BTL EACH EYE SCH ×2 (09:00→17:00)
[2017-06-21] MEDS: SODIUM CHLORIDE 0.9% FLUSH 10 ML FLUSH IV FLUSH SCH ×2 (09:00→20:57)
[2017-06-21] MEDS: DOCUSATE SODIUM 100 MG CAP PO SCH ×2 (10:41→20:57)
[2017-06-21] MEDS: PIPERACIL-TAZO 3.375 GM PREMIX 50 ML IV SCH ×3 (10:41→19:50)
[2017-06-21] MEDS ORDERED: ALBUMIN 5% INJ 500 ML IV ONE (14:00)
[2017-06-21] MEDS ORDERED: TERBUTALINE INJ 1 MG/ML AMP SQ PRN (14:15)
--- NOTE | 2017-06-21 16:18 | PD.CONS ---
Consult Service Palliative Care . Consult Requested By Dr. Chilel . Primary Care Physician Jaky Ragland MD . Reason for Consultation a. To assist with evaluation and management of symptoms including: dyspnea; encephalopathy; generalized weakness b. To assist medical decision maker(s) with: better understanding of current medical conditions; weighing benefits/burdens of medical treatment options; making medical treatment decisions. . HPI History of Present Illness Intubated, mechanically ventilated, and sedated in a surgical ICU bed. He is unable to provide history. History is obtained from his and from the medical records. Patient is Mr Lugo is a 77-year-old male with a known medical history of hyperlipidemia; hypertension; and history of seizure who presented to [facility] Emergency Department on 06/13/2017 complaining of generalized weakness, lightheadedness, and some chest pain. tells me that the weakness had been progressive over many months. The patient had been having increasing difficulties getting up out of chairs. In addition he had been having difficulty lifting his feet up when he walked and there were several falls. The patient described pain in his thorax that radiated from his posterior shoulders forward to the mid chest. He felt this was a "gas bubble" and frequently asked for his 's antacid tablets. That pain was not associated with exertion. The patient had just undergone a cardiology evaluation by Dr. Butts in May. This apparently included nuclear stress testing which revealed an old inferior MO and EF of 57%. Atrial fibrillation was apparently first diagnosed at that time and the patient was started on coumadin. The patient underwent pulmonary function testing at [facility] on 11/04/2015. At that point testing revealed moderately severe obstructive lung disease with a good response to bronchodilators. Per , the patient has never required supplemental oxygen and has never been requiring nebulizer treatments. The patient's symptoms became so severe (particularly the weakness) over 2-3 days that he was unable to get up at all and his called the paramedics. On arrival to the emergency department, the patient was found to be in atrial fibrillation with a rapid ventricular rate of 170. Initial vital signs on ER presentation of 06/13/17 revealed the following--> temperature 99.2; pulse 177; respiratory rate 20; blood pressure 149/105; pulse oximetry 93% on room air Initial physical examination by the emergency frozen food department manager noted the following--> heart rhythm was irregularly irregular with tachycardia to a rate of 170. Lungs were clear with no accessory muscle use. No other significant findings. Initial diagnostic studies revealed the following: * CBC showed WBC 15.0; hemoglobin 15.2; platelet count 180 * coagulation profile showed PT 11.3; INR 1.1 * Chemistry profile showed sodium 136; potassium 3.8; chloride 100; CO2 26.4; BUN 12; creatinine 1.1; glucose 122; calcium 9.1; magnesium 1.9; GFR 65; anion gap 10 * Cardiac serology showed troponin less than 0.02; total CK 80 * EKG showed the atrial fibrillation at a rate of 170 * Chest x-ray showed COPD changes with left basilar atelectasis or scarring The patient was bolused with Cardizem in the emergency department and started on a Cardizem drip. Cardiology was consulted. Cardiology did not think the patient's chest pain was from ischemia. In spite of heart rate becoming better controlled, the patient began to have worsening respiratory function. Pulmonology was consulted who felt the patient might have interstitial lung disease. In the wheel presser on 06/18/17, a Halicat was called with patient in acute distress and BiPAP in place. The patient was hypoxemic and hypotensive. He was intubated by the emergency department physician. A central line was placed. An IV fluid bolus was given. Empiric antibiotics were provided. GI bleeding was noted and the patient was transfused with 1 unit of packed red blood cells and placed on a proton pump inhibitor drip. Critical care was consulted. The patient required sedation with fentanyl and midazolam. Mr. Lugo has remained on the ventilator since that time and is now in the surgical intensive care unit. He has required another unit of packed red blood cells and continues to have bleeding via his NG tube. Gastroenterology has been consulted. They plan on doing endoscopy when the patient is medically stable. The patient is requiring pressor support to maintain his blood pressure and is on an amiodarone infusion. Blood cultures grew out coag negative staph and strep viridans. Sputum culture grew out strep pneumonia. Dr. Chilel still believes the patient may be able to wean over time. . Function/Cognitive Trajectory reports that patient's primary pre-hospital problem was some progressive proximal muscle weakness. He was having increasing difficulty getting up out of chairs and was finding it difficult to raise his feet up off the ground when walking. There were falls. Otherwise he was ambulating without any assistive device and taking care of all of his own ADLs. 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 Review of Systems ROS Limitations: Clinical Condition (Patient is intubated, mechanically ventilated, and sedated and is unable to provide his own review of systems. Review of systems taken as well as possible from the patient's and from the medical record.) Constitutional: COMPLAINS OF: Fatigue, Weight gain, Generalized weakness, DENIES: Diaphoretic episodes, Weight loss, Pain Endocrine: DENIES: Polydipsia, Polyuria Eyes: DENIES: Eye pain, Vision loss, Double Vision Ears, nose, mouth, throat: DENIES: Nasal discharge, Throat pain, Running Nose, Epistaxis Respiratory: COMPLAINS OF: Cough, Shortness of breath, DENIES: Wheezing Cardiovascular: COMPLAINS OF: Chest pain, Dyspnea on Exertion, DENIES: Syncope Gastrointestinal: COMPLAINS OF: Diarrhea, Dyspepsia or heartburn, DENIES: Black stools, Bloody stools, Nausea, Vomiting, Difficulty Swallowing Musculoskeletal: DENIES: Joint pain, Muscle aches Neurologic: COMPLAINS OF: Abnormal gait, Seizures, DENIES: Headache, Paresthesias Psychiatric: DENIES: Confusion Past Family Social History Coded Allergies: No Known Allergies (Unverified Allergy, Unknown, 06/13/17) Past Medical History Hyperlipidemia Hypertension History of seizure COPD (per PFTs of 2016) RBBB Atrial fibrillation 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 Significant duodenitis seen on EGD on 05/01/2011 . Past Surgical History None . Reported Medications Prehospital medications include the following: Simvastatin 20 Mg Tab 20 Mg PO DAILY Cardizem CD 24 HR (Diltiazem CD 24 HR) 240 Mg Caper 240 Mg PO AM Cardizem (Diltiazem HCl) 120 Mg Tab 120 Mg PO QID . Current Medications Medications (Trade) Dose Ordered Sig/Low Route Start Time Stop Time Status Last Admin (NS Flush) 2 ml UNSCH PRN IV FLUSH 06/13/17 11:30 (NS Flush) 2 ml BID IV FLUSH 06/13/17 21:00 06/21/17 09:00 (Zofran Inj) 4 mg Q6H PRN IVP 06/13/17 12:00 (Narcan Inj) 0.4 mg UNSCH PRN IV PUSH 06/13/17 11:30 (Nitrostat Sl) 0.4 mg Q5M PRN SL 06/13/17 13:00 (Morphine Inj) 2 mg Q3H PRN IV PUSH 06/13/17 13:00 (Morphine Inj) 4 mg Q3H PRN IV PUSH 06/13/17 13:00 (Lopressor) 25 mg Q12HR PO 06/14/17 09:00 Future Hold 06/17/17 21:20 (Colace) 100 mg BID PO 06/14/17 21:00 06/21/17 10:41 (Milk Of Magnesia Liq) 30 ml DAILY PRN PO 06/14/17 17:45 (Xarelto) 15 mg BID PO 06/15/17 11:00 Future Hold 06/17/17 21:19 Pantoprazole Sodium 80 mg/ Sodium Chloride 100 ml @ 10 mls/hr Q10H IV 06/18/17 07:00 06/21/17 06:36 Fentanyl Citrate 250 ml @ 5 mls/hr TITRATE PRN IV 06/18/17 08:00 06/19/17 06:52 Midazolam HCl 100 ml @ 2 mls/hr TITRATE PRN IV 06/18/17 08:00 06/20/17 20:12 Miscellaneous Information Patient in critical care unit? Ass... [id number] .XX 06/18/17 10:00 06/18/17 12:51 (Chlorhexidine 2% Cloth) 3 pack DAILY@04 TOPICAL 06/19/17 04:00 06/23/17 04:01 06/20/17 03:28 (Chlorhexidine 2% Cloth) 3 pack UNSCH PRN TOPICAL 06/18/17 09:30 06/23/17 09:18 (Atrovent Neb) 0.5 mg Q4HR NEB NEB 06/18/17 12:00 06/21/17 11:08 Lactated Ringer's 1,000 ml @ 50 mls/hr Q20H IV 06/18/17 14:15 06/20/17 06:32 (Xopenex Neb) 1.25 mg Q4HR NEB NEB 06/18/17 16:00 06/21/17 11:08 Phenylephrine HCl 40 mg/Dextrose 500 ml @ 30 mls/hr TITRATE PRN IV 06/18/17 17:00 06/20/17 20:11 Amiodarone HCl 450 mg/Sodium Chloride 259 ml @ 33.33 mls/ hr Q7H47M PRN IV 06/18/17 18:15 06/20/17 19:53 Piperacillin Sod/ Tazobactam Sod 50 ml @ 100 mls/hr Q6H IV 06/21/17 08:00 06/21/17 10:41 (Tears Naturale Opth Soln) 1 drop Q8H EACH EYE 06/21/17 09:00 Albumin Human 500 ml @ 250 mls/hr ONCE ONCE IV 06/21/17 14:00 06/21/17 15:59 Norepinephrine Bitartrate 250 ml @ 7.5 mls/hr TITRATE PRN IV 06/21/17 14:15 (Brethine Inj) 1 mg UNSCH PRN SQ 06/21/17 14:15 . Family History The patient's mother of "old age" at age 93 The patient's father and 1 of his brother suffered strokes. The patient's daughter of a cardiac arrest. No other significant family medical history noted. . Substance Use Tobacco: Patient was pack per day. He quit approximately 20 years ago. Alcohol: indicates the patient would often have at least 2 alcoholic drinks per night. She did not feel he had a history of alcohol abuse. Prescription med abuse: No history of prescription drug abuse Illicits: No known use of illicits . Psychosocial History Patient was born in [place] but grew up in [facility]. He is a graduate of [employer] school and attended [employer]. No history. The patient's family owns a [employer] on 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 He subsequently worked at [employer]. He completely retired about 6 years ago. The patient was once. He has been to José about 48 years. They had one child together--a daughter--who about 6 years ago from a cardiac arrest. José had 2 sons and 2 daughters by a prior marriage who are very close to the patient. . Spiritual/Cultural Factors The patient is Protestant and has been active in the [facility] [employer]. 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 . Living Will: Never completed Health Care Surrogate: Never completed Durable Power of Sweatband Decorating Machine Operator: Never completed Date completed: Per , patient has never completed an advanced directive. . Health Care Surrogate(s): The patient has never completed a written designation of healthcare surrogate. . Documented care wishes: We have no written documentation of patient's healthcare goals/preferences. . Today's verbally stated goals: Patient is sedated, mechanically ventilated and is unable to provide his own healthcare goals/preferences at this time. . Family/friends goals: reports that the patient had said multiple times he would not want to be kept alive on machines and he would not want to undergo cardiac resuscitation. , however, believes that as long as the doctors feel he still has a reasonable chance of being weaned from the ventilator and improving he would want that type of supportive care. . Ethical and Legal Issues Patient is currently incapacitated to make his own healthcare decisions. There is still remains a reasonable probability that he will improve to the point that he will be able to make his own healthcare decisions. . Physical Exam Vital Signs Date Time Temp Pulse Resp B/P (MAP) Pulse Ox O2 Delivery O2 Flow Rate FiO2 06/21/17 11:08 98 40 06/21/17 07:50 97 50 06/21/17 04:00 55 06/21/17 04:00 98.7 91 24 135/84 (101) 97 06/21/17 04:00 91 06/21/17 03:17 95 55 06/21/17 00:00 55 06/21/17 00:00 95 06/21/17 00:00 98.7 95 24 116/69 (85) 97 06/20/17 23:46 99 55 06/20/17 20:35 95 55 06/20/17 20:11 95 122/77 06/20/17 20:00 92 06/20/17 20:00 98.6 92 24 122/68 (86) 97 06/20/17 20:00 55 06/20/17 19:53 89 121/69 06/20/17 18:02 98.0 96 24 113/63 95 06/20/17 18:00 101 06/20/17 17:37 98.0 90 24 138/76 99 06/20/17 16:00 55 06/20/17 16:00 98.0 91 24 126/71 (89) 100 06/20/17 16:00 91 06/20/17 15:37 99 60 . Exam CONSTITUTIONAL/GENERAL: This is an adequately nourished patient, intubated, mechanically ventilated, sedated in a surgical intensive care unit bed. No apparent distress. TUBES/LINES/DRAINS: Right internal jugular central line; left femoral arterial line; soft restraints; nasogastric tube; orotracheal tube; Hanks catheter; soft wrist restraints. SKIN: No jaundice, rashes, or lesions. No wounds seen anteriorly. Skin temperature appropriate. Not diaphoretic. HEAD: Atraumatic. Normocephalic. EYES: Pupils equal and round and reactive. Cannot evaluate extraocular motions. No scleral icterus. No injection or drainage. Fundi not examined. ENT: Unable to evaluate hearing at this time.. NG tube in left naris. nose without bleeding or purulent drainage. Throat without visible erythema, exudates , masses, or lesions though somewhat difficult to see due to intubations. NECK: Trachea midline. Supple, nontender. CARDIOVASCULAR: Irregularly irregular heart rhythm. No audible gallops, or rubs. No JVD. RESPIRATORY/CHEST: Symmetric, unlabored respirations. Air movement approximately equal bilaterally. Diminished breath sounds at both bases. No audible wheezes.. GASTROINTESTINAL: Abdomen distended and moderately firm. No hepato-splenomegaly , or palpable masses but difficult to palpate due to firmness. No guarding. Bowel sounds present. GENITOURINARY: Without palpable bladder distension. Hanks catheter in place. MUSCULOSKELETAL: Extremities without clubbing, cyanosis. 2+ edema is present. No mottling . LYMPHATICS: No palpable cervical or supraclavicular adenopathy. NEUROLOGICAL: Sedated. Minimal withdrawal to noxious stimuli in the upper extremities. No real withdrawal in the lower extremities. Unable to follow commands PSYCHIATRIC: Unable to assess due to level of responsiveness.. . Diagnostic Tests Laboratory Laboratory Tests Test 06/18/17 20:02 06/18/17 21:28 06/19/17 04:11 06/19/17 05:36 Lactic Acid Level 2.7 mmol/L (0.4-2.0) Blood Gas Puncture Site 100 ART LINE Blood Gas Patient Temperature 98.6 98.6 Blood Gas HCO3 20 mmol/L (22-26) 22 mmol/L (22-26) Blood Gas Base Excess -6.0 mmol/L (-2-2) -3.3 mmol/L (-2-2) Blood Gas Oxygen Saturation 93 % (90-100) 97 % (90-100) Arterial Blood pH 7.23 (7.380-7.420) 7.28 (7.380-7.420) Arterial Blood Partial Pressure CO2 50 mmHg (38-42) 49 mmHg (38-42) Arterial Blood Partial Pressure O2 86 mmHg (61-120) 122 mmHg (61-120) Arterial Blood Oxygen Content 13.1 Vol % (12.0-20.0) 12.5 Vol % (12.0-20.0) Arterial Blood Carboxyhemoglobin 0.8 % (0-4) 0.9 % (0-4) Arterial Blood Methemoglobin 1.0 % (0-2) 0.8 % (0-2) Blood Gas Hemoglobin 9.9 G/DL (12.0-16.0) 9.0 G/DL (12.0-16.0) Oxygen Delivery Device VENTILATOR VENTILATOR Blood Gas Ventilator Setting PRVC/ AC PRVC/AC White Blood Count 18.3 TH/MM3 (4.0-11.0) Red Blood Count 2.93 MIL/MM3 (4.50-5.90) Hemoglobin 9.5 GM/DL (13.0-17.0) Hematocrit 28.9 % (39.0-51.0) Mean Corpuscular Volume 98.7 FL (80.0-100.0) Mean Corpuscular Hemoglobin 32.4 PG (27.0-34.0) Mean Corpuscular Hemoglobin Concent 32.9 % (32.0-36.0) Red Cell Distribution Width 16.2 % (11.6-17.2) Platelet Count 294 TH/MM3 (150-450) Mean Platelet Volume 10.1 FL (7.0-11.0) Neutrophils (%) (Auto) 85.6 % (16.0-70.0) Lymphocytes (%) (Auto) 7.1 % (9.0-44.0) Monocytes (%) (Auto) 7.1 % (0.0-8.0) Eosinophils (%) (Auto) 0.1 % (0.0-4.0) Basophils (%) (Auto) 0.1 % (0.0-2.0) Neutrophils # (Auto) 15.6 TH/MM3 (1.8-7.7) Lymphocytes # (Auto) 1.3 TH/MM3 (1.0-4.8) Monocytes # (Auto) 1.3 TH/MM3 (0-0.9) Eosinophils # (Auto) 0.0 TH/MM3 (0-0.4) Basophils # (Auto) 0.0 TH/MM3 (0-0.2) CBC Comment AUTO DIFF Differential Total Cells Counted 100 Neutrophils % (Manual) 59 % (16-70) Band Neutrophils % 19 % (0-6) Lymphocytes % 11 % (9-44) Monocytes % 7 % (0-8) Eosinophils % 1 % (0-4) Neutrophils # (Manual) 14.6 TH/MM3 (1.8-7.7) Metamyelocytes 1 % (0-1) Myelocytes 1 % (0-0) Nucleated Red Blood Cells 5 /100 WBC (0-0) Differential Comment FINAL DIFF MANUAL Plasma Cells 1 % (0-0) Toxic Granulation 1+ (NORMAL) Toxic Vacuolation PRESENT (NONE SEEN) Platelet Estimate NORMAL (NORMAL) Platelet Morphology Comment NORMAL (NORMAL) Blood Urea Nitrogen 71 MG/DL (7-18) Creatinine 1.53 MG/DL (0.60-1.30) Random Glucose 170 MG/DL (74-106) Total Protein 5.4 GM/DL (6.4-8.2) Albumin 1.7 GM/DL (3.4-5.0) Calcium Level 7.3 MG/DL (8.5-10.1) Phosphorus Level 5.1 MG/DL (2.5-4.9) Magnesium Level 2.6 MG/DL (1.5-2.5) Alkaline Phosphatase 96 U/L (45-117) Aspartate Amino Transf (AST/SGOT) 56 U/L (15-37) Alanine Aminotransferase (ALT/SGPT) 41 U/L (12-78) Total Bilirubin 0.6 MG/DL (0.2-1.0) Sodium Level 143 MEQ/L (136-145) Potassium Level 4.9 MEQ/L (3.5-5.1) Chloride Level 108 MEQ/L (98-107) Carbon Dioxide Level 26.4 MEQ/L (21.0-32.0) Anion Gap 9 MEQ/L (5-15) Estimat Glomerular Filtration Rate 44 ML/MIN (>89) Protein Corrected Calcium 8.2 MG/DL (8.5-10.1) Blood Gas Inspired Oxygen 100 % Test 06/19/17 14:53 06/19/17 15:00 06/19/17 15:09 06/20/17 02:30 Blood Gas Puncture Site ART LINE Blood Gas Patient Temperature 98.6 Blood Gas HCO3 26 mmol/L (22-26) Blood Gas Base Excess -0.9 mmol/L (-2-2) Blood Gas Oxygen Saturation 92 % (90-100) Arterial Blood pH 7.25 (7.380-7.420) Arterial Blood Partial Pressure CO2 60 mmHg (38-42) Arterial Blood Partial Pressure O2 78 mmHg (61-120) Arterial Blood Oxygen Content 21.6 Vol % (12.0-20.0) Arterial Blood Carboxyhemoglobin 0.7 % (0-4) Arterial Blood Methemoglobin 0.8 % (0-2) Blood Gas Hemoglobin 16.6 G/DL (12.0-16.0) Oxygen Delivery Device VENTILATOR Blood Gas Ventilator Setting PRVC/AC: Blood Gas Inspired Oxygen 70 % White Blood Count 17.1 TH/MM3 (4.0-11.0) 16.5 TH/MM3 (4.0-11.0) Red Blood Count 2.61 MIL/MM3 (4.50-5.90) 2.55 MIL/MM3 (4.50-5.90) Hemoglobin 8.4 GM/DL (13.0-17.0) 8.2 GM/DL (13.0-17.0) Hematocrit 25.9 % (39.0-51.0) 25.0 % (39.0-51.0) Mean Corpuscular Volume 99.1 FL (80.0-100.0) 98.3 FL (80.0-100.0) Mean Corpuscular Hemoglobin 32.1 PG (27.0-34.0) 32.3 PG (27.0-34.0) Mean Corpuscular Hemoglobin Concent 32.4 % (32.0-36.0) 32.9 % (32.0-36.0) Red Cell Distribution Width 16.1 % (11.6-17.2) 16.2 % (11.6-17.2) Platelet Count 255 TH/MM3 (150-450) 251 TH/MM3 (150-450) Mean Platelet Volume 10.2 FL (7.0-11.0) 9.8 FL (7.0-11.0) Neutrophils (%) (Auto) 88.1 % (16.0-70.0) 88.6 % (16.0-70.0) Lymphocytes (%) (Auto) 5.5 % (9.0-44.0) 5.4 % (9.0-44.0) Monocytes (%) (Auto) 5.9 % (0.0-8.0) 4.6 % (0.0-8.0) Eosinophils (%) (Auto) 0.3 % (0.0-4.0) 1.1 % (0.0-4.0) Basophils (%) (Auto) 0.2 % (0.0-2.0) 0.3 % (0.0-2.0) Neutrophils # (Auto) 15.0 TH/MM3 (1.8-7.7) 14.6 TH/MM3 (1.8-7.7) Lymphocytes # (Auto) 0.9 TH/MM3 (1.0-4.8) 0.9 TH/MM3 (1.0-4.8) Monocytes # (Auto) 1.0 TH/MM3 (0-0.9) 0.8 TH/MM3 (0-0.9) Eosinophils # (Auto) 0.1 TH/MM3 (0-0.4) 0.2 TH/MM3 (0-0.4) Basophils # (Auto) 0.0 TH/MM3 (0-0.2) 0.0 TH/MM3 (0-0.2) CBC Comment AUTO DIFF AUTO DIFF Differential Total Cells Counted 100 100 Neutrophils % (Manual) 71 % (16-70) 82 % (16-70) Band Neutrophils % 18 % (0-6) 2 % (0-6) Lymphocytes % 7 % (9-44) 9 % (9-44) Monocytes % 2 % (0-8) 2 % (0-8) Neutrophils # (Manual) 15.4 TH/MM3 (1.8-7.7) 14.2 TH/MM3 (1.8-7.7) Metamyelocytes 1 % (0-1) Differential Comment FINAL DIFF MANUAL FINAL DIFF MANUAL Plasma Cells 1 % (0-0) Platelet Estimate NORMAL (NORMAL) NORMAL (NORMAL) Platelet Morphology Comment ENLARGED (NORMAL) NORMAL (NORMAL) Blood Urea Nitrogen 61 MG/DL (7-18) 45 MG/DL (7-18) Creatinine 1.25 MG/DL (0.60-1.30) 1.00 MG/DL (0.60-1.30) Random Glucose 160 MG/DL (74-106) 129 MG/DL (74-106) Total Protein 5.5 GM/DL (6.4-8.2) 5.5 GM/DL (6.4-8.2) Calcium Level 7.1 MG/DL (8.5-10.1) 7.0 MG/DL (8.5-10.1) Sodium Level 144 MEQ/L (136-145) 145 MEQ/L (136-145) Potassium Level 4.4 MEQ/L (3.5-5.1) 4.4 MEQ/L (3.5-5.1) Chloride Level 109 MEQ/L (98-107) 110 MEQ/L (98-107) Carbon Dioxide Level 29.9 MEQ/L (21.0-32.0) 29.0 MEQ/L (21.0-32.0) Anion Gap 5 MEQ/L (5-15) 6 MEQ/L (5-15) Estimat Glomerular Filtration Rate 56 ML/MIN (>89) 72 ML/MIN (>89) Protein Corrected Calcium 7.9 MG/DL (8.5-10.1) 7.8 MG/DL (8.5-10.1) Lactic Acid Level 2.2 mmol/L (0.4-2.0) Eosinophils % 3 % (0-4) Myelocytes 1 % (0-0) Promyelocytes 1 % (0-0) Nucleated Red Blood Cells 4 /100 WBC (0-0) Albumin 1.9 GM/DL (3.4-5.0) Phosphorus Level 2.2 MG/DL (2.5-4.9) Magnesium Level 2.5 MG/DL (1.5-2.5) Alkaline Phosphatase 50 U/L (45-117) Aspartate Amino Transf (AST/SGOT) 45 U/L (15-37) Alanine Aminotransferase (ALT/SGPT) 31 U/L (12-78) Total Bilirubin 0.4 MG/DL (0.2-1.0) Random Vancomycin Level 11.0 COMMENT Test 06/20/17 04:36 06/20/17 15:00 06/21/17 03:41 06/21/17 05:30 Blood Gas Puncture Site ART LINE ART LINE Blood Gas Patient Temperature 98.6 98.6 Blood Gas HCO3 26 mmol/L (22-26) 27 mmol/L (22-26) Blood Gas Base Excess 0.8 mmol/L (-2-2) 2.6 mmol/L (-2-2) Blood Gas Oxygen Saturation 96 % (90-100) 95 % (90-100) Arterial Blood pH 7.35 (7.380-7.420) 7.38 (7.380-7.420) Arterial Blood Partial Pressure CO2 48 mmHg (38-42) 47 mmHg (38-42) Arterial Blood Partial Pressure O2 95 mmHg (61-120) 87 mmHg (61-120) Arterial Blood Oxygen Content 10.7 Vol % (12.0-20.0) 10.9 Vol % (12.0-20.0) Arterial Blood Carboxyhemoglobin 1.1 % (0-4) 1.3 % (0-4) Arterial Blood Methemoglobin 0.9 % (0-2) 0.8 % (0-2) Blood Gas Hemoglobin 7.8 G/DL (12.0-16.0) 8.0 G/DL (12.0-16.0) Oxygen Delivery Device VENTILATOR VENTILATOR Blood Gas Ventilator Setting PRVC/AC SEE COMMENTS Blood Gas Inspired Oxygen 70 % 55 % White Blood Count 14.7 TH/MM3 (4.0-11.0) 14.6 TH/MM3 (4.0-11.0) Red Blood Count 2.30 MIL/MM3 (4.50-5.90) 2.55 MIL/MM3 (4.50-5.90) Hemoglobin 7.4 GM/DL (13.0-17.0) 8.1 GM/DL (13.0-17.0) Hematocrit 22.7 % (39.0-51.0) 24.4 % (39.0-51.0) Mean Corpuscular Volume 98.9 FL (80.0-100.0) 95.7 FL (80.0-100.0) Mean Corpuscular Hemoglobin 32.3 PG (27.0-34.0) 31.7 PG (27.0-34.0) Mean Corpuscular Hemoglobin Concent 32.7 % (32.0-36.0) 33.1 % (32.0-36.0) Red Cell Distribution Width 15.9 % (11.6-17.2) 18.0 % (11.6-17.2) Platelet Count 245 TH/MM3 (150-450) 284 TH/MM3 (150-450) Mean Platelet Volume 9.6 FL (7.0-11.0) 9.3 FL (7.0-11.0) Neutrophils (%) (Auto) 88.0 % (16.0-70.0) 84.2 % (16.0-70.0) Lymphocytes (%) (Auto) 5.6 % (9.0-44.0) 9.5 % (9.0-44.0) Monocytes (%) (Auto) 4.8 % (0.0-8.0) 4.3 % (0.0-8.0) Eosinophils (%) (Auto) 1.4 % (0.0-4.0) 1.3 % (0.0-4.0) Basophils (%) (Auto) 0.2 % (0.0-2.0) 0.7 % (0.0-2.0) Neutrophils # (Auto) 12.9 TH/MM3 (1.8-7.7) 12.3 TH/MM3 (1.8-7.7) Lymphocytes # (Auto) 0.8 TH/MM3 (1.0-4.8) 1.4 TH/MM3 (1.0-4.8) Monocytes # (Auto) 0.7 TH/MM3 (0-0.9) 0.6 TH/MM3 (0-0.9) Eosinophils # (Auto) 0.2 TH/MM3 (0-0.4) 0.2 TH/MM3 (0-0.4) Basophils # (Auto) 0.0 TH/MM3 (0-0.2) 0.1 TH/MM3 (0-0.2) CBC Comment AUTO DIFF AUTO DIFF Differential Total Cells Counted 100 100 Neutrophils % (Manual) 72 % (16-70) 68 % (16-70) Band Neutrophils % 7 % (0-6) 13 % (0-6) Lymphocytes % 9 % (9-44) 10 % (9-44) Monocytes % 3 % (0-8) 3 % (0-8) Eosinophils % 2 % (0-4) Neutrophils # (Manual) 12.6 TH/MM3 (1.8-7.7) 12.7 TH/MM3 (1.8-7.7) Myelocytes 3 % (0-0) 3 % (0-0) Promyelocytes 4 % (0-0) Nucleated Red Blood Cells 1 /100 WBC (0-0) 7 /100 WBC (0-0) Differential Comment FINAL DIFF MANUAL FINAL DIFF MANUAL Toxic Granulation 1+ (NORMAL) Toxic Vacuolation PRESENT (NONE SEEN) Platelet Estimate NORMAL (NORMAL) NORMAL (NORMAL) Platelet Morphology Comment NORMAL (NORMAL) NORMAL (NORMAL) Metamyelocytes 3 % (0-1) Blood Urea Nitrogen 23 MG/DL (7-18) Creatinine 0.80 MG/DL (0.60-1.30) Random Glucose 128 MG/DL (74-106) Total Protein 5.3 GM/DL (6.4-8.2) Albumin 1.7 GM/DL (3.4-5.0) Calcium Level 7.3 MG/DL (8.5-10.1) Phosphorus Level 1.9 MG/DL (2.5-4.9) Magnesium Level 2.5 MG/DL (1.5-2.5) Alkaline Phosphatase 61 U/L (45-117) Aspartate Amino Transf (AST/SGOT) 37 U/L (15-37) Alanine Aminotransferase (ALT/SGPT) 21 U/L (12-78) Total Bilirubin 0.4 MG/DL (0.2-1.0) Sodium Level 144 MEQ/L (136-145) Potassium Level 4.7 MEQ/L (3.5-5.1) Chloride Level 109 MEQ/L (98-107) Carbon Dioxide Level 31.7 MEQ/L (21.0-32.0) Anion Gap 3 MEQ/L (5-15) Estimat Glomerular Filtration Rate 93 ML/MIN (>89) Protein Corrected Calcium 8.3 MG/DL (8.5-10.1) . Result Diagram: 06/21/17 0530 06/21/17 0530 Microbiology Microbiology Date/Time Source Procedure Growth Status 06/19/17 15:51 Blood Peripheral Aerobic Blood Culture - Preliminary NO GROWTH IN 2 DAYS Resulted 06/19/17 15:51 Blood Peripheral Anaerobic Blood Culture - Preliminary NO GROWTH IN 2 DAYS Resulted 06/19/17 15:42 Blood Peripheral Aerobic Blood Culture - Preliminary NO GROWTH IN 2 DAYS Resulted 06/19/17 15:42 Blood Peripheral Anaerobic Blood Culture - Preliminary NO GROWTH IN 2 DAYS Resulted . Imaging Last Impressions Chest X-Ray 06/21/17 0600 Signed Impressions: Service Date/Time: Wednesday, June 21, 2017 02:31 - CONCLUSION: 1. Interval improvement in right basilar opacity. 2. The left basilar opacity is stable. Moy Gandhi MD Chest CT 06/18/17 0000 Signed Impressions: Service Date/Time: Sunday, June 18, 2017 05:38 - CONCLUSION: 1. Bilateral lower lobe multisegmental consolidative infiltrates, left larger than right. Alexys Laurent MD . Procedures * Intubation/mechanical ventilation * Right internal jugular line placement * Left femoral artery line placement . Patient/Family Conference Present at Family Conference: . Family Conference Time (mins): 35 Family Conference Location: Telephone Issues Discussed: * Palliative care role, purpose, approach * Additional medical, psychosocial, and spiritual history * Patients general health, functional status, and cognitive changes in the months leading up to the current hospitalization * Family understanding of the current medical problems * Family understanding of prognosis * Patients goals of care as best understood from conversations and/or values * Current medical treatment options and benefits/burdens of those options * Likely scenarios comparing ongoing aggressive care with a transition to comfort measures only * Questions answered to the best of my ability * Palliative care contact information provided . Assessment and Plan Disease Oriented Problem List: (1) Acute hypoxemic respiratory failure (2) Pneumonia (3) Atrial fibrillation with RVR (4) Proximal muscle weakness (5) GIB (gastrointestinal bleeding) (6) Coronary artery disease (7) Hyperlipidemia (8) Hypertension Symptom Scale: (1) Pain 0-10 Scale: Unable to quantify (2) Dyspnea 0-10 Scale: Unable to quantify (3) Encephalopathy 0-10 Scale: Unable to quantify Pertinent Non-Medical Issues Psychosocial: Lives at home with who is wheelchair bound and need 24 hour 02. Well supported by step children. Spiritual: Protestant. 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 Legal: No known advance directives. is proxy Ethical issues impacting care: Pt currently incapacitated but might re-gain capacity. . Important Contacts José Lugo (spouse; health care proxy) [phone] . Prognosis There is still a reasonable chance that patient's pneumonia and respiratory status will improve and we will be able to wean him from the vent. He will be quite deconditioned at that time and will need substantial rehabilitation. Unclear if he might have some sort of underlying neuro-muscular issue that has caused some proximal muscle weakness AND may be contributing to his respiratory issues. This might impact prognosis. Also, we still do not know the cause of the GI bleeding and that might impact prognosis. Should there be a major setback or it become clear that we will not be able to wean him from the vent, spouse indicates that the patient would not want to be prolonged on life support. . Code Status: Alternative Code Plan == Code Status: Alternate code -- patient would not want chest compressions or shock at this time, but would want to continue on the vent until such time as the physicians thought there was no reasonable hope of getting him off the vent. == Decision Making: Patient is currently incapacitated to make his own healthcare decisions. There is a reasonable probability that he will recover capacity to do so if we are able to improve his respiratory status. There is no known written designation of healthcare surrogate. Proxy healthcare decision making therefore falls to his spouse. ==Goals of medical treatment: Goals of medical treatment are aggressive short of resuscitation. Critical care continues to feel there is reason to hope that we can successfully treat his infection and wean him from ventilator support. The patient's bowels wants ongoing aggressive care under the circumstances. , however, is also certain that the patient would not want to be prolonged on life support should there be no reasonable hope for his recovery. ==Symptoms * Pain: Patient did not have any prehospitalization pain syndromes. Current sources of discomfort would include prolonged bedbound status; orotracheal intubation; nasogastric intubation; Hanks catheterization; vascular access lines ; wrist restraints. Patient is currently on fentanyl and midazolam drips. These appear to be adequately controlling his discomfort. No further recommendations at this time. * Encephalopathy: Difficult to evaluate while patient is sedated. Nurses slowly weaning sedating meds. Will hopefully be able to better assess cognitive function when he is less sedated. No further recommendations at this time. * Proximal muscle weakness. gives a very good story for progressively worsening proximal muscle weakness. The patient had been having difficulty getting up from chairs. He is also been having difficulty lifting his feet when walking. This was brought to the attention of the patient's primary care doctor who apparently did not recommend any particular evaluation. * Dyspnea: Currently managed by ventilator support. The sense of shortness of breath should be adequately addressed with the patient's fentanyl and medazepam drips. No further recommendation at this time. == The progressively worsening proximal muscle weakness reported by the makes one concerned for some underlying neuropathy or myopathy that might also be impacting respiratory function. A thyroid myopathy with hyperthyroidism might also bring on atrial fibrillation with rapid ventricular rate. We will go ahead and check thyroid function. Will see if critical care wants to evaluate for Myasthenia, statin myopathy (he was on simvastatin) or other causes of proximal weakness. == May have a better feel for prognosis once patient is well enough to undergo EGD and we can better understand the source of the GI bleeding. Patient does have a history in his chart of duodenal ulcers, duodenitis, and gastritis. He also has an EtOH history of about 2 drinks per night per . == Should there be a major setback or critical care come to believe that the patient has little chance of weaning from the vent, appears accepting of a transition to "comfort measures only." == Palliative care will continue to follow to assist with symptom management and to further clarify goals of medical treatment as the clinical course evolves. . 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 == Should there be a major setback or critical care reaches a point where they feel vent weaning is not likely to happen, spouse has indicated she would not want the patient prolonged on life support. . Thank you for the opportunity to participate in the care of Mr. Lugo. . Attestation To help prompt me to consider important information that might be impacting today's encounter and assessment, information from prior notes written by myself or my colleagues may have been "brought forward" into today's note. My signature on this note, however, is an attestation that I personally performed the exam, history, and/or decision-making noted today, and, unless otherwise indicated, the interactions with patient, family, and staff as well as the review of records all occurred today. I also attest that the listed assessment and stated plan reflect my best clinical judgment today based on the combination of historical information, prior notes, and today's exam/ interactions. When time spent is documented, it refers only to time spent today by the signer, or if indicated, combined time spent today by collaborating physician/nurse practitioner. . Nick Collins MD Jun 21, 2017 16:18
[2017-06-21 17:55] LABS: FREE T4 0.87 NG/DL (0.76-1.46)
[2017-06-21] MEDS: LACTATED RINGER'S 1000 ML INJ 1,000 ML IV SCH (19:45)
[2017-06-21] MEDS: PHENYLEPHRINE 40 MG in D5W 500 ML IV PRN (19:45)
[2017-06-22] VITALS (13 sets, daily range): BP systolic 100–140; BP diastolic 56–76; PULSE 98–123; RESP 24–27; TEMP 98.9–101.3; O2SAT 92–96
[2017-06-22] MEDS: RESP: IPRATROPIUM 0.5 MG/2.5 ML NEB NEB SCH ×7 (00:38→23:33)
[2017-06-22] MEDS: RESP: LEVALBUTEROL HYDROCHLORIDE 1.25 MG/3 ML NEB (SCH) NEB ×3 (00:38→08:33)
[2017-06-22] MEDS: ARTIFICIAL TEARS OPTH SOLN 15 ML BTL EACH EYE SCH ×3 (01:00→17:00)
[2017-06-22] MEDS: fentaNYL DRIP 250 ML IV PRN ×3 (01:01→20:39)
[2017-06-22] MEDS: PANTOPRAZOLE 80 MG/100 ML NS IV SCH ×6 (01:02→20:35)
[2017-06-22] MEDS: PHENYLEPHRINE 40 MG in D5W 500 ML IV PRN ×2 (01:16→09:00)
[2017-06-22] MEDS: PIPERACIL-TAZO 3.375 GM PREMIX 50 ML IV SCH ×4 (02:54→20:45)
[2017-06-22] MEDS: CHLORHEXIDINE GLUCONATE 2 % 1 PACK (2 CLOTHS)(taper/protocol) TOPICAL SCH (04:00)
[2017-06-22 05:00] LABS: MEAN CORPUSCULAR HGB CONC 32.9 % (32.0-36.0); MEAN PLATELET VOLUME 9.1 FL (7.0-11.0); PLATELET COUNT 302 TH/MM3 (150-450); RED BLOOD COUNT 2.12 MIL/MM3 (4.50-5.90); RED CELL DISTRIBUTION WIDTH 17.4 % (11.6-17.2); WHITE BLOOD COUNT 17.7 TH/MM3 (4.0-11.0)
[2017-06-22 05:11] LABS: HEMOGLOBIN 6.8 GM/DL (13.0-17.0)
[2017-06-22 05:12] LABS: HEMATOCRIT 20.5 % (39.0-51.0)
[2017-06-22 05:21] LABS: ALBUMIN 1.8 GM/DL (3.4-5.0); BICARBONATE 27.8 MEQ/L (21.0-32.0); CALCIUM 7.1 MG/DL (8.5-10.1); CREATININE 0.85 MG/DL (0.60-1.30); MAGNESIUM 2.6 MG/DL (1.5-2.5); PHOSPHORUS 2.4 MG/DL (2.5-4.9); TOTAL BILIRUBIN ADULT 0.4 MG/DL (0.2-1.0); TOTAL PROTEIN 5.4 GM/DL (6.4-8.2)
[2017-06-22 06:28] LABS: BANDS 4 % (0-6); CORRECTED NUCLEATED RBC 3 /100 WBC (0-0); LYMPHOCYTES 11 % (9-44); METAMYELOCYTES 8 % (0-1); MONOCYTES 1 % (0-8); MYELOCYTES 6 % (0-0); NEUTROPHIL # MANUAL DIFF 15.6 TH/MM3 (1.8-7.7); NUCLEATED RED BLOOD CELL 3 (0-0); POLYS (SEG NEUTROPHILS) 70 % (16-70)
[2017-06-22] MEDS: SODIUM CHLORIDE 0.9% FLUSH 10 ML FLUSH IV FLUSH SCH ×2 (09:00→20:36)
[2017-06-22] MEDS: DOCUSATE SODIUM 100 MG CAP PO SCH ×2 (09:00→20:35)
[2017-06-22] MEDS: NOREPINEPHRINE-DEXTROSE DRIP 250 ML IV PRN ×2 (09:10→20:46)
--- NOTE | 2017-06-22 11:59 | HHI.CCPN ---
Subjective Remarks/Hospital Course 06/18: 77-year-old gentleman with history of hypertension, hyperlipidemia, atrial fibrillation, COPD now admitted on 06/13 in [place] with generalized worsening weakness and chest pain. Patient was treated with Cardizem drip and cardiology was consulted. Throughout the hospitalization patient had a gradual worsening hypoxia requiring nonrebreather mask and BiPAP. Pulmonology was consulted and patient had a CT chest that showed possible ILD and pneumonia. This morning patient was found to be in acute respiratory distress that did not respond to BiPAP at 100%, therefore patient was intubated. Patient was also hypotensive and responded to IV fluid bolus. He received 1 dose of vancomycin and 1 dose of Zosyn. There was a report of GI bleed and 2 units PRBC were ordered and 1 unit was transfused already, and patient was started on a PPI drip , however there is no clear documentation about the episode. Patient was transferred to [facility] for further care. Patient was seen immediately on his arrival, hypoxic to low 80s, on PEEP of 5 and FiO2 of 1. Due to vent dyssynchrony and worsening hypoxia patient required 1 dose of paralytic. Stat chest x-ray done did not show evidence of pneumothorax. Vent settings readjusted currently FiO2 of 0.9 and O2 sat of 91%. He is on Cardizem drip at 15 mg/h, on midazolam and fentanyl drips. 06/19: No events over the night. Patient remains on an FiO2 of 1 and PEEP of 12. On amiodarone drip off Cardizem with heart rate in the 90s still in A. fib. He requires blood pressure support with phenylephrine currently at 100. T -max of 100.7 yesterday. Patient is sedated with midazolam and fentanyl drips. Chest x-ray reviewed, worsening bilateral infiltrates. ET tube approximately 7 cm above lobito. 06/20: No events over the night. Patient remains on phenylephrine at 110 and amiodarone infusion. Sedated with Versed and fentanyl. Afebrile. Good urine output, more than 2 L over the last 24 hours. On 0.7 FiO2. Chest x-ray reviewed this morning, no significant change compared to yesterday. Dark bloody aspirate in the NG tube noted. 06/21: No acute events over the night. Still with some dark NG tube aspirate. Received 1 unit PRBC yesterday evening. Patient still requiring phenylephrine at 150 and amiodarone infusion at 0.5. Sedation is achieved with midazolam and fentanyl. FiO2 currently at 0.55. Chest x-ray without significant change. T- max 98.7. 06/22: Worsening pressor requirements over the night, currently on phenylephrine at 270mcg/min. Patient developed a difficult amount of melena and worsening dark NG tube aspirate. Hemoglobin this morning down to 6.8 currently being transfused 2 units PRBC. Oxygenation down 0.4 FiO2 however still with high PEEP requirements. Objective Vital Signs Date Time Temp Pulse Resp B/P (MAP) Pulse Ox O2 Delivery O2 Flow Rate FiO2 06/22/17 08:35 95 40 06/22/17 08:00 99.6 107 27 140/69 (92) 06/19/17 23:55 Ventilator Intake and Output 06/22/17 06/22/17 06/22/17 07:59 15:59 23:59 Intake Total 2330.4 ml 400 ml Output Total 1450 ml Balance 880.4 ml 400 ml Result Diagram: 06/22/17 0420 06/22/17 0420 Other Results Microbiology Date/Time Source Procedure Growth Status 06/19/17 15:51 Blood Peripheral Aerobic Blood Culture - Preliminary NO GROWTH IN 3 DAYS Resulted 06/19/17 15:51 Blood Peripheral Anaerobic Blood Culture - Preliminary NO GROWTH IN 3 DAYS Resulted 06/19/17 15:42 Blood Peripheral Aerobic Blood Culture - Preliminary NO GROWTH IN 3 DAYS Resulted 06/19/17 15:42 Blood Peripheral Anaerobic Blood Culture - Preliminary NO GROWTH IN 3 DAYS Resulted Laboratory Tests Test 06/22/17 03:50 Blood Gas Puncture Site ART LINE Blood Gas Patient Temperature 98.6 Blood Gas HCO3 28 mmol/L (22-26) Blood Gas Base Excess 2.8 mmol/L (-2-2) Blood Gas Oxygen Saturation 91 % (90-100) Arterial Blood pH 7.38 (7.380-7.420) Arterial Blood Partial Pressure CO2 48 mmHg (38-42) Arterial Blood Partial Pressure O2 66 mmHG (61-120) Arterial Blood Oxygen Content 11.6 Vol % (12.0-20.0) Arterial Blood Carboxyhemoglobin 1.2 % (0-4) Arterial Blood Methemoglobin 0.4 % (0-2) Blood Gas Hemoglobin 9.0 G/DL (12.0-16.0) Oxygen Delivery Device VENTILATOR Blood Gas Ventilator Setting Blood Gas Inspired Oxygen 40 % Imaging Last 24 hours Impressions Chest X-Ray 06/21/17 0600 Signed Impressions: Service Date/Time: Wednesday, June 21, 2017 02:31 - CONCLUSION: 1. Interval improvement in right basilar opacity. 2. The left basilar opacity is stable. Moy Gandhi MD Last 24 hours Impressions Chest X-Ray 06/20/17 0600 Signed Impressions: Service Date/Time: May 02:22 - CONCLUSION: Stable left lower lobe consolidation and patchy infiltrates in the right lower lung. Alexys Laurent MD Last 24 hours Impressions Chest X-Ray 06/19/17 0600 Signed Impressions: Service Date/Time: Monday, June 19, 2017 04:14 - CONCLUSION: Increasing left lower lobe consolidation and patchy airspace opacities in the right lung. Alexys Laurent MD Last Impressions Chest X-Ray 06/18/17 0000 Signed Impressions: Service Date/Time: Sunday, June 18, 2017 10:56 - CONCLUSION: No significant interval change. Slade Olivo MD Chest CT 06/18/17 0000 Signed Impressions: Service Date/Time: Sunday, June 18, 2017 05:38 - CONCLUSION: 1. Bilateral lower lobe multisegmental consolidative infiltrates, left larger than right. Alexys Laurent MD Objective Remarks General - elderly gentleman intubated, sedated, ill-appearing, unresponsive HEENT - pupils equal and reactive, sclerae anicteric, neck supple, neck veins not distended, + ETT and NGT with dark aspirate, + RIJ CVC (06/20) - site clean CV - irregular S1 and S2, no murmurs, rubs or gallops Chest - scattered coarse breath sounds, good air entry bilateral, no wheezes Abdomen - soft, appears non-tender, distended, BS decreased Extremities -warm and well-perfused, 2+ edema, + peripheral pulses, left femoral arterial line (06/18) - site clean Neuro - limited, intubated and sedated, does not withdraw to painful stimuli, does not follow commands, pupils are equal and reactive A/P Assessment and Plan 1. Acute severe hypoxic respiratory failure -slow improvement in FiO2 requirements, down to 40%, still on a PEEP of 12 2. Strep pneumo pneumonia -afebrile, leukocytosis slowly trending down 3. Viridans strep and coag negative staph septicemia -suspect that coag negative staph is a contaminant 4. Circulatory shock -actually worsening, ? in the setting of GI bleed 5. Atrial fibrillation with RVR -better controlled, however he remains in A. fib 6. Lactic acidosis 7. GIB -likely upper, worsening 8. Acute blood loss anemia secondary to above 9. ILD 10. COPD 1. Continue PRVC at current vent settings. PIP is 30, patient synchronized with event, no auto PEEP. Maintain PEEP at 12 2. Ventilator bundle and bronchodilators with ipratropium and levalbuterol 3. Continue phenylephrine to keep map above 65. Start norepinephrine and titrate down phenylephrine 4. Continue amiodarone at 0.5. If needed we will add digoxin 5. Stop Zosyn and start ceftriaxone 2 g daily 6. Repeat echo to rule out vegetation due to strep viridans in blood 7. Continue to hold aspirin and anticoagulation in the setting of GI bleed 8. Due to worsening GI bleed, worsening hemoglobin requiring PRBC transfusion and worsening hemodynamics requiring double the amount of pressors compared to yesterday patient will need emergent EGD 9. On pantoprazole infusion 10. Repeat blood cultures are negative to date 11. DVT prophylaxis with SCDs 12. N.p.o. for now 13. Alternative code per patient's known wishes expressed by . I spent 34 minutes of critical care time, excluding procedures, managing ventilator, pressors, antibiotics, IV fluids, sedation, reviewing data and ordering labs, discussing with nursing staff, Dr. Murillo and family. Patient is critically ill with severe hypoxic respiratory failure, pneumonia, acute blood loss anemia, shock, GI bleed, underlying ILD and COPD and he is at extremely high risk for further deterioration and . Discussed with family in detail at bedside. Bruno Chilel MD Jun 22, 2017 11:59
--- NOTE | 2017-06-22 12:01 | PD.PROCEDR ---
Central Line Procedure REASON FOR PROCEDURE Central venous access PROCEDURE PERFORMED Central line placement: Left internal jugular CONSENT Informed consent for procedure was obtained from patient's . The risks and benefits of the procedure were discussed to include but limited to bleeding, clot formation, infection, and even . ANESTHESIA Local injection of 1% Lidocaine DESCRIPTION OF THE PROCEDURE The patient was placed in supine, mild Trendelenburg position. The area was exposed and cleansed with ChloraPrep, times two. Large sterile drape was used to cover the patient, with the site exposed, under sterile conditions including cap, face mask, sterile gown, and sterile gloves. On single attempt, the introducer needle was inserted with negative pressure in syringe and venous flash was obtained. The guide wire was then advanced without any restriction and the needle was removed. The dilator was used without any complications. Using Seldinger technique the catheter was advanced over the guide wire to a depth of 18 centimeters. The guide wire was removed. All ports were aspirated with dark venous blood return and flushed easily with sterile saline. All ports were capped. Antibiotic disc was placed around central line at puncture site. The central line was secured to the skin with two interrupted 2.0 silk sutures. The area was bandaged with sterile see-through central line bandage. RADIOLOGICAL DATA Ultrasound guidance was used to locate the vein. Doppler/color flow was used to confirm venous flow. Correct guidewire placement was verified using ultrasound. COMPLICATIONS: No apparent complications ESTIMATED BLOOD LOSS: Less than 1 cc. Of note, old right internal jugular central line was nicked by mistake by nurse this morning therefore a new central line was placed. Bruno Chilel MD Jun 22, 2017 12:01
--- NOTE | 2017-06-22 12:06 | RADRPT ---
EXAM DATE/TIME: 06/22/2017 11:45 [facility] COMPARISON: CHEST SINGLE AP, June 21, 2017, 2:31. INDICATIONS : Central line placement. MEDICAL HISTORY : None. SURGICAL HISTORY : None. ENCOUNTER: Subsequent ACUITY: 4 - 6 days PAIN SCORE: Non-responsive. LOCATION: Bilateral chest FINDINGS: The ET tube, NG tube, and bilateral internal jugular central lines are well placed. The central line tips are at the SVC levels. A pneumothorax is not seen. The heart size is normal. There is increased density at the bases bilaterally. CONCLUSION: Tubes and lines including both central lines in good position. There are bibasilar areas of consolida tion or atelectasis. Nino Roche MD on June 22, 2017 at 12:01 Board Certified Radiologist. This report was verified electronically.
--- NOTE | 2017-06-22 12:33 | HHI.GIFU ---
Subjective Remarks Pt remains sedated and mechanically ventilated in critical condition On two pressors H/H dropped significantly overnight CCM requesting EGD, reports of increasing bloody secretions via NGT and melena in rectal bag Family at bedside (Ayesha Sawant) Objective Vitals I&O Vital Signs Date Time Temp Pulse Resp B/P (MAP) Pulse Ox O2 Delivery O2 Flow Rate FiO2 06/22/17 11:51 95 40 06/22/17 10:15 104 130/70 06/22/17 09:45 103 131/70 06/22/17 09:15 101 144/71 06/22/17 09:10 141/71 06/22/17 09:00 96 141/72 06/22/17 08:35 95 40 06/22/17 08:00 55 06/22/17 08:00 99.6 107 27 140/69 (92) 96 06/22/17 08:00 108 06/22/17 04:35 94 40 06/22/17 04:00 55 06/22/17 04:00 114 06/22/17 04:00 99.0 114 24 100/56 (71) 95 06/22/17 01:16 90 123/60 06/22/17 00:38 94 40 06/22/17 00:00 98 06/22/17 00:00 55 06/22/17 00:00 98.9 98 24 128/69 (88) 94 06/21/17 21:26 94 40 06/21/17 20:00 55 06/21/17 20:00 106 06/21/17 20:00 98.8 106 24 133/66 (88) 94 06/21/17 19:45 103 129/66 06/21/17 16:57 94 40 06/21/17 16:00 104 06/21/17 16:00 55 06/21/17 16:00 100.9 100 25 114/58 (76) 94 I/O 06/21/17 06/21/17 06/21/17 06/22/17 06/22/17 06/22/17 07:00 15:00 23:00 07:00 15:00 23:00 Intake Total 2209.7 ml 1000 ml 2330.4 ml 450 ml Output Total 850 ml 900 ml 1450 ml Balance 1359.7 ml 100 ml 880.4 ml 450 ml IV Total 2209.7 ml 1000 ml 2330.4 ml 50 ml Packed Cells 400 ml Output Urine Total 750 ml 850 ml 1450 ml Gastric Drainage Total 100 ml 50 ml # Bowel Movements 0 1 1 Laboratory Laboratory Tests Test 06/22/17 03:50 06/22/17 04:20 06/22/17 10:26 Blood Gas Puncture Site ART LINE Blood Gas Patient Temperature 98.6 Blood Gas HCO3 28 Blood Gas Base Excess 2.8 Blood Gas Oxygen Saturation 91 Arterial Blood pH 7.38 Arterial Blood Partial Pressure CO2 48 Arterial Blood Partial Pressure O2 66 Arterial Blood Oxygen Content 11.6 Arterial Blood Carboxyhemoglobin 1.2 Arterial Blood Methemoglobin 0.4 Blood Gas Hemoglobin 9.0 Oxygen Delivery Device VENTILATOR Blood Gas Ventilator Setting Blood Gas Inspired Oxygen 40 White Blood Count 17.7 Red Blood Count 2.12 Hemoglobin 6.8 Hematocrit 20.5 Mean Corpuscular Volume 97.0 Mean Corpuscular Hemoglobin 32.0 Mean Corpuscular Hemoglobin Concent 32.9 Red Cell Distribution Width 17.4 Platelet Count 302 Mean Platelet Volume 9.1 CBC Comment AUTO DIFF Differential Total Cells Counted 100 Neutrophils % (Manual) 70 Band Neutrophils % 4 Lymphocytes % 11 Monocytes % 1 Neutrophils # (Manual) 15.6 Metamyelocytes 8 Myelocytes 6 Nucleated Red Blood Cells 3 Differential Comment FINAL DIFF MANUAL Platelet Estimate NORMAL Platelet Morphology Comment NORMAL Basophilic Stippling FAINT Blood Urea Nitrogen 14 Creatinine 0.85 Random Glucose 150 Total Protein 5.4 Albumin 1.8 Calcium Level 7.1 Phosphorus Level 2.4 Magnesium Level 2.6 Alkaline Phosphatase 86 Aspartate Amino Transf (AST/SGOT) 29 Alanine Aminotransferase (ALT/SGPT) 21 Total Bilirubin 0.4 Sodium Level 140 Potassium Level 4.6 Chloride Level 105 Carbon Dioxide Level 27.8 Anion Gap 7 Estimat Glomerular Filtration Rate 87 Protein Corrected Calcium 8.0 Date/Time Source Procedure Growth Status 06/19/17 15:51 Blood Peripheral Aerobic Blood Culture - Preliminary NO GROWTH IN 3 DAYS Resulted 06/19/17 15:51 Blood Peripheral Anaerobic Blood Culture - Preliminary NO GROWTH IN 3 DAYS Resulted 06/18/17 12:22 Nasal Aspirate Influenza Types A,B Antigen (DANY) - Final NEGATIVE FOR FLU A AND B ANTIGEN.... Complete 06/18/17 13:20 Urine Catheterized Urine Urine Culture - Final NO GROWTH IN 48 HOURS. Complete Imaging Last Impressions Chest X-Ray 06/21/17 0600 Signed Impressions: Service Date/Time: Wednesday, June 21, 2017 02:31 - CONCLUSION: 1. Interval improvement in right basilar opacity. 2. The left basilar opacity is stable. Moy Gandhi MD Chest CT 06/18/17 0000 Signed Impressions: Service Date/Time: Sunday, June 18, 2017 05:38 - CONCLUSION: 1. Bilateral lower lobe multisegmental consolidative infiltrates, left larger than right. Alexys Laurent MD Physical Exam HEENT: Normocephalic; atraumatic CHEST: Respirations synchronized with vent CARDIAC: Irregular, elevated rate ABDOMEN: Distended, semi-firm, bowel sounds active. NGT to LIWS with dark, bloody output. Rectal bag SKIN: Normal; no rash; no jaundice. No rashes MEDICAL BILLER/CODER: Sedated (Ayesha Sawant) Assessment and Plan Plan ASSESSMENT - ?guiac pos stool, bloody NGT output - poss UGIB. takes NSAIDs at night intermittently. hx LGIB, had colonoscopy on which bleeding was found- no further details on this. did not see any blood in his stool but he has been having loose stools. not stable for procedures at this time - anemia - 2/2 above. hgb dropped from 14 to 11. symptomatic - respiratory failure, bibasilar PNA, AF w/ RVR, GIB, ILD, COPD per CCM 06/19/17 patient continues to be on ventilator support, sedation, and max Ad- drip. No family is present. NG tube connected to low intermittent suction no obvious bleeding noted. Anemia unspecified an unknown source for now, received 1 unit packed RBCs yesterday. No BM noted, palpable left lower quadrant bowel. Questionable constipation. (06/20) Pt remains on high dose of Ad gtt, per RN BP has been labile. Respiratory weaned from 70% FiO2 to 60% FiO2. Drop in H/H noted, was 11.1/34.2 on june 18 currently 8.2/25. NGT to LIWS with dark, blood secretions noted. Pt remains unstable at this time. Plan is for EGD when more stable. emergently if requested by [facility]. Will continue to monitor (06/22) Pt with significant drop in H/H overnight. H/H yesterday was 8.1/24.2 currently 6.8/20.5 with reports of increasing bloody secretions from NGT and melena in rectal bag. Pt remains critically ill, on two pressors, remains on sedation and mechanically ventilated. [facility] requesting emergent EGD due to drop in H/H, family understands the risks. Addendum- repeat INR came back at 6.4 after my exam. Vit K and FFP per [facility]. US abdomen ordered. PLAN - EGD today - Obtain consent - Keep NGT to LIWS - Monitor stool output - 2 U PRBCs per [facility] - Further recommendations based on findings of above Pt has been seen and examined by myself and Dr. Murillo and this note is written on her behalf (Ayesha Sawant) Physician Comments seen, examined agree with above came to do egd-pt/inr elevated, procedure on hold until corrected possible vit d deficiency us abdomen - large AAA- ct abdomen/pelvis when stable we will fu on repeat pt/inr, cbc post transfusion -patient to receive additional prbc and ffp, and decide about timing of procedure discussed with family (Miladis Murillo MD) Ayesha Sawant Jun 22, 2017 12:33 Miladis Murillo MD Jun 22, 2017 18:15
--- NOTE | 2017-06-22 13:00 | HHI.PR ---
Subjective Remarks still ill he is intubated on mechanical ventilator. he is in shock on pressors. Objective Vital Signs Date Time Temp Pulse Resp B/P (MAP) Pulse Ox O2 Delivery O2 Flow Rate FiO2 06/22/17 12:00 101.3 111 24 122/70 (87) 95 06/22/17 12:00 111 06/22/17 11:51 95 40 06/22/17 10:15 104 130/70 06/22/17 09:45 103 131/70 06/22/17 09:15 101 144/71 06/22/17 09:10 141/71 06/22/17 09:00 96 141/72 06/22/17 08:35 95 40 06/22/17 08:00 55 06/22/17 08:00 99.6 107 27 140/69 (92) 96 06/22/17 08:00 108 06/22/17 04:35 94 40 06/22/17 04:00 55 06/22/17 04:00 114 06/22/17 04:00 99.0 114 24 100/56 (71) 95 06/22/17 01:16 90 123/60 06/22/17 00:38 94 40 06/22/17 00:00 98 06/22/17 00:00 55 06/22/17 00:00 98.9 98 24 128/69 (88) 94 06/21/17 21:26 94 40 06/21/17 20:00 55 06/21/17 20:00 106 06/21/17 20:00 98.8 106 24 133/66 (88) 94 06/21/17 19:45 103 129/66 06/21/17 16:57 94 40 06/21/17 16:00 104 06/21/17 16:00 55 06/21/17 16:00 100.9 100 25 114/58 (76) 94 I/O 06/21/17 06/21/17 06/21/17 06/22/17 06/22/17 06/22/17 07:00 15:00 23:00 07:00 15:00 23:00 Intake Total 2209.7 ml 1000 ml 2330.4 ml 450 ml Output Total 850 ml 900 ml 1450 ml Balance 1359.7 ml 100 ml 880.4 ml 450 ml IV Total 2209.7 ml 1000 ml 2330.4 ml 50 ml Packed Cells 400 ml Output Urine Total 750 ml 850 ml 1450 ml Gastric Drainage Total 100 ml 50 ml # Bowel Movements 0 1 1 Result Diagram: 06/22/1741906/22/17419 Objective Remarks general appearance: Critically ill head and neck: Intubated ET tube in place LUNGS: Mild basilar crackles. HEART: Normal S1, S2. tachycardia ABDOMEN: Soft. It is not tender. EXTREMITIES: Trace edema., less NEUROLOGIC: sedated Assessment and Plan Assessment and Plan acute hypoxic respiratory failure pneumonia sepsis with shock Hypoxia possible ILD CHF cont current plan as per the retail merchandising specialist antibiotics optimize volume status wean off fio2 as tolerated D/W RN at bedside .. I will defer all medical management at this point to the cleaning associate. he will need HRCT after he is better in 6-8 weeks.. Charly Payton MD Jun 22, 2017 13:00
[2017-06-22 13:01] LABS: INTERNATIONAL NORMALIZED RATIO 6.4 RATIO
[2017-06-22] MEDS ORDERED: PHYTONADIONE 10 MG/ML VIAL SQ ONE (14:00)
--- NOTE | 2017-06-22 15:03 | RADRPT ---
EXAM DATE/TIME: 06/22/2017 13:59 [facility] COMPARISON: No previous studies available for comparison. INDICATIONS : Anemia, coagulopathy, evaluate liver and spleen. MEDICAL HISTORY : Hypercholesterolemia. Hypertension. Chronic obstructive pulmonary disease. SURGICAL HISTORY : None. ENCOUNTER: Initial ACUITY: 1 day PAIN SCORE: Nonresponsive. LOCATION: Bilateral upper quadrant MEASUREMENTS: LIVER: 19.6 cm length COMMON DUCT: 6 mm RIGHT KIDNEY: 12.1 x 5.2 x 5.7 cm LEFT KIDNEY: 11.6 x 5.4 x 6.7 cm SPLEEN: 10.8 cm length AORTA: 3.7cm maximal FINDINGS: LIVER: The liver appears enlarged. No focal hepatic masses seen. COMMON DUCT: No intraluminal mass or stone visualized. The common bile duct is upper limits of normal for size gi antwan the patient's age. GALLBLADDER: Contains no stones, demonstrates no wall thickening or pericholecystic fluid. PANCREAS: The pancreas is obscured by bowel gas. RIGHT KIDNEY: No hydronephrosis, stone or mass. LEFT KIDNEY: No hydronephrosis, stone or mass. SPLEEN: No focal lesion. AORTA: There is a 4.4 cm distal abdominal aortic aneurysm seen. IVC: Within normal limits. CONCLUSION: 1. Hepatomegaly 2. 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 Nino Roche MD on June 22, 2017 at 14:58 Board Certified Radiologist. This report was verified electronically.
[2017-06-22] MEDS: MIDAZOLAM 100 MG/100 ML INJ 100 ML IV PRN (15:11)
[2017-06-22] MEDS: LACTATED RINGER'S 1000 ML INJ 1,000 ML IV SCH (16:31)
[2017-06-22 17:08] LABS: AUTOMATED NEUTROPHIL # 11.6 TH/MM3 (1.8-7.7); BASOPHIL % 0.3 % (0.0-2.0); EOSINOPHIL # 0.1 TH/MM3 (0-0.4); LYMPH % 6.9 % (9.0-44.0); LYMPHOCYTE # 0.9 TH/MM3 (1.0-4.8); MEAN CELL VOLUME 91.5 FL (80.0-100.0); MEAN CORPUSCULAR HEMOGLOBIN 30.8 PG (27.0-34.0); MEAN CORPUSCULAR HGB CONC 33.7 % (32.0-36.0); MEAN PLATELET VOLUME 8.9 FL (7.0-11.0); MONO % 3.2 % (0.0-8.0); MONOCYTE # 0.4 TH/MM3 (0-0.9); NEUT % 88.6 % (16.0-70.0); PLATELET COUNT 208 TH/MM3 (150-450); RED BLOOD COUNT 2.25 MIL/MM3 (4.50-5.90); RED CELL DISTRIBUTION WIDTH 20.5 % (11.6-17.2); WHITE BLOOD COUNT 13.1 TH/MM3 (4.0-11.0)
[2017-06-22 17:10] LABS: HEMATOCRIT 20.6 % (39.0-51.0); HEMOGLOBIN 6.9 GM/DL (13.0-17.0)
[2017-06-22 17:21] LABS: INTERNATIONAL NORMALIZED RATIO 2.1 RATIO; PROTHROMBIN TIME - PATIENT 21.2 SEC (9.8-11.6)
[2017-06-22] MEDS: AMIODARONE INJ 450 MG in SODIUM CHLOR 0.9% (EXCEL) INJ 250 ML IV PRN ×2 (18:00→20:37)
[2017-06-22 18:03] LABS: BANDS 13 % (0-6); CORRECTED NUCLEATED RBC 2 /100 WBC (0-0); LYMPHOCYTES 6 % (9-44); METAMYELOCYTES 4 % (0-1); MONOCYTES 3 % (0-8); MYELOCYTES 3 % (0-0); NEUTROPHIL # MANUAL DIFF 11.9 TH/MM3 (1.8-7.7); NUCLEATED RED BLOOD CELL 2 (0-0); POLYS (SEG NEUTROPHILS) 71 % (16-70)
[2017-06-23] VITALS (12 sets, daily range): BP systolic 98–130; BP diastolic 52–87; PULSE 99–124; RESP 24; TEMP 98.4–99.3; O2SAT 93–97
[2017-06-23] MEDS: ARTIFICIAL TEARS OPTH SOLN 15 ML BTL EACH EYE SCH ×3 (00:17→17:00)
[2017-06-23 00:40] LABS: HEMATOCRIT 23.1 % (39.0-51.0); HEMOGLOBIN 8.2 GM/DL (13.0-17.0); MEAN CELL VOLUME 90.2 FL (80.0-100.0); MEAN CORPUSCULAR HEMOGLOBIN 32.1 PG (27.0-34.0); MEAN CORPUSCULAR HGB CONC 35.6 % (32.0-36.0); MEAN PLATELET VOLUME 8.9 FL (7.0-11.0); PLATELET COUNT 193 TH/MM3 (150-450); RED BLOOD COUNT 2.56 MIL/MM3 (4.50-5.90); RED CELL DISTRIBUTION WIDTH 19.7 % (11.6-17.2); WHITE BLOOD COUNT 12.4 TH/MM3 (4.0-11.0)
[2017-06-23 00:51] LABS: INTERNATIONAL NORMALIZED RATIO 1.7 RATIO; PROTHROMBIN TIME - PATIENT 16.7 SEC (9.8-11.6)
[2017-06-23] MEDS: PIPERACIL-TAZO 3.375 GM PREMIX 50 ML IV SCH ×2 (02:00→08:00)
[2017-06-23] MEDS: LACTATED RINGER'S 1000 ML INJ 1,000 ML IV SCH (03:31)
[2017-06-23] MEDS: RESP: IPRATROPIUM 0.5 MG/2.5 ML NEB NEB SCH ×5 (03:45→20:08)
[2017-06-23] MEDS: CHLORHEXIDINE GLUCONATE 2 % 1 PACK (2 CLOTHS)(taper/protocol) TOPICAL SCH (03:51)
[2017-06-23] MEDS: PANTOPRAZOLE 80 MG/100 ML NS IV SCH ×6 (06:15→22:59)
[2017-06-23 06:28] LABS: INTERNATIONAL NORMALIZED RATIO 1.4 RATIO
[2017-06-23 06:38] LABS: AST (GOT) 27 U/L (15-37); BICARBONATE 30.6 MEQ/L (21.0-32.0); BLOOD UREA NITROGEN 10 MG/DL (7-18); CALCIUM 7.6 MG/DL (8.5-10.1); CHLORIDE 105 MEQ/L (98-107); CREATININE 0.77 MG/DL (0.60-1.30); GLOMERULAR FILTRATION RATE 98 ML/MIN (>89); GLUCOSE,RANDOM 109 MG/DL (74-106); MAGNESIUM 2.5 MG/DL (1.5-2.5); SODIUM (NA) 143 MEQ/L (136-145)
[2017-06-23 06:39] LABS: ALT (GPT) 14 U/L (12-78); PHOSPHORUS 1.9 MG/DL (2.5-4.9)
[2017-06-23 06:41] LABS: ALKALINE PHOSPHATASE 131 U/L (45-117); TOTAL BILIRUBIN ADULT 0.9 MG/DL (0.2-1.0); TOTAL PROTEIN 5.9 GM/DL (6.4-8.2)
[2017-06-23 07:44] LABS: HEMATOCRIT 23.7 % (39.0-51.0); HEMOGLOBIN 8.1 GM/DL (13.0-17.0); MEAN CELL VOLUME 89.8 FL (80.0-100.0); MEAN CORPUSCULAR HEMOGLOBIN 30.6 PG (27.0-34.0); MEAN CORPUSCULAR HGB CONC 34.1 % (32.0-36.0); MEAN PLATELET VOLUME 8.7 FL (7.0-11.0); PLATELET COUNT 209 TH/MM3 (150-450); RED BLOOD COUNT 2.65 MIL/MM3 (4.50-5.90); RED CELL DISTRIBUTION WIDTH 19.5 % (11.6-17.2); WHITE BLOOD COUNT 13.2 TH/MM3 (4.0-11.0)
[2017-06-23] MEDS ORDERED: POTASSIUM PHOSPHATE MONOBASIC 500 MG TAB PO/TUBE PRN (08:15)
[2017-06-23] MEDS ORDERED: POTASSIUM CHLORIDE 25 MEQ EFFERVESCENT TAB PO PRN (08:15)
[2017-06-23] MEDS ORDERED: SODIUM PHOSPHATE INJ 30 MMOL in SODIUM CHLOR 0.9% 250 ML INJ 240 ML IV PRN (08:15)
[2017-06-23] MEDS ORDERED: POTASSIUM CHLOR 40 MEQ PREMIX 100 ML IV PRN ×2 (08:15)
[2017-06-23] MEDS ORDERED: MAGNESIUM SULFATE INJ 4 GM in SODIUM CHLORIDE 0.9% INJ 92 ML IV PRN (08:15)
[2017-06-23] MEDS ORDERED: POTASSIUM CHLOR 20 MEQ PREMIX 100 ML IV PRN ×2 (08:15)
[2017-06-23] MEDS ORDERED: MAGNESIUM OXIDE 400 MG TAB PO PRN (08:15)
[2017-06-23] MEDS ORDERED: MAGNESIUM SULFATE INJ 2 GM in SODIUM CHLORIDE 0.9% INJ 96 ML IV PRN (08:15)
[2017-06-23] MEDS ORDERED: POTASSIUM PHOSPHATE MONOBASIC 500 MG TAB PO PRN (08:15)
[2017-06-23] MEDS ORDERED: FUROSEMIDE 40 MG/4 ML VIAL IV PUSH ONE (08:30)
[2017-06-23] MEDS: DOCUSATE SODIUM 100 MG CAP PO SCH ×2 (08:38→21:00)
[2017-06-23] MEDS: SODIUM CHLORIDE 0.9% FLUSH 10 ML FLUSH IV FLUSH SCH ×2 (08:38→21:00)
[2017-06-23] MEDS: PHYTONADIONE 10 MG/ML VIAL SQ SCH (08:39)
[2017-06-23 08:56] LABS: BANDS 7 % (0-6); CORRECTED NUCLEATED RBC 4 /100 WBC (0-0); LYMPHOCYTES 8 % (9-44); METAMYELOCYTES 3 % (0-1); MONOCYTES 4 % (0-8); MYELOCYTES 5 % (0-0); NEUTROPHIL # MANUAL DIFF 11.5 TH/MM3 (1.8-7.7); NUCLEATED RED BLOOD CELL 4 (0-0); POLYS (SEG NEUTROPHILS) 72 % (16-70); TOXIC GRANULATION 1+ (NORMAL); TOXIC VACUOLATION PRESENT (NONE SEEN)
[2017-06-23] MEDS: POTASSIUM PHOSPHATE INJ 30 MMOL in SODIUM CHLOR 0.9% 250 ML INJ 250 ML IV PRN (08:59)
--- NOTE | 2017-06-23 10:30 | HHI.PR ---
Subjective Remarks still ill on mechanical ventilator. on pressors. Objective Vital Signs Date Time Temp Pulse Resp B/P (MAP) Pulse Ox O2 Delivery O2 Flow Rate FiO2 06/23/17 08:07 96 40 06/23/17 08:00 111 06/23/17 08:00 40 06/23/17 08:00 99.3 111 24 122/65 (84) 95 06/23/17 04:00 114 06/23/17 04:00 40 06/23/17 04:00 99.2 113 24 113/70 (84) 96 06/23/17 03:45 96 40 06/23/17 00:00 98.8 124 24 130/87 (101) 95 06/23/17 00:00 40 06/23/17 00:00 124 06/22/17 23:33 96 40 06/22/17 20:46 133 122/71 06/22/17 20:37 124 113/71 06/22/17 20:28 92 40 06/22/17 20:00 99.0 123 24 126/76 (93) 92 06/22/17 20:00 123 06/22/17 20:00 40 06/22/17 18:00 122 111/65 06/22/17 16:24 117 137/82 06/22/17 16:13 96 40 06/22/17 16:00 98.9 109 24 113/67 (82) 94 06/22/17 16:00 109 06/22/17 15:18 104 125/73 06/22/17 12:00 101.3 111 24 122/70 (87) 95 06/22/17 12:00 111 06/22/17 11:51 95 40 I/O 06/22/17 06/22/17 06/22/17 06/23/17 06/23/17 06/23/17 07:00 15:00 23:00 07:00 15:00 23:00 Intake Total 2330.4 ml 1271 ml 2254 ml 0 ml 750 ml Output Total 1450 ml 2325 ml 800 ml Balance 880.4 ml 1271 ml -71 ml -800 ml 750 ml Intake Oral 0 ml IV Total 2330.4 ml 100 ml 350 ml 750 ml Packed Cells 800 ml 800 ml FFP 371 ml 1104 ml Output Urine Total 1450 ml 2275 ml 750 ml Gastric Drainage Total 50 ml Drainage Total 50 ml # Bowel Movements 1 1 2 Result Diagram: 06/23/17 0724 06/23/17 0534 Objective Remarks general appearance: Critically ill head and neck: Intubated ET tube in place LUNGS: Mild basilar crackles. HEART: Normal S1, S2. tachycardia ABDOMEN: Soft. It is not tender. EXTREMITIES: Trace edema., less NEUROLOGIC: sedated Assessment and Plan Assessment and Plan acute hypoxic respiratory failure pneumonia sepsis with shock Hypoxia possible ILD CHF cont current plan as per the grounds/maintenance specialist Continue antibiotics optimize volume status, avoid volume overload as much as possible wean off fio2 as tolerated I will defer all medical management at this point to the diesel mechanic helper. he will need HRCT after he is better in 6-8 weeks.. Charly Payton MD Jun 23, 2017 10:30
[2017-06-23] MEDS: AMIODARONE INJ 450 MG in SODIUM CHLOR 0.9% (EXCEL) INJ 250 ML IV PRN (11:41)
[2017-06-23] MEDS ORDERED: PHARMACY ORDERED LAB ONE (11:45)
[2017-06-23] MEDS ORDERED: PHENYLEPH/NS 1000 MCG/10 ML SYR IV ONE (12:00)
--- NOTE | 2017-06-23 12:24 | HHI.CCPN ---
Subjective Remarks/Hospital Course 06/18: 77-year-old gentleman with history of hypertension, hyperlipidemia, atrial fibrillation, COPD now admitted on 06/13 in [place] with generalized worsening weakness and chest pain. Patient was treated with Cardizem drip and cardiology was consulted. Throughout the hospitalization patient had a gradual worsening hypoxia requiring nonrebreather mask and BiPAP. Pulmonology was consulted and patient had a CT chest that showed possible ILD and pneumonia. This morning patient was found to be in acute respiratory distress that did not respond to BiPAP at 100%, therefore patient was intubated. Patient was also hypotensive and responded to IV fluid bolus. He received 1 dose of vancomycin and 1 dose of Zosyn. There was a report of GI bleed and 2 units PRBC were ordered and 1 unit was transfused already, and patient was started on a PPI drip , however there is no clear documentation about the episode. Patient was transferred to [facility] for further care. Patient was seen immediately on his arrival, hypoxic to low 80s, on PEEP of 5 and FiO2 of 1. Due to vent dyssynchrony and worsening hypoxia patient required 1 dose of paralytic. Stat chest x-ray done did not show evidence of pneumothorax. Vent settings readjusted currently FiO2 of 0.9 and O2 sat of 91%. He is on Cardizem drip at 15 mg/h, on midazolam and fentanyl drips. 06/19: No events over the night. Patient remains on an FiO2 of 1 and PEEP of 12. On amiodarone drip off Cardizem with heart rate in the 90s still in A. fib. He requires blood pressure support with phenylephrine currently at 100. T -max of 100.7 yesterday. Patient is sedated with midazolam and fentanyl drips. Chest x-ray reviewed, worsening bilateral infiltrates. ET tube approximately 7 cm above lobito. 06/20: No events over the night. Patient remains on phenylephrine at 110 and amiodarone infusion. Sedated with Versed and fentanyl. Afebrile. Good urine output, more than 2 L over the last 24 hours. On 0.7 FiO2. Chest x-ray reviewed this morning, no significant change compared to yesterday. Dark bloody aspirate in the NG tube noted. 06/21: No acute events over the night. Still with some dark NG tube aspirate. Received 1 unit PRBC yesterday evening. Patient still requiring phenylephrine at 150 and amiodarone infusion at 0.5. Sedation is achieved with midazolam and fentanyl. FiO2 currently at 0.55. Chest x-ray without significant change. T- max 98.7. 06/22: Worsening pressor requirements over the night, currently on phenylephrine at 270mcg/min. Patient developed a difficult amount of melena and worsening dark NG tube aspirate. Hemoglobin this morning down to 6.8 currently being transfused 2 units PRBC. Oxygenation down 0.4 FiO2 however still with high PEEP requirements. 06/23: No events overnight. Significant improvement in pressor requirement, currently on norepinephrine at 2 mcg/minute. Febrile with a T-max of 101.3 yesterday at noon, afebrile since then. Still with liquid, dark stool and dark NG tube aspirate. Patient remains on an FiO2 of 0.4 and PEEP of 12. 7 L positive since admission. Objective Vital Signs Date Time Temp Pulse Resp B/P (MAP) Pulse Ox O2 Delivery O2 Flow Rate FiO2 06/23/17 11:53 94 40 06/23/17 11:41 102 101/55 06/23/17 08:00 99.3 24 06/19/17 23:55 Ventilator Intake and Output 06/23/17 06/23/17 06/23/17 07:59 15:59 23:59 Intake Total 0 ml 750 ml Output Total 800 ml Balance -800 ml 750 ml Result Diagram: 06/23/17 0724 06/23/17 0534 Other Results Laboratory Tests Test 06/23/17 04:27 Blood Gas Puncture Site ART LINE Blood Gas Patient Temperature 98.6 Blood Gas HCO3 28 mmol/L (22-26) Blood Gas Base Excess 4.4 mmol/L (-2-2) Blood Gas Oxygen Saturation 92 % (90-100) Arterial Blood pH 7.45 (7.380-7.420) Arterial Blood Partial Pressure CO2 42 mmHg (38-42) Arterial Blood Partial Pressure O2 64 mmHg (61-120) Arterial Blood Oxygen Content 15.1 Vol % (12.0-20.0) Arterial Blood Carboxyhemoglobin 1.7 % (0-4) Arterial Blood Methemoglobin 0.8 % (0-2) Blood Gas Hemoglobin 11.7 G/DL (12.0-16.0) Oxygen Delivery Device VENT Blood Gas Ventilator Setting SEE COMMENTS Blood Gas Inspired Oxygen 40 % Imaging Last 24 hours Impressions Chest X-Ray 06/21/17 0600 Signed Impressions: Service Date/Time: Wednesday, June 21, 2017 02:31 - CONCLUSION: 1. Interval improvement in right basilar opacity. 2. The left basilar opacity is stable. Moy Gandhi MD Last 24 hours Impressions Chest X-Ray 06/20/17 0600 Signed Impressions: Service Date/Time: May 02:22 - CONCLUSION: Stable left lower lobe consolidation and patchy infiltrates in the right lower lung. Alexys Laurent MD Last 24 hours Impressions Chest X-Ray 06/19/17 0600 Signed Impressions: Service Date/Time: Monday, June 19, 2017 04:14 - CONCLUSION: Increasing left lower lobe consolidation and patchy airspace opacities in the right lung. Alexys Laurent MD Last Impressions Chest X-Ray 06/18/17 0000 Signed Impressions: Service Date/Time: Sunday, June 18, 2017 10:56 - CONCLUSION: No significant interval change. Slade Olivo MD Chest CT 06/18/17 0000 Signed Impressions: Service Date/Time: Sunday, June 18, 2017 05:38 - CONCLUSION: 1. Bilateral lower lobe multisegmental consolidative infiltrates, left larger than right. Alexys Laurent MD Objective Remarks General - elderly gentleman intubated and sedated, ill-appearing, unresponsive HEENT - pupils are equal and reactive, sclerae are anicteric, neck is supple, no rigidity, no JVD, orally intubated, NGT with dark aspirate, + LIJ CVC (06/23) - site clean CV - irregular heart sounds, no murmurs, rubs or gallops Chest - coarse breath sounds, good air entry bilateral, scattered wheezes Abdomen - soft, appears non-tender, distended, BS decreased Extremities - warm and well-perfused, 3+ edema, + peripheral pulses, left femoral arterial line (06/18) - site clean Neuro - limited, intubated and sedated, does not withdraw to painful stimuli, does not follow commands, pupils are equal and reactive A/P Assessment and Plan 1. Acute severe hypoxic respiratory failure -slow improvement in FiO2 requirements, down to 40%, still on a PEEP of 12 2. Strep pneumo pneumonia -one episode of fever yesterday 3. Viridans strep and coag negative staph septicemia -suspect that coag negative staph is a contaminant 4. Circulatory shock -significantly improved compared to yesterday 5. Atrial fibrillation with RVR -better controlled, however he remains in A. fib 6. Lactic acidosis 7. GIB -likely upper, worsening 8. Acute blood loss anemia secondary to above -required 4 units PRBC transfusion on 06/22, now improved 9. Coagulopathy with INR of 6, status post 6 units FFP on 06/22 and vitamin K, now normalized 10. ILD 11. COPD 12. Volume overload -7 L positive since admission 1. Continue PRVC at current vent settings. PIP is 30, patient synchronized with event, no auto PEEP. Unable to wean the PEEP yet since PO2 is borderline normal on morning blood gas patient desaturates to mid 80s every time he coughs 2. Ventilator bundle and bronchodilators with ipratropium and levalbuterol 3. Was on phenylephrine, now on low-dose norepinephrine 4. Decrease amiodarone to 0.25. Add digoxin if heart rate is uncontrolled 5. Stop Zosyn and start ceftriaxone 2 g daily (day 6 of antibiotics) 6. Repeat echo to rule out vegetation due to strep viridans in blood 7. Continue to hold aspirin and anticoagulation in the setting of GI bleed 8. Serial hemoglobin 9. Discussed with Dr. Murillo, patient will undergo EGD today 10. On pantoprazole infusion 11. Vitamin K 10 mg day 2/3 12. Lasix 40 mg IV once 13. DVT prophylaxis with SCDs 14. N.p.o. for now 15. Alternative code per patient's known wishes expressed by . Followed by palliative care I spent 32 minutes of critical care time, excluding procedures, managing ventilator, pressors, antibiotics, sedation, antiarrhythmics, diuretics, reviewing data and ordering labs, discussing with nursing staff and family. Patient is critically ill with severe hypoxic respiratory failure, pneumonia, acute blood loss anemia, shock, GI bleed, underlying ILD and COPD and he is at extremely high risk for further deterioration and . Discussed with family in detail at bedside. Bruno Chilel MD Jun 23, 2017 12:24
--- NOTE | 2017-06-23 12:54 | GIPROC ---
[facility] [address] [facility]. [facility], [id number] EGD PROCEDURE REPORT EXAM DATE: 06/23/2017 PATIENT NAME: James Lugo MR #: [id number] BIRTHDATE: 1940 ATTENDING: Miladis Murillo MD ORDER #: [id number] PROCESS ENGINEERING INTERN: Kaylee Jean and Gilmer Bell STATUS: inpatient INDICATIONS: The patient is a 77 yr old male here for an EGD due to gi bleeding anemia PROCEDURE PERFORMED: EGD w/ biopsy MEDICATIONS: None and Per Anesthesia. TOPICAL ANESTHETIC: none CONSENT: The patient understands the risks and benefits of the procedure and understands that these risks include, but are not limited to: sedation, allergic reaction, infection, perforation and/or bleeding. Alternative means of evaluation and treatment include, among others: physical exam, x-rays, and/or surgical intervention. The patient elects to proceed with this endoscopic procedure. medical equipment was checked for proper function. Hand hygiene and appropriate measures for infection prevention was taken. After the risks, benefits and alternatives of the procedure were thoroughly explained, Informed consent was verified, confirmed and timeout was successfully executed by the treatment team. The patient was anesthetized with topical anesthesia and the Pentax EG-[id number] endoscope was introduced through the mouth and advanced to the second portion of the duodenum. Retroflexed views revealed a hiatal hernia The gastroscope was then slowly withdrawn and removed. Nodule duodenal bulb biopsy gastritis no active bleeding no old blood seen. ADVERSE EVENTS: There were no complications. IMPRESSIONS: 1. Nodule duodenal bulb biopsy gastritis no active bleeding no old blood seen 2. Retroflexed views revealed a hiatal hernia RECOMMENDATIONS: 1. Await biopsy results. Biopsy results will not be ready for 7-10 days. If you don't hear from us in two weeks, call our office for biopsy results. 2. Anti-reflux regimen 3. Colonoscopy in am ct abdomen/pelvis when stable PATIENT CONDITION: stable DISPOSITION: Inpatient REPEAT EXAM: Return 8 weeks EGD Miladis Murillo MD eSigned: Miladis Murillo MD 06/23/2017 12:54 PM cc: PATIENT NAME: James Lugo MR#: [id number]
[2017-06-23] MEDS: cefTRIAXone INJ 2,000 MG in SODIUM CHLORIDE 0.9% INJ 100 ML IV SCH (13:28)
[2017-06-23] MEDS ORDERED: PEG (High)/E-LYTE SOLN 4000 ML BTL PO ONE (13:30)
[2017-06-23 14:19] LABS: AUTOMATED NEUTROPHIL # 10.9 TH/MM3 (1.8-7.7); BASOPHIL % 0.2 % (0.0-2.0); EOSINOPHIL # 0.3 TH/MM3 (0-0.4); EOSINOPHIL % 2.1 % (0.0-4.0); HEMATOCRIT 24.9 % (39.0-51.0); HEMOGLOBIN 8.5 GM/DL (13.0-17.0); LYMPH % 6.9 % (9.0-44.0); LYMPHOCYTE # 0.9 TH/MM3 (1.0-4.8); MEAN CELL VOLUME 90.2 FL (80.0-100.0); MEAN CORPUSCULAR HEMOGLOBIN 30.7 PG (27.0-34.0); MEAN CORPUSCULAR HGB CONC 34.1 % (32.0-36.0); MEAN PLATELET VOLUME 8.5 FL (7.0-11.0); MONO % 4.3 % (0.0-8.0); MONOCYTE # 0.5 TH/MM3 (0-0.9); NEUT % 86.5 % (16.0-70.0); PLATELET COUNT 211 TH/MM3 (150-450); RED BLOOD COUNT 2.76 MIL/MM3 (4.50-5.90); RED CELL DISTRIBUTION WIDTH 19.4 % (11.6-17.2); WHITE BLOOD COUNT 12.6 TH/MM3 (4.0-11.0)
[2017-06-23 14:43] LABS: BICARBONATE 30.8 MEQ/L (21.0-32.0); CALCIUM 7.5 MG/DL (8.5-10.1); CREATININE 0.72 MG/DL (0.60-1.30); MAGNESIUM 2.2 MG/DL (1.5-2.5)
[2017-06-23] MEDS ORDERED: DIATRIZOATE MEGLUM/DIATRIZOATE SOD 9 ML CUP PO ONE (15:00)
[2017-06-23 15:10] LABS: BANDS 1 % (0-6); BASOPHILS 1 % (0-2); CORRECTED NUCLEATED RBC 1 /100 WBC (0-0); LYMPHOCYTES 7 % (9-44); METAMYELOCYTES 3 % (0-1); MONOCYTES 4 % (0-8); NEUTROPHIL # MANUAL DIFF 10.6 TH/MM3 (1.8-7.7); NUCLEATED RED BLOOD CELL 1 (0-0); POLYS (SEG NEUTROPHILS) 80 % (16-70); STOMATOCYTES 1+ (NORMAL)
[2017-06-23] MEDS: fentaNYL DRIP 250 ML IV PRN (18:40)
[2017-06-23] MEDS: MIDAZOLAM 100 MG/100 ML INJ 100 ML IV PRN (21:36)
[2017-06-24] VITALS (14 sets, daily range): BP systolic 102–138; BP diastolic 58–98; PULSE 100–146; RESP 24; TEMP 98.6–99.6; O2SAT 90–99
[2017-06-24] MEDS: RESP: IPRATROPIUM 0.5 MG/2.5 ML NEB NEB SCH ×6 (00:09→19:43)
[2017-06-24 00:25] LABS: HEMATOCRIT 26.1 % (39.0-51.0); MEAN CELL VOLUME 90.4 FL (80.0-100.0); MEAN CORPUSCULAR HEMOGLOBIN 31.1 PG (27.0-34.0); MEAN CORPUSCULAR HGB CONC 34.4 % (32.0-36.0); MEAN PLATELET VOLUME 8.7 FL (7.0-11.0); PLATELET COUNT 220 TH/MM3 (150-450); RED BLOOD COUNT 2.88 MIL/MM3 (4.50-5.90); RED CELL DISTRIBUTION WIDTH 19.2 % (11.6-17.2); WHITE BLOOD COUNT 10.9 TH/MM3 (4.0-11.0)
[2017-06-24] MEDS: ARTIFICIAL TEARS OPTH SOLN 15 ML BTL EACH EYE SCH ×4 (01:00→23:16)
[2017-06-24] MEDS ORDERED: LACTATED RINGER'S 1000 ML IV PRN (01:15)
[2017-06-24] MEDS ORDERED: METOPROLOL TARTRATE 25 MG TAB PO PRN (01:15)
[2017-06-24] MEDS ORDERED: POVIDONE IODINE 5% (ANTISEPSIS KIT) 4 APPLICATIONS EACH NARE PRN (01:15)
[2017-06-24] MEDS ORDERED: CHLORHEXIDINE GLUCONATE 2 % 1 PACK (2 CLOTHS) TOPICAL PRN (01:15)
[2017-06-24 05:08] LABS: INTERNATIONAL NORMALIZED RATIO 1.1 RATIO; PROTHROMBIN TIME - PATIENT 11.4 SEC (9.8-11.6)
[2017-06-24 05:19] LABS: ALBUMIN 1.9 GM/DL (3.4-5.0); AST (GOT) 31 U/L (15-37); BICARBONATE 29.7 MEQ/L (21.0-32.0); BLOOD UREA NITROGEN 12 MG/DL (7-18); CALCIUM 7.6 MG/DL (8.5-10.1); CHLORIDE 108 MEQ/L (98-107); CREATININE 0.75 MG/DL (0.60-1.30); GLOMERULAR FILTRATION RATE 101 ML/MIN (>89); GLUCOSE,RANDOM 95 MG/DL (74-106); MAGNESIUM 2.3 MG/DL (1.5-2.5); SODIUM (NA) 145 MEQ/L (136-145)
[2017-06-24 05:24] LABS: ALKALINE PHOSPHATASE 62 U/L (45-117); ALT (GPT) 14 U/L (12-78); PHOSPHORUS 2.4 MG/DL (2.5-4.9); TOTAL BILIRUBIN ADULT 0.5 MG/DL (0.2-1.0); TOTAL PROTEIN 5.8 GM/DL (6.4-8.2)
[2017-06-24] MEDS: NOREPINEPHRINE-DEXTROSE DRIP 250 ML IV PRN (06:00)
[2017-06-24] MEDS: POTASSIUM PHOSPHATE INJ 30 MMOL in SODIUM CHLOR 0.9% 250 ML INJ 250 ML IV PRN (06:00)
--- NOTE | 2017-06-24 06:25 | RADRPT ---
EXAM DATE/TIME: 06/24/2017 04:29 [facility] COMPARISON: CHEST SINGLE AP, June 22, 2017, 11:45. INDICATIONS : Short of breath. MEDICAL HISTORY : None. SURGICAL HISTORY : None. ENCOUNTER: Subsequent ACUITY: 1 week PAIN SCORE: 0/10 LOCATION: Bilateral chest FINDINGS: A single view of the chest demonstrates cardiomegaly with interstitial prominence and bibasilar airsp noelle disease, slightly improved in the right lower lobe. Endotracheal tube, nasogastric tube and left jugular central line unchanged. Right jugular line has been removed.. The cardiomediastinal contours are unremarkable. Osseous structures are intact. CONCLUSION: 1. Cardiomegaly with interstitial prominence and bibasilar airspace disease, with slight improvement in the right lung base. Yoni Navarro MD on June 24, 2017 at 6:21 Board Certified Radiologist. This report was verified electronically.
[2017-06-24] MEDS: DOCUSATE SODIUM 100 MG CAP PO SCH ×2 (08:36→20:17)
[2017-06-24] MEDS: PHYTONADIONE 10 MG/ML VIAL SQ SCH (08:36)
[2017-06-24] MEDS: SODIUM CHLORIDE 0.9% FLUSH 10 ML FLUSH IV FLUSH SCH ×2 (08:36→20:17)
--- NOTE | 2017-06-24 08:45 | HHI.CCPN ---
Subjective Remarks/Hospital Course 06/18: 77-year-old gentleman with history of hypertension, hyperlipidemia, atrial fibrillation, COPD now admitted on 06/13 in [place] with generalized worsening weakness and chest pain. Patient was treated with Cardizem drip and cardiology was consulted. Throughout the hospitalization patient had a gradual worsening hypoxia requiring nonrebreather mask and BiPAP. Pulmonology was consulted and patient had a CT chest that showed possible ILD and pneumonia. This morning patient was found to be in acute respiratory distress that did not respond to BiPAP at 100%, therefore patient was intubated. Patient was also hypotensive and responded to IV fluid bolus. He received 1 dose of vancomycin and 1 dose of Zosyn. There was a report of GI bleed and 2 units PRBC were ordered and 1 unit was transfused already, and patient was started on a PPI drip , however there is no clear documentation about the episode. Patient was transferred to [facility] for further care. Patient was seen immediately on his arrival, hypoxic to low 80s, on PEEP of 5 and FiO2 of 1. Due to vent dyssynchrony and worsening hypoxia patient required 1 dose of paralytic. Stat chest x-ray done did not show evidence of pneumothorax. Vent settings readjusted currently FiO2 of 0.9 and O2 sat of 91%. He is on Cardizem drip at 15 mg/h, on midazolam and fentanyl drips. 06/19: No events over the night. Patient remains on an FiO2 of 1 and PEEP of 12. On amiodarone drip off Cardizem with heart rate in the 90s still in A. fib. He requires blood pressure support with phenylephrine currently at 100. T -max of 100.7 yesterday. Patient is sedated with midazolam and fentanyl drips. Chest x-ray reviewed, worsening bilateral infiltrates. ET tube approximately 7 cm above lobito. 06/20: No events over the night. Patient remains on phenylephrine at 110 and amiodarone infusion. Sedated with Versed and fentanyl. Afebrile. Good urine output, more than 2 L over the last 24 hours. On 0.7 FiO2. Chest x-ray reviewed this morning, no significant change compared to yesterday. Dark bloody aspirate in the NG tube noted. 06/21: No acute events over the night. Still with some dark NG tube aspirate. Received 1 unit PRBC yesterday evening. Patient still requiring phenylephrine at 150 and amiodarone infusion at 0.5. Sedation is achieved with midazolam and fentanyl. FiO2 currently at 0.55. Chest x-ray without significant change. T- max 98.7. 06/22: Worsening pressor requirements over the night, currently on phenylephrine at 270mcg/min. Patient developed a difficult amount of melena and worsening dark NG tube aspirate. Hemoglobin this morning down to 6.8 currently being transfused 2 units PRBC. Oxygenation down 0.4 FiO2 however still with high PEEP requirements. 06/23: No events overnight. Significant improvement in pressor requirement, currently on norepinephrine at 2 mcg/minute. Febrile with a T-max of 101.3 yesterday at noon, afebrile since then. Still with liquid, dark stool and dark NG tube aspirate. Patient remains on an FiO2 of 0.4 and PEEP of 12. 7 L positive since admission. 06/24: Remains sedated, orally intubated on mechanical ventilation. Objective Vital Signs Date Time Temp Pulse Resp B/P (MAP) Pulse Ox O2 Delivery O2 Flow Rate FiO2 06/24/17 07:54 95 45 06/24/17 06:00 97 133/67 06/24/17 04:00 99.2 24 06/23/17 20:09 Ventilator Intake and Output 06/24/17 06/24/17 06/25/17 08:00 16:00 00:00 Output Total 2350 ml Balance -2350 ml Result Diagram: 06/24/17 0000 06/24/17 0405 Other Results Laboratory Tests Test 06/24/17 04:08 Blood Gas Puncture Site ART LINE Blood Gas Patient Temperature 98.6 Blood Gas HCO3 27 mmol/L (22-26) Blood Gas Base Excess 2.9 mmol/L (-2-2) Blood Gas Oxygen Saturation 91 % (90-100) Arterial Blood pH 7.43 (7.380-7.420) Arterial Blood Partial Pressure CO2 41 mmHg (38-42) Arterial Blood Partial Pressure O2 65 mmHg (61-120) Arterial Blood Oxygen Content 14.5 Vol % (12.0-20.0) Arterial Blood Carboxyhemoglobin 1.4 % (0-4) Arterial Blood Methemoglobin 0.7 % (0-2) Blood Gas Hemoglobin 11.3 G/DL (12.0-16.0) Oxygen Delivery Device VENTILATOR Blood Gas Ventilator Setting PRVC/AC Blood Gas Inspired Oxygen 40 % Imaging Last 24 hours Impressions Chest X-Ray 06/21/17 0600 Signed Impressions: Service Date/Time: Wednesday, June 21, 2017 02:31 - CONCLUSION: 1. Interval improvement in right basilar opacity. 2. The left basilar opacity is stable. Moy Gandhi MD Last 24 hours Impressions Chest X-Ray 06/20/17 0600 Signed Impressions: Service Date/Time: May 02:22 - CONCLUSION: Stable left lower lobe consolidation and patchy infiltrates in the right lower lung. Alexys Laurent MD Last 24 hours Impressions Chest X-Ray 06/19/17 0600 Signed Impressions: Service Date/Time: Monday, June 19, 2017 04:14 - CONCLUSION: Increasing left lower lobe consolidation and patchy airspace opacities in the right lung. Alexys Laurent MD Last Impressions Chest X-Ray 06/18/17 0000 Signed Impressions: Service Date/Time: Sunday, June 18, 2017 10:56 - CONCLUSION: No significant interval change. Salde Olivo MD Chest CT 06/18/17 0000 Signed Impressions: Service Date/Time: Sunday, June 18, 2017 05:38 - CONCLUSION: 1. Bilateral lower lobe multisegmental consolidative infiltrates, left larger than right. Alexys Laurent MD Objective Remarks General - elderly gentleman intubated and sedated, ill-appearing, unresponsive HEENT - pupils are equal and reactive, sclerae are anicteric, neck is supple, no rigidity, no JVD, orally intubated, NGT with dark aspirate, + LIJ CVC (06/23) - site clean CV - irregular heart sounds, no murmurs, rubs or gallops Chest - coarse breath sounds, good air entry bilateral, scattered wheezes Abdomen - soft, appears non-tender, distended, BS decreased Extremities - warm and well-perfused, 3+ edema, + peripheral pulses, left femoral arterial line (06/18) - site clean Neuro - limited, intubated and sedated, does not withdraw to painful stimuli, does not follow commands, pupils are equal and reactive A/P Assessment and Plan 1. Acute severe hypoxic respiratory failure -slow improvement in FiO2 requirements, down to 40%, still on a PEEP of 12 2. Strep pneumo pneumonia -one episode of fever yesterday 3. Viridans strep and coag negative staph septicemia -suspect that coag negative staph is a contaminant 4. Circulatory shock -significantly improved compared to yesterday 5. Atrial fibrillation with RVR -better controlled, however he remains in A. fib 6. Lactic acidosis 7. GIB -likely upper, worsening 8. Acute blood loss anemia secondary to above -required 4 units PRBC transfusion on 06/22, now improved 9. Coagulopathy with INR of 6, status post 6 units FFP on 06/22 and vitamin K, now normalized 10. ILD 11. COPD 12. Volume overload -7 L positive since admission 1. Continue PRVC at current vent settings. PIP is 30, patient synchronized with event, no auto PEEP. Wean PEEP as tolerated. Patient desaturates to mid 80s every time he coughs 2. Ventilator bundle and bronchodilators with ipratropium and levalbuterol 3. Was on phenylephrine, now on low-dose norepinephrine 4. amiodarone gtt 0.25. Add digoxin if heart rate is uncontrolled 5. Stop Zosyn and start ceftriaxone 2 g daily (day 6 of antibiotics) 6. Repeat echo to rule out vegetation due to strep viridans in blood 7. Continue to hold aspirin and anticoagulation in the setting of GI bleed 8. Serial hemoglobin 9. Followed by Dr. Murillo, EGD done on 06/23 showed gastritis, hiatal hernia. Colonoscopy planned 10. On pantoprazole infusion 11. Vitamin K 10 mg day 05/04 12. Lasix 40 mg IV once 13. DVT prophylaxis with SCDs 14. N.p.o. for now 15. Alternative code per patient's known wishes expressed by . Followed by palliative care I spent 30 minutes of critical care time, excluding procedures, managing ventilator, pressors, antibiotics, sedation, antiarrhythmics, diuretics, reviewing data and ordering labs, discussing with nursing staff and family. Patient is critically ill with severe hypoxic respiratory failure, pneumonia, acute blood loss anemia, shock, GI bleed, underlying ILD and COPD and he is at extremely high risk for further deterioration and . Shankar Dupont MD Jun 24, 2017 08:45
[2017-06-24] MEDS: PANTOPRAZOLE 80 MG/100 ML NS IV SCH ×4 (09:06→20:10)
[2017-06-24] MEDS ORDERED: PROPOFOL 200 MG/20 ML AMP IV ONE (12:00)
[2017-06-24] MEDS: fentaNYL DRIP 250 ML IV PRN (12:52)
[2017-06-24] MEDS: cefTRIAXone INJ 2,000 MG in SODIUM CHLORIDE 0.9% INJ 100 ML IV SCH (12:52)
[2017-06-24] MEDS ORDERED: PROPOFOL 1000 MG/100 ML INJ 100 ML IV PRN (15:00)
[2017-06-24] MEDS: AMIODARONE INJ 450 MG in SODIUM CHLOR 0.9% (EXCEL) INJ 250 ML IV PRN (18:37)
--- NOTE | 2017-06-24 18:38 | PD.PROCEDR ---
GI Procedure PROCEDURE PERFORMED Colonoscopy with snare polypectomy INDICATION FOR PROCEDURE Guaiac positive stools, anemia PROCEDURE: The procedure, risks and benefits were discussed with Mr. Lugo and informed consent was obtained. Anesthesia sedated him with Diprivan. He was placed in the left lateral decubitus position. Colonoscopy: The Pentax videoscope was introduced through the rectum and advanced to cecum where the ileocecal valve and appendiceal orifice were identified. Retroflexion was performed in the rectum. Colonic prep was fair FINDINGS: Colonic withdrawal time greater than 6 minutes. As the scope was slowly withdrawn colonic mucosa was carefully inspected the patient was noted to have multiple numerous polyps about 15 polyps were removed from the ascending and transverse and descending and sigmoid region the largest one was a sessile polyp in the mid transverse colon the rest were also sessile but small to medium in size there were still numerous more polyps left behind otherwise colonic examination revealed a healthy colon mucosa patient was also noted to have moderately severe diverticulosis of the sigmoid region retroflexion in the rectum and rectal examination were unremarkable ESTIMATED BLOOD LOSS: None SPECIMENS REMOVED: Colon polyps COMPLICATIONS: None IMPRESSION: Colon polyps Diverticulosis PLAN: Await biopsies High-fiber diet Colonoscopy in 3 months if his general condition allows Continue with current supportive care Shubham Bryant MD Jun 24, 2017 18:38
[2017-06-24] MEDS ORDERED: DIGOXIN 0.5 MG/2 ML VIAL IV ONE (19:45)
[2017-06-24] MEDS: VASOPRESSIN INJ 40 UNITS in DEXTROSE 5% IN WATER 100ML INJ 98 ML IV SCH ×2 (20:11)
[2017-06-24] MEDS: MIDAZOLAM 100 MG/100 ML INJ 100 ML IV PRN (23:16)
[2017-06-25] VITALS (21 sets, daily range): BP systolic 115–134; BP diastolic 50–74; PULSE 60–126; RESP 24–25; TEMP 97.7–100; O2SAT 97–100
[2017-06-25] MEDS: RESP: IPRATROPIUM 0.5 MG/2.5 ML NEB NEB SCH ×6 (00:32→23:37)
[2017-06-25] MEDS: fentaNYL DRIP 250 ML IV PRN ×2 (02:04→21:33)
[2017-06-25 05:18] LABS: HEMATOCRIT 25.5 % (39.0-51.0); HEMOGLOBIN 8.6 GM/DL (13.0-17.0); MEAN CORPUSCULAR HEMOGLOBIN 30.8 PG (27.0-34.0); MEAN CORPUSCULAR HGB CONC 33.5 % (32.0-36.0); MEAN PLATELET VOLUME 8.3 FL (7.0-11.0); PLATELET COUNT 209 TH/MM3 (150-450); RED BLOOD COUNT 2.78 MIL/MM3 (4.50-5.90); RED CELL DISTRIBUTION WIDTH 18.5 % (11.6-17.2); WHITE BLOOD COUNT 10.5 TH/MM3 (4.0-11.0)
[2017-06-25 05:26] LABS: INTERNATIONAL NORMALIZED RATIO 1.1 RATIO; PROTHROMBIN TIME - PATIENT 11.4 SEC (9.8-11.6)
[2017-06-25 06:10] LABS: ALBUMIN 1.7 GM/DL (3.4-5.0); ALKALINE PHOSPHATASE 55 U/L (45-117); ALT (GPT) 12 U/L (12-78); AST (GOT) 25 U/L (15-37); BLOOD UREA NITROGEN 12 MG/DL (7-18); CALCIUM 7.7 MG/DL (8.5-10.1); CHLORIDE 110 MEQ/L (98-107); CREATININE 0.71 MG/DL (0.60-1.30); GLOMERULAR FILTRATION RATE 107 ML/MIN (>89); GLUCOSE,RANDOM 91 MG/DL (74-106); MAGNESIUM 2.2 MG/DL (1.5-2.5); PHOSPHORUS 3.1 MG/DL (2.5-4.9); SODIUM (NA) 146 MEQ/L (136-145); TOTAL BILIRUBIN ADULT 0.4 MG/DL (0.2-1.0); TOTAL PROTEIN 5.5 GM/DL (6.4-8.2)
[2017-06-25] MEDS: PANTOPRAZOLE 80 MG/100 ML NS IV SCH ×4 (06:30→16:45)
[2017-06-25] MEDS: SODIUM CHLORIDE 0.9% FLUSH 10 ML FLUSH IV FLUSH SCH ×2 (08:46→20:22)
[2017-06-25] MEDS: DOCUSATE SODIUM 100 MG CAP PO SCH ×2 (08:46→20:21)
[2017-06-25] MEDS: ARTIFICIAL TEARS OPTH SOLN 15 ML BTL EACH EYE SCH ×2 (08:46→17:00)
--- NOTE | 2017-06-25 08:57 | HHI.GIFU ---
Objective Vitals I&O Vital Signs Date Time Temp Pulse Resp B/P (MAP) Pulse Ox O2 Delivery O2 Flow Rate FiO2 06/25/17 07:38 99 45 06/25/17 06:00 60 06/25/17 04:00 67 06/25/17 04:00 99.2 67 24 118/50 (72) 97 06/25/17 04:00 45 06/25/17 03:48 98 45 06/25/17 02:29 70 132/57 06/25/17 02:09 68 129/57 06/25/17 02:00 68 06/25/17 00:34 99 45 06/25/17 00:30 70 06/25/17 00:26 71 103/45 06/25/17 00:00 116 06/25/17 00:00 45 06/25/17 00:00 100.0 116 24 115/63 (80) 97 06/24/17 23:25 130 111/72 06/24/17 22:00 124 06/24/17 22:00 140 96/57 06/24/17 20:11 151 99/57 06/24/17 20:00 146 06/24/17 20:00 45 06/24/17 20:00 99.6 146 24 102/58 (73) 94 06/24/17 19:38 96 45 06/24/17 18:37 145 104/60 06/24/17 18:01 99 45 06/24/17 16:50 100 06/24/17 16:00 98.8 100 24 120/73 (89) 90 06/24/17 16:00 100 06/24/17 13:32 96 45 06/24/17 12:00 118 06/24/17 12:00 98.6 118 24 138/80 (99) 96 06/24/17 09:45 94 45 I/O 06/24/17 06/24/17 06/24/17 06/25/17 06/25/17 06/25/17 07:00 15:00 23:00 07:00 15:00 23:00 Intake Total 450 ml 213 ml 769 ml Output Total 2350 ml 400 ml 375 ml Balance -2350 ml 450 ml -187 ml 394 ml IV Total 450 ml 163 ml 709 ml Tube Irrigant 60 ml Other 50 ml Output Urine Total 350 ml 400 ml 375 ml Stool Total 1950 ml 0 ml 0 ml Gastric Drainage Total 50 ml 0 ml 0 ml Laboratory Laboratory Tests Test 06/25/17 05:05 06/25/17 05:21 White Blood Count 10.5 Red Blood Count 2.78 Hemoglobin 8.6 Hematocrit 25.5 Mean Corpuscular Volume 92.0 Mean Corpuscular Hemoglobin 30.8 Mean Corpuscular Hemoglobin Concent 33.5 Red Cell Distribution Width 18.5 Platelet Count 209 Mean Platelet Volume 8.3 Prothrombin Time 11.4 Prothromb Time International Ratio 1.1 Activated Partial Thromboplast Time 28.9 Blood Urea Nitrogen 12 Creatinine 0.71 Random Glucose 91 Total Protein 5.5 Albumin 1.7 Calcium Level 7.7 Phosphorus Level 3.1 Magnesium Level 2.2 Alkaline Phosphatase 55 Aspartate Amino Transf (AST/SGOT) 25 Alanine Aminotransferase (ALT/SGPT) 12 Total Bilirubin 0.4 Sodium Level 146 Potassium Level 4.2 Chloride Level 110 Carbon Dioxide Level 29.0 Anion Gap 7 Estimat Glomerular Filtration Rate 107 Blood Gas Puncture Site ART LINE Blood Gas Patient Temperature 98.6 Blood Gas HCO3 26 Blood Gas Base Excess 2.0 Blood Gas Oxygen Saturation 96 Arterial Blood pH 7.40 Arterial Blood Partial Pressure CO2 43 Arterial Blood Partial Pressure O2 91 Arterial Blood Oxygen Content 9.8 Arterial Blood Carboxyhemoglobin 1.3 Arterial Blood Methemoglobin 0.8 Blood Gas Hemoglobin 7.2 Oxygen Delivery Device VENTILATOR Blood Gas Ventilator Setting PRVC/ AC Blood Gas Inspired Oxygen 45 Date/Time Source Procedure Growth Status 06/19/17 15:51 Blood Peripheral Aerobic Blood Culture - Final NO GROWTH IN 5 DAYS Complete 06/19/17 15:51 Blood Peripheral Anaerobic Blood Culture - Final NO GROWTH IN 5 DAYS Complete 06/18/17 12:22 Nasal Aspirate Influenza Types A,B Antigen (DANY) - Final NEGATIVE FOR FLU A AND B ANTIGEN.... Complete 06/18/17 13:20 Urine Catheterized Urine Urine Culture - Final NO GROWTH IN 48 HOURS. Complete Physical Exam HEENT: Normocephalic; atraumatic CHEST: Respirations synchronized with vent CARDIAC: Irregular, elevated rate ABDOMEN: Distended, semi-firm, bowel sounds active. NGT to LIWS with dark, bloody output. Rectal bag SKIN: Normal; no rash; no jaundice. 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 takes NSAIDs at night intermittently. hx LGIB, had colonoscopy on which bleeding was found- no further details on this. did not see any blood in his stool but he has been having loose stools. not stable for procedures at this time - anemia - 2/2 above. hgb dropped from 14 to 11. symptomatic - respiratory failure, bibasilar PNA, AF w/ RVR, GIB, ILD, COPD per CCM 06/19/17 patient continues to be on ventilator support, sedation, and max Ad- drip. No family is present. NG tube connected to low intermittent suction no obvious bleeding noted. Anemia unspecified an unknown source for now, received 1 unit packed RBCs yesterday. No BM noted, palpable left lower quadrant bowel. Questionable constipation. 06/24/17 Colonoscopy , Found Colon polyps and Diverticulosis (06/20) Pt remains on high dose of Ad gtt, per RN BP has been labile. Respiratory weaned from 70% FiO2 to 60% FiO2. Drop in H/H noted, was 11.1/34.2 on june 18 currently 8.2/25. NGT to LIWS with dark, blood secretions noted. Pt remains unstable at this time. Plan is for EGD when more stable. emergently if requested by [facility]. Will continue to monitor (06/22) Pt with significant drop in H/H overnight. H/H yesterday was 8.1/24.2 currently 6.8/20.5 with reports of increasing bloody secretions from NGT and melena in rectal bag. Pt remains critically ill, on two pressors, remains on sedation and mechanically ventilated. CCM requesting emergent EGD due to drop in H/H, family understands the risks. Addendum- repeat INR came back at 6.4 after my exam. Vit K and FFP per CCM. US abdomen ordered. PLAN: Await biopsies High-fiber diet Colonoscopy in 3 months if his general condition allows Continue with current supportive care Monitor stool output Further recommendations based on findings of above Pt has been seen and examined by myself and Dr. Bryant and this note is written on his behalf Yaa Hu Jun 25, 2017 08:57
[2017-06-25] MEDS: VASOPRESSIN INJ 40 UNITS in DEXTROSE 5% IN WATER 100ML INJ 98 ML IV SCH ×2 (12:25)
[2017-06-25] MEDS: cefTRIAXone INJ 2,000 MG in SODIUM CHLORIDE 0.9% INJ 100 ML IV SCH (12:54)
--- NOTE | 2017-06-25 14:27 | ECHRPT ---
Indication: Endocarditis CONCLUSIONS The left ventricular systolic function is low normal with an estimated ejection fraction in the rang e of 50- 55%. There is mild to moderate tricuspid valve regurgitation. The estimated pulmonary arterial pressure is 44.3 mmHg. aortic valve sclerosis BP: 121 / 74 HR: 104 Rhythm: MEASUREMENTS (Male / Female) Normal Values Technical Quality:Technically difficult study DOPPLER TR Peak Velocity 293.0 cm/s TR Peak Gradient 34.3 mmHg Right Atrial Pressure 10.0 mmHg Pulmonary Artery Systolic Pressu 44.3 mmHg Right Ventricular Systolic Press 44.3 mmHg FINDINGS LEFT VENTRICLE The left ventricular systolic function is low normal with an estimated ejection fraction in the rang e of 50- 55%. TRICUSPID VALVE Structurally normal tricuspid valve. There is mild to moderate tricuspid valve regurgitation. The estimated pulmonary arterial pressure is 44.3 mmHg. Diaz Oliver MD, FACC, [facility] [place] (Electronically Signed) Final Date:25 June 2017 14:26
--- NOTE | 2017-06-25 14:48 | HHI.CCPN ---
Subjective Remarks/Hospital Course 06/18: 77-year-old gentleman with history of hypertension, hyperlipidemia, atrial fibrillation, COPD now admitted on 06/13 in [place] with generalized worsening weakness and chest pain. Patient was treated with Cardizem drip and cardiology was consulted. Throughout the hospitalization patient had a gradual worsening hypoxia requiring nonrebreather mask and BiPAP. Pulmonology was consulted and patient had a CT chest that showed possible ILD and pneumonia. This morning patient was found to be in acute respiratory distress that did not respond to BiPAP at 100%, therefore patient was intubated. Patient was also hypotensive and responded to IV fluid bolus. He received 1 dose of vancomycin and 1 dose of Zosyn. There was a report of GI bleed and 2 units PRBC were ordered and 1 unit was transfused already, and patient was started on a PPI drip , however there is no clear documentation about the episode. Patient was transferred to [facility] for further care. Patient was seen immediately on his arrival, hypoxic to low 80s, on PEEP of 5 and FiO2 of 1. Due to vent dyssynchrony and worsening hypoxia patient required 1 dose of paralytic. Stat chest x-ray done did not show evidence of pneumothorax. Vent settings readjusted currently FiO2 of 0.9 and O2 sat of 91%. He is on Cardizem drip at 15 mg/h, on midazolam and fentanyl drips. 06/19: No events over the night. Patient remains on an FiO2 of 1 and PEEP of 12. On amiodarone drip off Cardizem with heart rate in the 90s still in A. fib. He requires blood pressure support with phenylephrine currently at 100. T -max of 100.7 yesterday. Patient is sedated with midazolam and fentanyl drips. Chest x-ray reviewed, worsening bilateral infiltrates. ET tube approximately 7 cm above lobito. 06/20: No events over the night. Patient remains on phenylephrine at 110 and amiodarone infusion. Sedated with Versed and fentanyl. Afebrile. Good urine output, more than 2 L over the last 24 hours. On 0.7 FiO2. Chest x-ray reviewed this morning, no significant change compared to yesterday. Dark bloody aspirate in the NG tube noted. 06/21: No acute events over the night. Still with some dark NG tube aspirate. Received 1 unit PRBC yesterday evening. Patient still requiring phenylephrine at 150 and amiodarone infusion at 0.5. Sedation is achieved with midazolam and fentanyl. FiO2 currently at 0.55. Chest x-ray without significant change. T- max 98.7. 06/22: Worsening pressor requirements over the night, currently on phenylephrine at 270mcg/min. Patient developed a difficult amount of melena and worsening dark NG tube aspirate. Hemoglobin this morning down to 6.8 currently being transfused 2 units PRBC. Oxygenation down 0.4 FiO2 however still with high PEEP requirements. 06/23: No events overnight. Significant improvement in pressor requirement, currently on norepinephrine at 2 mcg/minute. Febrile with a T-max of 101.3 yesterday at noon, afebrile since then. Still with liquid, dark stool and dark NG tube aspirate. Patient remains on an FiO2 of 0.4 and PEEP of 12. 7 L positive since admission. 06/24: Remains sedated, orally intubated on mechanical ventilation. 06/25: Remains sedated, orally intubated on mechanical ventilation. Underwent colonoscopy yesterday. Objective Vital Signs Date Time Temp Pulse Resp B/P (MAP) Pulse Ox O2 Delivery O2 Flow Rate FiO2 06/25/17 14:00 126 06/25/17 13:04 99 45 06/25/17 04:00 99.2 24 118/50 (72) 06/23/17 20:09 Ventilator Intake and Output 06/25/17 06/25/17 06/26/17 08:00 16:00 00:00 Intake Total 669 ml Output Total 375 ml Balance 294 ml Result Diagram: 06/25/17 0505 06/25/17 0505 Other Results Laboratory Tests Test 06/25/17 05:21 Blood Gas Puncture Site ART LINE Blood Gas Patient Temperature 98.6 Blood Gas HCO3 26 mmol/L (22-26) Blood Gas Base Excess 2.0 mmol/L (-2-2) Blood Gas Oxygen Saturation 96 % (90-100) Arterial Blood pH 7.40 (7.380-7.420) Arterial Blood Partial Pressure CO2 43 mmHg (38-42) Arterial Blood Partial Pressure O2 91 mmHg (61-120) Arterial Blood Oxygen Content 9.8 Vol % (12.0-20.0) Arterial Blood Carboxyhemoglobin 1.3 % (0-4) Arterial Blood Methemoglobin 0.8 % (0-2) Blood Gas Hemoglobin 7.2 G/DL (12.0-16.0) Oxygen Delivery Device VENTILATOR Blood Gas Ventilator Setting PRVC/ AC Blood Gas Inspired Oxygen 45 % Imaging Last 24 hours Impressions Chest X-Ray 06/21/17 0600 Signed Impressions: Service Date/Time: Wednesday, June 21, 2017 02:31 - CONCLUSION: 1. Interval improvement in right basilar opacity. 2. The left basilar opacity is stable. Moy Gandhi MD Last 24 hours Impressions Chest X-Ray 06/20/17 0600 Signed Impressions: Service Date/Time: May 02:22 - CONCLUSION: Stable left lower lobe consolidation and patchy infiltrates in the right lower lung. Alexys Laurent MD Last 24 hours Impressions Chest X-Ray 06/19/17 0600 Signed Impressions: Service Date/Time: Monday, June 19, 2017 04:14 - CONCLUSION: Increasing left lower lobe consolidation and patchy airspace opacities in the right lung. Alexys Laurent MD Last Impressions Chest X-Ray 06/18/17 0000 Signed Impressions: Service Date/Time: Sunday, June 18, 2017 10:56 - CONCLUSION: No significant interval change. Slade Olivo MD Chest CT 06/18/17 0000 Signed Impressions: Service Date/Time: Sunday, June 18, 2017 05:38 - CONCLUSION: 1. Bilateral lower lobe multisegmental consolidative infiltrates, left larger than right. Alexys Laurent MD Objective Remarks General - elderly gentleman intubated and sedated, ill-appearing, unresponsive HEENT - pupils are equal and reactive, sclerae are anicteric, neck is supple, no rigidity, no JVD, orally intubated, NGT with dark aspirate, + LIJ CVC (06/23) - site clean CV - irregular heart sounds, no murmurs, rubs or gallops Chest - coarse breath sounds, good air entry bilateral, scattered wheezes Abdomen - soft, appears non-tender, distended, BS decreased Extremities - warm and well-perfused, 3+ edema, + peripheral pulses, left femoral arterial line (06/18) - site clean Neuro - limited, intubated and sedated, does not withdraw to painful stimuli, does not follow commands, pupils are equal and reactive A/P Assessment and Plan 1. Acute severe hypoxic respiratory failure -slow improvement in FiO2 requirements, down to 40%, still on a PEEP of 12 2. Strep pneumo pneumonia -one episode of fever yesterday 3. Viridans strep and coag negative staph septicemia -suspect that coag negative staph is a contaminant 4. Circulatory shock -significantly improved compared to yesterday 5. Atrial fibrillation with RVR -better controlled, however he remains in A. fib 6. Lactic acidosis 7. GIB -likely upper, worsening 8. Acute blood loss anemia secondary to above -required 4 units PRBC transfusion on 06/22, now improved 9. Coagulopathy with INR of 6, status post 6 units FFP on 06/22 and vitamin K, now normalized 10. ILD 11. COPD 12. Volume overload -7 L positive since admission 1. Continue PRVC at current vent settings. PIP is 30, patient synchronized with event, no auto PEEP. Wean PEEP as tolerated. Patient desaturates to mid 80s every time he coughs 2. Ventilator bundle and bronchodilators with ipratropium and levalbuterol. Start daily C Pap trials. 3. Was on phenylephrine, now on low-dose vasopressin. Norepinephrine off. 4. amiodarone gtt 0.25. Add digoxin if heart rate is uncontrolled 5. Stop Zosyn and start ceftriaxone 2 g daily (day 6 of antibiotics) 6. Repeat echo to rule out vegetation due to strep viridans in blood 7. Continue to hold aspirin and anticoagulation in the setting of GI bleed 8. Serial hemoglobin 9. Followed by Dr. Murillo, EGD done on 06/23 showed gastritis, hiatal hernia. Colonoscopy planned 10. On pantoprazole infusion 11. Vitamin K 10 mg day 05/04 12. Lasix 40 mg IV once 13. DVT prophylaxis with SCDs 14. Start tube feeds 06/25 15. Alternative code per patient's known wishes expressed by . Followed by palliative care I spent 30 minutes of critical care time, excluding procedures, managing ventilator, pressors, antibiotics, sedation, antiarrhythmics, diuretics, reviewing data and ordering labs, discussing with nursing staff and family. Patient is critically ill with severe hypoxic respiratory failure, pneumonia, acute blood loss anemia, shock, GI bleed, underlying ILD and COPD and he is at extremely high risk for further deterioration and . Shankar Dupont MD Jun 25, 2017 14:48
--- NOTE | 2017-06-25 15:26 | HHI.HCPN ---
Reason for visit a. To assist with evaluation and management of symptoms including: dyspnea; encephalopathy; generalized weakness b. To assist medical decision maker(s) with: better understanding of current medical conditions; weighing benefits/burdens of medical treatment options; making medical treatment decisions. . Subjective/Interval History Palliative care follow-up for further clarifications of goals of care. Patient remains in critical condition. Seen in surgical ICU, endotracheally intubated on mechanical ventilation. No sedation vacation or spontaneous breathing trials given critical condition, patient on vasopressin and Levophed. Clinical course complicated by persistent atrial fibrillation with RVR, acute respiratory failure, cardiac shock, upper GI bleed and anemia secondary to acute blood loss. GI following. Patient underwent EGD on 06/23 revealing gastritis and hiatal hernia. Colonoscopy today 06/24 revealing multiple colon polyps, biopsy performed. Patient sedated on fentanyl and Versed. Unresponsive to verbal or tactile stimuli. He remains afebrile, heart rate in the mid 120s-140s, FiO2 45% with oxygen saturation in the high 90s. Laboratory workup today revealing WBC 10.5, Hgb 8.6, platelet count 219. Sodium 146, potassium 4.2, BUN/creatinine 12/0.71. Repeat blood culture 06/19 with no growth in 5 days. Telephone conversation with patient's Mrs. Lugo. She reports that she visited patient earlier today as well with son Sanju. Medical update provided. Goal of therapy is to allow a few more days for clinical improvement, attempt medical extubation if patient is able to tolerate. Family not likely to proceed with trach/PEG tube if patient is unable to medically extubate, likely to transition to comfort-directed care/withdrawal life support at that time. Palliative care to meet with family tomorrow 06/26 at 1 PM for further clarifications of goals of care, medical update and emotional support. Case discussed with bedside RN Kristian. . Family/friend interactions See interval note. . Advance Directives Living Will: Never completed Health Care Surrogate: Never completed Durable Power of Cloth Measurer Machine: Never completed Advance Directive Specifics Date completed: Per , patient has never completed an advanced directive. . Health Care Surrogate(s): The patient has never completed a written designation of healthcare surrogate. . Documented care wishes: We have no written documentation of patient's healthcare goals/preferences. . Significant change in goals: Aggressive management short of no cardiac resuscitation. . Objective Vital Signs Date Time Temp Pulse Resp B/P (MAP) Pulse Ox O2 Delivery O2 Flow Rate FiO2 06/25/17 14:00 126 06/25/17 13:04 99 45 06/25/17 12:00 111 06/25/17 12:00 45 06/25/17 12:00 97.8 111 25 116/63 (80) 99 06/25/17 10:34 97 45 06/25/17 10:00 125 06/25/17 08:00 97.7 98 24 134/57 (82) 99 06/25/17 08:00 45 06/25/17 08:00 98 06/25/17 07:38 99 45 06/25/17 06:00 60 06/25/17 04:00 67 06/25/17 04:00 99.2 67 24 118/50 (72) 97 06/25/17 04:00 45 06/25/17 03:48 98 45 06/25/17 02:29 70 132/57 06/25/17 02:09 68 129/57 06/25/17 02:00 68 06/25/17 00:34 99 45 06/25/17 00:30 70 06/25/17 00:26 71 103/45 06/25/17 00:00 116 06/25/17 00:00 45 06/25/17 00:00 100.0 116 24 115/63 (80) 97 06/24/17 23:25 130 111/72 06/24/17 22:00 124 06/24/17 22:00 140 96/57 06/24/17 20:11 151 99/57 06/24/17 20:00 146 06/24/17 20:00 45 06/24/17 20:00 99.6 146 24 102/58 (73) 94 06/24/17 19:38 96 45 06/24/17 18:37 145 104/60 06/24/17 18:01 99 45 06/24/17 16:50 100 06/24/17 16:00 98.8 100 24 120/73 (89) 90 06/24/17 16:00 100 Intake & Output 06/25/17 06/25/17 06:59 18:59 Intake Total 869 ml Output Total 375 ml Balance 494 ml IV Total 809 ml Tube Irrigant 60 ml Output Urine Total 375 ml Stool Total 0 ml Gastric Drainage Total 0 ml Physical Exam CONSTITUTIONAL/GENERAL: This is an adequately nourished patient, intubated, mechanically ventilated, sedated in a surgical intensive care unit bed. No apparent distress. TUBES/LINES/DRAINS: Right internal jugular central line triple-lumen; left femoral arterial line; bilateral soft restraints; nasogastric tube; orotracheal tube; Hanks catheter; rectal tube, PIV. SKIN: No jaundice. Skin temperature appropriate. Not diaphoretic. Abrasion/ erythema to forehead and nose. Scattered dry/scaly rash to bilateral arms. HEAD: Atraumatic. Normocephalic. EYES: Pupils equal and round and reactive. Cannot evaluate extraocular motions. No scleral icterus. No injection or drainage. ENT: Unable to evaluate hearing at this time. NG tube in left naris. nose without bleeding or purulent drainage. Moist oral mucosa. NECK: Trachea midline. Supple. CARDIOVASCULAR: Irregularly irregular heart rhythm. No audible gallops, or rubs. No JVD. RESPIRATORY/CHEST: Symmetric, unlabored respirations. Air movement approximately equal bilaterally. Diminished breath sounds at both bases. No audible wheezes. GASTROINTESTINAL: Abdomen is obese, large, round, distended and moderately firm. No hepato-splenomegaly, or palpable masses but difficult to palpate due to firmness/body habitus. Bowel sounds present. GENITOURINARY: Without palpable bladder distension. Hanks catheter in place. MUSCULOSKELETAL: Extremities without clubbing, cyanosis. 2+ edema is present. No mottling. NEUROLOGICAL: Sedated. Unresponsive to verbal or tactile stimuli. PSYCHIATRIC: Unable to assess due to level of responsiveness. . Diagnostic Tests Laboratory Laboratory Tests Test 06/22/17 16:34 06/22/17 23:50 06/23/17 04:27 06/23/17 05:34 White Blood Count 13.1 TH/MM3 (4.0-11.0) 12.4 TH/MM3 (4.0-11.0) Red Blood Count 2.25 MIL/MM3 (4.50-5.90) 2.56 MIL/MM3 (4.50-5.90) Hemoglobin 6.9 GM/DL (13.0-17.0) 8.2 GM/DL (13.0-17.0) Hematocrit 20.6 % (39.0-51.0) 23.1 % (39.0-51.0) Mean Corpuscular Volume 91.5 FL (80.0-100.0) 90.2 FL (80.0-100.0) Mean Corpuscular Hemoglobin 30.8 PG (27.0-34.0) 32.1 PG (27.0-34.0) Mean Corpuscular Hemoglobin Concent 33.7 % (32.0-36.0) 35.6 % (32.0-36.0) Red Cell Distribution Width 20.5 % (11.6-17.2) 19.7 % (11.6-17.2) Platelet Count 208 TH/MM3 (150-450) 193 TH/MM3 (150-450) Mean Platelet Volume 8.9 FL (7.0-11.0) 8.9 FL (7.0-11.0) Neutrophils (%) (Auto) 88.6 % (16.0-70.0) Lymphocytes (%) (Auto) 6.9 % (9.0-44.0) Monocytes (%) (Auto) 3.2 % (0.0-8.0) Eosinophils (%) (Auto) 1.0 % (0.0-4.0) Basophils (%) (Auto) 0.3 % (0.0-2.0) Neutrophils # (Auto) 11.6 TH/MM3 (1.8-7.7) Lymphocytes # (Auto) 0.9 TH/MM3 (1.0-4.8) Monocytes # (Auto) 0.4 TH/MM3 (0-0.9) Eosinophils # (Auto) 0.1 TH/MM3 (0-0.4) Basophils # (Auto) 0.0 TH/MM3 (0-0.2) CBC Comment AUTO DIFF Differential Total Cells Counted 100 Neutrophils % (Manual) 71 % (16-70) Band Neutrophils % 13 % (0-6) Lymphocytes % 6 % (9-44) Monocytes % 3 % (0-8) Neutrophils # (Manual) 11.9 TH/MM3 (1.8-7.7) Metamyelocytes 4 % (0-1) Myelocytes 3 % (0-0) Nucleated Red Blood Cells 2 /100 WBC (0-0) Differential Comment FINAL DIFF MANUAL Platelet Estimate NORMAL (NORMAL) Platelet Morphology Comment NORMAL (NORMAL) Prothrombin Time 21.2 SEC (9.8-11.6) 16.7 SEC (9.8-11.6) 14.0 SEC (9.8-11.6) Prothromb Time International Ratio 2.1 RATIO 1.7 RATIO 1.4 RATIO Blood Gas Puncture Site ART LINE Blood Gas Patient Temperature 98.6 Blood Gas HCO3 28 mmol/L (22-26) Blood Gas Base Excess 4.4 mmol/L (-2-2) Blood Gas Oxygen Saturation 92 % (90-100) Arterial Blood pH 7.45 (7.380-7.420) Arterial Blood Partial Pressure CO2 42 mmHg (38-42) Arterial Blood Partial Pressure O2 64 mmHg (61-120) Arterial Blood Oxygen Content 15.1 Vol % (12.0-20.0) Arterial Blood Carboxyhemoglobin 1.7 % (0-4) Arterial Blood Methemoglobin 0.8 % (0-2) Blood Gas Hemoglobin 11.7 G/DL (12.0-16.0) Oxygen Delivery Device VENT Blood Gas Ventilator Setting SEE COMMENTS Blood Gas Inspired Oxygen 40 % Activated Partial Thromboplast Time 36.4 SEC (24.3-30.1) Fibrinogen 576 mg/dL (227-377) Blood Urea Nitrogen 10 MG/DL (7-18) Creatinine 0.77 MG/DL (0.60-1.30) Random Glucose 109 MG/DL (74-106) Total Protein 5.9 GM/DL (6.4-8.2) Albumin 2.0 GM/DL (3.4-5.0) Calcium Level 7.6 MG/DL (8.5-10.1) Phosphorus Level 1.9 MG/DL (2.5-4.9) Magnesium Level 2.5 MG/DL (1.5-2.5) Alkaline Phosphatase 131 U/L (45-117) Aspartate Amino Transf (AST/SGOT) 27 U/L (15-37) Alanine Aminotransferase (ALT/SGPT) 14 U/L (12-78) Total Bilirubin 0.9 MG/DL (0.2-1.0) Sodium Level 143 MEQ/L (136-145) Potassium Level 3.9 MEQ/L (3.5-5.1) Chloride Level 105 MEQ/L (98-107) Carbon Dioxide Level 30.6 MEQ/L (21.0-32.0) Anion Gap 7 MEQ/L (5-15) Estimat Glomerular Filtration Rate 98 ML/MIN (>89) Test 06/23/17 07:24 06/23/17 14:00 06/24/17 00:00 06/24/17 04:05 White Blood Count 13.2 TH/MM3 (4.0-11.0) 12.6 TH/MM3 (4.0-11.0) 10.9 TH/MM3 (4.0-11.0) Red Blood Count 2.65 MIL/MM3 (4.50-5.90) 2.76 MIL/MM3 (4.50-5.90) 2.88 MIL/MM3 (4.50-5.90) Hemoglobin 8.1 GM/DL (13.0-17.0) 8.5 GM/DL (13.0-17.0) 9.0 GM/DL (13.0-17.0) Hematocrit 23.7 % (39.0-51.0) 24.9 % (39.0-51.0) 26.1 % (39.0-51.0) Mean Corpuscular Volume 89.8 FL (80.0-100.0) 90.2 FL (80.0-100.0) 90.4 FL (80.0-100.0) Mean Corpuscular Hemoglobin 30.6 PG (27.0-34.0) 30.7 PG (27.0-34.0) 31.1 PG (27.0-34.0) Mean Corpuscular Hemoglobin Concent 34.1 % (32.0-36.0) 34.1 % (32.0-36.0) 34.4 % (32.0-36.0) Red Cell Distribution Width 19.5 % (11.6-17.2) 19.4 % (11.6-17.2) 19.2 % (11.6-17.2) Platelet Count 209 TH/MM3 (150-450) 211 TH/MM3 (150-450) 220 TH/MM3 (150-450) Mean Platelet Volume 8.7 FL (7.0-11.0) 8.5 FL (7.0-11.0) 8.7 FL (7.0-11.0) CBC Comment AUTO DIFF AUTO DIFF Differential Total Cells Counted 100 100 Neutrophils % (Manual) 72 % (16-70) 80 % (16-70) Band Neutrophils % 7 % (0-6) 1 % (0-6) Lymphocytes % 8 % (9-44) 7 % (9-44) Monocytes % 4 % (0-8) 4 % (0-8) Eosinophils % 1 % (0-4) 4 % (0-4) Neutrophils # (Manual) 11.5 TH/MM3 (1.8-7.7) 10.6 TH/MM3 (1.8-7.7) Metamyelocytes 3 % (0-1) 3 % (0-1) Myelocytes 5 % (0-0) Nucleated Red Blood Cells 4 /100 WBC (0-0) 1 /100 WBC (0-0) Differential Comment FINAL DIFF MANUAL FINAL DIFF MANUAL Toxic Granulation 1+ (NORMAL) Toxic Vacuolation PRESENT (NONE SEEN) Platelet Estimate NORMAL (NORMAL) NORMAL (NORMAL) Platelet Morphology Comment NORMAL (NORMAL) NORMAL (NORMAL) Basophilic Stippling FAINT (NORMAL) Neutrophils (%) (Auto) 86.5 % (16.0-70.0) Lymphocytes (%) (Auto) 6.9 % (9.0-44.0) Monocytes (%) (Auto) 4.3 % (0.0-8.0) Eosinophils (%) (Auto) 2.1 % (0.0-4.0) Basophils (%) (Auto) 0.2 % (0.0-2.0) Neutrophils # (Auto) 10.9 TH/MM3 (1.8-7.7) Lymphocytes # (Auto) 0.9 TH/MM3 (1.0-4.8) Monocytes # (Auto) 0.5 TH/MM3 (0-0.9) Eosinophils # (Auto) 0.3 TH/MM3 (0-0.4) Basophils # (Auto) 0.0 TH/MM3 (0-0.2) Basophils % 1 % (0-2) Stomatocytes 1+ (NORMAL) Blood Urea Nitrogen 11 MG/DL (7-18) 12 MG/DL (7-18) Creatinine 0.72 MG/DL (0.60-1.30) 0.75 MG/DL (0.60-1.30) Random Glucose 110 MG/DL (74-106) 95 MG/DL (74-106) Calcium Level 7.5 MG/DL (8.5-10.1) 7.6 MG/DL (8.5-10.1) Magnesium Level 2.2 MG/DL (1.5-2.5) 2.3 MG/DL (1.5-2.5) Sodium Level 144 MEQ/L (136-145) 145 MEQ/L (136-145) Potassium Level 4.0 MEQ/L (3.5-5.1) 3.4 MEQ/L (3.5-5.1) Chloride Level 106 MEQ/L (98-107) 108 MEQ/L (98-107) Carbon Dioxide Level 30.8 MEQ/L (21.0-32.0) 29.7 MEQ/L (21.0-32.0) Anion Gap 7 MEQ/L (5-15) 7 MEQ/L (5-15) Estimat Glomerular Filtration Rate 106 ML/MIN (>89) 101 ML/MIN (>89) Phosphorus Level 2.5 MG/DL (2.5-4.9) 2.4 MG/DL (2.5-4.9) Prothrombin Time 11.4 SEC (9.8-11.6) Prothromb Time International Ratio 1.1 RATIO Activated Partial Thromboplast Time 32.1 SEC (24.3-30.1) Total Protein 5.8 GM/DL (6.4-8.2) Albumin 1.9 GM/DL (3.4-5.0) Alkaline Phosphatase 62 U/L (45-117) Aspartate Amino Transf (AST/SGOT) 31 U/L (15-37) Alanine Aminotransferase (ALT/SGPT) 14 U/L (12-78) Total Bilirubin 0.5 MG/DL (0.2-1.0) Test 06/24/17 04:08 06/25/17 05:05 06/25/17 05:21 Blood Gas Puncture Site ART LINE ART LINE Blood Gas Patient Temperature 98.6 98.6 Blood Gas HCO3 27 mmol/L (22-26) 26 mmol/L (22-26) Blood Gas Base Excess 2.9 mmol/L (-2-2) 2.0 mmol/L (-2-2) Blood Gas Oxygen Saturation 91 % (90-100) 96 % (90-100) Arterial Blood pH 7.43 (7.380-7.420) 7.40 (7.380-7.420) Arterial Blood Partial Pressure CO2 41 mmHg (38-42) 43 mmHg (38-42) Arterial Blood Partial Pressure O2 65 mmHg (61-120) 91 mmHg (61-120) Arterial Blood Oxygen Content 14.5 Vol % (12.0-20.0) 9.8 Vol % (12.0-20.0) Arterial Blood Carboxyhemoglobin 1.4 % (0-4) 1.3 % (0-4) Arterial Blood Methemoglobin 0.7 % (0-2) 0.8 % (0-2) Blood Gas Hemoglobin 11.3 G/DL (12.0-16.0) 7.2 G/DL (12.0-16.0) Oxygen Delivery Device VENTILATOR VENTILATOR Blood Gas Ventilator Setting PRVC/AC PRVC/ AC Blood Gas Inspired Oxygen 40 % 45 % White Blood Count 10.5 TH/MM3 (4.0-11.0) Red Blood Count 2.78 MIL/MM3 (4.50-5.90) Hemoglobin 8.6 GM/DL (13.0-17.0) Hematocrit 25.5 % (39.0-51.0) Mean Corpuscular Volume 92.0 FL (80.0-100.0) Mean Corpuscular Hemoglobin 30.8 PG (27.0-34.0) Mean Corpuscular Hemoglobin Concent 33.5 % (32.0-36.0) Red Cell Distribution Width 18.5 % (11.6-17.2) Platelet Count 209 TH/MM3 (150-450) Mean Platelet Volume 8.3 FL (7.0-11.0) Prothrombin Time 11.4 SEC (9.8-11.6) Prothromb Time International Ratio 1.1 RATIO Activated Partial Thromboplast Time 28.9 SEC (24.3-30.1) Blood Urea Nitrogen 12 MG/DL (7-18) Creatinine 0.71 MG/DL (0.60-1.30) Random Glucose 91 MG/DL (74-106) Total Protein 5.5 GM/DL (6.4-8.2) Albumin 1.7 GM/DL (3.4-5.0) Calcium Level 7.7 MG/DL (8.5-10.1) Phosphorus Level 3.1 MG/DL (2.5-4.9) Magnesium Level 2.2 MG/DL (1.5-2.5) Alkaline Phosphatase 55 U/L (45-117) Aspartate Amino Transf (AST/SGOT) 25 U/L (15-37) Alanine Aminotransferase (ALT/SGPT) 12 U/L (12-78) Total Bilirubin 0.4 MG/DL (0.2-1.0) Sodium Level 146 MEQ/L (136-145) Potassium Level 4.2 MEQ/L (3.5-5.1) Chloride Level 110 MEQ/L (98-107) Carbon Dioxide Level 29.0 MEQ/L (21.0-32.0) Anion Gap 7 MEQ/L (5-15) Estimat Glomerular Filtration Rate 107 ML/MIN (>89) Result Diagram: 06/25/17 0505 06/25/17 0505 Imaging Last 48 hours Impressions Chest X-Ray 06/24/17 0600 Signed Impressions: Service Date/Time: Saturday, June 24, 2017 04:29 - CONCLUSION: 1. Cardiomegaly with interstitial prominence and bibasilar airspace disease, with slight improvement in the right lung base. Yoni Navarro MD Procedures * 06/18/17 -Intubation/mechanical ventilation * 06/18/17 -Right internal jugular line placement * 06/18/17 -Left femoral artery line placement * 06/23/17 -EGD * 06/24/17 -colonoscopy with biopsy . Assessment and Plan Disease Oriented Problem List: (1) Acute hypoxemic respiratory failure (2) Pneumonia (3) Atrial fibrillation with RVR (4) Proximal muscle weakness (5) GIB (gastrointestinal bleeding) (6) Coronary artery disease (7) Hyperlipidemia (8) Hypertension Symptom Scale: (1) Pain 0-10 Scale: Unable to quantify (2) Dyspnea 0-10 Scale: Unable to quantify (3) Encephalopathy 0-10 Scale: Unable to quantify Pertinent Non-Medical Issues Psychosocial: Lives at home with who is wheelchair bound and need 24 hour 02. Well supported by step children. Spiritual: Restorationist. Requests finisher denture support. Legal: No known advance directives. is proxy Ethical issues impacting care: Pt currently incapacitated but might re-gain capacity. . Important Contacts José Lugo (spouse; health care proxy) [phone] . Prognosis There is still a reasonable chance that patient's pneumonia and respiratory status will improve and we will be able to wean him from the vent. He will be quite deconditioned at that time and will need substantial rehabilitation. Unclear if he might have some sort of underlying neuro-muscular issue that has caused some proximal muscle weakness AND may be contributing to his respiratory issues. This might impact prognosis. Also, we still do not know the cause of the GI bleeding and that might impact prognosis. Should there be a major setback or it become clear that we will not be able to wean him from the vent, spouse indicates that the patient would not want to be prolonged on life support. Patient remains at a very high risk for further complications, continued decline and . . Code Status: Alternative Code Plan == Code Status: Alternate code/intubation only. No cardiac resuscitation. == Decision Making: Patient is currently incapacitated to make his own healthcare decisions. There is a reasonable probability that he will recover capacity to do so if we are able to improve his respiratory status. There is no known written designation of healthcare surrogate. As per [place] statue, proxy healthcare decision making therefore falls to his spouse José Lugo. has accepted this role. == Goals of medical treatment: Goals of medical treatment are aggressive short of NO cardiac resuscitation. Goal of therapy is to allow a few more days for clinical improvement, attempt medical extubation if patient is able to tolerate. Family not likely to proceed with trach/PEG tube if patient is unable to medically extubate, likely to transition to comfort-directed care/ withdrawal life support at that time. Palliative care to meet with family tomorrow 06/26 at 1 PM for further clarifications of goals of care, medical update and emotional support. == Symptoms * Pain: Patient did not have any prehospitalization pain syndromes. Current sources of discomfort would include prolonged bedbound status; orotracheal intubation; nasogastric intubation; Hanks catheterization; vascular access lines ; wrist restraints. Patient is currently on fentanyl and midazolam drips. These appear to be adequately controlling his discomfort. No further recommendations at this time. * Proximal muscle weakness. gives a very good story for progressively worsening proximal muscle weakness. The patient had been having difficulty getting up from chairs. He is also been having difficulty lifting his feet when walking. This was brought to the attention of the patient's primary care doctor who apparently did not recommend any particular evaluation. * Dyspnea: Currently managed by ventilator support. No vacation sedation or spontaneous breathing trials given patient's critical condition/unstable. No further recommendation at this time. == Palliative care will continue to follow to assist with symptom management and to further clarify goals of medical treatment as the clinical course evolves. . Time Spent Total Floor Time (mins): 31 (Total time to include review medical records, physical exam, conversation with patient's , case discussion with bedside RN.) >50% Counseling/Coord of Care: Yes Attestation To help prompt me to consider important information that might be impacting today's encounter and assessment, information from prior notes written by myself or my colleagues may have been "brought forward" into today's note. My signature on this note, however, is an attestation that I personally performed the exam, history, and/or decision-making noted today, and, unless otherwise indicated, the interactions with patient, family, and staff as well as the review of records all occurred today. I also attest that the listed assessment and stated plan reflect my best clinical judgment today based on the combination of historical information, prior notes, and today's exam/ interactions. When time spent is documented, it refers only to time spent today by the signer, or if indicated, combined time spent today by collaborating physician/nurse practitioner. Natasha Nielsen Jun 25, 2017 15:26
[2017-06-25] MEDS: MIDAZOLAM 100 MG/100 ML INJ 100 ML IV PRN (21:34)
[2017-06-26] VITALS (18 sets, daily range): BP systolic 91–124; BP diastolic 48–70; PULSE 56–157; RESP 20–26; TEMP 98.4–102.3; O2SAT 96–100
[2017-06-26] MEDS: ARTIFICIAL TEARS OPTH SOLN 15 ML BTL EACH EYE SCH ×3 (00:13→17:00)
[2017-06-26] MEDS: RESP: IPRATROPIUM 0.5 MG/2.5 ML NEB NEB SCH ×5 (03:38→20:59)
[2017-06-26] MEDS: PANTOPRAZOLE 80 MG/100 ML NS IV SCH ×2 (03:41)
[2017-06-26] MEDS: AMIODARONE INJ 450 MG in SODIUM CHLOR 0.9% (EXCEL) INJ 250 ML IV PRN ×2 (06:21→23:34)
[2017-06-26] MEDS: VASOPRESSIN INJ 40 UNITS in DEXTROSE 5% IN WATER 100ML INJ 98 ML IV SCH ×4 (06:21→21:16)
[2017-06-26] MEDS ORDERED: DILTIAZEM INJ 125 MG in SODIUM CHLORIDE 0.9% INJ 100 ML IV PRN (06:45)
--- NOTE | 2017-06-26 07:19 | HHI.CCPN ---
Subjective Remarks/Hospital Course 06/18: 77-year-old gentleman with history of hypertension, hyperlipidemia, atrial fibrillation, COPD now admitted on 06/13 in [place] with generalized worsening weakness and chest pain. Patient was treated with Cardizem drip and cardiology was consulted. Throughout the hospitalization patient had a gradual worsening hypoxia requiring nonrebreather mask and BiPAP. Pulmonology was consulted and patient had a CT chest that showed possible ILD and pneumonia. This morning patient was found to be in acute respiratory distress that did not respond to BiPAP at 100%, therefore patient was intubated. Patient was also hypotensive and responded to IV fluid bolus. He received 1 dose of vancomycin and 1 dose of Zosyn. There was a report of GI bleed and 2 units PRBC were ordered and 1 unit was transfused already, and patient was started on a PPI drip , however there is no clear documentation about the episode. Patient was transferred to [facility] for further care. Patient was seen immediately on his arrival, hypoxic to low 80s, on PEEP of 5 and FiO2 of 1. Due to vent dyssynchrony and worsening hypoxia patient required 1 dose of paralytic. Stat chest x-ray done did not show evidence of pneumothorax. Vent settings readjusted currently FiO2 of 0.9 and O2 sat of 91%. He is on Cardizem drip at 15 mg/h, on midazolam and fentanyl drips. 06/19: No events over the night. Patient remains on an FiO2 of 1 and PEEP of 12. On amiodarone drip off Cardizem with heart rate in the 90s still in A. fib. He requires blood pressure support with phenylephrine currently at 100. T -max of 100.7 yesterday. Patient is sedated with midazolam and fentanyl drips. Chest x-ray reviewed, worsening bilateral infiltrates. ET tube approximately 7 cm above lobito. 06/20: No events over the night. Patient remains on phenylephrine at 110 and amiodarone infusion. Sedated with Versed and fentanyl. Afebrile. Good urine output, more than 2 L over the last 24 hours. On 0.7 FiO2. Chest x-ray reviewed this morning, no significant change compared to yesterday. Dark bloody aspirate in the NG tube noted. 06/21: No acute events over the night. Still with some dark NG tube aspirate. Received 1 unit PRBC yesterday evening. Patient still requiring phenylephrine at 150 and amiodarone infusion at 0.5. Sedation is achieved with midazolam and fentanyl. FiO2 currently at 0.55. Chest x-ray without significant change. T- max 98.7. 06/22: Worsening pressor requirements over the night, currently on phenylephrine at 270mcg/min. Patient developed a difficult amount of melena and worsening dark NG tube aspirate. Hemoglobin this morning down to 6.8 currently being transfused 2 units PRBC. Oxygenation down 0.4 FiO2 however still with high PEEP requirements. 06/23: No events overnight. Significant improvement in pressor requirement, currently on norepinephrine at 2 mcg/minute. Febrile with a T-max of 101.3 yesterday at noon, afebrile since then. Still with liquid, dark stool and dark NG tube aspirate. Patient remains on an FiO2 of 0.4 and PEEP of 12. 7 L positive since admission. 06/24: Remains sedated, orally intubated on mechanical ventilation. 06/25: Remains sedated, orally intubated on mechanical ventilation. Underwent colonoscopy yesterday. Subjective: 06/26: Temperature current 103.6. Tachypneic on the ventilator. Currently midazolam at 7 mg/h and fentanyl drip at 150 mcg there. Currently in A. fib with RVR with heart rate in the 140s. Vasopressin has been discontinued. A.m. laboratories and chest x-ray pending. Withdraws only on the ventilator with copious green sputum noted. Patient has been pancultured today including blood sputum and urine Objective Vital Signs Date Time Temp Pulse Resp B/P (MAP) Pulse Ox O2 Delivery O2 Flow Rate FiO2 06/26/17 06:21 123 137/72 06/26/17 03:35 96 45 06/26/17 00:00 98.6 24 06/23/17 20:09 Ventilator Result Diagram: 06/25/17 0505 06/25/17 0505 Other Results Microbiology Date/Time Source Procedure Growth Status 06/19/17 15:51 Blood Peripheral Aerobic Blood Culture - Final NO GROWTH IN 5 DAYS Complete 06/19/17 15:51 Blood Peripheral Anaerobic Blood Culture - Final NO GROWTH IN 5 DAYS Complete 06/18/17 12:22 Nasal Aspirate Influenza Types A,B Antigen (DANY) - Final NEGATIVE FOR FLU A AND B ANTIGEN.... Complete 06/18/17 13:20 Urine Catheterized Urine Urine Culture - Final NO GROWTH IN 48 HOURS. Complete Imaging Last Impressions Chest X-Ray 06/24/17 0600 Signed Impressions: Service Date/Time: Saturday, June 24, 2017 04:29 - CONCLUSION: 1. Cardiomegaly with interstitial prominence and bibasilar airspace disease, with slight improvement in the right lung base. Yoni Navarro MD Abdomen Ultrasound 06/22/17 0000 Signed Impressions: Service Date/Time: Thursday, June 22, 2017 13:59 - CONCLUSION: 1. Hepatomegaly 2. 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 Nino Roche MD Chest CT 06/18/17 0000 Signed Impressions: Service Date/Time: Sunday, June 18, 2017 05:38 - CONCLUSION: 1. Bilateral lower lobe multisegmental consolidative infiltrates, left larger than right. Alexys Laurent MD Objective Remarks General -77-year-old male currently orotracheally intubated HEENT - pupils are equal and reactive about 2 mm bilaterally, sclerae are anicteric, neck is supple, no rigidity, no JVD, orally intubated, NGT in left nares with dark aspirate, + LIJ CVC (06/23) - site clean dry and intact CV -tachycardic, IR. S1, S2 predose repair without murmurs, clicks, gallops or rubs Chest -coarse rhonchorous breath sounds are appreciated bilateral lower lobes. Few scattered wheezes appreciated anteriorly. Abdomen -protuberant distended. Nontender. Hypoactive bowel sounds appreciated. Fecal containment device in place. Extremities - warm and well-perfused, 3+ edema, + peripheral pulses, left femoral arterial line (06/18) - site clean dry and intact : Hanks catheter in place. Positive scrotal edema Neuro - limited, intubated and sedated, positive gag and cough. Positive corneal reflex. Minimal withdraw to painful stimuli, does not follow commands, pupils are equal and reactive Urinary Catheter: Yes Assessment to: Continue Hanks insert reason: Prolonged Immobilization Vascular Central Line Catheter: Yes Assessment to: Continue Date of Insertion: Jun 23, 2017 Line: Central Venous Catheter Side: Left Location: Internal, Jugular A/P Assessment and Plan Neuro/Psych: Seizure disorder NOS Toxic metabolic encephalopathy Acetaminophen 650 mg by tube every 6 hours as needed fever Currently on fentanyl drip at 150 mcg/min and midazolam drip at 7 mg now for sedation/analgesia while intubated Goal RA SS -2 Daily sedation vacation Check EEG/CT brain today CV: Atrial fibrillation with RVR Septic shock History of hypertension History of dyslipidemia 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 Along with EKG. Diltiazem 10 mg IV 1 and start diltiazem drip to to maintain heart rate less than 120 Repeat echocardiogram 06/25 revealed EF 50-55%. Moderate TR. PA P 44.3 mmHg Home medications include simvastatin 20 mg daily for dyslipidemia. This is currently on hold Home medications for hypertension/A. fib his diltiazem 240 mg daily? Resp: Acute hypoxemic respiratory failure Interstitial lung disease COPD PRVC /04/10/44 Ventilator bundle Ipratropium aerosols every 4 hours Spontaneous breathing trials when clinically indicated Plan for HRCT 6-8 weeks post extubation per Dr. Payton CT thorax revealed bilateral infiltrates left greater than right. GI: Chronic gastritis Hypoalbuminemia Hepatomegaly Hiatal hernia Currently on Jevity 1.5 at 60 cc an hour Discontinue pantoprazole drip. Currently on Lansoprazole 30 mg by tube daily Docusate sodium 100 mg twice daily, senna 8.6 mg twice daily, polyethylene glycol 17 g twice daily for bowel regimen Colonoscopy 06/24 with snare polypectomy. Pathology still pending Pathology from EGD 06/23 revealed chronic gastritis Ultrasound of abdomen revealed hepatomegaly only : Hanks catheter has been placed for accurate I's and O's in a critically ill patient Endo: Sliding scale insulin with Novulin R with Accu-Cheks to maintain euglycemia every 6 hours/low regimen TSH is currently 2.17 Renal: Creatinine currently within normal limits Monitor urine output Accurate I's and O's Heme: Acute blood loss anemia -6 units PRBCs transfused this hospitalization Normocytic anemia Chronic anticoagulation with rivaroxaban Admission with hypercoagulable state status post vitamin K 10 mg and 6 FFP A.m. CBC currently pending ID: Strep pneumo pneumonia Strep viridian bacteremia/septicemia Currently on ceftriaxone 2 g IV daily. Previously treated with vancomycin and piperacillin/tazobactam 06/21/24 Pertinent cultures 06/18 -blood cultures 2 -coag staph/strep viridian. Coag staph likely contaminant 06/18 -sputum -strep pneumonia 06/19 -blood cultures 2 -no growth UA 06/18 -no growth Urine Legionella pneumococcal antigen/influenza negative FEN: Hypophosphatemia Hypocalcemia Hyper magnesium Replace electrolytes as clinically indicated per ICU electrolyte protocol MSK: Elevated BMI PT evaluate and treat Weight loss encouraged Access -Left IJ CVL placed 06/23 to present -Left femoral arterial line placed 06/18 to present. Discontinue today 06/26 Prophylaxis -GI - lansoprazole -DVT -SCD/starting subcutaneous heparin today. Will need systemic anticoagulation next day or 2 tolerates Level 3 follow-up Zohaib Montes De Oca MD Jun 26, 2017 07:19
[2017-06-26] MEDS ORDERED: GLUCAGON 1 MG/ML VIAL IM PRN (07:30)
[2017-06-26] MEDS ORDERED: DILTIAZEM HCL 25 MG/5 ML VIAL IV ONE (07:30)
[2017-06-26] MEDS ORDERED: GLUCAGON 1 MG/ML VIAL OTHER PRN (07:30)
[2017-06-26] MEDS ORDERED: DEXTROSE 50% IN WATER 50 ML VIAL(D50) IV PUSH PRN (07:30)
[2017-06-26 08:08] LABS: AUTOMATED NEUTROPHIL # 15.2 TH/MM3 (1.8-7.7); BASOPHIL % 0.3 % (0.0-2.0); EOSINOPHIL # 0.1 TH/MM3 (0-0.4); EOSINOPHIL % 0.7 % (0.0-4.0); HEMOGLOBIN 9.1 GM/DL (13.0-17.0); LYMPH % 2.1 % (9.0-44.0); LYMPHOCYTE # 0.4 TH/MM3 (1.0-4.8); MEAN CELL VOLUME 92.9 FL (80.0-100.0); MEAN CORPUSCULAR HGB CONC 32.4 % (32.0-36.0); MEAN PLATELET VOLUME 8.9 FL (7.0-11.0); MONO % 4.1 % (0.0-8.0); MONOCYTE # 0.7 TH/MM3 (0-0.9); NEUT % 92.8 % (16.0-70.0); PLATELET COUNT 223 TH/MM3 (150-450); RED BLOOD COUNT 3.02 MIL/MM3 (4.50-5.90); WHITE BLOOD COUNT 16.3 TH/MM3 (4.0-11.0)
[2017-06-26 08:15] LABS: BACTERIA, URINE OCC /hpf; BILIRUBIN, URINE NEG (NEG); BLOOD, URINE MOD (NEG); GLUCOSE,URINE NEG (NEG); KETONE, URINE 40 mg/dL (NEG); MUCUS URINE FEW /lpf (OCC); NITRITE,URINE NEG (NEG); PH, URINE 5.5 (5.0-8.5); URINE COLOR YELLOW (YELLW/STRAW); URINE LEUKOCYTE ESTERASE LARGE (NEG)
[2017-06-26] MEDS: LANSOPRAZOLE SOLUTAB 30 MG TAB NG SCH (08:23)
[2017-06-26] MEDS: SODIUM CHLORIDE 0.9% FLUSH 10 ML FLUSH IV FLUSH SCH ×2 (08:23→20:03)
[2017-06-26] MEDS: DOCUSATE SODIUM 100 MG/10 ML UDC PO SCH ×2 (08:24→20:04)
[2017-06-26] MEDS: SENNOSIDES SYRUP 8.8 MG/5 ML CUP NG SCH ×2 (08:24→20:04)
[2017-06-26] MEDS: ACETAMINOPHEN 650 MG/20.3 ML UDC NG PRN (08:24)
[2017-06-26] MEDS: POLYETHYLENE GLYCOL 17 GM PKG PO SCH ×2 (08:24→20:04)
[2017-06-26 08:41] LABS: ALBUMIN 1.9 GM/DL (3.4-5.0); AST (GOT) 29 U/L (15-37); BICARBONATE 26.2 MEQ/L (21.0-32.0); BLOOD UREA NITROGEN 14 MG/DL (7-18); CALCIUM 7.7 MG/DL (8.5-10.1); CHLORIDE 109 MEQ/L (98-107); GLOMERULAR FILTRATION RATE 109 ML/MIN (>89); GLUCOSE,RANDOM 111 MG/DL (74-106); MAGNESIUM 2.2 MG/DL (1.5-2.5); SODIUM (NA) 145 MEQ/L (136-145)
[2017-06-26 08:42] LABS: ALT (GPT) 15 U/L (12-78); PHOSPHORUS 2.4 MG/DL (2.5-4.9)
[2017-06-26 08:46] LABS: ALKALINE PHOSPHATASE 60 U/L (45-117); TOTAL BILIRUBIN ADULT 0.5 MG/DL (0.2-1.0); TOTAL PROTEIN 6.3 GM/DL (6.4-8.2); TROPONIN I LESS THAN 0.02 NG/ML (0.02-0.05)
--- NOTE | 2017-06-26 08:59 | RADRPT ---
EXAM DATE/TIME: 06/26/2017 08:30 [facility] COMPARISON: CHEST SINGLE AP, June 24, 2017, 4:29. INDICATIONS : Shortness of breath; pneumonia. MEDICAL HISTORY : None. SURGICAL HISTORY : None. ENCOUNTER: Subsequent ACUITY: 2 weeks PAIN SCORE: Non-responsive. LOCATION: Bilateral chest FINDINGS: The support devices remain in place. There continue to be some bibasilar infiltrates which are about the same or mildly improved compared to the prior study. No pneumothorax. Heart size is stable. Bony structures are stable. CONCLUSION: There may be some mild improvement in the bibasilar infiltrates. Otherwise, no other new or significa nt changes compared to the prior study. Slade Olivo MD on June 26, 2017 at 8:57 Board Certified Radiologist. This report was verified electronically.
[2017-06-26] MEDS ORDERED: ALBUMIN 25% INJ 50 ML IV ONE (09:45)
[2017-06-26] MEDS ORDERED: POTASSIUM PHOSPHATE/SODIUM PHOSPHATE 250 MG TAB NG ONE (09:45)
[2017-06-26] MEDS ORDERED: PILL SPLITTER OTHER PRN (10:15)
[2017-06-26] MEDS: DILTIAZEM HCL 30 MG TAB PO SCH ×3 (11:23→17:33)
[2017-06-26] MEDS: INSULIN NovoLIN REGULAR SUPPLEMENTAL SCALE SQ SCH ×3 (11:23→18:00)
[2017-06-26] MEDS ORDERED: DIATRIZOATE MEGLUM/DIATRIZOATE SOD 9 ML CUP PO ONE (11:45)
[2017-06-26] MEDS: cefTRIAXone INJ 2,000 MG in SODIUM CHLORIDE 0.9% INJ 100 ML IV SCH (13:28)
[2017-06-26] MEDS: HEPARIN SODIUM - SQ 10,000 UNITS/ML VIAL SQ SCH ×2 (13:29→22:38)
--- NOTE | 2017-06-26 13:57 | HHI.HCPN ---
Reason for visit a. To assist with evaluation and management of symptoms including: dyspnea; encephalopathy; generalized weakness b. To assist medical decision maker(s) with: better understanding of current medical conditions; weighing benefits/burdens of medical treatment options; making medical treatment decisions. . Subjective/Interval History Palliative care follow-up for further clarifications of goals of care. Patient seen in surgical ICU, endotracheally intubated on mechanical ventilation. Currently of vasopressors since earlier this morning. Heart rate appears controlled at this time. Patient with reported fevers over night, malloy cultures obtained earlier today. Patient remains on 45% FiO2, PEEP has been reduced to 9 from 12. Laboratory workup today revealing leukocytosis with WBC 16.3 from 10.5 yesterday, Hgb stable at 9.1, platelet count 223. BUN/creatinine 14/0.70. UA today negative for nitrates, large leukocytes. Pathology report from duodenum and stomach biopsies revealing gastritis but negative for malignancy. Pending colon polyp biopsy results. Met with patient's Mrs. Lugo, pt's son Sanju and daughter Criss. Medical update provided. Lengthy conversation regarding patient's progressive decline, acute events leading to this hospitalization, clinical course and current medical management. Reviewed the patient remains at very high risk for further complications, continued decline and . As per family, goal of therapy is to allow a few more days for clinical improvement, attempt medical extubation if patient is able to tolerate. Family will not proceed with trach/PEG tube if patient is unable to medically extubate, likely to transition to comfort- directed care/withdrawal life support at that time. Palliative care to meet with family Wednesday 06/28 at 1 PM for further clarifications of goals of care, medical update and emotional support. . Family/friend interactions See interval note. . Advance Directives Living Will: Never completed Health Care Surrogate: Never completed Durable Power of Supply Chain Logistics Manager: Never completed Advance Directive Specifics Date completed: Per , patient has never completed an advanced directive. . Health Care Surrogate(s): The patient has never completed a written designation of healthcare surrogate. . Documented care wishes: We have no written documentation of patient's healthcare goals/preferences. . Significant change in goals: Aggressive short of no cardiac resuscitation. . Objective Vital Signs Date Time Temp Pulse Resp B/P (MAP) Pulse Ox O2 Delivery O2 Flow Rate FiO2 06/26/17 12:50 97 45 06/26/17 07:47 96 45 06/26/17 06:21 123 137/72 06/26/17 06:21 125 137/71 06/26/17 06:00 157 06/26/17 04:00 45 06/26/17 04:00 132 06/26/17 04:00 100.4 132 26 115/68 (84) 96 06/26/17 03:35 96 45 06/26/17 02:00 56 06/26/17 00:00 45 06/26/17 00:00 73 06/26/17 00:00 98.6 73 24 113/48 (69) 100 06/25/17 23:39 98 45 06/25/17 23:10 68 98/44 06/25/17 22:00 120 06/25/17 20:00 45 06/25/17 20:00 98.7 96 24 120/74 (89) 100 06/25/17 20:00 96 06/25/17 19:56 100 45 06/25/17 18:00 111 06/25/17 16:00 117 06/25/17 16:00 98.5 126 24 115/68 (84) 100 06/25/17 16:00 45 06/25/17 15:31 100 45 06/25/17 14:00 126 Intake & Output 06/26/17 06/26/17 06:59 18:59 Intake Total 1121.9 ml Output Total 375 ml Balance 746.9 ml IV Total 619.9 ml Tube Feeding 442 ml Tube Irrigant 60 ml Output Urine Total 375 ml Stool Total 0 ml Gastric Drainage Total 0 ml Physical Exam CONSTITUTIONAL/GENERAL: This is an adequately nourished patient, intubated, mechanically ventilated, sedated in a surgical intensive care unit bed. No apparent distress. TUBES/LINES/DRAINS: Right internal jugular central line triple-lumen; left femoral arterial line; bilateral soft restraints; nasogastric tube; orotracheal tube; Hanks catheter; rectal tube, PIV. SKIN: No jaundice. Skin temperature appropriate. Not diaphoretic. Abrasion/ erythema to forehead and nose. Scattered dry/scaly rash to bilateral arms. HEAD: Atraumatic. Normocephalic. EYES: Pupils equal and round and reactive. Cannot evaluate extraocular motions. No scleral icterus. No injection or drainage. ENT: Unable to evaluate hearing at this time. NG tube in left naris. nose without bleeding or purulent drainage. Moist oral mucosa. NECK: Trachea midline. Supple. CARDIOVASCULAR: Irregularly irregular heart rhythm. No audible gallops, or rubs. No JVD. RESPIRATORY/CHEST: Symmetric, unlabored respirations. Air movement approximately equal bilaterally. Diminished breath sounds at both bases. No audible wheezes. GASTROINTESTINAL: Abdomen is obese, large, round, distended and moderately firm. No hepato-splenomegaly, or palpable masses but difficult to palpate due to firmness/body habitus. Bowel sounds present. GENITOURINARY: Without palpable bladder distension. Hanks catheter in place. MUSCULOSKELETAL: Extremities without clubbing, cyanosis. 2+ edema is present. No mottling. NEUROLOGICAL: Sedated. Unresponsive to verbal or tactile stimuli. PSYCHIATRIC: Unable to assess due to level of responsiveness. . Diagnostic Tests Laboratory Laboratory Tests Test 06/23/17 14:00 06/24/17 00:00 06/24/17 04:05 06/24/17 04:08 White Blood Count 12.6 TH/MM3 (4.0-11.0) 10.9 TH/MM3 (4.0-11.0) Red Blood Count 2.76 MIL/MM3 (4.50-5.90) 2.88 MIL/MM3 (4.50-5.90) Hemoglobin 8.5 GM/DL (13.0-17.0) 9.0 GM/DL (13.0-17.0) Hematocrit 24.9 % (39.0-51.0) 26.1 % (39.0-51.0) Mean Corpuscular Volume 90.2 FL (80.0-100.0) 90.4 FL (80.0-100.0) Mean Corpuscular Hemoglobin 30.7 PG (27.0-34.0) 31.1 PG (27.0-34.0) Mean Corpuscular Hemoglobin Concent 34.1 % (32.0-36.0) 34.4 % (32.0-36.0) Red Cell Distribution Width 19.4 % (11.6-17.2) 19.2 % (11.6-17.2) Platelet Count 211 TH/MM3 (150-450) 220 TH/MM3 (150-450) Mean Platelet Volume 8.5 FL (7.0-11.0) 8.7 FL (7.0-11.0) Neutrophils (%) (Auto) 86.5 % (16.0-70.0) Lymphocytes (%) (Auto) 6.9 % (9.0-44.0) Monocytes (%) (Auto) 4.3 % (0.0-8.0) Eosinophils (%) (Auto) 2.1 % (0.0-4.0) Basophils (%) (Auto) 0.2 % (0.0-2.0) Neutrophils # (Auto) 10.9 TH/MM3 (1.8-7.7) Lymphocytes # (Auto) 0.9 TH/MM3 (1.0-4.8) Monocytes # (Auto) 0.5 TH/MM3 (0-0.9) Eosinophils # (Auto) 0.3 TH/MM3 (0-0.4) Basophils # (Auto) 0.0 TH/MM3 (0-0.2) CBC Comment AUTO DIFF Differential Total Cells Counted 100 Neutrophils % (Manual) 80 % (16-70) Band Neutrophils % 1 % (0-6) Lymphocytes % 7 % (9-44) Monocytes % 4 % (0-8) Eosinophils % 4 % (0-4) Basophils % 1 % (0-2) Neutrophils # (Manual) 10.6 TH/MM3 (1.8-7.7) Metamyelocytes 3 % (0-1) Nucleated Red Blood Cells 1 /100 WBC (0-0) Differential Comment FINAL DIFF MANUAL Platelet Estimate NORMAL (NORMAL) Platelet Morphology Comment NORMAL (NORMAL) Stomatocytes 1+ (NORMAL) Blood Urea Nitrogen 11 MG/DL (7-18) 12 MG/DL (7-18) Creatinine 0.72 MG/DL (0.60-1.30) 0.75 MG/DL (0.60-1.30) Random Glucose 110 MG/DL (74-106) 95 MG/DL (74-106) Calcium Level 7.5 MG/DL (8.5-10.1) 7.6 MG/DL (8.5-10.1) Magnesium Level 2.2 MG/DL (1.5-2.5) 2.3 MG/DL (1.5-2.5) Sodium Level 144 MEQ/L (136-145) 145 MEQ/L (136-145) Potassium Level 4.0 MEQ/L (3.5-5.1) 3.4 MEQ/L (3.5-5.1) Chloride Level 106 MEQ/L (98-107) 108 MEQ/L (98-107) Carbon Dioxide Level 30.8 MEQ/L (21.0-32.0) 29.7 MEQ/L (21.0-32.0) Anion Gap 7 MEQ/L (5-15) 7 MEQ/L (5-15) Estimat Glomerular Filtration Rate 106 ML/MIN (>89) 101 ML/MIN (>89) Phosphorus Level 2.5 MG/DL (2.5-4.9) 2.4 MG/DL (2.5-4.9) Prothrombin Time 11.4 SEC (9.8-11.6) Prothromb Time International Ratio 1.1 RATIO Activated Partial Thromboplast Time 32.1 SEC (24.3-30.1) Total Protein 5.8 GM/DL (6.4-8.2) Albumin 1.9 GM/DL (3.4-5.0) Alkaline Phosphatase 62 U/L (45-117) Aspartate Amino Transf (AST/SGOT) 31 U/L (15-37) Alanine Aminotransferase (ALT/SGPT) 14 U/L (12-78) Total Bilirubin 0.5 MG/DL (0.2-1.0) Blood Gas Puncture Site ART LINE Blood Gas Patient Temperature 98.6 Blood Gas HCO3 27 mmol/L (22-26) Blood Gas Base Excess 2.9 mmol/L (-2-2) Blood Gas Oxygen Saturation 91 % (90-100) Arterial Blood pH 7.43 (7.380-7.420) Arterial Blood Partial Pressure CO2 41 mmHg (38-42) Arterial Blood Partial Pressure O2 65 mmHg (61-120) Arterial Blood Oxygen Content 14.5 Vol % (12.0-20.0) Arterial Blood Carboxyhemoglobin 1.4 % (0-4) Arterial Blood Methemoglobin 0.7 % (0-2) Blood Gas Hemoglobin 11.3 G/DL (12.0-16.0) Oxygen Delivery Device VENTILATOR Blood Gas Ventilator Setting PRVC/AC Blood Gas Inspired Oxygen 40 % Test 06/25/17 05:05 06/25/17 05:21 06/26/17 07:55 06/26/17 09:12 White Blood Count 10.5 TH/MM3 (4.0-11.0) 16.3 TH/MM3 (4.0-11.0) Red Blood Count 2.78 MIL/MM3 (4.50-5.90) 3.02 MIL/MM3 (4.50-5.90) Hemoglobin 8.6 GM/DL (13.0-17.0) 9.1 GM/DL (13.0-17.0) Hematocrit 25.5 % (39.0-51.0) 28.0 % (39.0-51.0) Mean Corpuscular Volume 92.0 FL (80.0-100.0) 92.9 FL (80.0-100.0) Mean Corpuscular Hemoglobin 30.8 PG (27.0-34.0) 30.0 PG (27.0-34.0) Mean Corpuscular Hemoglobin Concent 33.5 % (32.0-36.0) 32.4 % (32.0-36.0) Red Cell Distribution Width 18.5 % (11.6-17.2) 18.0 % (11.6-17.2) Platelet Count 209 TH/MM3 (150-450) 223 TH/MM3 (150-450) Mean Platelet Volume 8.3 FL (7.0-11.0) 8.9 FL (7.0-11.0) Prothrombin Time 11.4 SEC (9.8-11.6) Prothromb Time International Ratio 1.1 RATIO Activated Partial Thromboplast Time 28.9 SEC (24.3-30.1) Blood Urea Nitrogen 12 MG/DL (7-18) 14 MG/DL (7-18) Creatinine 0.71 MG/DL (0.60-1.30) 0.70 MG/DL (0.60-1.30) Random Glucose 91 MG/DL (74-106) 111 MG/DL (74-106) Total Protein 5.5 GM/DL (6.4-8.2) 6.3 GM/DL (6.4-8.2) Albumin 1.7 GM/DL (3.4-5.0) 1.9 GM/DL (3.4-5.0) Calcium Level 7.7 MG/DL (8.5-10.1) 7.7 MG/DL (8.5-10.1) Phosphorus Level 3.1 MG/DL (2.5-4.9) 2.4 MG/DL (2.5-4.9) Magnesium Level 2.2 MG/DL (1.5-2.5) 2.2 MG/DL (1.5-2.5) Alkaline Phosphatase 55 U/L (45-117) 60 U/L (45-117) Aspartate Amino Transf (AST/SGOT) 25 U/L (15-37) 29 U/L (15-37) Alanine Aminotransferase (ALT/SGPT) 12 U/L (12-78) 15 U/L (12-78) Total Bilirubin 0.4 MG/DL (0.2-1.0) 0.5 MG/DL (0.2-1.0) Sodium Level 146 MEQ/L (136-145) 145 MEQ/L (136-145) Potassium Level 4.2 MEQ/L (3.5-5.1) 4.1 MEQ/L (3.5-5.1) Chloride Level 110 MEQ/L (98-107) 109 MEQ/L (98-107) Carbon Dioxide Level 29.0 MEQ/L (21.0-32.0) 26.2 MEQ/L (21.0-32.0) Anion Gap 7 MEQ/L (5-15) 10 MEQ/L (5-15) Estimat Glomerular Filtration Rate 107 ML/MIN (>89) 109 ML/MIN (>89) Blood Gas Puncture Site ART LINE ART LINE Blood Gas Patient Temperature 98.6 98.6 Blood Gas HCO3 26 mmol/L (22-26) 27 mmol/L (22-26) Blood Gas Base Excess 2.0 mmol/L (-2-2) 2.3 mmol/L (-2-2) Blood Gas Oxygen Saturation 96 % (90-100) 94 % (90-100) Arterial Blood pH 7.40 (7.380-7.420) 7.41 (7.380-7.420) Arterial Blood Partial Pressure CO2 43 mmHg (38-42) 43 mmHg (38-42) Arterial Blood Partial Pressure O2 91 mmHg (61-120) 81 mmHg (61-120) Arterial Blood Oxygen Content 9.8 Vol % (12.0-20.0) 14.1 Vol % (12.0-20.0) Arterial Blood Carboxyhemoglobin 1.3 % (0-4) 1.4 % (0-4) Arterial Blood Methemoglobin 0.8 % (0-2) 0.8 % (0-2) Blood Gas Hemoglobin 7.2 G/DL (12.0-16.0) 10.6 G/DL (12.0-16.0) Oxygen Delivery Device VENTILATOR VENTILATOR Blood Gas Ventilator Setting [facility]/ AC 20/550/IT1.0/+10 Blood Gas Inspired Oxygen 45 % 45 % Neutrophils (%) (Auto) 92.8 % (16.0-70.0) Lymphocytes (%) (Auto) 2.1 % (9.0-44.0) Monocytes (%) (Auto) 4.1 % (0.0-8.0) Eosinophils (%) (Auto) 0.7 % (0.0-4.0) Basophils (%) (Auto) 0.3 % (0.0-2.0) Neutrophils # (Auto) 15.2 TH/MM3 (1.8-7.7) Lymphocytes # (Auto) 0.4 TH/MM3 (1.0-4.8) Monocytes # (Auto) 0.7 TH/MM3 (0-0.9) Eosinophils # (Auto) 0.1 TH/MM3 (0-0.4) Basophils # (Auto) 0.0 TH/MM3 (0-0.2) CBC Comment DIFF FINAL Differential Comment Urine Color YELLOW (YELLW/STRAW) Urine Turbidity HAZY (CLEAR) Urine pH 5.5 (5.0-8.5) Urine Specific [place] 1.024 (1.002-1.035) Urine Protein 30 mg/dL (NEG-TRACE) Urine Glucose (UA) NEG mg/dL (NEG) Urine Ketones 40 mg/dL (NEG) Urine Occult Blood MOD (NEG) Urine Nitrite NEG (NEG) Urine Bilirubin NEG (NEG) Urine Urobilinogen LESS THAN 2.0 MG/DL (LESS Urine Leukocyte Esterase LARGE (NEG) Urine RBC 89 /hpf (0-3) Urine WBC 41 /hpf (0-5) Urine Bacteria OCC /hpf (NONE) Urine Mucus FEW /lpf (OCC) Microscopic Urinalysis Comment CATH-CULTURE IND Total Creatine Kinase 51 U/L (39-308) Troponin I LESS THAN 0.02 NG/ML Result Diagram: 06/26/17 0755 06/26/17 0755 Microbiology Microbiology Date/Time Source Procedure Growth Status 06/26/17 10:46 Blood Peripheral Aerobic Blood Culture Pending Received 06/26/17 10:46 Blood Peripheral Anaerobic Blood Culture Pending Received 06/26/17 10:40 Blood Peripheral Aerobic Blood Culture Pending Received 06/26/17 10:40 Blood Peripheral Anaerobic Blood Culture Pending Received 06/26/17 07:55 Sputum Endotracheal Gram Stain Pending Received 06/26/17 07:55 Sputum Endotracheal Sputum Culture Pending Received 06/26/17 07:55 Urine Catheterized Urine Urine Culture Pending Received Imaging Last 24 hours Impressions Chest X-Ray 06/26/17 0000 Signed Impressions: Service Date/Time: Monday, June 26, 2017 08:30 - CONCLUSION: There may be some mild improvement in the bibasilar infiltrates. Otherwise, no other new or significant changes compared to the prior study. Slade Olivo MD Procedures * 06/18/17 -Intubation/mechanical ventilation * 06/18/17 -Right internal jugular line placement * 06/18/17 -Left femoral artery line placement * 06/23/17 -EGD * 06/24/17 -colonoscopy with biopsy . Assessment and Plan Disease Oriented Problem List: (1) Acute hypoxemic respiratory failure (2) Pneumonia (3) Atrial fibrillation with RVR (4) Proximal muscle weakness (5) GIB (gastrointestinal bleeding) (6) Coronary artery disease (7) Hyperlipidemia (8) Hypertension Symptom Scale: (1) Pain 0-10 Scale: Unable to quantify (2) Dyspnea 0-10 Scale: Unable to quantify (3) Encephalopathy 0-10 Scale: Unable to quantify Pertinent Non-Medical Issues Psychosocial: Lives at home with who is wheelchair bound and need 24 hour 02. Well supported by step children. Spiritual: Taoism. Requests deportation examiner support. Legal: No known advance directives. is proxy Ethical issues impacting care: Pt currently incapacitated but might re-gain capacity. . Important Contacts José Lugo (spouse; health care proxy) [phone] . Prognosis There is still a reasonable chance that patient's pneumonia and respiratory status will improve and we will be able to wean him from the vent. He will be quite deconditioned at that time and will need substantial rehabilitation. Unclear if he might have some sort of underlying neuro-muscular issue that has caused some proximal muscle weakness AND may be contributing to his respiratory issues. This might impact prognosis. Also, we still do not know the cause of the GI bleeding and that might impact prognosis. Should there be a major setback or it become clear that we will not be able to wean him from the vent, spouse indicates that the patient would not want to be prolonged on life support. Patient remains at a very high risk for further complications, continued decline and . . Code Status: Alternative Code Plan == Code Status: Alternate code/intubation only. No cardiac resuscitation. This has been readdressed with family 06/26. == Decision Making: Patient is currently incapacitated to make his own healthcare decisions. Unclear at this time if he will regain medical decision- making capacity secondary to clinical condition. There is no known written designation of healthcare surrogate. As per [place] statue, proxy healthcare decision making therefore falls to his spouse José Lugo. has accepted this role and is fully supported by patient's children. == Goals of medical treatment: As per family, goal of therapy is to allow a few more days for clinical improvement (until early next week), attempt medical extubation. Family will NOT proceed with trach/PEG tube if patient is unable to medically extubate, likely to transition to comfort-directed care/withdrawal life support at that time. Hospice philosophy and benefits introduced should pt 's clinical condition does not improve or worsen, family receptive this. palliative care to meet with family Wednesday 06/28 at 1 PM for f/u, medical update and emotional support. == Symptoms * Pain: Patient did not have any prehospitalization pain syndromes. Current sources of discomfort would include prolonged bedbound status; orotracheal intubation; nasogastric intubation; Hanks catheterization; vascular access lines ; wrist restraints. Patient is currently on fentanyl and midazolam drips. These appear to be adequately controlling his discomfort. No further recommendations at this time. * Proximal muscle weakness. gives a very good story for progressively worsening proximal muscle weakness. The patient had been having difficulty getting up from chairs. He is also been having difficulty lifting his feet when walking. This was brought to the attention of the patient's primary care doctor who apparently did not recommend any particular evaluation. * Dyspnea: Currently managed by ventilator support. No vacation sedation or spontaneous breathing trials given patient's critical condition/unstable. No further recommendation at this time. == Case discussed with Dr. Montes De Oca. == Palliative care will continue to follow to assist with symptom management and to further clarify goals of medical treatment as the clinical course evolves. . Time Spent Total Floor Time (mins): 41 (Total time to include review medical records, physical exam, goals of care conversation with patient's family, case discussion with Dr. Montes De Oca.) >50% Counseling/Coord of Care: Yes Attestation To help prompt me to consider important information that might be impacting today's encounter and assessment, information from prior notes written by myself or my colleagues may have been "brought forward" into today's note. My signature on this note, however, is an attestation that I personally performed the exam, history, and/or decision-making noted today, and, unless otherwise indicated, the interactions with patient, family, and staff as well as the review of records all occurred today. I also attest that the listed assessment and stated plan reflect my best clinical judgment today based on the combination of historical information, prior notes, and today's exam/ interactions. When time spent is documented, it refers only to time spent today by the signer, or if indicated, combined time spent today by collaborating physician/nurse practitioner. Natasha Nielsen Jun 26, 2017 13:57
[2017-06-26] MEDS ORDERED: IOHEXOL 350 MG/ML 10 ML VIAL (for RAD DIAG) IVCONTRAST ONE (16:14)
--- NOTE | 2017-06-26 16:18 | RADRPT ---
EXAM DATE/TIME: 06/26/2017 15:50 [facility] COMPARISON: No previous studies available for comparison. INDICATIONS : Altered mental status. RADIATION DOSE: 56.35 CTDIvol (mGy) MEDICAL HISTORY : Seizures. Cardiovascular disease Hypertension. SURGICAL HISTORY : Non-responsive. ENCOUNTER: Initial ACUITY: 1 day PAIN SCALE: 10/10 LOCATION: cranial TECHNIQUE: Multiple contiguous axial images were obtained of the head. Using automated exposure control and adj ustment of the mA and/or kV according to patient size, radiation dose was kept as low as reasonably a chievable to obtain optimal diagnostic quality images. DICOM format image data is available electro nically for review and comparison. FINDINGS: The CSF spaces are large characteristic of generalized volume loss. There are no characteristic findings of an acute infarct or hemorrhage. There is no evidence of mass effect or edema. There are no extra-axial abnormalities. Endotracheal and nasogastric tubes are noted in place. There is opacification of sphenoid sinus and f luid within the maxillary sinuses. CONCLUSION: 1. Mild generalized atrophy. 2. No evidence of acute infarct, hemorrhage, mass or edema. 3. Paranasal sinus fluid accumulation likely related to nasogastric tube and endotracheal tube. Mike Andrade MD on June 26, 2017 at 16:14 Board Certified Radiologist. This report was verified electronically.
--- NOTE | 2017-06-26 16:25 | RADRPT ---
EXAM DATE/TIME: 06/26/2017 15:52 [facility] COMPARISON: No previous studies available for comparison. INDICATIONS : Evaluate abdominal aortic aneurysm IV CONTRAST: 90 cc Omnipaque 350 (iohexol) IV ORAL CONTRAST: Prescribed oral contrast ingested. RADIATION DOSE: 17.27 CTDIvol (mGy) MEDICAL HISTORY : Seizures. Hypertension. Cardiovascular disease SURGICAL HISTORY : Non-responsive. ENCOUNTER: Initial ACUITY: 1 day PAIN SCALE: Non-responsive LOCATION: Bilateral Abdomen TECHNIQUE: Volumetric scanning of the abdomen and pelvis was performed. Using automated exposure control and ad justment of the mA and/or kV according to patient size, radiation dose was kept as low as reasonably achievable to obtain optimal diagnostic quality images. DICOM format image data is available electro nically for review and comparison. FINDINGS: LOWER LUNGS: Small bilateral effusions with bibasilar infiltrates characteristic of compressive atelectasis. LIVER: Homogeneous density without lesion. There is no dilation of the biliary tree. No calcified gallston es. SPLEEN: Normal size without lesion. PANCREAS: Within normal limits. KIDNEYS: Normal in size and shape. There is no mass, stone or hydronephrosis. ADRENAL GLANDS: Within normal limits. VASCULAR: There is atherosclerotic changes of the aorta. There is aneurysmal dilatation of the infrarenal abdom inal aorta measuring approximately 5 cm in its AP dimension and 4.5 cm in the transverse dimension. N o free fluid is seen. The aneurysmal dilatation does not extend into the iliac arteries. There is senthil roximately a 2.5 cm neck from the base of the renal arteries to the beginning of the infrarenal aorti c aneurysm. BOWEL/MESENTERY: The stomach, small bowel, and colon demonstrate no acute abnormality. There is an NG tube in stomach . There is a catheter in the rectum. There is no free intraperitoneal air or fluid. Scattered diverti culosis of the sigmoid colon and descending colon without definite inflammatory changes. There is samara e mild mesenteric edema in the lower pelvis. No significant free fluid or loculated fluid collections are demonstrated. ABDOMINAL WALL: There is edema in the lower abdominal wall. RETROPERITONEUM: There is no lymphadenopathy. BLADDER: Hanks catheter in the urinary bladder is decompressed. REPRODUCTIVE: No pelvic masses. INGUINAL: Right inguinal hernia containing fluid. No definite left inguinal hernia. No adenopathy. MUSCULOSKELETAL: Within normal limits for patient age. CONCLUSION: 1. There is an infrarenal abdominal aortic aneurysm measuring 5 cm x 4.5 cm. 2. Scattered diverticulosis of the descending and sigmoid colon without definite inflammatory changes . 3. Nonspecific edema in the lower abdominal wall. 4. Small bilateral pleural effusions with bibasilar atelectasis. Slade Olivo MD on June 26, 2017 at 16:16 Board Certified Radiologist. This report was verified electronically.
[2017-06-26] MEDS ORDERED: ALTEPLASE RECOMBINANT 2 MG VIAL INTRACATH ONE (16:45)
--- NOTE | 2017-06-26 17:38 | MG ---
cc: Hua Wellington MD, PhD Hua Wellington MD PhD TEST NUMBER [id number]. TECHNIQUE: This is a 17-channel EEG. DESCRIPTION: The background rhythm reveals generalized slowing in the delta frequency at roughly 3-4 Hz. Amplitude is 20 microvolts. No lateralizing features are identified. No epileptiform features are identified. Photic results in a poor driving response. INTERPRETATION: Abnormal study consistent with a moderate to severe encephalopathy. Hua Wellington MD, PhD JOANIE//fritz , 05:16 PM , 05:26 PM
[2017-06-26] MEDS: fentaNYL DRIP 250 ML IV PRN (20:04)
[2017-06-26] MEDS: MIDAZOLAM 100 MG/100 ML INJ 100 ML IV PRN (20:04)
--- NOTE | 2017-06-26 22:08 | EKG ---
Date Performed: 06/26/2017 Time Performed: 08:05:46 PTAGE: 77 years EKG: Atrial tachycardia with block Right bundle branch block Inferior/lateral ST-T changes Low Q RS voltages in precordial leads Abnormal ECG PREVIOUS TRACING : 06/18/2017 06.14 Compared to previous tracing, atrial fibrillation no longe r present DOCTOR: Jef Avila Interpretating Date/Time 06/26/2017 22:07:08
[2017-06-27] VITALS (14 sets, daily range): BP systolic 98–115; BP diastolic 53–62; PULSE 72–127; RESP 18–22; TEMP 98.2–99.9; O2SAT 93–100
[2017-06-27] MEDS: ARTIFICIAL TEARS OPTH SOLN 15 ML BTL EACH EYE SCH ×3 (02:04→16:59)
[2017-06-27] MEDS: RESP: IPRATROPIUM 0.5 MG/2.5 ML NEB NEB SCH ×6 (03:31→20:45)
[2017-06-27] MEDS: INSULIN NovoLIN REGULAR SUPPLEMENTAL SCALE SQ SCH ×4 (05:58→23:28)
[2017-06-27] MEDS: DILTIAZEM HCL 30 MG TAB PO SCH ×4 (06:00→23:23)
[2017-06-27] MEDS: HEPARIN SODIUM - SQ 10,000 UNITS/ML VIAL SQ SCH ×3 (06:04→21:52)
[2017-06-27 06:18] LABS: AUTOMATED NEUTROPHIL # 11.3 TH/MM3 (1.8-7.7); BASOPHIL % 0.4 % (0.0-2.0); EOSINOPHIL # 0.2 TH/MM3 (0-0.4); EOSINOPHIL % 1.4 % (0.0-4.0); HEMATOCRIT 23.3 % (39.0-51.0); HEMOGLOBIN 7.6 GM/DL (13.0-17.0); LYMPH % 4.7 % (9.0-44.0); LYMPHOCYTE # 0.6 TH/MM3 (1.0-4.8); MEAN CELL VOLUME 93.1 FL (80.0-100.0); MEAN CORPUSCULAR HEMOGLOBIN 30.2 PG (27.0-34.0); MEAN CORPUSCULAR HGB CONC 32.4 % (32.0-36.0); MONO % 5.7 % (0.0-8.0); MONOCYTE # 0.7 TH/MM3 (0-0.9); NEUT % 87.8 % (16.0-70.0); PLATELET COUNT 193 TH/MM3 (150-450); RED BLOOD COUNT 2.51 MIL/MM3 (4.50-5.90); RED CELL DISTRIBUTION WIDTH 17.5 % (11.6-17.2); WHITE BLOOD COUNT 12.9 TH/MM3 (4.0-11.0)
[2017-06-27 06:47] LABS: BICARBONATE 33.2 MEQ/L (21.0-32.0); CALCIUM 7.8 MG/DL (8.5-10.1); CREATININE 0.71 MG/DL (0.60-1.30); MAGNESIUM 2.4 MG/DL (1.5-2.5); PHOSPHORUS 2.6 MG/DL (2.5-4.9)
[2017-06-27] MEDS: SODIUM CHLORIDE 0.9% FLUSH 10 ML FLUSH IV FLUSH SCH ×2 (08:13→20:16)
[2017-06-27] MEDS: LANSOPRAZOLE SOLUTAB 30 MG TAB NG SCH (08:13)
[2017-06-27] MEDS: POLYETHYLENE GLYCOL 17 GM PKG PO SCH ×2 (08:14→20:16)
[2017-06-27] MEDS: SENNOSIDES SYRUP 8.8 MG/5 ML CUP NG SCH ×2 (08:14→20:15)
[2017-06-27] MEDS: DOCUSATE SODIUM 100 MG/10 ML UDC PO SCH ×2 (08:14→20:15)
[2017-06-27] MEDS: DEXMEDETOMIDINE INJ 200 MCG in SODIUM CHLORIDE 0.9% INJ 50 ML IV PRN ×2 (11:16→17:13)
[2017-06-27] MEDS ORDERED: FUROSEMIDE 20 MG/2 ML VIAL IV PUSH ONE (12:15)
[2017-06-27] MEDS ORDERED: ALBUMIN 25% INJ 50 ML IV ONE (12:15)
--- NOTE | 2017-06-27 12:26 | HHI.HCPN ---
Reason for visit a. To assist with evaluation and management of symptoms including: dyspnea; encephalopathy; generalized weakness b. To assist medical decision maker(s) with: better understanding of current medical conditions; weighing benefits/burdens of medical treatment options; making medical treatment decisions. . Subjective/Interval History Palliative care follow-up for further clarifications of goals of care. Patient seen in surgical ICU, endotracheally intubated on mechanical ventilation. Atrial fibrillation with RVR, heart rate in the 120s-130s. Remains on amiodarone drip. Currently on fentanyl and Versed. Versed is currently being weaned off, Precedex started earlier today. Patient with increased oxygen requirement, currently 50% FiO2. Hemoglobin 7.6 today from 9.1 yesterday. No signs of acute bleeding noted. GI following. Colon polyps biopsy negative for malignancy. 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 Patient unresponsive to verbal or tactile stimuli. EEG 06/26 revealing moderate to severe encephalopathy, no seizure activity noted. Met with patient's son Keenan at bedside, telephone conversation with Mrs. Lugo. Medical update provided. Reviewed the patient remains at very high risk for further complications, continued decline and . As per family, goal of therapy is to allow a few more days for clinical improvement, attempt medical extubation if patient is able to tolerate. Family will not proceed with trach/ PEG tube if patient is unable to medically extubate, likely to transition to comfort-directed care/withdrawal life support at that time. Palliative care to meet with family Wednesday 06/28 at 1 PM for further clarifications of goals of care , medical update and emotional support. . Family/friend interactions See interval note. . Advance Directives Living Will: Never completed Health Care Surrogate: Never completed Durable Power of Sales Account Associate: Never completed Advance Directive Specifics Date completed: Per , patient has never completed an advanced directive. . Health Care Surrogate(s): The patient has never completed a written designation of healthcare surrogate. . Documented care wishes: We have no written documentation of patient's healthcare goals/preferences. . Significant change in goals: Aggressive management short of no cardiac resuscitation. . Objective Vital Signs Date Time Temp Pulse Resp B/P (MAP) Pulse Ox O2 Delivery O2 Flow Rate FiO2 06/27/17 10:00 127 06/27/17 08:22 95 45 06/27/17 08:00 81 06/27/17 08:00 99.7 82 21 108/53 (71) 97 06/27/17 08:00 45 06/27/17 06:00 82 06/27/17 04:00 100 45 06/27/17 04:00 45 06/27/17 04:00 84 06/27/17 04:00 99.3 84 22 113/58 (76) 94 06/27/17 02:00 72 06/27/17 00:00 98.2 86 21 115/62 (79) 93 06/27/17 00:00 45 06/27/17 00:00 86 06/26/17 23:34 85 121/56 06/26/17 22:00 89 06/26/17 21:00 98 45 06/26/17 20:00 70 06/26/17 20:00 99.2 70 20 123/69 (87) 100 06/26/17 20:00 45 06/26/17 18:00 67 06/26/17 17:41 96 45 06/26/17 16:00 98.4 72 20 119/57 (77) 96 06/26/17 16:00 74 06/26/17 16:00 45 06/26/17 15:55 100 100 06/26/17 14:00 72 06/26/17 12:50 97 45 Intake & Output 06/27/17 06/27/17 07:00 19:00 Intake Total 817.7 ml Output Total 425 ml 0 ml Balance 392.7 ml 0 ml IV Total 513.7 ml Tube Feeding 244 ml Tube Irrigant 60 ml Output Urine Total 425 ml Stool Total 0 ml Gastric Drainage Total 0 ml Tube Feeding Residual Discard 0 ml 0 ml Physical Exam CONSTITUTIONAL/GENERAL: This is an adequately nourished patient, intubated, mechanically ventilated, sedated in a surgical intensive care unit bed. No apparent distress. TUBES/LINES/DRAINS: Right internal jugular central line triple-lumen; left femoral arterial line; bilateral soft restraints; nasogastric tube; orotracheal tube; Hanks catheter; rectal tube, PIV. SKIN: No jaundice. Skin temperature appropriate. Not diaphoretic. Abrasion/ erythema to forehead and nose. Scattered dry/scaly rash to bilateral arms. HEAD: Atraumatic. Normocephalic. EYES: Pupils equal and round and reactive. Cannot evaluate extraocular motions. No scleral icterus. No injection or drainage. ENT: Unable to evaluate hearing at this time. NG tube in left naris. nose without bleeding or purulent drainage. Moist oral mucosa. NECK: Trachea midline. Supple. CARDIOVASCULAR: Irregularly irregular heart rhythm. No audible gallops, or rubs. No JVD. RESPIRATORY/CHEST: Symmetric, unlabored respirations. Air movement approximately equal bilaterally. Diminished breath sounds at both bases. No audible wheezes. GASTROINTESTINAL: Abdomen is obese, large, round, distended and moderately firm. Bowel sounds present. GENITOURINARY: Without palpable bladder distension. Hanks catheter in place. MUSCULOSKELETAL: Extremities without clubbing, cyanosis. 3+ edema is present - edema appears worsening. NEUROLOGICAL: Sedated. Unresponsive to verbal or tactile stimuli. PSYCHIATRIC: Unable to assess due to level of responsiveness. . Diagnostic Tests Laboratory Laboratory Tests Test 06/25/17 05:05 06/25/17 05:21 06/26/17 07:55 06/26/17 09:12 White Blood Count 10.5 TH/MM3 (4.0-11.0) 16.3 TH/MM3 (4.0-11.0) Red Blood Count 2.78 MIL/MM3 (4.50-5.90) 3.02 MIL/MM3 (4.50-5.90) Hemoglobin 8.6 GM/DL (13.0-17.0) 9.1 GM/DL (13.0-17.0) Hematocrit 25.5 % (39.0-51.0) 28.0 % (39.0-51.0) Mean Corpuscular Volume 92.0 FL (80.0-100.0) 92.9 FL (80.0-100.0) Mean Corpuscular Hemoglobin 30.8 PG (27.0-34.0) 30.0 PG (27.0-34.0) Mean Corpuscular Hemoglobin Concent 33.5 % (32.0-36.0) 32.4 % (32.0-36.0) Red Cell Distribution Width 18.5 % (11.6-17.2) 18.0 % (11.6-17.2) Platelet Count 209 TH/MM3 (150-450) 223 TH/MM3 (150-450) Mean Platelet Volume 8.3 FL (7.0-11.0) 8.9 FL (7.0-11.0) Prothrombin Time 11.4 SEC (9.8-11.6) Prothromb Time International Ratio 1.1 RATIO Activated Partial Thromboplast Time 28.9 SEC (24.3-30.1) Blood Urea Nitrogen 12 MG/DL (7-18) 14 MG/DL (7-18) Creatinine 0.71 MG/DL (0.60-1.30) 0.70 MG/DL (0.60-1.30) Random Glucose 91 MG/DL (74-106) 111 MG/DL (74-106) Total Protein 5.5 GM/DL (6.4-8.2) 6.3 GM/DL (6.4-8.2) Albumin 1.7 GM/DL (3.4-5.0) 1.9 GM/DL (3.4-5.0) Calcium Level 7.7 MG/DL (8.5-10.1) 7.7 MG/DL (8.5-10.1) Phosphorus Level 3.1 MG/DL (2.5-4.9) 2.4 MG/DL (2.5-4.9) Magnesium Level 2.2 MG/DL (1.5-2.5) 2.2 MG/DL (1.5-2.5) Alkaline Phosphatase 55 U/L (45-117) 60 U/L (45-117) Aspartate Amino Transf (AST/SGOT) 25 U/L (15-37) 29 U/L (15-37) Alanine Aminotransferase (ALT/SGPT) 12 U/L (12-78) 15 U/L (12-78) Total Bilirubin 0.4 MG/DL (0.2-1.0) 0.5 MG/DL (0.2-1.0) Sodium Level 146 MEQ/L (136-145) 145 MEQ/L (136-145) Potassium Level 4.2 MEQ/L (3.5-5.1) 4.1 MEQ/L (3.5-5.1) Chloride Level 110 MEQ/L (98-107) 109 MEQ/L (98-107) Carbon Dioxide Level 29.0 MEQ/L (21.0-32.0) 26.2 MEQ/L (21.0-32.0) Anion Gap 7 MEQ/L (5-15) 10 MEQ/L (5-15) Estimat Glomerular Filtration Rate 107 ML/MIN (>89) 109 ML/MIN (>89) Blood Gas Puncture Site ART LINE ART LINE Blood Gas Patient Temperature 98.6 98.6 Blood Gas HCO3 26 mmol/L (22-26) 27 mmol/L (22-26) Blood Gas Base Excess 2.0 mmol/L (-2-2) 2.3 mmol/L (-2-2) Blood Gas Oxygen Saturation 96 % (90-100) 94 % (90-100) Arterial Blood pH 7.40 (7.380-7.420) 7.41 (7.380-7.420) Arterial Blood Partial Pressure CO2 43 mmHg (38-42) 43 mmHg (38-42) Arterial Blood Partial Pressure O2 91 mmHg (61-120) 81 mmHg (61-120) Arterial Blood Oxygen Content 9.8 Vol % (12.0-20.0) 14.1 Vol % (12.0-20.0) Arterial Blood Carboxyhemoglobin 1.3 % (0-4) 1.4 % (0-4) Arterial Blood Methemoglobin 0.8 % (0-2) 0.8 % (0-2) Blood Gas Hemoglobin 7.2 G/DL (12.0-16.0) 10.6 G/DL (12.0-16.0) Oxygen Delivery Device VENTILATOR VENTILATOR Blood Gas Ventilator Setting [facility]/ 20/550/IT1.0/+10 Blood Gas Inspired Oxygen 45 % 45 % Neutrophils (%) (Auto) 92.8 % (16.0-70.0) Lymphocytes (%) (Auto) 2.1 % (9.0-44.0) Monocytes (%) (Auto) 4.1 % (0.0-8.0) Eosinophils (%) (Auto) 0.7 % (0.0-4.0) Basophils (%) (Auto) 0.3 % (0.0-2.0) Neutrophils # (Auto) 15.2 TH/MM3 (1.8-7.7) Lymphocytes # (Auto) 0.4 TH/MM3 (1.0-4.8) Monocytes # (Auto) 0.7 TH/MM3 (0-0.9) Eosinophils # (Auto) 0.1 TH/MM3 (0-0.4) Basophils # (Auto) 0.0 TH/MM3 (0-0.2) CBC Comment DIFF FINAL Differential Comment Urine Color YELLOW (YELLW/STRAW) Urine Turbidity HAZY (CLEAR) Urine pH 5.5 (5.0-8.5) Urine Specific [place] 1.024 (1.002-1.035) Urine Protein 30 mg/dL (NEG-TRACE) Urine Glucose (UA) NEG mg/dL (NEG) Urine Ketones 40 mg/dL (NEG) Urine Occult Blood MOD (NEG) Urine Nitrite NEG (NEG) Urine Bilirubin NEG (NEG) Urine Urobilinogen LESS THAN 2.0 MG/DL (LESS Urine Leukocyte Esterase LARGE (NEG) Urine RBC 89 /hpf (0-3) Urine WBC 41 /hpf (0-5) Urine Bacteria OCC /hpf (NONE) Urine Mucus FEW /lpf (OCC) Microscopic Urinalysis Comment CATH-CULTURE IND Total Creatine Kinase 51 U/L (39-308) Troponin I LESS THAN 0.02 NG/ML Test 06/27/17 05:30 White Blood Count 12.9 TH/MM3 (4.0-11.0) Red Blood Count 2.51 MIL/MM3 (4.50-5.90) Hemoglobin 7.6 GM/DL (13.0-17.0) Hematocrit 23.3 % (39.0-51.0) Mean Corpuscular Volume 93.1 FL (80.0-100.0) Mean Corpuscular Hemoglobin 30.2 PG (27.0-34.0) Mean Corpuscular Hemoglobin Concent 32.4 % (32.0-36.0) Red Cell Distribution Width 17.5 % (11.6-17.2) Platelet Count 193 TH/MM3 (150-450) Mean Platelet Volume 9.0 FL (7.0-11.0) Neutrophils (%) (Auto) 87.8 % (16.0-70.0) Lymphocytes (%) (Auto) 4.7 % (9.0-44.0) Monocytes (%) (Auto) 5.7 % (0.0-8.0) Eosinophils (%) (Auto) 1.4 % (0.0-4.0) Basophils (%) (Auto) 0.4 % (0.0-2.0) Neutrophils # (Auto) 11.3 TH/MM3 (1.8-7.7) Lymphocytes # (Auto) 0.6 TH/MM3 (1.0-4.8) Monocytes # (Auto) 0.7 TH/MM3 (0-0.9) Eosinophils # (Auto) 0.2 TH/MM3 (0-0.4) Basophils # (Auto) 0.0 TH/MM3 (0-0.2) CBC Comment DIFF FINAL Differential Comment Blood Urea Nitrogen 12 MG/DL (7-18) Creatinine 0.71 MG/DL (0.60-1.30) Random Glucose 109 MG/DL (74-106) Calcium Level 7.8 MG/DL (8.5-10.1) Phosphorus Level 2.6 MG/DL (2.5-4.9) Magnesium Level 2.4 MG/DL (1.5-2.5) Sodium Level 147 MEQ/L (136-145) Potassium Level 4.0 MEQ/L (3.5-5.1) Chloride Level 110 MEQ/L (98-107) Carbon Dioxide Level 33.2 MEQ/L (21.0-32.0) Anion Gap 4 MEQ/L (5-15) Estimat Glomerular Filtration Rate 107 ML/MIN (>89) Result Diagram: 06/27/17 0530 06/27/17 0530 Microbiology Microbiology Date/Time Source Procedure Growth Status 06/26/17 10:46 Blood Peripheral Aerobic Blood Culture - Preliminary NO GROWTH IN 1 DAY Resulted 06/26/17 10:46 Blood Peripheral Anaerobic Blood Culture - Preliminary NO GROWTH IN 1 DAY Resulted 06/26/17 10:40 Blood Peripheral Aerobic Blood Culture - Preliminary NO GROWTH IN 1 DAY Resulted 06/26/17 10:40 Blood Peripheral Anaerobic Blood Culture - Preliminary NO GROWTH IN 1 DAY Resulted 06/26/17 07:55 Sputum Endotracheal Gram Stain - Final Resulted 06/26/17 07:55 Sputum Endotracheal Sputum Culture Pending Resulted 06/26/17 07:55 Urine Catheterized Urine Urine Culture - Preliminary NO GROWTH IN 24 HOURS. Resulted Procedures * 06/18/17 -Intubation/mechanical ventilation * 06/18/17 -Right internal jugular line placement * 06/18/17 -Left femoral artery line placement * 06/23/17 -EGD * 06/24/17 -colonoscopy with biopsy . Assessment and Plan Disease Oriented Problem List: (1) Acute hypoxemic respiratory failure (2) Pneumonia (3) Atrial fibrillation with RVR (4) Proximal muscle weakness (5) GIB (gastrointestinal bleeding) (6) Coronary artery disease (7) Hyperlipidemia (8) Hypertension Symptom Scale: (1) Pain 0-10 Scale: Unable to quantify (2) Dyspnea 0-10 Scale: Unable to quantify (3) Encephalopathy 0-10 Scale: Unable to quantify Pertinent Non-Medical Issues Psychosocial: Lives at home with who is wheelchair bound and need 24 hour 02. Well supported by step children. Spiritual: [employer]. Requests bi technical lead support. Legal: No known advance directives. is proxy Ethical issues impacting care: Pt currently incapacitated but might re-gain capacity. . Important Contacts Jessheather Lugo (spouse; health care proxy) [phone] . Prognosis There is still a reasonable chance that patient's pneumonia and respiratory status will improve and we will be able to wean him from the vent. He will be quite deconditioned at that time and will need substantial rehabilitation. Unclear if he might have some sort of underlying neuro-muscular issue that has caused some proximal muscle weakness AND may be contributing to his respiratory issues. This might impact prognosis. Also, we still do not know the cause of the GI bleeding and that might impact prognosis. Should there be a major setback or it become clear that we will not be able to wean him from the vent, spouse indicates that the patient would not want to be prolonged on life support. Patient remains at a very high risk for further complications, continued decline and . . Code Status: Alternative Code Plan == Code Status: Alternate code/intubation only. No cardiac resuscitation. == Decision Making: Patient is currently incapacitated to make his own healthcare decisions. Unclear at this time if he will regain medical decision- making capacity secondary to clinical condition. There is no known written designation of healthcare surrogate. As per [place] statue, proxy healthcare decision making therefore falls to his spouse José Lugo. has accepted this role and is fully supported by patient's children. == Goals of medical treatment: As per family, goal of therapy is to allow a few more days for clinical improvement (until early next week), attempt medical extubation. Family will NOT proceed with trach/PEG tube if patient is unable to medically extubate, likely to transition to comfort-directed care/withdrawal life support at that time. Hospice philosophy and benefits introduced should pt 's clinical condition does not improve or worsen, family receptive this. palliative care to meet with family Wednesday 06/28 at 1 PM for f/u, medical update and emotional support. == Symptoms * Pain: Patient did not have any prehospitalization pain syndromes. Current sources of discomfort would include prolonged bedbound status; orotracheal intubation; nasogastric intubation; Hanks catheterization; vascular access lines ; wrist restraints. Patient is currently on fentanyl and midazolam drips - Precedex drip added today. These appear to be adequately controlling his discomfort. No further recommendations at this time. * Dyspnea: Currently managed by ventilator support. No vacation sedation or spontaneous breathing trials at this time given patient's critical condition/ unstable. == Case discussed with Dr. Montes De Oca. == Palliative care will continue to follow to assist with symptom management and to further clarify goals of medical treatment as the clinical course evolves. . Time Spent Total Floor Time (mins): 24 (Total time to include review medical records, physical exam, goals of care conversation with patient's son Keenan, telephone conversation with patient's , case discussion with bedside RN.) >50% Counseling/Coord of Care: Yes Attestation To help prompt me to consider important information that might be impacting today's encounter and assessment, information from prior notes written by myself or my colleagues may have been "brought forward" into today's note. My signature on this note, however, is an attestation that I personally performed the exam, history, and/or decision-making noted today, and, unless otherwise indicated, the interactions with patient, family, and staff as well as the review of records all occurred today. I also attest that the listed assessment and stated plan reflect my best clinical judgment today based on the combination of historical information, prior notes, and today's exam/ interactions. When time spent is documented, it refers only to time spent today by the signer, or if indicated, combined time spent today by collaborating physician/nurse practitioner. Natasha Nielsen Jun 27, 2017 12:26
[2017-06-27] MEDS ORDERED: METHYLNALTREXONE BROMIDE 12 MG/0.6 ML VIAL SQ ONE (12:45)
[2017-06-27] MEDS ORDERED: DIGOXIN 0.5 MG/2 ML VIAL IV PUSH ONE (12:45)
[2017-06-27] MEDS ORDERED: MINERAL OIL EMULSION 55% PO ONE (12:45)
--- NOTE | 2017-06-27 12:55 | HHI.CCPN ---
Subjective Remarks/Hospital Course 06/18: 77-year-old gentleman with history of hypertension, hyperlipidemia, atrial fibrillation, COPD now admitted on 06/13 in [place] with generalized worsening weakness and chest pain. Patient was treated with Cardizem drip and cardiology was consulted. Throughout the hospitalization patient had a gradual worsening hypoxia requiring nonrebreather mask and BiPAP. Pulmonology was consulted and patient had a CT chest that showed possible ILD and pneumonia. This morning patient was found to be in acute respiratory distress that did not respond to BiPAP at 100%, therefore patient was intubated. Patient was also hypotensive and responded to IV fluid bolus. He received 1 dose of vancomycin and 1 dose of Zosyn. There was a report of GI bleed and 2 units PRBC were ordered and 1 unit was transfused already, and patient was started on a PPI drip , however there is no clear documentation about the episode. Patient was transferred to [facility] for further care. Patient was seen immediately on his arrival, hypoxic to low 80s, on PEEP of 5 and FiO2 of 1. Due to vent dyssynchrony and worsening hypoxia patient required 1 dose of paralytic. Stat chest x-ray done did not show evidence of pneumothorax. Vent settings readjusted currently FiO2 of 0.9 and O2 sat of 91%. He is on Cardizem drip at 15 mg/h, on midazolam and fentanyl drips. 06/19: No events over the night. Patient remains on an FiO2 of 1 and PEEP of 12. On amiodarone drip off Cardizem with heart rate in the 90s still in A. fib. He requires blood pressure support with phenylephrine currently at 100. T -max of 100.7 yesterday. Patient is sedated with midazolam and fentanyl drips. Chest x-ray reviewed, worsening bilateral infiltrates. ET tube approximately 7 cm above lobito. 06/20: No events over the night. Patient remains on phenylephrine at 110 and amiodarone infusion. Sedated with Versed and fentanyl. Afebrile. Good urine output, more than 2 L over the last 24 hours. On 0.7 FiO2. Chest x-ray reviewed this morning, no significant change compared to yesterday. Dark bloody aspirate in the NG tube noted. 06/21: No acute events over the night. Still with some dark NG tube aspirate. Received 1 unit PRBC yesterday evening. Patient still requiring phenylephrine at 150 and amiodarone infusion at 0.5. Sedation is achieved with midazolam and fentanyl. FiO2 currently at 0.55. Chest x-ray without significant change. T- max 98.7. 06/22: Worsening pressor requirements over the night, currently on phenylephrine at 270mcg/min. Patient developed a difficult amount of melena and worsening dark NG tube aspirate. Hemoglobin this morning down to 6.8 currently being transfused 2 units PRBC. Oxygenation down 0.4 FiO2 however still with high PEEP requirements. 06/23: No events overnight. Significant improvement in pressor requirement, currently on norepinephrine at 2 mcg/minute. Febrile with a T-max of 101.3 yesterday at noon, afebrile since then. Still with liquid, dark stool and dark NG tube aspirate. Patient remains on an FiO2 of 0.4 and PEEP of 12. 7 L positive since admission. 06/24: Remains sedated, orally intubated on mechanical ventilation. 06/25: Remains sedated, orally intubated on mechanical ventilation. Underwent colonoscopy yesterday. 06/26: Temperature current 103.6. Tachypneic on the ventilator. Currently midazolam at 7 mg/h and fentanyl drip at 150 mcg there. Currently in A. fib with RVR with heart rate in the 140s. Vasopressin has been discontinued. A.m. laboratories and chest x-ray pending. Withdraws only on the ventilator with copious green sputum noted. Patient has been pancultured today including blood sputum and urine Subjective: 06/27: Low-grade temperatures persist. Pancultured yesterday currently no growth today. Transitioning from midazolam to dexmedetomidine drips. FiO2 down to 40%. Increasing bowel regimen today. Objective Vital Signs Date Time Temp Pulse Resp B/P (MAP) Pulse Ox O2 Delivery O2 Flow Rate FiO2 06/27/17 12:00 120 06/27/17 12:00 50 06/27/17 12:00 99.9 18 101/60 (74) 94 06/23/17 20:09 Ventilator Intake and Output 06/27/17 06/27/17 06/28/17 08:00 16:00 00:00 Intake Total 608.9 ml Output Total 425.0 ml 0 ml Balance 183.9 ml 0 ml Result Diagram: 06/27/17 0530 06/27/17 0530 Other Results Microbiology Date/Time Source Procedure Growth Status 06/26/17 10:46 Blood Peripheral Aerobic Blood Culture - Preliminary NO GROWTH IN 1 DAY Resulted 06/26/17 10:46 Blood Peripheral Anaerobic Blood Culture - Preliminary NO GROWTH IN 1 DAY Resulted 06/26/17 07:55 Sputum Endotracheal Gram Stain - Final Resulted 06/26/17 07:55 Sputum Endotracheal Sputum Culture - Preliminary NO GROWTH IN 24 HOURS. Resulted 06/26/17 07:55 Urine Catheterized Urine Urine Culture - Preliminary NO GROWTH IN 24 HOURS. Resulted Imaging Last Impressions Head CT 06/26/17 0000 Signed Impressions: Service Date/Time: Monday, June 26, 2017 15:50 - CONCLUSION: 1. Mild generalized atrophy. 2. No evidence of acute infarct, hemorrhage, mass or edema. 3. Paranasal sinus fluid accumulation likely related to nasogastric tube and endotracheal tube. Mike Andrade MD Chest X-Ray 06/26/17 0000 Signed Impressions: Service Date/Time: Monday, June 26, 2017 08:30 - CONCLUSION: There may be some mild improvement in the bibasilar infiltrates. Otherwise, no other new or significant changes compared to the prior study. Slade Oliov MD Abdomen/Pelvis CT 06/26/17 0000 Signed Impressions: Service Date/Time: Monday, June 26, 2017 15:52 - CONCLUSION: 1. There is an infrarenal abdominal aortic aneurysm measuring 5 cm x 4.5 cm. 2. Scattered diverticulosis of the descending and sigmoid colon without definite inflammatory changes. 3. Nonspecific edema in the lower abdominal wall. 4. Small bilateral pleural effusions with bibasilar atelectasis. Slade Olivo MD Abdomen Ultrasound 06/22/17 0000 Signed Impressions: Service Date/Time: Thursday, June 22, 2017 13:59 - CONCLUSION: 1. Hepatomegaly 2. 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 Nino Roche MD Chest CT 06/18/17 0000 Signed Impressions: Service Date/Time: Sunday, June 18, 2017 05:38 - CONCLUSION: 1. Bilateral lower lobe multisegmental consolidative infiltrates, left larger than right. Alexys Laurent MD Objective Remarks General -77-year-old male currently orotracheally intubated HEENT - pupils are equal and reactive about 2 mm bilaterally, sclerae are anicteric, neck is supple, no rigidity, no JVD, orally intubated, NGT in left nares with dark aspirate, + LIJ CVC (06/23) - site clean dry and intact CV -tachycardic, IR. S1, S2 predose repair without murmurs, clicks, gallops or rubs Chest -coarse rhonchorous breath sounds are appreciated bilateral lower lobes. Few scattered wheezes appreciated anteriorly. Abdomen -protuberant distended. Nontender. Hypoactive bowel sounds appreciated. Fecal containment device in place. Extremities - warm and well-perfused, 3+ edema, + peripheral pulses, left femoral arterial line (06/18) - site clean dry and intact : Hanks catheter in place. Positive scrotal edema Neuro - limited, intubated and sedated, positive gag and cough. Positive corneal reflex. Minimal withdraw to painful stimuli, does not follow commands, pupils are equal and reactive Urinary Catheter: Yes Assessment to: Continue Hanks insert reason: Prolonged Immobilization Vascular Central Line Catheter: Yes Assessment to: Continue Date of Insertion: Jun 23, 2017 Line: Central Venous Catheter Side: Left Location: Internal, Jugular A/P Assessment and Plan Neuro/Psych: Seizure disorder NOS Toxic metabolic encephalopathy Acetaminophen 650 mg by tube every 6 hours as needed fever Currently on fentanyl drip at 150 mcg/min and midazolam drip at 7 mg now for sedation/analgesia while intubated Transition dexmedetomidine drip Goal RA SS -2 Daily sedation vacation 06/26. EEG revealed moderate severe encephalopathic state. No epileptiform activity CT brain 06/18 revealed no acute intracranial findings CV: Atrial fibrillation with RVR Septic shock History of hypertension History of dyslipidemia Edematous colonic polyps 4.4 cm distal femoral aneurysm -54.5 cm infrarenal femoral Coronary artery disease with a history of inferior myocardial infarction Chronic right bundle branch block Currently on amiodarone drip at 0.5 mg/min Recheck electrolytes and troponin this a.m. Along with EKG. Diltiazem 10 mg IV 1 and start diltiazem drip to to maintain heart rate less than 120 Repeat echocardiogram 06/25 revealed EF 50-55%. Moderate TR. PA P 44.3 mmHg Home medications include simvastatin 20 mg daily for dyslipidemia. This is currently on hold Home medications for hypertension/A. fib his diltiazem 240 mg daily? Resp: Acute hypoxemic respiratory failure Interstitial lung disease [facility] 18//04/05/39 Ventilator bundle Ipratropium aerosols every 4 hours Spontaneous breathing trials when clinically indicated Plan for HRCT 6-8 weeks post extubation per Dr. Payton CT thorax revealed bilateral infiltrates left greater than right. GI: Chronic gastritis Hypoalbuminemia Hepatomegaly Hiatal hernia Currently on Jevity 1.5 at 60 cc an hour Discontinue pantoprazole drip. Currently on Lansoprazole 30 mg by tube daily Docusate sodium 100 mg twice daily, senna 8.6 mg twice daily, polyethylene glycol 17 g twice daily for bowel regimen. One dose of mineral oil today. Lactulose 30 cc 4 times daily until bowel movement Colonoscopy 06/24 with snare polypectomy. Pathology revealed adenomatous polyps Pathology from EGD 06/23 revealed chronic gastritis Ultrasound of abdomen revealed hepatomegaly only : Hanks catheter has been placed for accurate I's and O's in a critically ill patient Endo: Sliding scale insulin with Novulin R with Accu-Cheks to maintain euglycemia every 6 hours/low regimen TSH is currently 2.17 Renal: Creatinine currently within normal limits Monitor urine output Accurate I's and O's Heme: Acute blood loss anemia -6 units PRBCs transfused this hospitalization Normocytic anemia Chronic anticoagulation with rivaroxaban Admission with hypercoagulable state status post vitamin K 10 mg and 6 FFP Hemoglobin currently 7.6. No obvious source of bleeding noted. We will need anticoagulation for atrial fibrillation tomorrow if hemoglobin remains stable. ID: Strep pneumo pneumonia Strep viridian bacteremia/septicemia Currently on ceftriaxone 2 g IV daily. Previously treated with vancomycin and piperacillin/tazobactam 06/21/24 Pertinent cultures 06/26 blood, sputum and urine all pending 06/18 -blood cultures 2 -coag staph/strep viridian. Coag staph likely contaminant 06/18 -sputum -strep pneumonia 06/19 -blood cultures 2 -no growth UA 06/18 -no growth Urine Legionella pneumococcal antigen/influenza negative FEN: Hypernatremia Replace electrolytes as clinically indicated per ICU electrolyte protocol MSK: Elevated BMI PT evaluate and treat Weight loss encouraged Access -Left IJ CVL placed 06/23 to present -Left femoral arterial line placed 06/18 to present. Discontinue today 06/26 Prophylaxis -GI - lansoprazole -DVT -SCD/starting subcutaneous heparin today. Will need systemic anticoagulation next day or 2 tolerates Level 3 follow-up Zohaib Montes De Oca MD Jun 27, 2017 12:55
[2017-06-27] MEDS: LACTULOSE SYRUP 20 GM/30 ML CUP PO SCH ×3 (13:00→20:15)
[2017-06-27] MEDS: cefTRIAXone INJ 2,000 MG in SODIUM CHLORIDE 0.9% INJ 100 ML IV SCH (13:15)
[2017-06-27] MEDS: fentaNYL DRIP 250 ML IV PRN (13:37)
[2017-06-27] MEDS: VASOPRESSIN INJ 40 UNITS in DEXTROSE 5% IN WATER 100ML INJ 98 ML IV SCH ×2 (14:17)
[2017-06-27] MEDS: AMIODARONE INJ 450 MG in SODIUM CHLOR 0.9% (EXCEL) INJ 250 ML IV PRN (14:19)
[2017-06-28] VITALS (14 sets, daily range): BP systolic 89–125; BP diastolic 53–66; PULSE 66–122; RESP 18–29; TEMP 96.3–98.1; O2SAT 94–98
[2017-06-28] MEDS: RESP: IPRATROPIUM 0.5 MG/2.5 ML NEB NEB SCH ×6 (00:23→20:50)
[2017-06-28] MEDS: ARTIFICIAL TEARS OPTH SOLN 15 ML BTL EACH EYE SCH ×3 (01:00→16:49)
[2017-06-28] MEDS: DEXMEDETOMIDINE INJ 200 MCG in SODIUM CHLORIDE 0.9% INJ 50 ML IV PRN ×5 (01:59→23:39)
[2017-06-28] MEDS: DILTIAZEM HCL 30 MG TAB PO SCH ×4 (04:39→23:52)
[2017-06-28] MEDS: HEPARIN SODIUM - SQ 10,000 UNITS/ML VIAL SQ SCH ×3 (04:39→21:56)
[2017-06-28] MEDS: AMIODARONE INJ 450 MG in SODIUM CHLOR 0.9% (EXCEL) INJ 250 ML IV PRN ×2 (04:40→16:49)
[2017-06-28] MEDS: INSULIN NovoLIN REGULAR SUPPLEMENTAL SCALE SQ SCH ×4 (06:00→23:44)
[2017-06-28] MEDS: VASOPRESSIN INJ 40 UNITS in DEXTROSE 5% IN WATER 100ML INJ 98 ML IV SCH ×4 (06:05→21:56)
--- NOTE | 2017-06-28 07:34 | HHI.CCPN ---
Subjective Remarks/Hospital Course 06/18: 77-year-old gentleman with history of hypertension, hyperlipidemia, atrial fibrillation, COPD now admitted on 06/13 in [place] with generalized worsening weakness and chest pain. Patient was treated with Cardizem drip and cardiology was consulted. Throughout the hospitalization patient had a gradual worsening hypoxia requiring nonrebreather mask and BiPAP. Pulmonology was consulted and patient had a CT chest that showed possible ILD and pneumonia. This morning patient was found to be in acute respiratory distress that did not respond to BiPAP at 100%, therefore patient was intubated. Patient was also hypotensive and responded to IV fluid bolus. He received 1 dose of vancomycin and 1 dose of Zosyn. There was a report of GI bleed and 2 units PRBC were ordered and 1 unit was transfused already, and patient was started on a PPI drip , however there is no clear documentation about the episode. Patient was transferred to [facility] for further care. Patient was seen immediately on his arrival, hypoxic to low 80s, on PEEP of 5 and FiO2 of 1. Due to vent dyssynchrony and worsening hypoxia patient required 1 dose of paralytic. Stat chest x-ray done did not show evidence of pneumothorax. Vent settings readjusted currently FiO2 of 0.9 and O2 sat of 91%. He is on Cardizem drip at 15 mg/h, on midazolam and fentanyl drips. 06/19: No events over the night. Patient remains on an FiO2 of 1 and PEEP of 12. On amiodarone drip off Cardizem with heart rate in the 90s still in A. fib. He requires blood pressure support with phenylephrine currently at 100. T -max of 100.7 yesterday. Patient is sedated with midazolam and fentanyl drips. Chest x-ray reviewed, worsening bilateral infiltrates. ET tube approximately 7 cm above lobito. 06/20: No events over the night. Patient remains on phenylephrine at 110 and amiodarone infusion. Sedated with Versed and fentanyl. Afebrile. Good urine output, more than 2 L over the last 24 hours. On 0.7 FiO2. Chest x-ray reviewed this morning, no significant change compared to yesterday. Dark bloody aspirate in the NG tube noted. 06/21: No acute events over the night. Still with some dark NG tube aspirate. Received 1 unit PRBC yesterday evening. Patient still requiring phenylephrine at 150 and amiodarone infusion at 0.5. Sedation is achieved with midazolam and fentanyl. FiO2 currently at 0.55. Chest x-ray without significant change. T- max 98.7. 06/22: Worsening pressor requirements over the night, currently on phenylephrine at 270mcg/min. Patient developed a difficult amount of melena and worsening dark NG tube aspirate. Hemoglobin this morning down to 6.8 currently being transfused 2 units PRBC. Oxygenation down 0.4 FiO2 however still with high PEEP requirements. 06/23: No events overnight. Significant improvement in pressor requirement, currently on norepinephrine at 2 mcg/minute. Febrile with a T-max of 101.3 yesterday at noon, afebrile since then. Still with liquid, dark stool and dark NG tube aspirate. Patient remains on an FiO2 of 0.4 and PEEP of 12. 7 L positive since admission. 06/24: Remains sedated, orally intubated on mechanical ventilation. 06/25: Remains sedated, orally intubated on mechanical ventilation. Underwent colonoscopy yesterday. 06/26: Temperature current 103.6. Tachypneic on the ventilator. Currently midazolam at 7 mg/h and fentanyl drip at 150 mcg there. Currently in A. fib with RVR with heart rate in the 140s. Vasopressin has been discontinued. A.m. laboratories and chest x-ray pending. Withdraws only on the ventilator with copious green sputum noted. Patient has been pancultured today including blood sputum and urine 06/27: Low-grade temperatures persist. Pancultured yesterday currently no growth today. Transitioning from midazolam to dexmedetomidine drips. FiO2 down to 40%. Increasing bowel regimen today. Subjective: 06/28: FiO2 at 40%. PEEP down to 5. Remains on dexmedetomidine drip at 0.2 mg/ kg/min. A.m. laboratories pending. Neurologically remains severely encephalopathic. Objective Vital Signs Date Time Temp Pulse Resp B/P (MAP) Pulse Ox O2 Delivery O2 Flow Rate FiO2 06/28/17 04:40 117 109/70 06/28/17 04:00 40 06/28/17 04:00 96.3 26 96 Intake and Output 06/28/17 06/28/17 06/29/17 08:00 16:00 00:00 Intake Total 859 ml Output Total 500 ml Balance 359 ml Result Diagram: 06/27/17 0530 06/27/17 0530 Other Results Microbiology Date/Time Source Procedure Growth Status 06/26/17 10:46 Blood Peripheral Aerobic Blood Culture - Preliminary NO GROWTH IN 1 DAY Resulted 06/26/17 10:46 Blood Peripheral Anaerobic Blood Culture - Preliminary NO GROWTH IN 1 DAY Resulted 06/26/17 07:55 Sputum Endotracheal Gram Stain - Final Resulted 06/26/17 07:55 Sputum Endotracheal Sputum Culture - Preliminary NO GROWTH IN 24 HOURS. Resulted 06/26/17 07:55 Urine Catheterized Urine Urine Culture - Preliminary NO GROWTH IN 24 HOURS. Resulted Imaging Last Impressions Head CT 06/26/17 0000 Signed Impressions: Service Date/Time: Monday, June 26, 2017 15:50 - CONCLUSION: 1. Mild generalized atrophy. 2. No evidence of acute infarct, hemorrhage, mass or edema. 3. Paranasal sinus fluid accumulation likely related to nasogastric tube and endotracheal tube. Mike Andrade MD Chest X-Ray 06/26/17 0000 Signed Impressions: Service Date/Time: Monday, June 26, 2017 08:30 - CONCLUSION: There may be some mild improvement in the bibasilar infiltrates. Otherwise, no other new or significant changes compared to the prior study. Slade Olivo MD Abdomen/Pelvis CT 06/26/17 0000 Signed Impressions: Service Date/Time: Monday, June 26, 2017 15:52 - CONCLUSION: 1. There is an infrarenal abdominal aortic aneurysm measuring 5 cm x 4.5 cm. 2. Scattered diverticulosis of the descending and sigmoid colon without definite inflammatory changes. 3. Nonspecific edema in the lower abdominal wall. 4. Small bilateral pleural effusions with bibasilar atelectasis. Slade Olivo MD Abdomen Ultrasound 06/22/17 0000 Signed Impressions: Service Date/Time: Thursday, June 22, 2017 13:59 - CONCLUSION: 1. Hepatomegaly 2. 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 Nino Roche MD Chest CT 06/18/17 0000 Signed Impressions: Service Date/Time: Sunday, June 18, 2017 05:38 - CONCLUSION: 1. Bilateral lower lobe multisegmental consolidative infiltrates, left larger than right. Alexys Laurent MD Objective Remarks General -77-year-old male currently orotracheally intubated HEENT - pupils are equal and reactive about 2 mm bilaterally, sclerae are anicteric, neck is supple, no rigidity, no JVD, orally intubated, NGT in left nares with dark aspirate, + LIJ CVC (06/23) - site clean dry and intact CV -tachycardic, IR. S1, S2 predose repair without murmurs, clicks, gallops or rubs Chest -coarse rhonchorous breath sounds are appreciated bilateral lower lobes. Few scattered wheezes appreciated anteriorly. Abdomen -protuberant distended. Nontender. Hypoactive bowel sounds appreciated. Fecal containment device in place. Extremities - warm and well-perfused, 3+ edema, + peripheral pulses, left femoral arterial line (06/18) - site clean dry and intact : Hanks catheter in place. Positive scrotal edema Neuro - limited, intubated and sedated, positive gag and cough. Positive corneal reflex. Minimal withdraw to painful stimuli, does not follow commands, pupils are equal and reactive Urinary Catheter: Yes Assessment to: Continue Hanks insert reason: ICU Pt Getting Diuretics Vascular Central Line Catheter: Yes Assessment to: Continue Date of Insertion: Jun 23, 2017 Line: Central Venous Catheter Side: Left Location: Internal, Jugular A/P Assessment and Plan Neuro/Psych: Seizure disorder NOS Toxic metabolic encephalopathy Acetaminophen 650 mg by tube every 6 hours as needed fever Currently on fentanyl drip at 150 mcg/min dexmedetomidine drip at 0.2 mg/kg/min now for sedation/analgesia while intubated Goal RASS -2 Daily sedation vacation 06/26. EEG revealed moderate severe encephalopathic state. No epileptiform activity CT brain 06/26 revealed no acute intracranial findings Recheck EEG and check MRI brain today. If patient remains encephalopathic will consult neurology for further workup CV: Atrial fibrillation with RVR Septic shock History of hypertension History of dyslipidemia Edematous colonic polyps 4.4 cm distal femoral aneurysm -54.5 cm infrarenal femoral Coronary artery disease with a history of inferior myocardial infarction Chronic right bundle branch block Currently on amiodarone drip at 0.5 mg/min along with diltiazem 15 mg every 6 hours 1 dose digoxin 0.25 mg IV 1 now Repeat echocardiogram 06/25 revealed EF 50-55%. Moderate TR. PA P 44.3 mmHg Home medications include simvastatin 20 mg daily for dyslipidemia. This is currently on hold Home medications for hypertension/A. fib his diltiazem 240 mg daily? Resp: Acute hypoxemic respiratory failure Interstitial lung disease [facility] 18/04/05/39 Ventilator bundle Ipratropium aerosols every 4 hours scheduled Spontaneous breathing trials when clinically indicated Plan for HRCT 6-8 weeks post extubation per Dr. Payton CT thorax revealed bilateral infiltrates left greater than right. Follow-up chest x-ray this a.m. 06/28 GI: Chronic gastritis Hypoalbuminemia Hepatomegaly Hiatal hernia Currently on Jevity 1.5 at 60 cc an hourCurrently on Lansoprazole 30 mg by tube daily Docusate sodium 100 mg twice daily, senna 8.6 mg twice daily, polyethylene glycol 17 g twice daily for bowel regimen. And lactulose 30 cc twice daily Colonoscopy 06/24 with snare polypectomy. Pathology revealed adenomatous polyps Pathology from EGD 06/23 revealed chronic gastritis Ultrasound of abdomen revealed hepatomegaly only : Hanks catheter has been placed for accurate I's and O's in a critically ill patient Endo: Sliding scale insulin with Novulin R with Accu-Cheks to maintain euglycemia every 6 hours/low regimen TSH is currently 2.17 Renal: Creatinine currently within normal limits Monitor urine output Accurate I's and O's Heme: Acute blood loss anemia -6 units PRBCs transfused this hospitalization Normocytic anemia Chronic anticoagulation with rivaroxaban Admission with hypercoagulable state status post vitamin K 10 mg and 6 FFP Hemoglobin currently 7.6. A.m. 06/28 pending No obvious source of bleeding noted. We will need anticoagulation for atrial fibrillation tomorrow if hemoglobin remains stable. ID: Strep pneumo pneumonia Strep viridian bacteremia/septicemia Currently on ceftriaxone 2 g IV daily. Previously treated with vancomycin and piperacillin/tazobactam 06/21/24 Pertinent cultures 06/26 blood, sputum and urine all pending 06/18 -blood cultures 2 -coag staph/strep viridian. Coag staph likely contaminant 06/18 -sputum -strep pneumonia 06/19 -blood cultures 2 -no growth UA 06/18 -no growth Urine Legionella pneumococcal antigen/influenza negative FEN: Hypernatremia Replace electrolytes as clinically indicated per ICU electrolyte protocol MSK: Elevated BMI PT evaluate and treat Weight loss encouraged Access -Left IJ CVL placed 06/23 to present -Left femoral arterial line placed 06/18- 06/26 Prophylaxis -GI - lansoprazole -DVT -SCD/starting subcutaneous heparin today. Will need systemic anticoagulation next day or 2 if hemoglobin remains stable Level 3 follow-up Zohaib Montes De Oca MD Jun 28, 2017 07:34
[2017-06-28] MEDS ORDERED: DIGOXIN 0.5 MG/2 ML VIAL IV PUSH ONE (07:45)
[2017-06-28] MEDS: LANSOPRAZOLE SOLUTAB 30 MG TAB NG SCH (08:01)
[2017-06-28] MEDS: LACTULOSE SYRUP 20 GM/30 ML CUP NG SCH ×2 (08:03→20:14)
[2017-06-28] MEDS: SODIUM CHLORIDE 0.9% FLUSH 10 ML FLUSH IV FLUSH SCH ×2 (08:03→20:14)
[2017-06-28] MEDS: DOCUSATE SODIUM 100 MG/10 ML UDC PO SCH ×2 (08:04→20:14)
[2017-06-28] MEDS: POLYETHYLENE GLYCOL 17 GM PKG PO SCH ×2 (08:04→20:14)
[2017-06-28] MEDS: SENNOSIDES SYRUP 8.8 MG/5 ML CUP NG SCH ×2 (08:04→20:14)
[2017-06-28 08:34] LABS: HEMATOCRIT 26.6 % (39.0-51.0); HEMOGLOBIN 8.6 GM/DL (13.0-17.0); MEAN CELL VOLUME 92.7 FL (80.0-100.0); MEAN CORPUSCULAR HEMOGLOBIN 29.8 PG (27.0-34.0); MEAN CORPUSCULAR HGB CONC 32.1 % (32.0-36.0); MEAN PLATELET VOLUME 9.2 FL (7.0-11.0); PLATELET COUNT 222 TH/MM3 (150-450); RED BLOOD COUNT 2.87 MIL/MM3 (4.50-5.90); RED CELL DISTRIBUTION WIDTH 17.5 % (11.6-17.2); WHITE BLOOD COUNT 10.5 TH/MM3 (4.0-11.0)
[2017-06-28 08:52] LABS: BICARBONATE 32.1 MEQ/L (21.0-32.0); CALCIUM 7.6 MG/DL (8.5-10.1); CREATININE 0.65 MG/DL (0.60-1.30)
[2017-06-28 08:54] LABS: MAGNESIUM 2.4 MG/DL (1.5-2.5); PHOSPHORUS 3.2 MG/DL (2.5-4.9)
--- NOTE | 2017-06-28 09:07 | RADRPT ---
EXAM DATE/TIME: 06/28/2017 08:08 [place] COMPARISON: CHEST SINGLE AP, June 26, 2017, 8:30. INDICATIONS : Intubated; respiratory distress MEDICAL HISTORY : Hypercholesterolemia. Hypertension. Chronic obstructive pulmonary disease. SURGICAL HISTORY : None. ENCOUNTER: Subsequent ACUITY: 1 week PAIN SCORE: Non-responsive. LOCATION: Bilateral chest FINDINGS: Interval worsening in the appearance of the chest is noted. There is increasing opacity in the mid an d lower lung saunders. Endotracheal tube, left sided central line in nasogastric tube remain in stable position. Heart and mediastinal structures are stable. CONCLUSION: 1. Increasing lung opacity characteristic of worsening airspace disease and increasing pleural effusi ons. 2. Stable support devices. Mike Andrade MD on June 28, 2017 at 9:03 Board Certified Radiologist. This report was verified electronically.
[2017-06-28] MEDS ORDERED: FUROSEMIDE 40 MG/4 ML VIAL IV PUSH ONE (11:00)
[2017-06-28] MEDS ORDERED: ALBUMIN 25% INJ 50 ML IV ONE (11:00)
[2017-06-28] MEDS ORDERED: POTASSIUM CHLOR 40 MEQ PREMIX 100 ML IV ONE (11:00)
[2017-06-28] MEDS: cefTRIAXone INJ 2,000 MG in SODIUM CHLORIDE 0.9% INJ 100 ML IV SCH (12:25)
[2017-06-28 14:21] LABS: INTERNATIONAL NORMALIZED RATIO 1.1 RATIO; PROTHROMBIN TIME - PATIENT 10.9 SEC (9.8-11.6)
--- NOTE | 2017-06-28 14:41 | MG ---
cc: Hua Wellington MD, PhD Test #[id number] TECHNIQUE: This is a 17-channel EEG. DESCRIPTION: The background rhythm reveals generalized slowing in the delta frequency at 3-4 Hz. The amplitude is 10-20 microvolts. There are no lateralizing features seen. There were no epileptiform discharges. INTERPRETATION: Abnormal study consistent with a severe encephalopathy. Hua Wellington MD, PhD JOANIE/SB , 02:28 PM , 02:40 PM
--- NOTE | 2017-06-28 15:21 | HHI.HCPN ---
Reason for visit a. To assist with evaluation and management of symptoms including: dyspnea; encephalopathy; generalized weakness b. To assist medical decision maker(s) with: better understanding of current medical conditions; weighing benefits/burdens of medical treatment options; making medical treatment decisions. . Subjective/Interval History Palliative care follow-up for further clarifications of goals of care. Patient seen in surgical ICU, endotracheally intubated on mechanical ventilation. Atrial fibrillation appears controlled with heart rate in the 80s, remains in amiodarone drip. Patient remains on fentanyl and Precedex. Currently 40% FiO2 , tolerating CPAP since 8 AM this morning. Chest x-ray revealing worsening airspace disease and increasing pleural effusions. Patient remains unresponsive to verbal or tactile stimuli. EEG today consistent with severe encephalopathy. Family meeting with patient's son Sanju, daughter Criss and additional family members. Medical update provided. Reviewed patient's clinical status and current medical management. Reviewed the patient remains at very high risk for further complications, continued decline and . As per family, goal of therapy is to allow a few more days for clinical improvement, attempt medical extubation if patient is able to tolerate. Family will not proceed with trach/ PEG tube if patient is unable to medically extubate, likely to transition to comfort-directed care/withdrawal life support at that time. Palliative care to meet with family Saturday07/02/17 at 1 PM for further clarifications of goals of care, medical update and emotional support. Case discussed with bedside RN and Dr. Montes De Oca. . Family/friend interactions See interval note. . Advance Directives Living Will: Never completed Health Care Surrogate: Never completed Durable Power of Mobile Home Laborer: Never completed Advance Directive Specifics Date completed: Per , patient has never completed an advanced directive. . Health Care Surrogate(s): The patient has never completed a written designation of healthcare surrogate. . Documented care wishes: We have no written documentation of patient's healthcare goals/preferences. . Significant change in goals: Goals of therapy remain unchanged. . Objective Vital Signs Date Time Temp Pulse Resp B/P (MAP) Pulse Ox O2 Delivery O2 Flow Rate FiO2 06/28/17 14:00 66 06/28/17 12:03 98 35 06/28/17 12:00 97.9 94 25 103/66 (78) 96 06/28/17 12:00 100 06/28/17 12:00 35 06/28/17 10:00 111 06/28/17 08:17 96 40 06/28/17 08:17 40 06/28/17 08:00 40 06/28/17 08:00 98.1 119 28 125/60 (81) 96 06/28/17 08:00 122 06/28/17 04:40 117 109/70 06/28/17 04:00 40 06/28/17 04:00 96.3 103 26 98/62 (74) 96 06/28/17 03:44 94 40 06/28/17 00:23 97 40 06/28/17 00:00 96.8 89 18 101/57 (72) 97 06/28/17 00:00 40 06/27/17 20:45 96 40 06/27/17 20:00 40 06/27/17 20:00 99.1 101 18 102/54 (70) 98 06/27/17 18:00 106 06/27/17 16:50 98 40 06/27/17 16:00 50 06/27/17 16:00 115 06/27/17 16:00 99.7 115 18 98/53 (68) 96 Intake & Output 06/28/17 06/28/17 06:59 18:59 Intake Total 859 ml Output Total 500 ml Balance 359 ml IV Total 259 ml Tube Feeding 450 ml Other 150 ml Output Urine Total 300 ml Stool Total 200 ml Physical Exam CONSTITUTIONAL/GENERAL: This is an adequately nourished patient, intubated, mechanically ventilated, sedated in a surgical intensive care unit bed. No apparent distress. TUBES/LINES/DRAINS: Right internal jugular central line triple-lumen; left femoral arterial line; bilateral soft restraints; nasogastric tube; orotracheal tube; Hanks catheter; rectal tube, PIV. SKIN: No jaundice. Skin temperature appropriate. Not diaphoretic. Abrasion/ erythema to forehead and nose. Scattered dry/scaly rash to bilateral arms. HEAD: Atraumatic. Normocephalic. EYES: Pupils equal and round and reactive. Cannot evaluate extraocular motions. No scleral icterus. No injection or drainage. ENT: Unable to evaluate hearing at this time. NG tube in left naris. nose without bleeding or purulent drainage. Moist oral mucosa. NECK: Trachea midline. Supple. CARDIOVASCULAR: Irregularly irregular heart rhythm. No audible gallops, or rubs. No JVD. RESPIRATORY/CHEST: Symmetric, unlabored respirations. Air movement approximately equal bilaterally. Diminished breath sounds at both bases. No audible wheezes. GASTROINTESTINAL: Abdomen is obese, large, round, distended and moderately firm. Bowel sounds present. GENITOURINARY: Without palpable bladder distension. Hanks catheter in place. MUSCULOSKELETAL: Extremities without clubbing, cyanosis. 3+ edema is present - worsening edema NEUROLOGICAL: Sedated. Unresponsive to verbal or tactile stimuli. PSYCHIATRIC: Unable to assess due to level of responsiveness. . Diagnostic Tests Laboratory Laboratory Tests Test 06/26/17 07:55 06/26/17 09:12 06/27/17 05:30 06/28/17 08:15 White Blood Count 16.3 TH/MM3 (4.0-11.0) 12.9 TH/MM3 (4.0-11.0) 10.5 TH/MM3 (4.0-11.0) Red Blood Count 3.02 MIL/MM3 (4.50-5.90) 2.51 MIL/MM3 (4.50-5.90) 2.87 MIL/MM3 (4.50-5.90) Hemoglobin 9.1 GM/DL (13.0-17.0) 7.6 GM/DL (13.0-17.0) 8.6 GM/DL (13.0-17.0) Hematocrit 28.0 % (39.0-51.0) 23.3 % (39.0-51.0) 26.6 % (39.0-51.0) Mean Corpuscular Volume 92.9 FL (80.0-100.0) 93.1 FL (80.0-100.0) 92.7 FL (80.0-100.0) Mean Corpuscular Hemoglobin 30.0 PG (27.0-34.0) 30.2 PG (27.0-34.0) 29.8 PG (27.0-34.0) Mean Corpuscular Hemoglobin Concent 32.4 % (32.0-36.0) 32.4 % (32.0-36.0) 32.1 % (32.0-36.0) Red Cell Distribution Width 18.0 % (11.6-17.2) 17.5 % (11.6-17.2) 17.5 % (11.6-17.2) Platelet Count 223 TH/MM3 (150-450) 193 TH/MM3 (150-450) 222 TH/MM3 (150-450) Mean Platelet Volume 8.9 FL (7.0-11.0) 9.0 FL (7.0-11.0) 9.2 FL (7.0-11.0) Neutrophils (%) (Auto) 92.8 % (16.0-70.0) 87.8 % (16.0-70.0) Lymphocytes (%) (Auto) 2.1 % (9.0-44.0) 4.7 % (9.0-44.0) Monocytes (%) (Auto) 4.1 % (0.0-8.0) 5.7 % (0.0-8.0) Eosinophils (%) (Auto) 0.7 % (0.0-4.0) 1.4 % (0.0-4.0) Basophils (%) (Auto) 0.3 % (0.0-2.0) 0.4 % (0.0-2.0) Neutrophils # (Auto) 15.2 TH/MM3 (1.8-7.7) 11.3 TH/MM3 (1.8-7.7) Lymphocytes # (Auto) 0.4 TH/MM3 (1.0-4.8) 0.6 TH/MM3 (1.0-4.8) Monocytes # (Auto) 0.7 TH/MM3 (0-0.9) 0.7 TH/MM3 (0-0.9) Eosinophils # (Auto) 0.1 TH/MM3 (0-0.4) 0.2 TH/MM3 (0-0.4) Basophils # (Auto) 0.0 TH/MM3 (0-0.2) 0.0 TH/MM3 (0-0.2) CBC Comment DIFF FINAL DIFF FINAL Differential Comment Urine Color YELLOW (YELLW/STRAW) Urine Turbidity HAZY (CLEAR) Urine pH 5.5 (5.0-8.5) Urine Specific [place] 1.024 (1.002-1.035) Urine Protein 30 mg/dL (NEG-TRACE) Urine Glucose (UA) NEG mg/dL (NEG) Urine Ketones 40 mg/dL (NEG) Urine Occult Blood MOD (NEG) Urine Nitrite NEG (NEG) Urine Bilirubin NEG (NEG) Urine Urobilinogen LESS THAN 2.0 MG/DL (LESS Urine Leukocyte Esterase LARGE (NEG) Urine RBC 89 /hpf (0-3) Urine WBC 41 /hpf (0-5) Urine Bacteria OCC /hpf (NONE) Urine Mucus FEW /lpf (OCC) Microscopic Urinalysis Comment CATH-CULTURE IND Blood Urea Nitrogen 14 MG/DL (7-18) 12 MG/DL (7-18) 11 MG/DL (7-18) Creatinine 0.70 MG/DL (0.60-1.30) 0.71 MG/DL (0.60-1.30) 0.65 MG/DL (0.60-1.30) Random Glucose 111 MG/DL (74-106) 109 MG/DL (74-106) 116 MG/DL (74-106) Total Protein 6.3 GM/DL (6.4-8.2) Albumin 1.9 GM/DL (3.4-5.0) Calcium Level 7.7 MG/DL (8.5-10.1) 7.8 MG/DL (8.5-10.1) 7.6 MG/DL (8.5-10.1) Phosphorus Level 2.4 MG/DL (2.5-4.9) 2.6 MG/DL (2.5-4.9) 3.2 MG/DL (2.5-4.9) Magnesium Level 2.2 MG/DL (1.5-2.5) 2.4 MG/DL (1.5-2.5) 2.4 MG/DL (1.5-2.5) Alkaline Phosphatase 60 U/L (45-117) Aspartate Amino Transf (AST/SGOT) 29 U/L (15-37) Alanine Aminotransferase (ALT/SGPT) 15 U/L (12-78) Total Bilirubin 0.5 MG/DL (0.2-1.0) Sodium Level 145 MEQ/L (136-145) 147 MEQ/L (136-145) 146 MEQ/L (136-145) Potassium Level 4.1 MEQ/L (3.5-5.1) 4.0 MEQ/L (3.5-5.1) 3.7 MEQ/L (3.5-5.1) Chloride Level 109 MEQ/L (98-107) 110 MEQ/L (98-107) 108 MEQ/L (98-107) Carbon Dioxide Level 26.2 MEQ/L (21.0-32.0) 33.2 MEQ/L (21.0-32.0) 32.1 MEQ/L (21.0-32.0) Anion Gap 10 MEQ/L (5-15) 4 MEQ/L (5-15) 6 MEQ/L (5-15) Estimat Glomerular Filtration Rate 109 ML/MIN (>89) 107 ML/MIN (>89) 119 ML/MIN (>89) Total Creatine Kinase 51 U/L (39-308) Troponin I LESS THAN 0.02 NG/ML Blood Gas Puncture Site ART LINE Blood Gas Patient Temperature 98.6 Blood Gas HCO3 27 mmol/L (22-26) Blood Gas Base Excess 2.3 mmol/L (-2-2) Blood Gas Oxygen Saturation 94 % (90-100) Arterial Blood pH 7.41 (7.380-7.420) Arterial Blood Partial Pressure CO2 43 mmHg (38-42) Arterial Blood Partial Pressure O2 81 mmHg (61-120) Arterial Blood Oxygen Content 14.1 Vol % (12.0-20.0) Arterial Blood Carboxyhemoglobin 1.4 % (0-4) Arterial Blood Methemoglobin 0.8 % (0-2) Blood Gas Hemoglobin 10.6 G/DL (12.0-16.0) Oxygen Delivery Device VENTILATOR Blood Gas Ventilator Setting 20/550/IT1.0/+10 Blood Gas Inspired Oxygen 45 % Test 06/28/17 13:48 Prothrombin Time 10.9 SEC (9.8-11.6) Prothromb Time International Ratio 1.1 RATIO Activated Partial Thromboplast Time 31.5 SEC (24.3-30.1) Ammonia 28 MCMOL/L (11-32) Result Diagram: 06/28/1781406/28/17814 Microbiology Microbiology Date/Time Source Procedure Growth Status 06/26/17 10:46 Blood Peripheral Aerobic Blood Culture - Preliminary NO GROWTH IN 2 DAYS Resulted 06/26/17 10:46 Blood Peripheral Anaerobic Blood Culture - Preliminary NO GROWTH IN 2 DAYS Resulted 06/26/17 10:40 Blood Peripheral Aerobic Blood Culture - Preliminary NO GROWTH IN 2 DAYS Resulted 06/26/17 10:40 Blood Peripheral Anaerobic Blood Culture - Preliminary NO GROWTH IN 2 DAYS Resulted 06/26/17 07:55 Sputum Endotracheal Gram Stain - Final Complete 06/26/17 07:55 Sputum Endotracheal Sputum Culture - Final NO GROWTH IN 48 HOURS. Complete 06/26/17 07:55 Urine Catheterized Urine Urine Culture - Final NO GROWTH IN 48 HOURS. Complete Imaging Last 24 hours Impressions Chest X-Ray 06/28/17 0000 Signed Impressions: Service Date/Time: Wednesday, June 28, 2017 08:08 - CONCLUSION: 1. Increasing lung opacity characteristic of worsening airspace disease and increasing pleural effusions. 2. Stable support devices. Mike Andrade MD Procedures * 06/18/17 -Intubation/mechanical ventilation * 06/18/17 -Right internal jugular line placement * 06/18/17 -Left femoral artery line placement * 06/23/17 -EGD * 06/24/17 -colonoscopy with biopsy . Assessment and Plan Disease Oriented Problem List: (1) Acute hypoxemic respiratory failure (2) Pneumonia (3) Atrial fibrillation with RVR (4) Proximal muscle weakness (5) GIB (gastrointestinal bleeding) (6) Coronary artery disease (7) Hyperlipidemia (8) Hypertension Symptom Scale: (1) Pain 0-10 Scale: Unable to quantify (2) Dyspnea 0-10 Scale: Unable to quantify (3) Encephalopathy 0-10 Scale: Unable to quantify Pertinent Non-Medical Issues Psychosocial: Lives at home with who is wheelchair bound and need 24 hour 02. Well supported by step children. Spiritual: Buddhism. 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 Legal: No known advance directives. is proxy Ethical issues impacting care: Pt currently incapacitated but might re-gain capacity. . Important Contacts José Lugo (spouse; health care proxy) [phone] . Prognosis There is still a reasonable chance that patient's pneumonia and respiratory status will improve and we will be able to wean him from the vent. He will be quite deconditioned at that time and will need substantial rehabilitation. Unclear if he might have some sort of underlying neuro-muscular issue that has caused some proximal muscle weakness AND may be contributing to his respiratory issues. This might impact prognosis. Also, we still do not know the cause of the GI bleeding and that might impact prognosis. Should there be a major setback or it become clear that we will not be able to wean him from the vent, spouse indicates that the patient would not want to be prolonged on life support. Patient remains at a very high risk for further complications, continued decline and . . Code Status: Alternative Code Plan == Code Status: Alternate code/intubation only. No cardiac resuscitation. == Decision Making: Patient is currently incapacitated to make his own healthcare decisions. Unclear if he will regain medical decision-making capacity given severe encephalopathy/clinical condition. There is no known written designation of healthcare surrogate. As per [place] statue, proxy healthcare decision making therefore falls to his spouse José Lugo. has accepted this role and is fully supported by patient's children. == Goals of medical treatment: As per family, goal of therapy is to allow a few more days for clinical improvement (until early next week), attempt medical extubation. Family will NOT proceed with trach/PEG tube if patient is unable to medically extubate, likely to transition to comfort-directed care/withdrawal life support at that time. Hospice philosophy and benefits introduced should pt 's clinical condition does not improve or worsen, family receptive this. palliative care to meet with family Saturday07/02/17 for f/u, medical update and emotional support. == Symptoms * Pain: Patient did not have any prehospitalization pain syndromes. Current sources of discomfort would include prolonged bedbound status; orotracheal intubation; nasogastric intubation; Hanks catheterization; vascular access lines ; wrist restraints. Patient is currently on fentanyl and Precedex. These appear to be adequately controlling his discomfort. No further recommendations at this time. * Dyspnea: Currently managed by ventilator support. Currently tolerating CPAP trials. == Case discussed with abdon LYONS and Dr. Montes De Oca. == Palliative care will continue to follow to assist with symptom management and to further clarify goals of medical treatment as the clinical course evolves. . Time Spent Total Floor Time (mins): 33 (Total time to include review and summarization of medical records, physical exam, goals of care conversation and medical update with patient's family, case discussion with bedside RN and Dr. Montes De Oca. ) >50% Counseling/Coord of Care: Yes Attestation To help prompt me to consider important information that might be impacting today's encounter and assessment, information from prior notes written by myself or my colleagues may have been "brought forward" into today's note. My signature on this note, however, is an attestation that I personally performed the exam, history, and/or decision-making noted today, and, unless otherwise indicated, the interactions with patient, family, and staff as well as the review of records all occurred today. I also attest that the listed assessment and stated plan reflect my best clinical judgment today based on the combination of historical information, prior notes, and today's exam/ interactions. When time spent is documented, it refers only to time spent today by the signer, or if indicated, combined time spent today by collaborating physician/nurse practitioner. Natasha Nielsen Jun 28, 2017 15:21
[2017-06-28] MEDS ORDERED: POTASSIUM CHLORIDE 20 MEQ PWD PACKET NG ONE (18:15)
[2017-06-29] VITALS (16 sets, daily range): BP systolic 98–123; BP diastolic 54–68; PULSE 71–123; RESP 18–30; TEMP 97.7–99; O2SAT 93–99
[2017-06-29] MEDS: RESP: IPRATROPIUM 0.5 MG/2.5 ML NEB NEB SCH ×7 (00:44→23:29)
[2017-06-29] MEDS: ARTIFICIAL TEARS OPTH SOLN 15 ML BTL EACH EYE SCH ×3 (00:52→16:22)
[2017-06-29] MEDS: DEXMEDETOMIDINE INJ 200 MCG in SODIUM CHLORIDE 0.9% INJ 50 ML IV PRN ×4 (03:33→20:22)
[2017-06-29] MEDS: DILTIAZEM HCL 30 MG TAB PO SCH ×4 (05:09→23:57)
[2017-06-29] MEDS: HEPARIN SODIUM - SQ 10,000 UNITS/ML VIAL SQ SCH (05:10)
[2017-06-29 05:13] LABS: HEMATOCRIT 26.5 % (39.0-51.0); HEMOGLOBIN 8.6 GM/DL (13.0-17.0); MEAN CELL VOLUME 92.3 FL (80.0-100.0); MEAN CORPUSCULAR HEMOGLOBIN 29.9 PG (27.0-34.0); MEAN CORPUSCULAR HGB CONC 32.4 % (32.0-36.0); MEAN PLATELET VOLUME 9.1 FL (7.0-11.0); PLATELET COUNT 213 TH/MM3 (150-450); RED BLOOD COUNT 2.87 MIL/MM3 (4.50-5.90); RED CELL DISTRIBUTION WIDTH 17.3 % (11.6-17.2); WHITE BLOOD COUNT 7.3 TH/MM3 (4.0-11.0)
[2017-06-29 05:41] LABS: ALBUMIN 1.6 GM/DL (3.4-5.0); BICARBONATE 32.1 MEQ/L (21.0-32.0); CALCIUM 7.7 MG/DL (8.5-10.1); CREATININE 0.61 MG/DL (0.60-1.30); DIRECT BILIRUBIN ADULT 0.1 MG/DL (0.0-0.2); MAGNESIUM 2.2 MG/DL (1.5-2.5)
[2017-06-29 05:42] LABS: PHOSPHORUS 3.2 MG/DL (2.5-4.9)
[2017-06-29 05:44] LABS: INDIRECT BILIRUBIN 0.2 MG/DL (0.0-0.8); TOTAL BILIRUBIN ADULT 0.3 MG/DL (0.2-1.0); TOTAL PROTEIN 5.9 GM/DL (6.4-8.2)
[2017-06-29] MEDS: INSULIN NovoLIN REGULAR SUPPLEMENTAL SCALE SQ SCH ×4 (06:00→23:57)
[2017-06-29] MEDS ORDERED: DIGOXIN 0.5 MG/2 ML VIAL IV PUSH ONE (08:15)
[2017-06-29] MEDS ORDERED: FUROSEMIDE 40 MG/4 ML VIAL IV PUSH ONE (08:15)
[2017-06-29] MEDS ORDERED: POTASSIUM CHLORIDE 20 MEQ PWD PACKET PO ONE (08:15)
[2017-06-29] MEDS ORDERED: ALBUMIN 25% INJ 50 ML IV ONE (08:15)
--- NOTE | 2017-06-29 08:25 | HHI.CCPN ---
Subjective Remarks/Hospital Course 06/18: 77-year-old gentleman with history of hypertension, hyperlipidemia, atrial fibrillation, COPD now admitted on 06/13 in [place] with generalized worsening weakness and chest pain. Patient was treated with Cardizem drip and cardiology was consulted. Throughout the hospitalization patient had a gradual worsening hypoxia requiring nonrebreather mask and BiPAP. Pulmonology was consulted and patient had a CT chest that showed possible ILD and pneumonia. This morning patient was found to be in acute respiratory distress that did not respond to BiPAP at 100%, therefore patient was intubated. Patient was also hypotensive and responded to IV fluid bolus. He received 1 dose of vancomycin and 1 dose of Zosyn. There was a report of GI bleed and 2 units PRBC were ordered and 1 unit was transfused already, and patient was started on a PPI drip , however there is no clear documentation about the episode. Patient was transferred to [facility] for further care. Patient was seen immediately on his arrival, hypoxic to low 80s, on PEEP of 5 and FiO2 of 1. Due to vent dyssynchrony and worsening hypoxia patient required 1 dose of paralytic. Stat chest x-ray done did not show evidence of pneumothorax. Vent settings readjusted currently FiO2 of 0.9 and O2 sat of 91%. He is on Cardizem drip at 15 mg/h, on midazolam and fentanyl drips. 06/19: No events over the night. Patient remains on an FiO2 of 1 and PEEP of 12. On amiodarone drip off Cardizem with heart rate in the 90s still in A. fib. He requires blood pressure support with phenylephrine currently at 100. T -max of 100.7 yesterday. Patient is sedated with midazolam and fentanyl drips. Chest x-ray reviewed, worsening bilateral infiltrates. ET tube approximately 7 cm above lobito. 06/20: No events over the night. Patient remains on phenylephrine at 110 and amiodarone infusion. Sedated with Versed and fentanyl. Afebrile. Good urine output, more than 2 L over the last 24 hours. On 0.7 FiO2. Chest x-ray reviewed this morning, no significant change compared to yesterday. Dark bloody aspirate in the NG tube noted. 06/21: No acute events over the night. Still with some dark NG tube aspirate. Received 1 unit PRBC yesterday evening. Patient still requiring phenylephrine at 150 and amiodarone infusion at 0.5. Sedation is achieved with midazolam and fentanyl. FiO2 currently at 0.55. Chest x-ray without significant change. T- max 98.7. 06/22: Worsening pressor requirements over the night, currently on phenylephrine at 270mcg/min. Patient developed a difficult amount of melena and worsening dark NG tube aspirate. Hemoglobin this morning down to 6.8 currently being transfused 2 units PRBC. Oxygenation down 0.4 FiO2 however still with high PEEP requirements. 06/23: No events overnight. Significant improvement in pressor requirement, currently on norepinephrine at 2 mcg/minute. Febrile with a T-max of 101.3 yesterday at noon, afebrile since then. Still with liquid, dark stool and dark NG tube aspirate. Patient remains on an FiO2 of 0.4 and PEEP of 12. 7 L positive since admission. 06/24: Remains sedated, orally intubated on mechanical ventilation. 06/25: Remains sedated, orally intubated on mechanical ventilation. Underwent colonoscopy yesterday. 06/26: Temperature current 103.6. Tachypneic on the ventilator. Currently midazolam at 7 mg/h and fentanyl drip at 150 mcg there. Currently in A. fib with RVR with heart rate in the 140s. Vasopressin has been discontinued. A.m. laboratories and chest x-ray pending. Withdraws only on the ventilator with copious green sputum noted. Patient has been pancultured today including blood sputum and urine 06/27: Low-grade temperatures persist. Pancultured yesterday currently no growth today. Transitioning from midazolam to dexmedetomidine drips. FiO2 down to 40%. Increasing bowel regimen today. 06/28: FiO2 at 40%. PEEP down to 5. Remains on dexmedetomidine drip at 0.2 mg/ kg/min. A.m. laboratories pending. Neurologically remains severely encephalopathic. Subjective: 06/29: Afebrile. FiO2 up to 45% after transition from CPAP trial to ventilator overnight. Arousable and opens eyes and follows commands with bilateral upper extremities this a.m. Objective Vital Signs Date Time Temp Pulse Resp B/P (MAP) Pulse Ox O2 Delivery O2 Flow Rate FiO2 06/29/17 04:00 40 06/29/17 04:00 97.7 71 24 111/66 (81) 99 Intake and Output 06/29/17 06/29/17 06/30/17 08:00 16:00 00:00 Intake Total 552 ml Output Total 550 ml Balance 2 ml Result Diagram: 06/29/17 0500 06/29/17 0500 Other Results Microbiology Date/Time Source Procedure Growth Status 06/26/17 10:46 Blood Peripheral Aerobic Blood Culture - Preliminary NO GROWTH IN 2 DAYS Resulted 06/26/17 10:46 Blood Peripheral Anaerobic Blood Culture - Preliminary NO GROWTH IN 2 DAYS Resulted 06/26/17 07:55 Sputum Endotracheal Gram Stain - Final Complete 06/26/17 07:55 Sputum Endotracheal Sputum Culture - Final NO GROWTH IN 48 HOURS. Complete 06/26/17 07:55 Urine Catheterized Urine Urine Culture - Final NO GROWTH IN 48 HOURS. Complete Imaging Last Impressions Chest X-Ray 06/28/17 0000 Signed Impressions: Service Date/Time: Wednesday, June 28, 2017 08:08 - CONCLUSION: 1. Increasing lung opacity characteristic of worsening airspace disease and increasing pleural effusions. 2. Stable support devices. Mike Andrade MD Head CT 06/26/17 0000 Signed Impressions: Service Date/Time: Monday, June 26, 2017 15:50 - CONCLUSION: 1. Mild generalized atrophy. 2. No evidence of acute infarct, hemorrhage, mass or edema. 3. Paranasal sinus fluid accumulation likely related to nasogastric tube and endotracheal tube. Mike Andrade MD Abdomen/Pelvis CT 06/26/17 0000 Signed Impressions: Service Date/Time: Monday, June 26, 2017 15:52 - CONCLUSION: 1. There is an infrarenal abdominal aortic aneurysm measuring 5 cm x 4.5 cm. 2. Scattered diverticulosis of the descending and sigmoid colon without definite inflammatory changes. 3. Nonspecific edema in the lower abdominal wall. 4. Small bilateral pleural effusions with bibasilar atelectasis. Slade Olivo MD Abdomen Ultrasound 06/22/17 0000 Signed Impressions: Service Date/Time: Thursday, June 22, 2017 13:59 - CONCLUSION: 1. Hepatomegaly 2. 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 Nino Roche MD Chest CT 06/18/17 0000 Signed Impressions: Service Date/Time: Sunday, June 18, 2017 05:38 - CONCLUSION: 1. Bilateral lower lobe multisegmental consolidative infiltrates, left larger than right. Alexys Laurent MD Objective Remarks General -77-year-old male currently orotracheally intubated HEENT - pupils are equal and reactive about 2 mm bilaterally, sclerae are anicteric, neck is supple, no rigidity, no JVD, orally intubated, NGT in left nares with dark aspirate, + LIJ CVC (06/23) - site clean dry and intact CV -tachycardic, IR. S1, S2 predose repair without murmurs, clicks, gallops or rubs Chest -coarse rhonchorous breath sounds are appreciated bilateral lower lobes. Few scattered wheezes appreciated anteriorly. Abdomen -protuberant distended. Nontender. Hypoactive bowel sounds appreciated. Fecal containment device in place. Extremities - warm and well-perfused, 3+ edema, + peripheral pulses, left femoral arterial line (06/18) - site clean dry and intact : Hanks catheter in place. Positive scrotal edema Neuro - limited, intubated and sedated, positive gag and cough. Positive corneal reflex. Opens eyes. Follows commands by squeezing hands weakly bilateral upper extremities Urinary Catheter: Yes Assessment to: Continue Hanks insert reason: ICU Pt Getting Diuretics Vascular Central Line Catheter: Yes Assessment to: Continue Date of Insertion: Jun 23, 2017 Line: Central Venous Catheter Side: Left Location: Internal, Jugular A/P Assessment and Plan Neuro/Psych: Seizure disorder NOS Toxic metabolic encephalopathy Acetaminophen 650 mg by tube every 6 hours as needed fever Currently on dexmedetomidine drip at 0.2 mcg/kg/min now for sedation/analgesia while intubated Goal RASS 0 Daily sedation vacation 06/26. EEG revealed moderate severe encephalopathic state. No epileptiform activity CT brain 06/26 revealed no acute intracranial findings EEG 06/28 revealed severe encephalopathic state. 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 Moderate TR. PAP 44.3 mmHg Home medications include simvastatin 20 mg daily for dyslipidemia. This is currently on hold Home medications for hypertension/A. fib his diltiazem 240 mg daily? Resp: Acute hypoxemic respiratory failure Interstitial lung disease COPD Switch to ACV / Ventilator bundle Ipratropium aerosols every 4 hours scheduled Spontaneous breathing trials when clinically indicated Plan for HRCT 6-8 weeks post extubation per Dr. Payton CT thorax revealed bilateral infiltrates left greater than right. Follow-up chest x-ray this a.m. 06/28 GI: Chronic gastritis Hypoalbuminemia Hepatomegaly Hiatal hernia Currently on Jevity 1.5 at 75 cc an hour per nutrition's recommendations Currently on Lansoprazole 30 mg by tube daily Docusate sodium 100 mg twice daily, senna 8.6 mg twice daily Colonoscopy 06/24 with snare polypectomy. Pathology revealed adenomatous polyps Pathology from EGD 06/23 revealed chronic gastritis Ultrasound of abdomen revealed hepatomegaly only : Hanks catheter has been placed for accurate I's and O's in a critically ill patient Endo: Sliding scale insulin with Novulin R with Accu-Cheks to maintain euglycemia every 6 hours/low regimen TSH is currently 2.17 Renal: Creatinine currently within normal limits Monitor urine output Accurate I's and O's Heme: Acute blood loss anemia -6 units PRBCs transfused this hospitalization Normocytic anemia Chronic anticoagulation with rivaroxaban Admission with hypercoagulable state status post vitamin K 10 mg and 6 FFP Hemoglobin currently around 9 No obvious source of bleeding noted. We will need anticoagulation for atrial fibrillation tomorrow if hemoglobin remains stable. Restart rivaroxaban 20 mg by mouth daily for nonvalvular atrial fibrillation ID: Strep pneumo pneumonia Strep viridian bacteremia/septicemia Currently on ceftriaxone 2 g IV daily. Previously treated with vancomycin and piperacillin/tazobactam 06/21/24 Pertinent cultures 06/26 blood, sputum and urine all pending 06/18 -blood cultures 2 -coag staph/strep viridian. Coag staph likely contaminant 06/18 -sputum -strep pneumonia 06/19 -blood cultures 2 -no growth UA 06/18 -no growth Urine Legionella pneumococcal antigen/influenza negative FEN: Replace electrolytes as clinically indicated per ICU electrolyte protocol MSK: Elevated BMI PT evaluate and treat Weight loss encouraged Access -Left IJ CVL placed 06/23 to present -Left femoral arterial line placed 06/18- 06/26 Prophylaxis -GI - lansoprazole -DVT -SCD/starting subcutaneous heparin today. Rivaroxaban Level 3 follow-up Zohaib Montes De Oca MD Jun 29, 2017 08:25
[2017-06-29] MEDS: SODIUM CHLORIDE 0.9% FLUSH 10 ML FLUSH IV FLUSH SCH ×2 (09:00→20:35)
[2017-06-29] MEDS: SENNOSIDES SYRUP 8.8 MG/5 ML CUP NG SCH ×2 (09:00→20:35)
[2017-06-29] MEDS: DOCUSATE SODIUM 100 MG/10 ML UDC PO SCH ×2 (09:00→20:36)
[2017-06-29] MEDS: LANSOPRAZOLE SOLUTAB 30 MG TAB NG SCH (09:25)
[2017-06-29] MEDS: RIVAROXABAN 20 MG TAB PO SCH (09:44)
[2017-06-29] MEDS: cefTRIAXone INJ 2,000 MG in SODIUM CHLORIDE 0.9% INJ 100 ML IV SCH (12:40)
[2017-06-29] MEDS: VASOPRESSIN INJ 40 UNITS in DEXTROSE 5% IN WATER 100ML INJ 98 ML IV SCH ×2 (16:00)
[2017-06-30] VITALS (18 sets, daily range): BP systolic 97–127; BP diastolic 0–78; PULSE 72–110; RESP 16–32; TEMP 97.6–99.4; O2SAT 94–100
[2017-06-30] MEDS: ARTIFICIAL TEARS OPTH SOLN 15 ML BTL EACH EYE SCH ×3 (00:08→16:16)
[2017-06-30] MEDS: DEXMEDETOMIDINE INJ 200 MCG in SODIUM CHLORIDE 0.9% INJ 50 ML IV PRN ×7 (00:08→22:18)
[2017-06-30] MEDS: DILTIAZEM HCL 30 MG TAB PO SCH ×4 (00:34→17:45)
[2017-06-30] MEDS: RESP: IPRATROPIUM 0.5 MG/2.5 ML NEB NEB SCH ×6 (03:23→23:54)
[2017-06-30 04:07] LABS: AUTOMATED NEUTROPHIL # 6.7 TH/MM3 (1.8-7.7); BASOPHIL % 0.6 % (0.0-2.0); EOSINOPHIL # 0.2 TH/MM3 (0-0.4); HEMATOCRIT 26.6 % (39.0-51.0); HEMOGLOBIN 8.6 GM/DL (13.0-17.0); LYMPH % 9.4 % (9.0-44.0); LYMPHOCYTE # 0.8 TH/MM3 (1.0-4.8); MEAN CELL VOLUME 92.8 FL (80.0-100.0); MEAN CORPUSCULAR HGB CONC 32.4 % (32.0-36.0); MEAN PLATELET VOLUME 9.2 FL (7.0-11.0); MONO % 6.4 % (0.0-8.0); MONOCYTE # 0.5 TH/MM3 (0-0.9); NEUT % 81.6 % (16.0-70.0); PLATELET COUNT 247 TH/MM3 (150-450); RED BLOOD COUNT 2.87 MIL/MM3 (4.50-5.90); RED CELL DISTRIBUTION WIDTH 17.4 % (11.6-17.2); WHITE BLOOD COUNT 8.2 TH/MM3 (4.0-11.0)
[2017-06-30 04:31] LABS: ALBUMIN 1.7 GM/DL (3.4-5.0); ALT (GPT) 19 U/L (12-78); AST (GOT) 27 U/L (15-37); BICARBONATE 28.3 MEQ/L (21.0-32.0); BLOOD UREA NITROGEN 9 MG/DL (7-18); CALCIUM 8.2 MG/DL (8.5-10.1); CHLORIDE 111 MEQ/L (98-107); GLOMERULAR FILTRATION RATE 109 ML/MIN (>89); GLUCOSE,RANDOM 119 MG/DL (74-106); MAGNESIUM 2.1 MG/DL (1.5-2.5); PHOSPHORUS 3.2 MG/DL (2.5-4.9); SODIUM (NA) 144 MEQ/L (136-145)
[2017-06-30 04:45] LABS: ALKALINE PHOSPHATASE 70 U/L (45-117); DIGOXIN 0.9 NG/ML (0.8-2.0); TOTAL BILIRUBIN ADULT 0.2 MG/DL (0.2-1.0); TOTAL PROTEIN 6.2 GM/DL (6.4-8.2)
--- NOTE | 2017-06-30 04:54 | RADRPT ---
EXAM DATE/TIME: 06/30/2017 04:06 [place] COMPARISON: CHEST SINGLE AP, June 28, 2017, 8:08. INDICATIONS : Shortness of breath. MEDICAL HISTORY : Cardiovascular disease. Hypercholesterolemia. Hypertension. Chronic obstructive pulmonary disea se, [place] SURGICAL HISTORY : None. ENCOUNTER: Subsequent ACUITY: 1 week PAIN SCORE: Non-responsive. LOCATION: Bilateral chest FINDINGS: A single view of the chest demonstrates endotracheal tube in good position. A central line in superio r vena cava. NG traverses the esophagus. Bilateral mostly basilar airspace disease and pleural effusi ons. No pneumothorax. CONCLUSION: 1. Basilar airspace disease and pleural effusions similar to June 28. Endotracheal tube, nasogastric tube and left central line unchanged. Rj Lerma MD on June 30, 2017 at 4:51 Board Certified Radiologist. This report was verified electronically.
[2017-06-30] MEDS: INSULIN NovoLIN REGULAR SUPPLEMENTAL SCALE SQ SCH ×3 (05:02→18:00)
[2017-06-30] MEDS: AMIODARONE INJ 450 MG in SODIUM CHLOR 0.9% (EXCEL) INJ 250 ML IV PRN (06:39)
[2017-06-30] MEDS: VASOPRESSIN INJ 40 UNITS in DEXTROSE 5% IN WATER 100ML INJ 98 ML IV SCH ×2 (08:11)
[2017-06-30] MEDS: SENNOSIDES SYRUP 8.8 MG/5 ML CUP NG SCH ×2 (08:31→20:36)
[2017-06-30] MEDS: DOCUSATE SODIUM 100 MG/10 ML UDC PO SCH ×2 (08:31→20:36)
[2017-06-30] MEDS: RIVAROXABAN 20 MG TAB PO SCH (08:32)
[2017-06-30] MEDS: LANSOPRAZOLE SOLUTAB 30 MG TAB NG SCH (08:32)
[2017-06-30] MEDS: SODIUM CHLORIDE 0.9% FLUSH 10 ML FLUSH IV FLUSH SCH ×2 (08:32→20:36)
[2017-06-30] MEDS: cefTRIAXone INJ 2,000 MG in SODIUM CHLORIDE 0.9% INJ 100 ML IV SCH (12:35)
--- NOTE | 2017-06-30 15:27 | HHI.CCPN ---
Subjective Remarks/Hospital Course 06/18: 77-year-old gentleman with history of hypertension, hyperlipidemia, atrial fibrillation, COPD now admitted on 06/13 in [place] with generalized worsening weakness and chest pain. Patient was treated with Cardizem drip and cardiology was consulted. Throughout the hospitalization patient had a gradual worsening hypoxia requiring nonrebreather mask and BiPAP. Pulmonology was consulted and patient had a CT chest that showed possible ILD and pneumonia. This morning patient was found to be in acute respiratory distress that did not respond to BiPAP at 100%, therefore patient was intubated. Patient was also hypotensive and responded to IV fluid bolus. He received 1 dose of vancomycin and 1 dose of Zosyn. There was a report of GI bleed and 2 units PRBC were ordered and 1 unit was transfused already, and patient was started on a PPI drip , however there is no clear documentation about the episode. Patient was transferred to [facility] for further care. Patient was seen immediately on his arrival, hypoxic to low 80s, on PEEP of 5 and FiO2 of 1. Due to vent dyssynchrony and worsening hypoxia patient required 1 dose of paralytic. Stat chest x-ray done did not show evidence of pneumothorax. Vent settings readjusted currently FiO2 of 0.9 and O2 sat of 91%. He is on Cardizem drip at 15 mg/h, on midazolam and fentanyl drips. 06/19: No events over the night. Patient remains on an FiO2 of 1 and PEEP of 12. On amiodarone drip off Cardizem with heart rate in the 90s still in A. fib. He requires blood pressure support with phenylephrine currently at 100. T -max of 100.7 yesterday. Patient is sedated with midazolam and fentanyl drips. Chest x-ray reviewed, worsening bilateral infiltrates. ET tube approximately 7 cm above lobito. 06/20: No events over the night. Patient remains on phenylephrine at 110 and amiodarone infusion. Sedated with Versed and fentanyl. Afebrile. Good urine output, more than 2 L over the last 24 hours. On 0.7 FiO2. Chest x-ray reviewed this morning, no significant change compared to yesterday. Dark bloody aspirate in the NG tube noted. 06/21: No acute events over the night. Still with some dark NG tube aspirate. Received 1 unit PRBC yesterday evening. Patient still requiring phenylephrine at 150 and amiodarone infusion at 0.5. Sedation is achieved with midazolam and fentanyl. FiO2 currently at 0.55. Chest x-ray without significant change. T- max 98.7. 06/22: Worsening pressor requirements over the night, currently on phenylephrine at 270mcg/min. Patient developed a difficult amount of melena and worsening dark NG tube aspirate. Hemoglobin this morning down to 6.8 currently being transfused 2 units PRBC. Oxygenation down 0.4 FiO2 however still with high PEEP requirements. 06/23: No events overnight. Significant improvement in pressor requirement, currently on norepinephrine at 2 mcg/minute. Febrile with a T-max of 101.3 yesterday at noon, afebrile since then. Still with liquid, dark stool and dark NG tube aspirate. Patient remains on an FiO2 of 0.4 and PEEP of 12. 7 L positive since admission. 06/24: Remains sedated, orally intubated on mechanical ventilation. 06/25: Remains sedated, orally intubated on mechanical ventilation. Underwent colonoscopy yesterday. 06/26: Temperature current 103.6. Tachypneic on the ventilator. Currently midazolam at 7 mg/h and fentanyl drip at 150 mcg there. Currently in A. fib with RVR with heart rate in the 140s. Vasopressin has been discontinued. A.m. laboratories and chest x-ray pending. Withdraws only on the ventilator with copious green sputum noted. Patient has been pancultured today including blood sputum and urine 06/27: Low-grade temperatures persist. Pancultured yesterday currently no growth today. Transitioning from midazolam to dexmedetomidine drips. FiO2 down to 40%. Increasing bowel regimen today. 06/28: FiO2 at 40%. PEEP down to 5. Remains on dexmedetomidine drip at 0.2 mcg/ kg/min. A.m. laboratories pending. Neurologically remains severely encephalopathic. 06/29: Afebrile. FiO2 up to 45% after transition from CPAP trial to ventilator overnight. Arousable and opens eyes and follows commands with bilateral upper extremities this a.m. Subjective: 06/30: Afebrile. Not tolerating CPAP trial today. Opens eyes and does follow commands. FiO2 down to 30%. Tolerating tube feeds. Objective Vital Signs Date Time Temp Pulse Resp B/P (MAP) Pulse Ox O2 Delivery O2 Flow Rate FiO2 06/30/17 13:54 94 40 06/30/17 12:00 99.4 97 29 120/0 (40) Intake and Output 06/30/17 06/30/17 07/01/17 08:00 16:00 00:00 Intake Total 1046 ml 204 ml Output Total 1350 ml Balance -304 ml 204 ml Result Diagram: 06/30/17 0353 06/30/17 0353 Other Results Microbiology Date/Time Source Procedure Growth Status 06/26/17 10:46 Blood Peripheral Aerobic Blood Culture - Preliminary NO GROWTH IN 4 DAYS Resulted 06/26/17 10:46 Blood Peripheral Anaerobic Blood Culture - Preliminary NO GROWTH IN 4 DAYS Resulted 06/26/17 07:55 Sputum Endotracheal Gram Stain - Final Complete 06/26/17 07:55 Sputum Endotracheal Sputum Culture - Final NO GROWTH IN 48 HOURS. Complete 06/26/17 07:55 Urine Catheterized Urine Urine Culture - Final NO GROWTH IN 48 HOURS. Complete Imaging Last Impressions Chest X-Ray 06/30/17 0600 Signed Impressions: Service Date/Time: Friday, June 30, 2017 04:06 - CONCLUSION: 1. Basilar airspace disease and pleural effusions similar to June 28. Endotracheal tube, nasogastric tube and left central line unchanged. Rj Lerma MD Head CT 06/26/17 0000 Signed Impressions: Service Date/Time: Monday, June 26, 2017 15:50 - CONCLUSION: 1. Mild generalized atrophy. 2. No evidence of acute infarct, hemorrhage, mass or edema. 3. Paranasal sinus fluid accumulation likely related to nasogastric tube and endotracheal tube. Mike Andrade MD Abdomen/Pelvis CT 06/26/17 0000 Signed Impressions: Service Date/Time: Monday, June 26, 2017 15:52 - CONCLUSION: 1. There is an infrarenal abdominal aortic aneurysm measuring 5 cm x 4.5 cm. 2. Scattered diverticulosis of the descending and sigmoid colon without definite inflammatory changes. 3. Nonspecific edema in the lower abdominal wall. 4. Small bilateral pleural effusions with bibasilar atelectasis. Slade Olivo MD Abdomen Ultrasound 06/22/17 0000 Signed Impressions: Service Date/Time: Thursday, June 22, 2017 13:59 - CONCLUSION: 1. Hepatomegaly 2. 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 Nino Roche MD Chest CT 06/18/17 0000 Signed Impressions: Service Date/Time: Sunday, June 18, 2017 05:38 - CONCLUSION: 1. Bilateral lower lobe multisegmental consolidative infiltrates, left larger than right. Alexys Laurent MD Objective Remarks General -77-year-old male currently orotracheally intubated HEENT - pupils are equal and reactive about 2 mm bilaterally, sclerae are anicteric, neck is supple, no rigidity, no JVD, orally intubated, NGT in left nares with dark aspirate, + LIJ CVC (06/23) - site clean dry and intact CV -tachycardic, IR. S1, S2 predose repair without murmurs, clicks, gallops or rubs Chest -coarse rhonchorous breath sounds are appreciated bilateral lower lobes. Few scattered wheezes appreciated anteriorly. Abdomen -protuberant distended. Nontender. Hypoactive bowel sounds appreciated. Fecal containment device in place. Extremities - warm and well-perfused, 3+ edema, + peripheral pulses, left femoral arterial line (06/18) - site clean dry and intact : Hanks catheter in place. Positive scrotal edema Neuro - limited, intubated and sedated, positive gag and cough. Positive corneal reflex. Opens eyes. Follows commands by squeezing hands weakly bilateral upper extremities Urinary Catheter: Yes Assessment to: Continue Hanks insert reason: Prolonged Immobilization Vascular Central Line Catheter: Yes Assessment to: Continue Date of Insertion: Jun 23, 2017 Line: Central Venous Catheter Side: Left Location: Internal, Jugular A/P Assessment and Plan Neuro/Psych: Seizure disorder NOS Toxic metabolic encephalopathy Acetaminophen 650 mg by tube every 6 hours as needed fever Currently on dexmedetomidine drip at 0.5 mcg/kg/min now for sedation/analgesia while intubated Goal RASS 0 Daily sedation vacation 06/26. EEG revealed moderate severe encephalopathic state. No epileptiform activity CT brain 06/26 revealed no acute intracranial findings EEG 06/28 revealed severe encephalopathic state. No epileptic activity MRI brain pending CV: Atrial fibrillation with RVR Septic shock History of hypertension History of dyslipidemia Edematous colonic polyps 4.4 cm distal femoral aneurysm -54.5 cm infrarenal femoral Coronary artery disease with a history of inferior myocardial infarction Chronic right bundle branch block Currently on amiodarone drip at 0.5 mg/min along with diltiazem 15 mg every 6 hours Repeat echocardiogram 06/25 revealed EF 50-55%. Moderate TR. PAP 44.3 mmHg Home medications include simvastatin 20 mg daily for dyslipidemia. This is currently on hold Home medications for hypertension/A. fib his diltiazem 240 mg daily? Resp: Acute hypoxemic respiratory failure Interstitial lung disease COPD Switch to ACV /08/28 Ventilator bundle Ipratropium aerosols every 4 hours scheduled Spontaneous breathing trials when clinically indicated Plan for HRCT 6-8 weeks post extubation per Dr. Payton CT thorax revealed bilateral infiltrates left greater than right. Follow-up chest x-ray 07/01 GI: Chronic gastritis Hypoalbuminemia Hepatomegaly Hiatal hernia Currently on Jevity 1.5 at 75 cc an hour per nutrition's recommendations Currently on Lansoprazole 30 mg by tube daily Docusate sodium 100 mg twice daily, senna 8.6 mg twice daily Colonoscopy 06/24 with snare polypectomy. Pathology revealed adenomatous polyps Pathology from EGD 06/23 revealed chronic gastritis Ultrasound of abdomen revealed hepatomegaly only : Hanks catheter has been placed for accurate I's and O's in a critically ill patient Endo: Sliding scale insulin with Novulin R with Accu-Cheks to maintain euglycemia every 6 hours/low regimen TSH is currently 2.17 Renal: Creatinine currently within normal limits Monitor urine output Accurate I's and O's Heme: Acute blood loss anemia -6 units PRBCs transfused this hospitalization Normocytic anemia Chronic anticoagulation with rivaroxaban Admission with hypercoagulable state status post vitamin K 10 mg and 6 FFP Hemoglobin currently around 9 No obvious source of bleeding noted. We will need anticoagulation for atrial fibrillation tomorrow if hemoglobin remains stable. Restart rivaroxaban 20 mg by mouth daily for nonvalvular atrial fibrillation ID: Strep pneumo pneumonia Strep viridian bacteremia/septicemia Currently on ceftriaxone 2 g IV daily. Previously treated with vancomycin and piperacillin/tazobactam 06/21/24 Pertinent cultures 06/26 blood, sputum and urine all pending 06/18 -blood cultures 2 -coag staph/strep viridian. Coag staph likely contaminant 06/18 -sputum -strep pneumonia 06/19 -blood cultures 2 -no growth UA 06/18 -no growth Urine Legionella pneumococcal antigen/influenza negative FEN: Replace electrolytes as clinically indicated per ICU electrolyte protocol MSK: Elevated BMI PT evaluate and treat Weight loss encouraged Access -Left IJ CVL placed 06/23 to present -Left femoral arterial line placed 06/18- 06/26 Prophylaxis -GI - lansoprazole -DVT -SCD/Rivaroxaban Level 3 follow-up Zohaib Montes De Oca MD Jun 30, 2017 15:27
[2017-06-30] MEDS ORDERED: DIGOXIN 0.5 MG/2 ML VIAL IV PUSH ONE (15:30)
[2017-06-30] MEDS ORDERED: POTASSIUM CHLORIDE 20 MEQ PWD PACKET PO ONE (15:30)
[2017-06-30] MEDS: AMIODARONE 200 MG TAB PO SCH (20:36)
[2017-07-01] VITALS (18 sets, daily range): BP systolic 89–132; BP diastolic 54–68; PULSE 56–100; RESP 19–31; TEMP 98.6–99.9; O2SAT 93–100
[2017-07-01] MEDS: DILTIAZEM HCL 30 MG TAB PO SCH ×4 (00:35→17:19)
[2017-07-01] MEDS: ARTIFICIAL TEARS OPTH SOLN 15 ML BTL EACH EYE SCH ×3 (00:35→16:06)
[2017-07-01] MEDS: DEXMEDETOMIDINE INJ 200 MCG in SODIUM CHLORIDE 0.9% INJ 50 ML IV PRN ×5 (01:20→12:57)
[2017-07-01] MEDS: RESP: IPRATROPIUM 0.5 MG/2.5 ML NEB NEB SCH ×5 (03:17→20:09)
[2017-07-01 05:16] LABS: AUTOMATED NEUTROPHIL # 6.5 TH/MM3 (1.8-7.7); BASOPHIL # 0.1 TH/MM3 (0-0.2); BASOPHIL % 0.9 % (0.0-2.0); EOSINOPHIL # 0.2 TH/MM3 (0-0.4); EOSINOPHIL % 2.3 % (0.0-4.0); HEMATOCRIT 26.3 % (39.0-51.0); HEMOGLOBIN 8.5 GM/DL (13.0-17.0); LYMPH % 10.3 % (9.0-44.0); LYMPHOCYTE # 0.8 TH/MM3 (1.0-4.8); MEAN CELL VOLUME 92.1 FL (80.0-100.0); MEAN CORPUSCULAR HEMOGLOBIN 29.9 PG (27.0-34.0); MEAN CORPUSCULAR HGB CONC 32.4 % (32.0-36.0); MEAN PLATELET VOLUME 8.8 FL (7.0-11.0); MONO % 7.4 % (0.0-8.0); MONOCYTE # 0.6 TH/MM3 (0-0.9); NEUT % 79.1 % (16.0-70.0); PLATELET COUNT 249 TH/MM3 (150-450); RED BLOOD COUNT 2.85 MIL/MM3 (4.50-5.90); RED CELL DISTRIBUTION WIDTH 17.5 % (11.6-17.2); WHITE BLOOD COUNT 8.2 TH/MM3 (4.0-11.0)
[2017-07-01 05:49] LABS: ALBUMIN 1.7 GM/DL (3.4-5.0); AST (GOT) 43 U/L (15-37); BICARBONATE 24.9 MEQ/L (21.0-32.0); BLOOD UREA NITROGEN 9 MG/DL (7-18); CALCIUM 8.1 MG/DL (8.5-10.1); CHLORIDE 114 MEQ/L (98-107); CREATININE 0.67 MG/DL (0.60-1.30); GLOMERULAR FILTRATION RATE 115 ML/MIN (>89); GLUCOSE,RANDOM 123 MG/DL (74-106); MAGNESIUM 2.2 MG/DL (1.5-2.5); SODIUM (NA) 144 MEQ/L (136-145)
[2017-07-01 05:52] LABS: ALKALINE PHOSPHATASE 80 U/L (45-117); ALT (GPT) 25 U/L (12-78); PHOSPHORUS 3.2 MG/DL (2.5-4.9); TOTAL BILIRUBIN ADULT 0.3 MG/DL (0.2-1.0); TOTAL PROTEIN 6.3 GM/DL (6.4-8.2)
[2017-07-01] MEDS: INSULIN NovoLIN REGULAR SUPPLEMENTAL SCALE SQ SCH ×4 (06:00→16:49)
--- NOTE | 2017-07-01 06:07 | RADRPT ---
EXAM DATE/TIME: 07/01/2017 04:04 [facility] COMPARISON: CHEST SINGLE AP, June 30, 2017, 4:06. INDICATIONS : Short of breath, evaluate pneumonia MEDICAL HISTORY : Cardiovascular disease. Hypertension Chronic obstructive pulmonary disease. seizures SURGICAL HISTORY : None. ENCOUNTER: Subsequent ACUITY: 1 week PAIN SCORE: Non-responsive. LOCATION: Bilateral chest FINDINGS: Endotracheal tube nasogastric tube and central line are stable. There has been slight improvement in aeration with slight decrease in confluence of bilateral hazy pleuroparenchymal opacities primarily o rosie the lung bases. The cardiac contour is grossly unchanged. CONCLUSION: Slight interval improvement in aeration Nino Hood MD on July 01, 2017 at 6:05 Board Certified Radiologist. This report was verified electronically.
[2017-07-01] MEDS: SODIUM CHLORIDE 0.9% FLUSH 10 ML FLUSH IV FLUSH SCH ×2 (08:22→21:17)
[2017-07-01] MEDS: DOCUSATE SODIUM 100 MG/10 ML UDC PO SCH ×2 (08:22→21:17)
[2017-07-01] MEDS: RIVAROXABAN 20 MG TAB PO SCH (08:22)
[2017-07-01] MEDS: AMIODARONE 200 MG TAB PO SCH ×2 (08:22→21:00)
[2017-07-01] MEDS: LANSOPRAZOLE SOLUTAB 30 MG TAB NG SCH (08:22)
[2017-07-01] MEDS: SENNOSIDES SYRUP 8.8 MG/5 ML CUP NG SCH ×2 (08:23→21:17)
[2017-07-01] MEDS: cefTRIAXone INJ 2,000 MG in SODIUM CHLORIDE 0.9% INJ 100 ML IV SCH (12:51)
[2017-07-01] MEDS ORDERED: DEXMEDETOMIDINE INJ 200 MCG in SODIUM CHLORIDE 0.9% INJ 50 ML IV PRN (15:45)
[2017-07-01] MEDS: DEXMEDETOMIDINE INJ 1,000 MCG in SODIUM CHLOR 0.9% 250 ML INJ 240 ML IV PRN (16:07)
--- NOTE | 2017-07-01 17:14 | HHI.CCPN ---
Subjective Remarks/Hospital Course 06/18: 77-year-old gentleman with history of hypertension, hyperlipidemia, atrial fibrillation, COPD now admitted on 06/13 in [place] with generalized worsening weakness and chest pain. Patient was treated with Cardizem drip and cardiology was consulted. Throughout the hospitalization patient had a gradual worsening hypoxia requiring nonrebreather mask and BiPAP. Pulmonology was consulted and patient had a CT chest that showed possible ILD and pneumonia. This morning patient was found to be in acute respiratory distress that did not respond to BiPAP at 100%, therefore patient was intubated. Patient was also hypotensive and responded to IV fluid bolus. He received 1 dose of vancomycin and 1 dose of Zosyn. There was a report of GI bleed and 2 units PRBC were ordered and 1 unit was transfused already, and patient was started on a PPI drip , however there is no clear documentation about the episode. Patient was transferred to [facility] for further care. Patient was seen immediately on his arrival, hypoxic to low 80s, on PEEP of 5 and FiO2 of 1. Due to vent dyssynchrony and worsening hypoxia patient required 1 dose of paralytic. Stat chest x-ray done did not show evidence of pneumothorax. Vent settings readjusted currently FiO2 of 0.9 and O2 sat of 91%. He is on Cardizem drip at 15 mg/h, on midazolam and fentanyl drips. 06/19: No events over the night. Patient remains on an FiO2 of 1 and PEEP of 12. On amiodarone drip off Cardizem with heart rate in the 90s still in A. fib. He requires blood pressure support with phenylephrine currently at 100. T -max of 100.7 yesterday. Patient is sedated with midazolam and fentanyl drips. Chest x-ray reviewed, worsening bilateral infiltrates. ET tube approximately 7 cm above lobito. 06/20: No events over the night. Patient remains on phenylephrine at 110 and amiodarone infusion. Sedated with Versed and fentanyl. Afebrile. Good urine output, more than 2 L over the last 24 hours. On 0.7 FiO2. Chest x-ray reviewed this morning, no significant change compared to yesterday. Dark bloody aspirate in the NG tube noted. 06/21: No acute events over the night. Still with some dark NG tube aspirate. Received 1 unit PRBC yesterday evening. Patient still requiring phenylephrine at 150 and amiodarone infusion at 0.5. Sedation is achieved with midazolam and fentanyl. FiO2 currently at 0.55. Chest x-ray without significant change. T- max 98.7. 06/22: Worsening pressor requirements over the night, currently on phenylephrine at 270mcg/min. Patient developed a difficult amount of melena and worsening dark NG tube aspirate. Hemoglobin this morning down to 6.8 currently being transfused 2 units PRBC. Oxygenation down 0.4 FiO2 however still with high PEEP requirements. 06/23: No events overnight. Significant improvement in pressor requirement, currently on norepinephrine at 2 mcg/minute. Febrile with a T-max of 101.3 yesterday at noon, afebrile since then. Still with liquid, dark stool and dark NG tube aspirate. Patient remains on an FiO2 of 0.4 and PEEP of 12. 7 L positive since admission. 06/24: Remains sedated, orally intubated on mechanical ventilation. 06/25: Remains sedated, orally intubated on mechanical ventilation. Underwent colonoscopy yesterday. 06/26: Temperature current 103.6. Tachypneic on the ventilator. Currently midazolam at 7 mg/h and fentanyl drip at 150 mcg there. Currently in A. fib with RVR with heart rate in the 140s. Vasopressin has been discontinued. A.m. laboratories and chest x-ray pending. Withdraws only on the ventilator with copious green sputum noted. Patient has been pancultured today including blood sputum and urine 06/27: Low-grade temperatures persist. Pancultured yesterday currently no growth today. Transitioning from midazolam to dexmedetomidine drips. FiO2 down to 40%. Increasing bowel regimen today. 06/28: FiO2 at 40%. PEEP down to 5. Remains on dexmedetomidine drip at 0.2 mcg/ kg/min. A.m. laboratories pending. Neurologically remains severely encephalopathic. 06/29: Afebrile. FiO2 up to 45% after transition from CPAP trial to ventilator overnight. Arousable and opens eyes and follows commands with bilateral upper extremities this a.m. 06/30: Afebrile. Not tolerating CPAP trial today. Opens eyes and does follow commands. FiO2 down to 30%. Tolerating tube feeds. Subjective: 07/01: T-max 99.8. Currently afebrile. We will reattempt CPAP trials again today. We will give albumin and furosemide attempt to diuresis. FiO2 35%. Tolerating tube feeds with bowel movements. Objective Vital Signs Date Time Temp Pulse Resp B/P (MAP) Pulse Ox O2 Delivery O2 Flow Rate FiO2 07/01/17 16:04 96 40 07/01/17 16:00 98.7 70 24 105/56 (72) Intake and Output 07/01/17 07/01/17 07/02/17 08:00 16:00 00:00 Intake Total 940 ml 50 ml Output Total 2250 ml Balance -1310 ml 50 ml Result Diagram: 07/01/17 0504 07/01/17 0504 Other Results Microbiology Date/Time Source Procedure Growth Status 06/26/17 10:46 Blood Peripheral Aerobic Blood Culture - Final NO GROWTH IN 5 DAYS Complete 06/26/17 10:46 Blood Peripheral Anaerobic Blood Culture - Final NO GROWTH IN 5 DAYS Complete 06/26/17 07:55 Sputum Endotracheal Gram Stain - Final Complete 06/26/17 07:55 Sputum Endotracheal Sputum Culture - Final NO GROWTH IN 48 HOURS. Complete 06/26/17 07:55 Urine Catheterized Urine Urine Culture - Final NO GROWTH IN 48 HOURS. Complete Imaging Last Impressions Chest X-Ray 07/01/17 0600 Signed Impressions: Service Date/Time: Saturday, July 01, 2017 04:04 - CONCLUSION: Slight interval improvement in aeration Nino Hood MD Head CT 06/26/17 0000 Signed Impressions: Service Date/Time: Monday, June 26, 2017 15:50 - CONCLUSION: 1. Mild generalized atrophy. 2. No evidence of acute infarct, hemorrhage, mass or edema. 3. Paranasal sinus fluid accumulation likely related to nasogastric tube and endotracheal tube. Mike Andrade MD Abdomen/Pelvis CT 06/26/17 0000 Signed Impressions: Service Date/Time: Monday, June 26, 2017 15:52 - CONCLUSION: 1. There is an infrarenal abdominal aortic aneurysm measuring 5 cm x 4.5 cm. 2. Scattered diverticulosis of the descending and sigmoid colon without definite inflammatory changes. 3. Nonspecific edema in the lower abdominal wall. 4. Small bilateral pleural effusions with bibasilar atelectasis. Slade Olivo MD Abdomen Ultrasound 06/22/17 0000 Signed Impressions: Service Date/Time: Thursday, June 22, 2017 13:59 - CONCLUSION: 1. Hepatomegaly 2. 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 Nino Roche MD Chest CT 06/18/17 0000 Signed Impressions: Service Date/Time: Sunday, June 18, 2017 05:38 - CONCLUSION: 1. Bilateral lower lobe multisegmental consolidative infiltrates, left larger than right. Alexys Laurent MD Objective Remarks General -77-year-old male currently orotracheally intubated HEENT - pupils are equal and reactive about 2 mm bilaterally, sclerae are anicteric, neck is supple, no rigidity, no JVD, orally intubated, NGT in left nares with dark aspirate, + LIJ CVC (06/23) - site clean dry and intact CV -tachycardic, IR. S1, S2 no S4. Currently without murmurs, clicks, gallops or rubs Chest -coarse rhonchorous breath sounds are appreciated bilateral lower lobes. Few scattered wheezes appreciated anteriorly. Abdomen -protuberant distended. Nontender. Hypoactive bowel sounds appreciated. Fecal containment device in place. Extremities - warm and well-perfused, 3+ edema, + peripheral pulses, left femoral arterial line (06/18) - site clean dry and intact : Hanks catheter in place. Positive scrotal edema Neuro - limited, intubated and sedated, positive gag and cough. Positive corneal reflex. Opens eyes. Follows commands by squeezing hands weakly bilateral upper extremities Urinary Catheter: Yes Assessment to: Continue Hanks insert reason: Prolonged Immobilization Vascular Central Line Catheter: Yes Assessment to: Continue Date of Insertion: Jun 23, 2017 Line: Central Venous Catheter Side: Left Location: Internal, Jugular A/P Assessment and Plan Neuro/Psych: Seizure disorder NOS Toxic metabolic encephalopathy Acetaminophen 650 mg by tube every 6 hours as needed fever Currently on dexmedetomidine drip at 0.5 mcg/kg/min now for sedation/analgesia while intubated Goal RASS 0 Daily sedation vacation 06/26. EEG revealed moderate severe encephalopathic state. No epileptiform activity CT brain 06/26 revealed no acute intracranial findings EEG 06/28 revealed severe encephalopathic state. 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 Moderate TR. PAP 44.3 mmHg Home medications include simvastatin 20 mg daily for dyslipidemia. This is currently on hold Home medications for hypertension/A. fib his diltiazem 240 mg daily? Resp: Acute hypoxemic respiratory failure Interstitial lung disease COPD Switch to ACV / Ventilator bundle Ipratropium aerosols every 4 hours scheduled Spontaneous breathing trials when clinically indicated Plan for HRCT 6-8 weeks post extubation per Dr. Payton CT thorax revealed bilateral infiltrates left greater than right. Follow-up chest x-ray 07/02 GI: Chronic gastritis Hypoalbuminemia Hepatomegaly Hiatal hernia Elevated AST Currently on Jevity 1.5 at 75 cc an hour per nutrition's recommendations Currently on Lansoprazole 30 mg by tube daily Docusate sodium 100 mg twice daily, senna 8.6 mg twice daily Colonoscopy 06/24 with snare polypectomy. Pathology revealed adenomatous polyps Pathology from EGD 06/23 revealed chronic gastritis Ultrasound of abdomen revealed hepatomegaly only : Hanks catheter has been placed for accurate I's and O's in a critically ill patient Endo: Sliding scale insulin with Novulin R with Accu-Cheks to maintain euglycemia every 6 hours/low regimen TSH is currently 2.17 Renal: Creatinine currently within normal limits Monitor urine output Accurate I's and O's Heme: Acute blood loss anemia -6 units PRBCs transfused this hospitalization Normocytic anemia Chronic anticoagulation with rivaroxaban Admission with hypercoagulable state status post vitamin K 10 mg and 6 FFP Hemoglobin currently around 9 No obvious source of bleeding noted. Restart rivaroxaban 20 mg by mouth daily for nonvalvular atrial fibrillation ID: Strep pneumo pneumonia Strep viridian bacteremia/septicemia Currently on ceftriaxone 2 g IV daily. Previously treated with vancomycin and piperacillin/tazobactam 06/21- Pertinent cultures 06/26 blood, sputum and urine all pending 06/18 -blood cultures 2 -coag staph/strep viridian. Coag staph likely contaminant 06/18 -sputum -strep pneumonia 06/19 -blood cultures 2 -no growth UA 06/18 -no growth Urine Legionella pneumococcal antigen/influenza negative FEN: Replace electrolytes as clinically indicated per ICU electrolyte protocol MSK: Elevated BMI PT evaluate and treat Weight loss encouraged Access -Left IJ CVL placed 06/23 to present -Left femoral arterial line placed 06/18- 06/26 Prophylaxis -GI - lansoprazole -DVT -SCD/Rivaroxaban Level 3 follow-up Zohaib Montes De Oca MD Jul 01, 2017 17:14
[2017-07-01] MEDS ORDERED: ALBUMIN 25% INJ 50 ML IV ONE (17:15)
[2017-07-01] MEDS ORDERED: FUROSEMIDE 40 MG/4 ML VIAL IV PUSH ONE (17:15)
[2017-07-02] VITALS (19 sets, daily range): BP systolic 94–114; BP diastolic 50–86; PULSE 58–77; RESP 17–22; TEMP 97.9–99; O2SAT 94–100
[2017-07-02] MEDS: DEXMEDETOMIDINE INJ 1,000 MCG in SODIUM CHLOR 0.9% 250 ML INJ 240 ML IV PRN ×3 (00:27→21:40)
[2017-07-02] MEDS: ARTIFICIAL TEARS OPTH SOLN 15 ML BTL EACH EYE SCH ×3 (00:28→17:07)
[2017-07-02] MEDS: RESP: IPRATROPIUM 0.5 MG/2.5 ML NEB NEB SCH ×6 (00:55→21:05)
[2017-07-02 04:33] LABS: ALBUMIN 1.8 GM/DL (3.4-5.0); AST (GOT) 49 U/L (15-37); BLOOD UREA NITROGEN 12 MG/DL (7-18); CHLORIDE 110 MEQ/L (98-107); CREATININE 0.69 MG/DL (0.60-1.30); GLOMERULAR FILTRATION RATE 111 ML/MIN (>89); GLUCOSE,RANDOM 139 MG/DL (74-106); MAGNESIUM 2.1 MG/DL (1.5-2.5); SODIUM (NA) 143 MEQ/L (136-145)
[2017-07-02 04:37] LABS: ALKALINE PHOSPHATASE 85 U/L (45-117); ALT (GPT) 34 U/L (12-78); AUTOMATED NEUTROPHIL # 6.2 TH/MM3 (1.8-7.7); BASOPHIL # 0.1 TH/MM3 (0-0.2); BASOPHIL % 0.8 % (0.0-2.0); EOSINOPHIL # 0.2 TH/MM3 (0-0.4); EOSINOPHIL % 2.5 % (0.0-4.0); HEMOGLOBIN 8.1 GM/DL (13.0-17.0); LYMPH % 10.6 % (9.0-44.0); LYMPHOCYTE # 0.8 TH/MM3 (1.0-4.8); MEAN CELL VOLUME 91.1 FL (80.0-100.0); MEAN CORPUSCULAR HEMOGLOBIN 29.5 PG (27.0-34.0); MEAN CORPUSCULAR HGB CONC 32.4 % (32.0-36.0); MEAN PLATELET VOLUME 9.6 FL (7.0-11.0); MONO % 7.2 % (0.0-8.0); MONOCYTE # 0.6 TH/MM3 (0-0.9); NEUT % 78.9 % (16.0-70.0); PHOSPHORUS 3.3 MG/DL (2.5-4.9); PLATELET COUNT 231 TH/MM3 (150-450); RED BLOOD COUNT 2.75 MIL/MM3 (4.50-5.90); RED CELL DISTRIBUTION WIDTH 17.3 % (11.6-17.2); TOTAL BILIRUBIN ADULT 0.2 MG/DL (0.2-1.0); TOTAL PROTEIN 6.3 GM/DL (6.4-8.2); WHITE BLOOD COUNT 7.8 TH/MM3 (4.0-11.0)
--- NOTE | 2017-07-02 05:40 | RADRPT ---
EXAM DATE/TIME: 07/02/2017 04:25 [facility] COMPARISON: CHEST SINGLE AP, July 01, 2017, 4:04. INDICATIONS : Short of breath. MEDICAL HISTORY : Cardiovascular disease. Hypertension Chronic obstructive pulmonary disease. seizures. SURGICAL HISTORY : None. ENCOUNTER: Subsequent ACUITY: 1 week PAIN SCORE: Non-responsive. LOCATION: Bilateral chest FINDINGS: Endotracheal tube nasogastric tube and left neck central line remain in place. Hazy bilateral pleural -parenchymal opacities appear unchanged. Visualized cardiac contours are stable. CONCLUSION: No significant change Nino Hood MD on July 02, 2017 at 5:37 Board Certified Radiologist. This report was verified electronically.
[2017-07-02] MEDS: INSULIN NovoLIN REGULAR SUPPLEMENTAL SCALE SQ SCH ×4 (05:57→17:07)
[2017-07-02] MEDS: DILTIAZEM HCL 30 MG TAB PO SCH ×4 (05:58→17:07)
[2017-07-02] MEDS: SODIUM CHLORIDE 0.9% FLUSH 10 ML FLUSH IV FLUSH SCH ×2 (08:36→20:54)
[2017-07-02] MEDS: SENNOSIDES SYRUP 8.8 MG/5 ML CUP NG SCH ×2 (08:40→20:54)
[2017-07-02] MEDS: DOCUSATE SODIUM 100 MG/10 ML UDC PO SCH ×2 (08:40→20:54)
[2017-07-02] MEDS: RIVAROXABAN 20 MG TAB PO SCH (08:40)
[2017-07-02] MEDS: LANSOPRAZOLE SOLUTAB 30 MG TAB NG SCH (08:41)
[2017-07-02] MEDS: AMIODARONE 200 MG TAB PO SCH ×2 (08:41→20:55)
[2017-07-02] MEDS: cefTRIAXone INJ 2,000 MG in SODIUM CHLORIDE 0.9% INJ 100 ML IV SCH (12:18)
--- NOTE | 2017-07-02 15:34 | HHI.HCPN ---
Reason for visit a. To assist with evaluation and management of symptoms including: dyspnea; encephalopathy; generalized weakness b. To assist medical decision maker(s) with: better understanding of current medical conditions; weighing benefits/burdens of medical treatment options; making medical treatment decisions. . Subjective/Interval History Patient orotracheally intubated, awake, alert, and in an SICU bed at time of my visit. He shakes his head "no" when asked about pain. He is able to follow simple commands. Remains in atrial fib with controlled ventricular rate. No recent evidence of GI bleeding. Good urine output with negative fluid balance. Discussed case with Dr. Montes De Oca. Though he sees patient improving somewhat, he also sees him as incredibly weak with successful vent weaning therefore being a challenge. Patient continues to remain at high risk for recurrent infections. . Family/friend interactions Met in consult room with three children -- Moose, Gladys, and Criss-- for about 40 minutes. . Spouse was not feeling well enough to stay but had expressed her agreement with the plan. Reviewed patient's current status. All agree that thought patient is able to follow simple commands, he does not appear to have a good sense of what is happening to him. Family continues to want to honor patient's long held beliefs that he would not want to be prolonged on life support. Plan, then , is to attempt medical wean 07/03/17 around 10 AM. If he fails, he will not be re-intubated and we will medicate to maintain comfort. Should he breathe on his own, family is very interested in hospice care. They understand that given his weakness and co-morbidities he has a high probability of relapse and would need a tracheostomy for any severe lung infection which he would not want. We discussed basics of hospice care. If patient is having dyspnea post extubation, he would be a candidate for a hospice care center bed. If patient survives overnight on 07/03/17, they would be interested in a hospice consult. . Advance Directives Living Will: Never completed Health Care Surrogate: Never completed Durable Power of [place]: Never completed Advance Directive Specifics Date completed: Per , patient has never completed an advanced directive. . Health Care Surrogate(s): The patient has never completed a written designation of healthcare surrogate. . Documented care wishes: We have no written documentation of patient's healthcare goals/preferences. . Objective Vital Signs Date Time Temp Pulse Resp B/P (MAP) Pulse Ox O2 Delivery O2 Flow Rate FiO2 07/02/17 12:49 100 40 07/02/17 10:05 40 07/02/17 10:05 97 40 07/02/17 10:00 69 07/02/17 08:00 97.9 68 18 101/56 (71) 97 07/02/17 08:00 40 07/02/17 08:00 68 07/02/17 07:35 96 40 07/02/17 06:00 62 07/02/17 04:21 94 40 07/02/17 04:00 40 07/02/17 04:00 99.0 59 20 95/50 (65) 97 07/02/17 04:00 58 07/02/17 02:00 72 07/02/17 00:56 95 40 07/02/17 00:00 40 07/02/17 00:00 98.7 58 18 94/55 (68) 97 07/02/17 00:00 58 07/01/17 22:00 59 07/01/17 20:09 100 40 07/01/17 20:00 98.6 56 20 89/54 (66) 97 07/01/17 20:00 56 07/01/17 20:00 40 07/01/17 18:00 74 07/01/17 16:04 96 40 07/01/17 16:00 98.7 70 24 105/56 (72) 98 07/01/17 16:00 40 07/01/17 16:00 70 Intake & Output 07/02/17 07/02/17 07:00 19:00 Intake Total 870 ml Output Total 1950 ml Balance -1080 ml Tube Feeding 870 ml Output Urine Total 1750 ml Stool Total 200 ml Gastric Drainage Total 0 ml . Physical Exam CONSTITUTIONAL/GENERAL: This is an adequately nourished patient, intubated, mechanically ventilated, awake and alert in a surgical intensive care unit bed. No apparent distress. TUBES/LINES/DRAINS: Right internal jugular central line triple-lumen; bilateral soft restraints; nasogastric tube; orotracheal tube; Hanks catheter; rectal tube , PIV. SKIN: No jaundice. Skin temperature appropriate. Not diaphoretic. EYES: Pupils equal and round. EOMs intact. No scleral icterus. No injection or drainage. ENT: Responds appropriately to voice. nose without bleeding or purulent drainage. Moist oral mucosa. NECK: Trachea midline. Supple. CARDIOVASCULAR: Irregularly irregular heart rhythm. No audible gallops, or rubs. No JVD. RESPIRATORY/CHEST: Symmetric, unlabored respirations. Air movement approximately equal bilaterally. Diminished breath sounds at both bases. No audible wheezes. GASTROINTESTINAL: Abdomen is obese, large, round,soft. Bowel sounds present. GENITOURINARY: Without palpable bladder distension. MUSCULOSKELETAL: Extremities without clubbing, cyanosis. 1+ edema present NEUROLOGICAL: Awake, alert, follows commands, moves all extremities. PSYCHIATRIC:No obvious depression/anxiety/psychosis. . . Diagnostic Tests Laboratory Laboratory Tests Test 06/30/17 03:53 07/01/17 05:04 07/02/17 04:00 White Blood Count 8.2 TH/MM3 (4.0-11.0) 8.2 TH/MM3 (4.0-11.0) 7.8 TH/MM3 (4.0-11.0) Red Blood Count 2.87 MIL/MM3 (4.50-5.90) 2.85 MIL/MM3 (4.50-5.90) 2.75 MIL/MM3 (4.50-5.90) Hemoglobin 8.6 GM/DL (13.0-17.0) 8.5 GM/DL (13.0-17.0) 8.1 GM/DL (13.0-17.0) Hematocrit 26.6 % (39.0-51.0) 26.3 % (39.0-51.0) 25.0 % (39.0-51.0) Mean Corpuscular Volume 92.8 FL (80.0-100.0) 92.1 FL (80.0-100.0) 91.1 FL (80.0-100.0) Mean Corpuscular Hemoglobin 30.0 PG (27.0-34.0) 29.9 PG (27.0-34.0) 29.5 PG (27.0-34.0) Mean Corpuscular Hemoglobin Concent 32.4 % (32.0-36.0) 32.4 % (32.0-36.0) 32.4 % (32.0-36.0) Red Cell Distribution Width 17.4 % (11.6-17.2) 17.5 % (11.6-17.2) 17.3 % (11.6-17.2) Platelet Count 247 TH/MM3 (150-450) 249 TH/MM3 (150-450) 231 TH/MM3 (150-450) Mean Platelet Volume 9.2 FL (7.0-11.0) 8.8 FL (7.0-11.0) 9.6 FL (7.0-11.0) Neutrophils (%) (Auto) 81.6 % (16.0-70.0) 79.1 % (16.0-70.0) 78.9 % (16.0-70.0) Lymphocytes (%) (Auto) 9.4 % (9.0-44.0) 10.3 % (9.0-44.0) 10.6 % (9.0-44.0) Monocytes (%) (Auto) 6.4 % (0.0-8.0) 7.4 % (0.0-8.0) 7.2 % (0.0-8.0) Eosinophils (%) (Auto) 2.0 % (0.0-4.0) 2.3 % (0.0-4.0) 2.5 % (0.0-4.0) Basophils (%) (Auto) 0.6 % (0.0-2.0) 0.9 % (0.0-2.0) 0.8 % (0.0-2.0) Neutrophils # (Auto) 6.7 TH/MM3 (1.8-7.7) 6.5 TH/MM3 (1.8-7.7) 6.2 TH/MM3 (1.8-7.7) Lymphocytes # (Auto) 0.8 TH/MM3 (1.0-4.8) 0.8 TH/MM3 (1.0-4.8) 0.8 TH/MM3 (1.0-4.8) Monocytes # (Auto) 0.5 TH/MM3 (0-0.9) 0.6 TH/MM3 (0-0.9) 0.6 TH/MM3 (0-0.9) Eosinophils # (Auto) 0.2 TH/MM3 (0-0.4) 0.2 TH/MM3 (0-0.4) 0.2 TH/MM3 (0-0.4) Basophils # (Auto) 0.0 TH/MM3 (0-0.2) 0.1 TH/MM3 (0-0.2) 0.1 TH/MM3 (0-0.2) CBC Comment DIFF FINAL DIFF FINAL DIFF FINAL Differential Comment Blood Urea Nitrogen 9 MG/DL (7-18) 9 MG/DL (7-18) 12 MG/DL (7-18) Creatinine 0.70 MG/DL (0.60-1.30) 0.67 MG/DL (0.60-1.30) 0.69 MG/DL (0.60-1.30) Random Glucose 119 MG/DL (74-106) 123 MG/DL (74-106) 139 MG/DL (74-106) Total Protein 6.2 GM/DL (6.4-8.2) 6.3 GM/DL (6.4-8.2) 6.3 GM/DL (6.4-8.2) Albumin 1.7 GM/DL (3.4-5.0) 1.7 GM/DL (3.4-5.0) 1.8 GM/DL (3.4-5.0) Calcium Level 8.2 MG/DL (8.5-10.1) 8.1 MG/DL (8.5-10.1) 8.0 MG/DL (8.5-10.1) Phosphorus Level 3.2 MG/DL (2.5-4.9) 3.2 MG/DL (2.5-4.9) 3.3 MG/DL (2.5-4.9) Magnesium Level 2.1 MG/DL (1.5-2.5) 2.2 MG/DL (1.5-2.5) 2.1 MG/DL (1.5-2.5) Alkaline Phosphatase 70 U/L (45-117) 80 U/L (45-117) 85 U/L (45-117) Aspartate Amino Transf (AST/SGOT) 27 U/L (15-37) 43 U/L (15-37) 49 U/L (15-37) Alanine Aminotransferase (ALT/SGPT) 19 U/L (12-78) 25 U/L (12-78) 34 U/L (12-78) Total Bilirubin 0.2 MG/DL (0.2-1.0) 0.3 MG/DL (0.2-1.0) 0.2 MG/DL (0.2-1.0) Sodium Level 144 MEQ/L (136-145) 144 MEQ/L (136-145) 143 MEQ/L (136-145) Potassium Level 3.8 MEQ/L (3.5-5.1) 4.4 MEQ/L (3.5-5.1) 4.2 MEQ/L (3.5-5.1) Chloride Level 111 MEQ/L (98-107) 114 MEQ/L (98-107) 110 MEQ/L (98-107) Carbon Dioxide Level 28.3 MEQ/L (21.0-32.0) 24.9 MEQ/L (21.0-32.0) 27.0 MEQ/L (21.0-32.0) Anion Gap 5 MEQ/L (5-15) 5 MEQ/L (5-15) 6 MEQ/L (5-15) Estimat Glomerular Filtration Rate 109 ML/MIN (>89) 115 ML/MIN (>89) 111 ML/MIN (>89) Digoxin Level 0.9 NG/ML (0.8-2.0) . Result Diagram: 07/02/17 0400 07/02/17 0400 Microbiology Microbiology Date/Time Source Procedure Growth Status 06/26/17 10:46 Blood Peripheral Aerobic Blood Culture - Final NO GROWTH IN 5 DAYS Complete 06/26/17 10:46 Blood Peripheral Anaerobic Blood Culture - Final NO GROWTH IN 5 DAYS Complete 06/26/17 07:55 Sputum Endotracheal Gram Stain - Final Complete 06/26/17 07:55 Sputum Endotracheal Sputum Culture - Final NO GROWTH IN 48 HOURS. Complete 06/26/17 07:55 Urine Catheterized Urine Urine Culture - Final NO GROWTH IN 48 HOURS. Complete . Imaging Last Impressions Chest X-Ray 07/02/17 0600 Signed Impressions: Service Date/Time: Sunday, July 02, 2017 04:25 - CONCLUSION: No significant change Nino Hood MD Head CT 06/26/17 0000 Signed Impressions: Service Date/Time: Monday, June 26, 2017 15:50 - CONCLUSION: 1. Mild generalized atrophy. 2. No evidence of acute infarct, hemorrhage, mass or edema. 3. Paranasal sinus fluid accumulation likely related to nasogastric tube and endotracheal tube. Mike Andrade MD Abdomen/Pelvis CT 06/26/17 0000 Signed Impressions: Service Date/Time: Monday, June 26, 2017 15:52 - CONCLUSION: 1. There is an infrarenal abdominal aortic aneurysm measuring 5 cm x 4.5 cm. 2. Scattered diverticulosis of the descending and sigmoid colon without definite inflammatory changes. 3. Nonspecific edema in the lower abdominal wall. 4. Small bilateral pleural effusions with bibasilar atelectasis. Slade Olivo MD Abdomen Ultrasound 06/22/17 0000 Signed Impressions: Service Date/Time: Thursday, June 22, 2017 13:59 - CONCLUSION: 1. Hepatomegaly 2. 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 Nino Roche MD Chest CT 06/18/17 0000 Signed Impressions: Service Date/Time: Sunday, June 18, 2017 05:38 - CONCLUSION: 1. Bilateral lower lobe multisegmental consolidative infiltrates, left larger than right. Alexys Laurent MD . Procedures * 06/18/17 -Intubation/mechanical ventilation * 06/18/17 -Right internal jugular line placement * 06/18/17 -Left femoral artery line placement * 06/23/17 -EGD * 06/24/17 -colonoscopy with biopsy . Assessment and Plan Disease Oriented Problem List: (1) Acute hypoxemic respiratory failure (2) Pneumonia (3) Atrial fibrillation with RVR (4) Proximal muscle weakness (5) GIB (gastrointestinal bleeding) (6) Coronary artery disease (7) Hyperlipidemia (8) Hypertension (9) Abdominal aortic aneurysm (AAA) 3.0 cm to 5.5 cm in diameter in male Comment: Infra-renal (10) COPD (chronic obstructive pulmonary disease) Comment: Noted on PFTs in 2016. . Symptom Scale: (1) Pain 0-10 Scale: 0 Comment: Denies (2) Dyspnea 0-10 Scale: Unable to quantify Comment: Controlled with mechanical ventilation . (3) Encephalopathy 0-10 Scale: 0 Comment: Improving. Able to follow simple commands and able to move all extermities. . Pertinent Non-Medical Issues Psychosocial: Lives at home with who is wheelchair bound and need 24 hour 02. Well supported by step children. Spiritual: Islam. Requests vp legal affairs support. Legal: No known advance directives. is proxy Ethical issues impacting care: Pt currently incapacitated but might re-gain capacity. . Important Contacts José Lugo (spouse; health care proxy) [phone] . Prognosis Patient has been very hard to wean from the vent even after aggressive treatment of his pneumonia. He was growing progressively weaker even before he developed the pneumonia. Due to the level of weakness, it is becoming less likley that he can be successfully weaned without going first to tracheostomy which patient/family does not want. Given his decline prior to becoming acutely ill, it is also uncertain if putting him through a trach and pulm rehab would result in any longer quality of life. He will reamin at very high risk for relapse and reuccent lung infections. . Code Status: Alternative Code Plan == Code Status: Alternate code/intubation only. No cardiac resuscitation. Plan to transition to "no code" status after vent wean on AM of 07/03/17. == Decision Making: Patient is able to follow commands, but is currently incapacitated to make his own healthcare decisions. Unclear if he will regain medical decision-making capacity . There is no known written designation of healthcare surrogate. As per [place] statue, proxy healthcare decision making therefore falls to his spouse José Lugo. has accepted this role and is fully supported by patient's children. == Goals of medical treatment: Family wants to honor patient's oft stated goals that he would not want to be prolonged on life support. They endorse plan to medically wean patient at 10 AM on 07/03/17. If patient fails, they do not want him re-intubated. If patient fails, they want him given comfort meds to prevent suffering. Should he survive ovenight following wean, they are interested in a hospice consult. == Symptoms * Pain: Patient did not have any prehospitalization pain syndromes. Current sources of discomfort might include prolonged bedbound status; orotracheal intubation; nasogastric intubation; Hanks catheterization; vascular access lines ; wrist restraints. Patient denies pain during visit today. . Current regimen appears adequate,. No further recommendations at this time. * Dyspnea: Currently managed by ventilator support. No further recommendations at this time. == Case discussed with bedside RN and Dr. Montes De Oca. == Medical wean at 10 AM on 07/03/17. Will not re-intubate (unless patient is clearly capacitated and is able to tell us otherwise). == Palliative care will continue to follow to assist with symptom management and to further clarify goals of medical treatment as the clinical course evolves. . 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 ) Face to Face Time (mins): 10 >50% Counseling/Coord of Care: Yes Attestation To help prompt me to consider important information that might be impacting today's encounter and assessment, information from prior notes written by myself or my colleagues may have been "brought forward" into today's note. My signature on this note, however, is an attestation that I personally performed the exam, history, and/or decision-making noted today, and, unless otherwise indicated, the interactions with patient, family, and staff as well as the review of records all occurred today. I also attest that the listed assessment and stated plan reflect my best clinical judgment today based on the combination of historical information, prior notes, and today's exam/ interactions. When time spent is documented, it refers only to time spent today by the signer, or if indicated, combined time spent today by collaborating physician/nurse practitioner. . Nick Collins MD Jul 02, 2017 15:34
--- NOTE | 2017-07-02 18:30 | HHI.CCPN ---
Subjective Remarks/Hospital Course 06/18: 77-year-old gentleman with history of hypertension, hyperlipidemia, atrial fibrillation, COPD now admitted on 06/13 in [place] with generalized worsening weakness and chest pain. Patient was treated with Cardizem drip and cardiology was consulted. Throughout the hospitalization patient had a gradual worsening hypoxia requiring nonrebreather mask and BiPAP. Pulmonology was consulted and patient had a CT chest that showed possible ILD and pneumonia. This morning patient was found to be in acute respiratory distress that did not respond to BiPAP at 100%, therefore patient was intubated. Patient was also hypotensive and responded to IV fluid bolus. He received 1 dose of vancomycin and 1 dose of Zosyn. There was a report of GI bleed and 2 units PRBC were ordered and 1 unit was transfused already, and patient was started on a PPI drip , however there is no clear documentation about the episode. Patient was transferred to [facility] for further care. Patient was seen immediately on his arrival, hypoxic to low 80s, on PEEP of 5 and FiO2 of 1. Due to vent dyssynchrony and worsening hypoxia patient required 1 dose of paralytic. Stat chest x-ray done did not show evidence of pneumothorax. Vent settings readjusted currently FiO2 of 0.9 and O2 sat of 91%. He is on Cardizem drip at 15 mg/h, on midazolam and fentanyl drips. 06/19: No events over the night. Patient remains on an FiO2 of 1 and PEEP of 12. On amiodarone drip off Cardizem with heart rate in the 90s still in A. fib. He requires blood pressure support with phenylephrine currently at 100. T -max of 100.7 yesterday. Patient is sedated with midazolam and fentanyl drips. Chest x-ray reviewed, worsening bilateral infiltrates. ET tube approximately 7 cm above lobito. 06/20: No events over the night. Patient remains on phenylephrine at 110 and amiodarone infusion. Sedated with Versed and fentanyl. Afebrile. Good urine output, more than 2 L over the last 24 hours. On 0.7 FiO2. Chest x-ray reviewed this morning, no significant change compared to yesterday. Dark bloody aspirate in the NG tube noted. 06/21: No acute events over the night. Still with some dark NG tube aspirate. Received 1 unit PRBC yesterday evening. Patient still requiring phenylephrine at 150 and amiodarone infusion at 0.5. Sedation is achieved with midazolam and fentanyl. FiO2 currently at 0.55. Chest x-ray without significant change. T- max 98.7. 06/22: Worsening pressor requirements over the night, currently on phenylephrine at 270mcg/min. Patient developed a difficult amount of melena and worsening dark NG tube aspirate. Hemoglobin this morning down to 6.8 currently being transfused 2 units PRBC. Oxygenation down 0.4 FiO2 however still with high PEEP requirements. 06/23: No events overnight. Significant improvement in pressor requirement, currently on norepinephrine at 2 mcg/minute. Febrile with a T-max of 101.3 yesterday at noon, afebrile since then. Still with liquid, dark stool and dark NG tube aspirate. Patient remains on an FiO2 of 0.4 and PEEP of 12. 7 L positive since admission. 06/24: Remains sedated, orally intubated on mechanical ventilation. 06/25: Remains sedated, orally intubated on mechanical ventilation. Underwent colonoscopy yesterday. 06/26: Temperature current 103.6. Tachypneic on the ventilator. Currently midazolam at 7 mg/h and fentanyl drip at 150 mcg there. Currently in A. fib with RVR with heart rate in the 140s. Vasopressin has been discontinued. A.m. laboratories and chest x-ray pending. Withdraws only on the ventilator with copious green sputum noted. Patient has been pancultured today including blood sputum and urine 06/27: Low-grade temperatures persist. Pancultured yesterday currently no growth today. Transitioning from midazolam to dexmedetomidine drips. FiO2 down to 40%. Increasing bowel regimen today. 06/28: FiO2 at 40%. PEEP down to 5. Remains on dexmedetomidine drip at 0.2 mcg/ kg/min. A.m. laboratories pending. Neurologically remains severely encephalopathic. 06/29: Afebrile. FiO2 up to 45% after transition from CPAP trial to ventilator overnight. Arousable and opens eyes and follows commands with bilateral upper extremities this a.m. 06/30: Afebrile. Not tolerating CPAP trial today. Opens eyes and does follow commands. FiO2 down to 30%. Tolerating tube feeds. 07/01: T-max 99.8. Currently afebrile. We will reattempt CPAP trials again today. We will give albumin and furosemide attempt to diuresis. FiO2 35%. Tolerating tube feeds with bowel movements. Subjective: 07/02: Currently afebrile. Tolerating CPAP trials. FiO2 down to 35%. Plan is to attempt extubation tomorrow at 10 AM with transition to hospice if fails. Objective Vital Signs Date Time Temp Pulse Resp B/P (MAP) Pulse Ox O2 Delivery O2 Flow Rate FiO2 07/02/17 16:28 100 40 07/02/17 16:00 77 07/02/17 16:00 97.9 22 114/86 (95) Intake and Output 07/02/17 07/02/17 07/03/17 08:00 16:00 00:00 Intake Total 870 ml Output Total 1950 ml Balance -1080 ml Result Diagram: 07/02/17 0400 07/02/17 0400 Other Results Microbiology Date/Time Source Procedure Growth Status 06/26/17 10:46 Blood Peripheral Aerobic Blood Culture - Final NO GROWTH IN 5 DAYS Complete 06/26/17 10:46 Blood Peripheral Anaerobic Blood Culture - Final NO GROWTH IN 5 DAYS Complete 06/26/17 07:55 Sputum Endotracheal Gram Stain - Final Complete 06/26/17 07:55 Sputum Endotracheal Sputum Culture - Final NO GROWTH IN 48 HOURS. Complete 06/26/17 07:55 Urine Catheterized Urine Urine Culture - Final NO GROWTH IN 48 HOURS. Complete Imaging Last Impressions Chest X-Ray 07/02/17 0600 Signed Impressions: Service Date/Time: Sunday, July 02, 2017 04:25 - CONCLUSION: No significant change Nino Hood MD Head CT 06/26/17 0000 Signed Impressions: Service Date/Time: Monday, June 26, 2017 15:50 - CONCLUSION: 1. Mild generalized atrophy. 2. No evidence of acute infarct, hemorrhage, mass or edema. 3. Paranasal sinus fluid accumulation likely related to nasogastric tube and endotracheal tube. Mike Andrade MD Abdomen/Pelvis CT 06/26/17 0000 Signed Impressions: Service Date/Time: Monday, June 26, 2017 15:52 - CONCLUSION: 1. There is an infrarenal abdominal aortic aneurysm measuring 5 cm x 4.5 cm. 2. Scattered diverticulosis of the descending and sigmoid colon without definite inflammatory changes. 3. Nonspecific edema in the lower abdominal wall. 4. Small bilateral pleural effusions with bibasilar atelectasis. Slade Olivo MD Abdomen Ultrasound 06/22/17 0000 Signed Impressions: Service Date/Time: Thursday, June 22, 2017 13:59 - CONCLUSION: 1. Hepatomegaly 2. 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 Nino Roche MD Chest CT 06/18/17 0000 Signed Impressions: Service Date/Time: Sunday, June 18, 2017 05:38 - CONCLUSION: 1. Bilateral lower lobe multisegmental consolidative infiltrates, left larger than right. Alexys Laurent MD Objective Remarks General -77-year-old male currently orotracheally intubated HEENT - pupils are equal and reactive about 2 mm bilaterally, sclerae are anicteric, neck is supple, no rigidity, no JVD, orally intubated, NGT in left nares with dark aspirate, + LIJ CVC (06/23) - site clean dry and intact CV -tachycardic, IR. S1, S2 no S4. Currently without murmurs, clicks, gallops or rubs Chest -coarse rhonchorous breath sounds are appreciated bilateral lower lobes. Few scattered wheezes appreciated anteriorly. Abdomen -protuberant distended. Nontender. Hypoactive bowel sounds appreciated. Fecal containment device in place. Extremities - warm and well-perfused, 3+ edema, + peripheral pulses : Hanks catheter in place. Positive scrotal edema Neuro -eyes are open. Follows commands by squeezing hands bilateral upper and wiggling toes to bilateral lower extremities. Positive gag and cough. Positive corneal reflex. Opens eyes and blinks appropriately. Follows commands by squeezing hands weakly bilateral upper extremities Urinary Catheter: Yes Assessment to: Continue Hanks insert reason: ICU Pt Getting Diuretics Vascular Central Line Catheter: Yes Assessment to: Continue Date of Insertion: Jun 23, 2017 Line: Central Venous Catheter Side: Left Location: Internal, Jugular A/P Assessment and Plan Neuro/Psych: Seizure disorder NOS Toxic metabolic encephalopathy Acetaminophen 650 mg by tube every 6 hours as needed fever Currently on dexmedetomidine drip at 0.5 mcg/kg/min now for sedation/analgesia while intubated Goal RASS 0 Daily sedation vacation 06/26. EEG revealed moderate severe encephalopathic state. No epileptiform activity CT brain 06/26 revealed no acute intracranial findings EEG 06/28 revealed severe encephalopathic state. No epileptic activity CV: Atrial fibrillation with RVR Septic shock History of hypertension History of dyslipidemia Edematous colonic polyps 4.4 cm distal femoral aneurysm -54.5 cm infrarenal femoral Coronary artery disease with a history of inferior myocardial infarction Chronic right bundle branch block Currently on amiodarone 200 mg p.o. twice daily diltiazem 30 mg every 6 hours Repeat echocardiogram 06/25 revealed EF 50-55%. Moderate TR. PAP 44.3 mmHg Home medications include simvastatin 20 mg daily for dyslipidemia. This is currently on hold Home medications for hypertension/A. fib his diltiazem 240 mg daily? Resp: Acute hypoxemic respiratory failure Interstitial lung disease COPD Overnight on ACV / CPAP trials 03/05 at 35% Ventilator bundle Ipratropium aerosols every 4 hours scheduled Spontaneous breathing trials when clinically indicated Plan for HRCT 6-8 weeks post extubation per Dr. Payton CT thorax revealed bilateral infiltrates left greater than right. Follow-up chest x-ray 07/03 GI: Chronic gastritis Hypoalbuminemia Hepatomegaly Hiatal hernia Elevated AST Currently on Jevity 1.5 at 75 cc an hour per nutrition's recommendations Currently on Lansoprazole 30 mg by tube daily Docusate sodium 100 mg twice daily, senna 8.8 mg twice daily Colonoscopy 06/24 with snare polypectomy. Pathology revealed adenomatous polyps Pathology from EGD 06/23 revealed chronic gastritis Ultrasound of abdomen revealed hepatomegaly only : Hanks catheter has been placed for accurate I's and O's in a critically ill patient Endo: Sliding scale insulin with Novulin R with Accu-Cheks to maintain euglycemia every 6 hours/low regimen TSH is currently 2.17 Renal: Creatinine currently within normal limits Monitor urine output Accurate I's and O's Heme: Acute blood loss anemia -6 units PRBCs transfused this hospitalization Normocytic anemia Chronic anticoagulation with rivaroxaban Admission with hypercoagulable state status post vitamin K 10 mg and 6 FFP Hemoglobin currently around 9 No obvious source of bleeding noted. Restart rivaroxaban 20 mg by mouth daily for nonvalvular atrial fibrillation ID: Strep pneumo pneumonia Strep viridian bacteremia/septicemia Currently on ceftriaxone 2 g IV daily. Previously treated with vancomycin and piperacillin/tazobactam 06/21- Pertinent cultures 06/26 blood, sputum and urine all pending 06/18 -blood cultures 2 -coag staph/strep viridian. Coag staph likely contaminant 06/18 -sputum -strep pneumonia 06/19 -blood cultures 2 -no growth UA 06/18 -no growth Urine Legionella pneumococcal antigen/influenza negative FEN: Replace electrolytes as clinically indicated per ICU electrolyte protocol MSK: Elevated BMI PT evaluate and treat Weight loss encouraged Access -Left IJ CVL placed 06/23 to present -Left femoral arterial line placed 06/18- 06/26 Prophylaxis -GI - lansoprazole -DVT -SCD/Rivaroxaban Level 3 follow-up Family meeting today. Plan is to extubate tomorrow clinically stable at 10 AM with family at bedside. No plans for reintubation. Transition to hospice deteriorates. Dr. Collins will be available at that time as well. Zohaib Montes De Oca MD Jul 02, 2017 18:30
[2017-07-03] VITALS (18 sets, daily range): BP systolic 92–144; BP diastolic 6–67; PULSE 58–119; RESP 18–32; TEMP 97.3–98.8; O2SAT 92–100
[2017-07-03] MEDS: DILTIAZEM HCL 30 MG TAB PO SCH ×4 (00:27→17:02)
[2017-07-03] MEDS: ARTIFICIAL TEARS OPTH SOLN 15 ML BTL EACH EYE SCH ×4 (00:28→22:03)
[2017-07-03] MEDS: RESP: IPRATROPIUM 0.5 MG/2.5 ML NEB NEB SCH ×6 (01:34→19:51)
[2017-07-03 04:47] LABS: AUTOMATED NEUTROPHIL # 4.9 TH/MM3 (1.8-7.7); BASOPHIL # 0.1 TH/MM3 (0-0.2); BASOPHIL % 0.9 % (0.0-2.0); EOSINOPHIL # 0.3 TH/MM3 (0-0.4); EOSINOPHIL % 4.2 % (0.0-4.0); HEMATOCRIT 25.3 % (39.0-51.0); HEMOGLOBIN 8.2 GM/DL (13.0-17.0); LYMPH % 13.2 % (9.0-44.0); LYMPHOCYTE # 0.9 TH/MM3 (1.0-4.8); MEAN CELL VOLUME 89.8 FL (80.0-100.0); MEAN CORPUSCULAR HEMOGLOBIN 29.1 PG (27.0-34.0); MEAN CORPUSCULAR HGB CONC 32.3 % (32.0-36.0); MONO % 8.2 % (0.0-8.0); MONOCYTE # 0.5 TH/MM3 (0-0.9); NEUT % 73.5 % (16.0-70.0); PLATELET COUNT 252 TH/MM3 (150-450); RED BLOOD COUNT 2.82 MIL/MM3 (4.50-5.90); RED CELL DISTRIBUTION WIDTH 16.8 % (11.6-17.2); WHITE BLOOD COUNT 6.6 TH/MM3 (4.0-11.0)
[2017-07-03 05:10] LABS: ALBUMIN 1.8 GM/DL (3.4-5.0); AST (GOT) 44 U/L (15-37); BICARBONATE 24.8 MEQ/L (21.0-32.0); BLOOD UREA NITROGEN 10 MG/DL (7-18); CALCIUM 7.9 MG/DL (8.5-10.1); CHLORIDE 110 MEQ/L (98-107); CREATININE 0.69 MG/DL (0.60-1.30); GLOMERULAR FILTRATION RATE 111 ML/MIN (>89); GLUCOSE,RANDOM 135 MG/DL (74-106); MAGNESIUM 2.2 MG/DL (1.5-2.5); SODIUM (NA) 142 MEQ/L (136-145)
[2017-07-03 05:11] LABS: ALT (GPT) 34 U/L (12-78); PHOSPHORUS 3.7 MG/DL (2.5-4.9)
[2017-07-03 05:14] LABS: ALKALINE PHOSPHATASE 87 U/L (45-117); TOTAL BILIRUBIN ADULT 0.3 MG/DL (0.2-1.0); TOTAL PROTEIN 6.4 GM/DL (6.4-8.2)
--- NOTE | 2017-07-03 05:58 | RADRPT ---
EXAM DATE/TIME: 07/03/2017 04:06 [facility] COMPARISON: CHEST SINGLE AP, July 02, 2017, 4:25. INDICATIONS : Shortness of breath. MEDICAL HISTORY : Hypertension. Chronic obstructive pulmonary disease. Cardiovascular disease. seizures. SURGICAL HISTORY : None. ENCOUNTER: Subsequent ACUITY: 1 week PAIN SCORE: Non-responsive. LOCATION: Bilateral chest FINDINGS: Endotracheal tube nasogastric tube and left-sided central line are stable. Hazy bilateral primarily b asilar pleural-parenchymal opacities persist unchanged. Cardiac contours are stable. CONCLUSION: No significant change Nino Hood MD on July 03, 2017 at 5:56 Board Certified Radiologist. This report was verified electronically.
[2017-07-03] MEDS: INSULIN NovoLIN REGULAR SUPPLEMENTAL SCALE SQ SCH ×3 (06:00→10:55)
[2017-07-03] MEDS: DOCUSATE SODIUM 100 MG/10 ML UDC PO SCH ×2 (07:37→21:00)
[2017-07-03] MEDS: LANSOPRAZOLE SOLUTAB 30 MG TAB NG SCH (07:37)
[2017-07-03] MEDS: SENNOSIDES SYRUP 8.8 MG/5 ML CUP NG SCH ×2 (07:37→21:00)
[2017-07-03] MEDS: AMIODARONE 200 MG TAB PO SCH ×2 (07:37→22:03)
[2017-07-03] MEDS: RIVAROXABAN 20 MG TAB PO SCH (07:42)
[2017-07-03] MEDS: SODIUM CHLORIDE 0.9% FLUSH 10 ML FLUSH IV FLUSH SCH ×2 (07:43→22:03)
--- NOTE | 2017-07-03 09:58 | HHI.CCPN ---
Subjective Remarks/Hospital Course 06/18: 77-year-old gentleman with history of hypertension, hyperlipidemia, atrial fibrillation, COPD now admitted on 06/13 in [place] with generalized worsening weakness and chest pain. Patient was treated with Cardizem drip and cardiology was consulted. Throughout the hospitalization patient had a gradual worsening hypoxia requiring nonrebreather mask and BiPAP. Pulmonology was consulted and patient had a CT chest that showed possible ILD and pneumonia. This morning patient was found to be in acute respiratory distress that did not respond to BiPAP at 100%, therefore patient was intubated. Patient was also hypotensive and responded to IV fluid bolus. He received 1 dose of vancomycin and 1 dose of Zosyn. There was a report of GI bleed and 2 units PRBC were ordered and 1 unit was transfused already, and patient was started on a PPI drip , however there is no clear documentation about the episode. Patient was transferred to [facility] for further care. Patient was seen immediately on his arrival, hypoxic to low 80s, on PEEP of 5 and FiO2 of 1. Due to vent dyssynchrony and worsening hypoxia patient required 1 dose of paralytic. Stat chest x-ray done did not show evidence of pneumothorax. Vent settings readjusted currently FiO2 of 0.9 and O2 sat of 91%. He is on Cardizem drip at 15 mg/h, on midazolam and fentanyl drips. 06/19: No events over the night. Patient remains on an FiO2 of 1 and PEEP of 12. On amiodarone drip off Cardizem with heart rate in the 90s still in A. fib. He requires blood pressure support with phenylephrine currently at 100. T -max of 100.7 yesterday. Patient is sedated with midazolam and fentanyl drips. Chest x-ray reviewed, worsening bilateral infiltrates. ET tube approximately 7 cm above lobito. 06/20: No events over the night. Patient remains on phenylephrine at 110 and amiodarone infusion. Sedated with Versed and fentanyl. Afebrile. Good urine output, more than 2 L over the last 24 hours. On 0.7 FiO2. Chest x-ray reviewed this morning, no significant change compared to yesterday. Dark bloody aspirate in the NG tube noted. 06/21: No acute events over the night. Still with some dark NG tube aspirate. Received 1 unit PRBC yesterday evening. Patient still requiring phenylephrine at 150 and amiodarone infusion at 0.5. Sedation is achieved with midazolam and fentanyl. FiO2 currently at 0.55. Chest x-ray without significant change. T- max 98.7. 06/22: Worsening pressor requirements over the night, currently on phenylephrine at 270mcg/min. Patient developed a difficult amount of melena and worsening dark NG tube aspirate. Hemoglobin this morning down to 6.8 currently being transfused 2 units PRBC. Oxygenation down 0.4 FiO2 however still with high PEEP requirements. 06/23: No events overnight. Significant improvement in pressor requirement, currently on norepinephrine at 2 mcg/minute. Febrile with a T-max of 101.3 yesterday at noon, afebrile since then. Still with liquid, dark stool and dark NG tube aspirate. Patient remains on an FiO2 of 0.4 and PEEP of 12. 7 L positive since admission. 06/24: Remains sedated, orally intubated on mechanical ventilation. 06/25: Remains sedated, orally intubated on mechanical ventilation. Underwent colonoscopy yesterday. 06/26: Temperature current 103.6. Tachypneic on the ventilator. Currently midazolam at 7 mg/h and fentanyl drip at 150 mcg there. Currently in A. fib with RVR with heart rate in the 140s. Vasopressin has been discontinued. A.m. laboratories and chest x-ray pending. Withdraws only on the ventilator with copious green sputum noted. Patient has been pancultured today including blood sputum and urine 06/27: Low-grade temperatures persist. Pancultured yesterday currently no growth today. Transitioning from midazolam to dexmedetomidine drips. FiO2 down to 40%. Increasing bowel regimen today. 06/28: FiO2 at 40%. PEEP down to 5. Remains on dexmedetomidine drip at 0.2 mcg/ kg/min. A.m. laboratories pending. Neurologically remains severely encephalopathic. 06/29: Afebrile. FiO2 up to 45% after transition from CPAP trial to ventilator overnight. Arousable and opens eyes and follows commands with bilateral upper extremities this a.m. 06/30: Afebrile. Not tolerating CPAP trial today. Opens eyes and does follow commands. FiO2 down to 30%. Tolerating tube feeds. 07/01: T-max 99.8. Currently afebrile. We will reattempt CPAP trials again today. We will give albumin and furosemide attempt to diuresis. FiO2 35%. Tolerating tube feeds with bowel movements. Subjective: 07/02: Currently afebrile. Tolerating CPAP trials. FiO2 down to 35%. Plan is to attempt extubation tomorrow at 10 AM with transition to hospice if fails. 07/03: passed SBT. palliative at bedside. plan to medically extubate with the understanding that he is very likely to fail trial of extubation and we will transition to comfort measures and hospice. Objective Vital Signs Date Time Temp Pulse Resp B/P (MAP) Pulse Ox O2 Delivery O2 Flow Rate FiO2 07/03/17 09:16 94 35 07/03/17 08:00 88 07/03/17 08:00 97.3 24 126/64 (84) Intake and Output 07/03/17 07/03/17 07/04/17 08:00 16:00 00:00 Intake Total 900 ml Output Total 1600 ml Balance -700 ml Result Diagram: 07/03/17 0415 07/03/17 0415 Imaging Last Impressions Chest X-Ray 07/02/17 0600 Signed Impressions: Service Date/Time: Sunday, July 02, 2017 04:25 - CONCLUSION: No significant change Nino Hood MD Head CT 06/26/17 0000 Signed Impressions: Service Date/Time: Monday, June 26, 2017 15:50 - CONCLUSION: 1. Mild generalized atrophy. 2. No evidence of acute infarct, hemorrhage, mass or edema. 3. Paranasal sinus fluid accumulation likely related to nasogastric tube and endotracheal tube. Mike Andrade MD Abdomen/Pelvis CT 06/26/17 0000 Signed Impressions: Service Date/Time: Monday, June 26, 2017 15:52 - CONCLUSION: 1. There is an infrarenal abdominal aortic aneurysm measuring 5 cm x 4.5 cm. 2. Scattered diverticulosis of the descending and sigmoid colon without definite inflammatory changes. 3. Nonspecific edema in the lower abdominal wall. 4. Small bilateral pleural effusions with bibasilar atelectasis. Slade Olivo MD Abdomen Ultrasound 06/22/17 0000 Signed Impressions: Service Date/Time: Thursday, June 22, 2017 13:59 - CONCLUSION: 1. Hepatomegaly 2. 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 Nino Roche MD Chest CT 06/18/17 0000 Signed Impressions: Service Date/Time: Sunday, June 18, 2017 05:38 - CONCLUSION: 1. Bilateral lower lobe multisegmental consolidative infiltrates, left larger than right. Alexys Laurent MD Objective Remarks General -77-year-old male currently orotracheally intubated HEENT - pupils are equal and reactive about 2 mm bilaterally, sclerae are anicteric, orally intubated, NGT in left nares with dark aspirate, CV -tachycardic, IR. Chest -equal chest rise. PSV Abdomen -protuberant distended. Nontender. Extremities - warm and well-perfused, 3+ edema, + peripheral pulses : Hanks catheter in place. Positive scrotal edema Neuro -eyes are open. Follows commands by squeezing hands bilateral upper and wiggling toes to bilateral lower extremities. Positive gag and cough. Positive corneal reflex. Opens eyes and blinks appropriately. Follows commands by squeezing hands weakly bilateral upper extremities Date of Insertion: Jun 23, 2017 Line: Central Venous Catheter Side: Left Location: Internal, Jugular A/P Assessment and Plan Neuro/Psych: Seizure disorder NOS Toxic metabolic encephalopathy Acetaminophen 650 mg by tube every 6 hours as needed fever Currently on dexmedetomidine drip at 0.5 mcg/kg/min now for sedation/analgesia while intubated Goal RASS 0 Daily sedation vacation 06/26. EEG revealed moderate severe encephalopathic state. No epileptiform activity CT brain 06/26 revealed no acute intracranial findings EEG 06/28 revealed severe encephalopathic state. No epileptic activity CV: Atrial fibrillation with RVR Septic shock History of hypertension History of dyslipidemia Edematous colonic polyps 4.4 cm distal femoral aneurysm -54.5 cm infrarenal femoral Coronary artery disease with a history of inferior myocardial infarction Chronic right bundle branch block Currently on amiodarone 200 mg p.o. twice daily diltiazem 30 mg every 6 hours Repeat echocardiogram 06/25 revealed EF 50-55%. Moderate TR. PAP 44.3 mmHg Home medications include simvastatin 20 mg daily for dyslipidemia. This is currently on hold Home medications for hypertension/A. fib his diltiazem 240 mg daily? Resp: Acute hypoxemic respiratory failure Interstitial lung disease COPD Overnight on ACV 16//35 CPAP trials 03/05 at 35% Ventilator bundle Ipratropium aerosols every 4 hours scheduled Spontaneous breathing trials when clinically indicated Plan for HRCT 6-8 weeks post extubation per Dr. Payton CT thorax revealed bilateral infiltrates left greater than right. extubate today. GI: Chronic gastritis Hypoalbuminemia Hepatomegaly Hiatal hernia Elevated AST Currently on Jevity 1.5 at 75 cc an hour per nutrition's recommendations Currently on Lansoprazole 30 mg by tube daily Docusate sodium 100 mg twice daily, senna 8.8 mg twice daily Colonoscopy 06/24 with snare polypectomy. Pathology revealed adenomatous polyps Pathology from EGD 06/23 revealed chronic gastritis Ultrasound of abdomen revealed hepatomegaly only : Hanks catheter has been placed for accurate I's and O's in a critically ill patient Endo: Sliding scale insulin with Novulin R with Accu-Cheks to maintain euglycemia every 6 hours/low regimen TSH is currently 2.17 Renal: Creatinine currently within normal limits Monitor urine output Accurate I's and O's Heme: Acute blood loss anemia -6 units PRBCs transfused this hospitalization Normocytic anemia Chronic anticoagulation with rivaroxaban Admission with hypercoagulable state status post vitamin K 10 mg and 6 FFP Hemoglobin currently around 9 No obvious source of bleeding noted. Restart rivaroxaban 20 mg by mouth daily for nonvalvular atrial fibrillation ID: Strep pneumo pneumonia Strep viridian bacteremia/septicemia Currently on ceftriaxone 2 g IV daily. Previously treated with vancomycin and piperacillin/tazobactam 06/21- Pertinent cultures 06/26 blood, sputum and urine all pending 06/18 -blood cultures 2 -coag staph/strep viridian. Coag staph likely contaminant 06/18 -sputum -strep pneumonia 06/19 -blood cultures 2 -no growth UA 06/18 -no growth Urine Legionella pneumococcal antigen/influenza negative FEN: Replace electrolytes as clinically indicated per ICU electrolyte protocol MSK: Elevated BMI PT evaluate and treat Weight loss encouraged Access -Left IJ CVL placed 06/23 to present -Left femoral arterial line placed 06/18- 06/26 Prophylaxis -GI - lansoprazole -DVT -SCD/Rivaroxaban OVERALL IMPRESSION: weak, deconditioned. unlikely to successfully separate from mechanical ventilation. plan to transition to palliative comfort measures if he does not improve off mechanical ventilation. Cody Cerrato MD Jul 03, 2017 09:58
[2017-07-03] MEDS ORDERED: MORPHINE SULFATE 4 MG/ML INJ IV PUSH PRN (10:00)
--- NOTE | 2017-07-03 10:54 | HHI.HCPN ---
Reason for visit a. To assist with evaluation and management of symptoms including: dyspnea; encephalopathy; generalized weakness b. To assist medical decision maker(s) with: better understanding of current medical conditions; weighing benefits/burdens of medical treatment options; making medical treatment decisions. . Subjective/Interval History I was patient this AM as Mr. Lugo was medically extubated. He was awake and alert at the time. He tolerated extubation well, denied pain, denied dyspnea and post extubations 02 sats were in the mid 90s on via nasal cannula. Following extubation, and prior to family entering the room, I was able to ask patient about goals and preferences for care going forward. He was clear that he did not want to go back on life support. No other significant changes overnight. VSS No need for PRN meds. Urine output good. Passing liquid brown stool. Tolerating tube feeds. Lab stable. . Family/friend interactions Discussed goals of care with patient at bedside and confirmed his desire for " NO CODE" status. Provided anticipatory guidance for family prior to extubation. Discussed options of care with family going forward. If patient stabilizes or improves than they may want to consider aggressive care short of resuscitation which would include skilled care post hospitalization to try and help the patient regains some strength. If the patient declines , then hospice care would make the most sense. Family is quite adamant that patient cannot go home as the patient's spouse ( wheelchair bound and on continuous 02) would also be overwhelmed. . Advance Directives Living Will: Never completed Health Care Surrogate: Never completed Durable Power of Legal Director: Never completed Advance Directive Specifics Date completed: Per , patient has never completed an advanced directive. . Health Care Surrogate(s): The patient has never completed a written designation of healthcare surrogate. . Documented care wishes: We have no written documentation of patient's healthcare goals/preferences. . Significant change in goals: Patient himself is awake, alert, and capacitated at time of extubation on and personally expresses his wish for DNR status. . Objective Vital Signs Date Time Temp Pulse Resp B/P (MAP) Pulse Ox O2 Delivery O2 Flow Rate FiO2 07/03/17 09:55 96 Nasal Cannula 4 07/03/17 09:55 96 Nasal Cannula 4.00 07/03/17 09:16 94 35 07/03/17 08:00 88 07/03/17 08:00 97.3 88 24 126/64 (84) 97 07/03/17 08:00 35 07/03/17 07:36 Nasal Cannula 35 07/03/17 07:36 96 35 07/03/17 06:00 74 07/03/17 04:52 100 35 07/03/17 04:00 68 07/03/17 04:00 40 07/03/17 04:00 98.2 68 23 103/56 (72) 97 07/03/17 02:00 64 07/03/17 01:34 97 40 07/03/17 00:00 40 07/03/17 00:00 98.5 60 18 92/55 (67) 97 07/03/17 00:00 58 07/02/17 22:00 58 07/02/17 21:05 99 40 07/02/17 20:00 69 07/02/17 20:00 40 07/02/17 20:00 98.3 60 19 97/57 (70) 96 07/02/17 18:00 69 07/02/17 16:28 100 40 07/02/17 16:00 40 07/02/17 16:00 77 07/02/17 16:00 97.9 77 22 114/86 (95) 98 07/02/17 14:00 64 07/02/17 12:49 100 40 07/02/17 12:00 40 07/02/17 12:00 97.9 76 17 111/63 (79) 99 07/02/17 12:00 76 Intake & Output 07/03/17 07/03/17 06:59 18:59 Intake Total 1400 ml Output Total 1600 ml Balance -200 ml IV Total 500 ml Tube Feeding 900 ml Output Urine Total 1500 ml Stool Total 100 ml Gastric Drainage Total 0 ml . Physical Exam CONSTITUTIONAL/GENERAL: This is an adequately nourished patient, extubated, awake and alert in a surgical intensive care unit bed. No apparent distress. TUBES/LINES/DRAINS: Right internal jugular central line triple-lumen; nasogastric tube; Hanks catheter; rectal tube, PIV. SKIN: No jaundice. Skin temperature appropriate. Not diaphoretic. EYES: Pupils equal and round. EOMs intact. No scleral icterus. No injection or drainage. ENT: Hearing grossly normal. Nose without bleeding or purulent drainage. Dry oral mucosa. NECK: Trachea midline. Supple. CARDIOVASCULAR: Irregularly irregular heart rhythm. No audible gallops, or rubs. No JVD. RESPIRATORY/CHEST: Symmetric, unlabored respirations. Air movement approximately equal bilaterally. Diminished breath sounds at both bases. No audible wheezes. Intermittent coughing post extubation with some phlegm. GASTROINTESTINAL: Abdomen is obese, large, round,soft. Bowel sounds present. GENITOURINARY: Without palpable bladder distension. MUSCULOSKELETAL: Extremities without clubbing, cyanosis. 1+ edema present NEUROLOGICAL: Awake, alert, follows commands, moves all extremities. Answers questions appropriately. PSYCHIATRIC:No obvious depression/anxiety/psychosis. . . Diagnostic Tests Laboratory Laboratory Tests Test 07/01/17 05:04 07/02/17 04:00 07/03/17 04:15 White Blood Count 8.2 TH/MM3 (4.0-11.0) 7.8 TH/MM3 (4.0-11.0) 6.6 TH/MM3 (4.0-11.0) Red Blood Count 2.85 MIL/MM3 (4.50-5.90) 2.75 MIL/MM3 (4.50-5.90) 2.82 MIL/MM3 (4.50-5.90) Hemoglobin 8.5 GM/DL (13.0-17.0) 8.1 GM/DL (13.0-17.0) 8.2 GM/DL (13.0-17.0) Hematocrit 26.3 % (39.0-51.0) 25.0 % (39.0-51.0) 25.3 % (39.0-51.0) Mean Corpuscular Volume 92.1 FL (80.0-100.0) 91.1 FL (80.0-100.0) 89.8 FL (80.0-100.0) Mean Corpuscular Hemoglobin 29.9 PG (27.0-34.0) 29.5 PG (27.0-34.0) 29.1 PG (27.0-34.0) Mean Corpuscular Hemoglobin Concent 32.4 % (32.0-36.0) 32.4 % (32.0-36.0) 32.3 % (32.0-36.0) Red Cell Distribution Width 17.5 % (11.6-17.2) 17.3 % (11.6-17.2) 16.8 % (11.6-17.2) Platelet Count 249 TH/MM3 (150-450) 231 TH/MM3 (150-450) 252 TH/MM3 (150-450) Mean Platelet Volume 8.8 FL (7.0-11.0) 9.6 FL (7.0-11.0) 9.0 FL (7.0-11.0) Neutrophils (%) (Auto) 79.1 % (16.0-70.0) 78.9 % (16.0-70.0) 73.5 % (16.0-70.0) Lymphocytes (%) (Auto) 10.3 % (9.0-44.0) 10.6 % (9.0-44.0) 13.2 % (9.0-44.0) Monocytes (%) (Auto) 7.4 % (0.0-8.0) 7.2 % (0.0-8.0) 8.2 % (0.0-8.0) Eosinophils (%) (Auto) 2.3 % (0.0-4.0) 2.5 % (0.0-4.0) 4.2 % (0.0-4.0) Basophils (%) (Auto) 0.9 % (0.0-2.0) 0.8 % (0.0-2.0) 0.9 % (0.0-2.0) Neutrophils # (Auto) 6.5 TH/MM3 (1.8-7.7) 6.2 TH/MM3 (1.8-7.7) 4.9 TH/MM3 (1.8-7.7) Lymphocytes # (Auto) 0.8 TH/MM3 (1.0-4.8) 0.8 TH/MM3 (1.0-4.8) 0.9 TH/MM3 (1.0-4.8) Monocytes # (Auto) 0.6 TH/MM3 (0-0.9) 0.6 TH/MM3 (0-0.9) 0.5 TH/MM3 (0-0.9) Eosinophils # (Auto) 0.2 TH/MM3 (0-0.4) 0.2 TH/MM3 (0-0.4) 0.3 TH/MM3 (0-0.4) Basophils # (Auto) 0.1 TH/MM3 (0-0.2) 0.1 TH/MM3 (0-0.2) 0.1 TH/MM3 (0-0.2) CBC Comment DIFF FINAL DIFF FINAL DIFF FINAL Differential Comment Blood Urea Nitrogen 9 MG/DL (7-18) 12 MG/DL (7-18) 10 MG/DL (7-18) Creatinine 0.67 MG/DL (0.60-1.30) 0.69 MG/DL (0.60-1.30) 0.69 MG/DL (0.60-1.30) Random Glucose 123 MG/DL (74-106) 139 MG/DL (74-106) 135 MG/DL (74-106) Total Protein 6.3 GM/DL (6.4-8.2) 6.3 GM/DL (6.4-8.2) 6.4 GM/DL (6.4-8.2) Albumin 1.7 GM/DL (3.4-5.0) 1.8 GM/DL (3.4-5.0) 1.8 GM/DL (3.4-5.0) Calcium Level 8.1 MG/DL (8.5-10.1) 8.0 MG/DL (8.5-10.1) 7.9 MG/DL (8.5-10.1) Phosphorus Level 3.2 MG/DL (2.5-4.9) 3.3 MG/DL (2.5-4.9) 3.7 MG/DL (2.5-4.9) Magnesium Level 2.2 MG/DL (1.5-2.5) 2.1 MG/DL (1.5-2.5) 2.2 MG/DL (1.5-2.5) Alkaline Phosphatase 80 U/L (45-117) 85 U/L (45-117) 87 U/L (45-117) Aspartate Amino Transf (AST/SGOT) 43 U/L (15-37) 49 U/L (15-37) 44 U/L (15-37) Alanine Aminotransferase (ALT/SGPT) 25 U/L (12-78) 34 U/L (12-78) 34 U/L (12-78) Total Bilirubin 0.3 MG/DL (0.2-1.0) 0.2 MG/DL (0.2-1.0) 0.3 MG/DL (0.2-1.0) Sodium Level 144 MEQ/L (136-145) 143 MEQ/L (136-145) 142 MEQ/L (136-145) Potassium Level 4.4 MEQ/L (3.5-5.1) 4.2 MEQ/L (3.5-5.1) 3.8 MEQ/L (3.5-5.1) Chloride Level 114 MEQ/L (98-107) 110 MEQ/L (98-107) 110 MEQ/L (98-107) Carbon Dioxide Level 24.9 MEQ/L (21.0-32.0) 27.0 MEQ/L (21.0-32.0) 24.8 MEQ/L (21.0-32.0) Anion Gap 5 MEQ/L (5-15) 6 MEQ/L (5-15) 7 MEQ/L (5-15) Estimat Glomerular Filtration Rate 115 ML/MIN (>89) 111 ML/MIN (>89) 111 ML/MIN (>89) . Result Diagram: 07/03/17 0415 07/03/17 0415 Microbiology Microbiology Date/Time Source Procedure Growth Status 06/26/17 10:46 Blood Peripheral Aerobic Blood Culture - Final NO GROWTH IN 5 DAYS Complete 06/26/17 10:46 Blood Peripheral Anaerobic Blood Culture - Final NO GROWTH IN 5 DAYS Complete 06/26/17 07:55 Sputum Endotracheal Gram Stain - Final Complete 06/26/17 07:55 Sputum Endotracheal Sputum Culture - Final NO GROWTH IN 48 HOURS. Complete 06/26/17 07:55 Urine Catheterized Urine Urine Culture - Final NO GROWTH IN 48 HOURS. Complete . Imaging Last Impressions Chest X-Ray 07/03/17 0600 Signed Impressions: Service Date/Time: Monday, July 03, 2017 04:06 - CONCLUSION: No significant change Nino Hood MD Head CT 06/26/17 0000 Signed Impressions: Service Date/Time: Monday, June 26, 2017 15:50 - CONCLUSION: 1. Mild generalized atrophy. 2. No evidence of acute infarct, hemorrhage, mass or edema. 3. Paranasal sinus fluid accumulation likely related to nasogastric tube and endotracheal tube. Mike Andrade MD Abdomen/Pelvis CT 06/26/17 0000 Signed Impressions: Service Date/Time: Monday, June 26, 2017 15:52 - CONCLUSION: 1. There is an infrarenal abdominal aortic aneurysm measuring 5 cm x 4.5 cm. 2. Scattered diverticulosis of the descending and sigmoid colon without definite inflammatory changes. 3. Nonspecific edema in the lower abdominal wall. 4. Small bilateral pleural effusions with bibasilar atelectasis. Slade Olivo MD Abdomen Ultrasound 06/22/17 0000 Signed Impressions: Service Date/Time: Thursday, June 22, 2017 13:59 - CONCLUSION: 1. Hepatomegaly 2. 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 Nino Roche MD Chest CT 06/18/17 0000 Signed Impressions: Service Date/Time: Sunday, June 18, 2017 05:38 - CONCLUSION: 1. Bilateral lower lobe multisegmental consolidative infiltrates, left larger than right. Alexys Laurent MD . Procedures * 06/18/17 -Intubation/mechanical ventilation * 06/18/17 -Right internal jugular line placement * 06/18/17 -Left femoral artery line placement * 06/23/17 -EGD * 06/24/17 -colonoscopy with biopsy * 07/03/17 Extubation . . Assessment and Plan Disease Oriented Problem List: (1) Acute hypoxemic respiratory failure Comment: Extubated 07/03/17 . Not to be re-intubated. (2) Pneumonia (3) Atrial fibrillation with RVR (4) Proximal muscle weakness (5) GIB (gastrointestinal bleeding) Comment: Probable diverticular disease. . (6) Coronary artery disease (7) Hyperlipidemia (8) Hypertension (9) Abdominal aortic aneurysm (AAA) 3.0 cm to 5.5 cm in diameter in male Comment: Infra-renal (10) COPD (chronic obstructive pulmonary disease) Comment: Noted on PFTs in 2016. . Symptom Scale: (1) Pain 0-10 Scale: 0 Comment: Denies (2) Dyspnea 0-10 Scale: 3 Comment: Comfortable post extubation on nasal cannula 02. . . (3) Encephalopathy 0-10 Scale: 0 Comment: Cognitively intact today. . . Pertinent Non-Medical Issues Psychosocial: Lives at home with who is wheelchair bound and need 24 hour 02. Well supported by step children. Spiritual: Orthodox. 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 Legal: No known advance directives. is proxy Ethical issues impacting care: Pt currently incapacitated but might re-gain capacity. . Important Contacts José uLgo (spouse; health care proxy) [phone] . Prognosis Patient had been very hard to wean from the vent even after aggressive treatment of his pneumonia. He was growing progressively weaker even before he developed the pneumonia. He was successfully extubated today per patient/ family wishes. Given his decline prior to becoming acutely ill, and the challenge to get him off the vent, he will remain at high risk for setbacks and future infections. . . Code Status: No Code Plan == Code Status: NO CODE per conversation directly with patient at time of extubation. == Decision Making: Patient is awake, alert and able to converse post extubation on 07/03/17. He appears capacitated to make his own health care decision. There is a high likelihood of setback. Should he become incapacitated again, at this time there is no known written designation of healthcare surrogate. As per [place] statue, proxy healthcare decision making therefore falls to his spouse José Lugo. has accepted this role and is fully supported by patient's children. == Goals of medical treatment: Will continue aggressive care short of resuscitation for now. Should patient start to fail from a respiratory standpoint, patient and family would want comfort measures and hospice. Should he stabilize or improve they will want to continue aggressive care and have patient go to custodial care. == Symptoms * Pain: Patient did not have any prehospitalization pain syndromes. Current sources of discomfort might include prolonged bedbound status; nasogastric intubation; Hanks catheterization; vascular access lines. Patient denies pain during visit today. . Opioid and benzo orders have been added to regimen to be available should patient tire out, show evidence of respiratory decline as he is not to be re-intubated. * Dyspnea: Currently managed by ventilator support. Opioid and benzo orders have been added to regimen to be available should patient tire out, show evidence of respiratory decline as he is not to be re-intubated. == Case discussed with bedside RN and Dr. Cerrato. == Code status changed in orders to DNR == Hospice consult placed to provide more information to family on hospice services. == Palliative care will continue to follow to assist with symptom management and to further clarify goals of medical treatment as the clinical course evolves. . Time Spent Total Floor Time (mins): 60 (Total floor time included chart review; patient exam; bedside discussion with patient on resuscitation status; above referenced conversations with family; collaboration with dye feeder and primary nurse; telephone call to hospice admissions nurse; documentation. ) Face to Face Time (mins): 20 >50% Counseling/Coord of Care: Yes Attestation To help prompt me to consider important information that might be impacting today's encounter and assessment, information from prior notes written by myself or my colleagues may have been "brought forward" into today's note. My signature on this note, however, is an attestation that I personally performed the exam, history, and/or decision-making noted today, and, unless otherwise indicated, the interactions with patient, family, and staff as well as the review of records all occurred today. I also attest that the listed assessment and stated plan reflect my best clinical judgment today based on the combination of historical information, prior notes, and today's exam/ interactions. When time spent is documented, it refers only to time spent today by the signer, or if indicated, combined time spent today by collaborating physician/nurse practitioner. . Nick Collins MD Jul 03, 2017 10:54
[2017-07-03] MEDS ORDERED: LORazepam 2 MG/ML VIAL IV PUSH PRN (12:00)
[2017-07-03] MEDS: cefTRIAXone INJ 2,000 MG in SODIUM CHLORIDE 0.9% INJ 100 ML IV SCH (12:01)
[2017-07-04] VITALS (11 sets, daily range): BP systolic 145–165; BP diastolic 67–81; PULSE 82–104; RESP 20–36; TEMP 98.2–99.9; O2SAT 93–97
[2017-07-04] MEDS: RESP: IPRATROPIUM 0.5 MG/2.5 ML NEB NEB SCH ×7 (00:28→23:58)
[2017-07-04] MEDS: DILTIAZEM HCL 30 MG TAB PO SCH ×4 (03:30→17:41)
[2017-07-04 06:45] LABS: HEMOGLOBIN 8.9 GM/DL (13.0-17.0); MEAN PLATELET VOLUME 9.1 FL (7.0-11.0); PLATELET COUNT 313 TH/MM3 (150-450); RED BLOOD COUNT 2.97 MIL/MM3 (4.50-5.90); RED CELL DISTRIBUTION WIDTH 17.4 % (11.6-17.2); WHITE BLOOD COUNT 7.9 TH/MM3 (4.0-11.0)
[2017-07-04 07:05] LABS: BICARBONATE 24.2 MEQ/L (21.0-32.0); CREATININE 0.7 MG/DL (0.60-1.30)
[2017-07-04] MEDS: SODIUM CHLORIDE 0.9% FLUSH 10 ML FLUSH IV FLUSH SCH ×2 (07:33→20:46)
[2017-07-04] MEDS: ARTIFICIAL TEARS OPTH SOLN 15 ML BTL EACH EYE SCH ×2 (07:33→17:38)
[2017-07-04] MEDS: LANSOPRAZOLE SOLUTAB 30 MG TAB NG SCH (07:34)
[2017-07-04] MEDS: AMIODARONE 200 MG TAB PO SCH ×2 (07:34→20:46)
[2017-07-04] MEDS: DOCUSATE SODIUM 100 MG/10 ML UDC PO SCH ×2 (07:34→20:45)
[2017-07-04] MEDS: SENNOSIDES SYRUP 8.8 MG/5 ML CUP NG SCH ×2 (07:34→20:45)
[2017-07-04] MEDS: RIVAROXABAN 20 MG TAB PO SCH (07:35)
[2017-07-04] MEDS: ACETAMINOPHEN 650 MG/20.3 ML UDC NG PRN (10:59)
[2017-07-04] MEDS: cefTRIAXone INJ 2,000 MG in SODIUM CHLORIDE 0.9% INJ 100 ML IV SCH (11:54)
--- NOTE | 2017-07-04 12:36 | HHI.CCPN ---
Subjective Remarks/Hospital Course 06/18: 77-year-old gentleman with history of hypertension, hyperlipidemia, atrial fibrillation, COPD now admitted on 06/13 in [place] with generalized worsening weakness and chest pain. Patient was treated with Cardizem drip and cardiology was consulted. Throughout the hospitalization patient had a gradual worsening hypoxia requiring nonrebreather mask and BiPAP. Pulmonology was consulted and patient had a CT chest that showed possible ILD and pneumonia. This morning patient was found to be in acute respiratory distress that did not respond to BiPAP at 100%, therefore patient was intubated. Patient was also hypotensive and responded to IV fluid bolus. He received 1 dose of vancomycin and 1 dose of Zosyn. There was a report of GI bleed and 2 units PRBC were ordered and 1 unit was transfused already, and patient was started on a PPI drip , however there is no clear documentation about the episode. Patient was transferred to [facility] for further care. Patient was seen immediately on his arrival, hypoxic to low 80s, on PEEP of 5 and FiO2 of 1. Due to vent dyssynchrony and worsening hypoxia patient required 1 dose of paralytic. Stat chest x-ray done did not show evidence of pneumothorax. Vent settings readjusted currently FiO2 of 0.9 and O2 sat of 91%. He is on Cardizem drip at 15 mg/h, on midazolam and fentanyl drips. 06/19: No events over the night. Patient remains on an FiO2 of 1 and PEEP of 12. On amiodarone drip off Cardizem with heart rate in the 90s still in A. fib. He requires blood pressure support with phenylephrine currently at 100. T -max of 100.7 yesterday. Patient is sedated with midazolam and fentanyl drips. Chest x-ray reviewed, worsening bilateral infiltrates. ET tube approximately 7 cm above lobito. 06/20: No events over the night. Patient remains on phenylephrine at 110 and amiodarone infusion. Sedated with Versed and fentanyl. Afebrile. Good urine output, more than 2 L over the last 24 hours. On 0.7 FiO2. Chest x-ray reviewed this morning, no significant change compared to yesterday. Dark bloody aspirate in the NG tube noted. 06/21: No acute events over the night. Still with some dark NG tube aspirate. Received 1 unit PRBC yesterday evening. Patient still requiring phenylephrine at 150 and amiodarone infusion at 0.5. Sedation is achieved with midazolam and fentanyl. FiO2 currently at 0.55. Chest x-ray without significant change. T- max 98.7. 06/22: Worsening pressor requirements over the night, currently on phenylephrine at 270mcg/min. Patient developed a difficult amount of melena and worsening dark NG tube aspirate. Hemoglobin this morning down to 6.8 currently being transfused 2 units PRBC. Oxygenation down 0.4 FiO2 however still with high PEEP requirements. 06/23: No events overnight. Significant improvement in pressor requirement, currently on norepinephrine at 2 mcg/minute. Febrile with a T-max of 101.3 yesterday at noon, afebrile since then. Still with liquid, dark stool and dark NG tube aspirate. Patient remains on an FiO2 of 0.4 and PEEP of 12. 7 L positive since admission. 06/24: Remains sedated, orally intubated on mechanical ventilation. 06/25: Remains sedated, orally intubated on mechanical ventilation. Underwent colonoscopy yesterday. 06/26: Temperature current 103.6. Tachypneic on the ventilator. Currently midazolam at 7 mg/h and fentanyl drip at 150 mcg there. Currently in A. fib with RVR with heart rate in the 140s. Vasopressin has been discontinued. A.m. laboratories and chest x-ray pending. Withdraws only on the ventilator with copious green sputum noted. Patient has been pancultured today including blood sputum and urine 06/27: Low-grade temperatures persist. Pancultured yesterday currently no growth today. Transitioning from midazolam to dexmedetomidine drips. FiO2 down to 40%. Increasing bowel regimen today. 06/28: FiO2 at 40%. PEEP down to 5. Remains on dexmedetomidine drip at 0.2 mcg/ kg/min. A.m. laboratories pending. Neurologically remains severely encephalopathic. 06/29: Afebrile. FiO2 up to 45% after transition from CPAP trial to ventilator overnight. Arousable and opens eyes and follows commands with bilateral upper extremities this a.m. 06/30: Afebrile. Not tolerating CPAP trial today. Opens eyes and does follow commands. FiO2 down to 30%. Tolerating tube feeds. 07/01: T-max 99.8. Currently afebrile. We will reattempt CPAP trials again today. We will give albumin and furosemide attempt to diuresis. FiO2 35%. Tolerating tube feeds with bowel movements. Subjective: 4: Currently afebrile. Tolerating CPAP trials. FiO2 down to 35%. Plan is to attempt extubation tomorrow at 10 AM with transition to hospice if fails. 07/03: passed SBT. palliative at bedside. plan to medically extubate with the understanding that he is very likely to fail trial of extubation and we will transition to comfort measures and hospice. 07/04: extubated and doing well. passed swallow evaluation. stable for transfer to floor. Objective Vital Signs Date Time Temp Pulse Resp B/P (MAP) Pulse Ox O2 Delivery O2 Flow Rate FiO2 07/04/17 12:00 99.9 87 24 155/72 (99) 93 07/04/17 07:45 Nasal Cannula 4.00 07/03/17 09:16 35 Intake and Output 07/04/17 07/04/17 07/05/17 08:00 16:00 00:00 Intake Total 120 ml 100 ml Output Total 2700 ml Balance -2580 ml 100 ml Result Diagram: 07/04/17 0510 07/04/17 0510 Imaging Last Impressions Chest X-Ray 07/02/17 0600 Signed Impressions: Service Date/Time: Sunday, July 02, 2017 04:25 - CONCLUSION: No significant change Nino Hood MD Head CT 06/26/17 0000 Signed Impressions: Service Date/Time: Monday, June 26, 2017 15:50 - CONCLUSION: 1. Mild generalized atrophy. 2. No evidence of acute infarct, hemorrhage, mass or edema. 3. Paranasal sinus fluid accumulation likely related to nasogastric tube and endotracheal tube. Mike Andrade MD Abdomen/Pelvis CT 06/26/17 0000 Signed Impressions: Service Date/Time: Monday, June 26, 2017 15:52 - CONCLUSION: 1. There is an infrarenal abdominal aortic aneurysm measuring 5 cm x 4.5 cm. 2. Scattered diverticulosis of the descending and sigmoid colon without definite inflammatory changes. 3. Nonspecific edema in the lower abdominal wall. 4. Small bilateral pleural effusions with bibasilar atelectasis. Slade Olivo MD Abdomen Ultrasound 06/22/17 0000 Signed Impressions: Service Date/Time: Thursday, June 22, 2017 13:59 - CONCLUSION: 1. Hepatomegaly 2. 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 Nino Roche MD Chest CT 06/18/17 0000 Signed Impressions: Service Date/Time: Sunday, June 18, 2017 05:38 - CONCLUSION: 1. Bilateral lower lobe multisegmental consolidative infiltrates, left larger than right. Alexys Laurent MD Objective Remarks General -77-year-old male sitting in bed, no acute distress. HEENT - pupils are equal and reactive about 2 mm bilaterally, sclerae are anicteric CV -tachycardic, IR. Chest -equal chest rise. nc o2. Abdomen -protuberant distended. Nontender. Extremities - warm and well-perfused, 3+ edema, + peripheral pulses : Hart catheter in place. Positive scrotal edema Neuro - awake, alert. RASS 0. follows commands. Date of Insertion: Jun 23, 2017 Line: Central Venous Catheter Side: Left Location: Internal, Jugular A/P Assessment and Plan Neuro/Psych: Seizure disorder NOS Toxic metabolic encephalopathy Acetaminophen 650 mg by tube every 6 hours as needed fever Goal RASS 0 06/26. EEG revealed moderate severe encephalopathic state. No epileptiform activity CT brain 06/26 revealed no acute intracranial findings EEG 06/28 revealed severe encephalopathic state. No epileptic activity CV: Atrial fibrillation with RVR- resolved Septic shock -resolved History of hypertension History of dyslipidemia Edematous colonic polyps 4.4 cm distal femoral aneurysm -54.5 cm infrarenal femoral Coronary artery disease with a history of inferior myocardial infarction Chronic right bundle branch block Currently on amiodarone 200 mg p.o. twice daily diltiazem 30 mg every 6 hours Repeat echocardiogram 06/25 revealed EF 50-55%. Moderate TR. PAP 44.3 mmHg Home medications include simvastatin 20 mg daily for dyslipidemia. This is currently on hold Home medications for hypertension/A. fib his diltiazem 240 mg daily? Resp: Acute hypoxemic respiratory failure- resolving. Interstitial lung disease COPD extubated 07/03. doing well on nc. Ipratropium aerosols every 4 hours scheduled Plan for HRCT 6-8 weeks post extubation per Dr. Payton CT thorax revealed bilateral infiltrates left greater than right. pulmonary toilet. wean nc as tolerated for goal spo2 > 90% GI: Chronic gastritis Hypoalbuminemia Hepatomegaly Hiatal hernia Elevated AST passed swallow eval. advance diet as tolerated. Currently on Lansoprazole 30 mg by tube daily Docusate sodium 100 mg twice daily, senna 8.8 mg twice daily Colonoscopy 06/24 with snare polypectomy. Pathology revealed adenomatous polyps Pathology from EGD 06/23 revealed chronic gastritis Ultrasound of abdomen revealed hepatomegaly only : d/c hart. Endo: Sliding scale insulin with Novulin R with Accu-Cheks to maintain euglycemia every 6 hours/low regimen TSH is currently 2.17 Renal: Creatinine currently within normal limits Monitor urine output Accurate I's and O's Heme: Acute blood loss anemia -6 units PRBCs transfused this hospitalization Normocytic anemia Chronic anticoagulation with rivaroxaban Admission with hypercoagulable state status post vitamin K 10 mg and 6 FFP Hemoglobin currently around 9 No obvious source of bleeding noted. rivaroxaban 20 mg by mouth daily for nonvalvular atrial fibrillation ID: Strep pneumo pneumonia Strep viridian bacteremia/septicemia s/p full course of rocephin for strep bacteremia (received 14 days therapy). Pertinent cultures 06/26 blood, sputum and urine all pending 06/18 -blood cultures 2 -coag staph/strep viridian. Coag staph likely contaminant 06/18 -sputum -strep pneumonia 06/19 -blood cultures 2 -no growth UA 06/18 -no growth Urine Legionella pneumococcal antigen/influenza negative FEN: Replace electrolytes as clinically indicated per ICU electrolyte protocol MSK: Elevated BMI PT evaluate and treat Weight loss encouraged Access Prophylaxis -GI - lansoprazole -DVT -SCD/Rivaroxaban OVERALL IMPRESSION: clinically improving. transfer to floor. will need rehab. PT consult. Cody Cerrato MD Jul 04, 2017 12:36
[2017-07-05] VITALS (10 sets, daily range): BP systolic 122–155; BP diastolic 67–78; PULSE 86–124; RESP 17–24; TEMP 98.3–99.6; O2SAT 92–97
[2017-07-05] MEDS: ARTIFICIAL TEARS OPTH SOLN 15 ML BTL EACH EYE SCH ×3 (00:19→17:00)
[2017-07-05] MEDS: DILTIAZEM HCL 30 MG TAB PO SCH ×4 (00:19→17:00)
[2017-07-05] MEDS: RESP: IPRATROPIUM 0.5 MG/2.5 ML NEB NEB SCH ×5 (02:57→20:23)
[2017-07-05 06:21] LABS: HEMATOCRIT 29.4 % (39.0-51.0); HEMOGLOBIN 9.5 GM/DL (13.0-17.0); MEAN CORPUSCULAR HEMOGLOBIN 29.1 PG (27.0-34.0); MEAN CORPUSCULAR HGB CONC 32.3 % (32.0-36.0); MEAN PLATELET VOLUME 8.8 FL (7.0-11.0); PLATELET COUNT 318 TH/MM3 (150-450); RED BLOOD COUNT 3.26 MIL/MM3 (4.50-5.90); RED CELL DISTRIBUTION WIDTH 17.4 % (11.6-17.2); WHITE BLOOD COUNT 6.9 TH/MM3 (4.0-11.0)
[2017-07-05 06:47] LABS: CALCIUM 8.3 MG/DL (8.5-10.1); CREATININE 0.62 MG/DL (0.60-1.30)
[2017-07-05] MEDS: LANSOPRAZOLE SOLUTAB 30 MG TAB NG SCH (08:28)
[2017-07-05] MEDS: AMIODARONE 200 MG TAB PO SCH ×2 (08:29→21:00)
[2017-07-05] MEDS: DOCUSATE SODIUM 100 MG/10 ML UDC PO SCH ×2 (08:29→21:00)
[2017-07-05] MEDS: SENNOSIDES SYRUP 8.8 MG/5 ML CUP NG SCH ×2 (08:29→21:00)
[2017-07-05] MEDS: RIVAROXABAN 20 MG TAB PO SCH (08:30)
[2017-07-05] MEDS: SODIUM CHLORIDE 0.9% FLUSH 10 ML FLUSH IV FLUSH SCH ×2 (08:30→23:40)
--- NOTE | 2017-07-05 16:26 | HHI.HCPN ---
Reason for visit a. To assist with evaluation and management of symptoms including: dyspnea; encephalopathy; generalized weakness b. To assist medical decision maker(s) with: better understanding of current medical conditions; weighing benefits/burdens of medical treatment options; making medical treatment decisions. . Subjective/Interval History Patient has been transferred out of ICU. Central line and hart have been discontinued. At time of my visit he denies pain, sob. He in intermittently coughing up white or clear phlegm. He reports his appetite is improving. Patient is desiring skilled rehab. He has been declined at [place]. Currently considering [facility]. Hospice has met with patient and family and they are aware of that alternative should there be a major setback or patient fail rehab. VSS. Afebrile. No need for PRN meds. Urine output good. Bowels moved today. Lab stable. Physical therapy and OT are on case. . Family/friend interactions No family/friends at bedside. . Advance Directives Living Will: Never completed Health Care Surrogate: Never completed Durable Power of Recreation Teacher: Never completed Advance Directive Specifics Date completed: Per , patient has never completed an advanced directive. . Health Care Surrogate(s): The patient has never completed a written designation of healthcare surrogate. . Documented care wishes: We have no written documentation of patient's healthcare goals/preferences. . Significant change in goals: Patient has verbally stated that he does not want to be resuscitated. . Objective Vital Signs Date Time Temp Pulse Resp B/P (MAP) Pulse Ox O2 Delivery O2 Flow Rate FiO2 07/05/17 12:15 98.9 90 24 146/71 (96) 94 07/05/17 08:20 92 Nasal Cannula 4.00 07/05/17 08:10 99.6 91 24 145/73 (97) 94 07/05/17 08:00 Nasal Cannula 4.00 07/05/17 08:00 92 07/05/17 04:00 98.3 92 18 152/67 (95) 93 07/05/17 00:00 98.5 95 20 149/72 (97) 95 07/04/17 20:00 Nasal Cannula 4.00 07/04/17 20:00 98.2 92 20 165/81 (109) 93 07/04/17 19:59 Nasal Cannula 3.00 07/04/17 16:00 86 07/04/17 16:00 98.6 95 22 159/70 (99) 93 Intake & Output 07/05/17 07/05/17 07:00 19:00 Intake Total 180 ml Balance 180 ml Intake Oral 180 ml # Voids 4 # Bowel Movements 1 . Physical Exam CONSTITUTIONAL/GENERAL: This is an adequately nourished patient, extubated, awake and alert in a surgical intensive care unit bed. No apparent distress. TUBES/LINES/DRAINS: PIV. SKIN: No jaundice. Red, blotchy skin on face. Skin temperature appropriate. Not diaphoretic. EYES: Pupils equal and round. EOMs intact. No scleral icterus. No injection or drainage. ENT: Hearing grossly normal. Nose without bleeding or purulent drainage. Dry oral mucosa. NECK: Trachea midline. Supple. CARDIOVASCULAR: Irregularly irregular heart rhythm. No audible gallops, or rubs. No JVD. RESPIRATORY/CHEST: Symmetric, unlabored respirations. Air movement approximately equal bilaterally. Diminished breath sounds at both bases. No audible wheezes. Intermittent coughing. GASTROINTESTINAL: Abdomen is obese, large, round,soft. Bowel sounds present. GENITOURINARY: Without palpable bladder distension. MUSCULOSKELETAL: Extremities without clubbing, cyanosis. 1+ edema present NEUROLOGICAL: Awake, alert, follows commands, moves all extremities. Answers questions appropriately. PSYCHIATRIC:No obvious depression/anxiety/psychosis. . . Diagnostic Tests Laboratory Laboratory Tests Test 07/03/17 04:15 07/04/17 05:10 07/05/17 05:52 White Blood Count 6.6 TH/MM3 (4.0-11.0) 7.9 TH/MM3 (4.0-11.0) 6.9 TH/MM3 (4.0-11.0) Red Blood Count 2.82 MIL/MM3 (4.50-5.90) 2.97 MIL/MM3 (4.50-5.90) 3.26 MIL/MM3 (4.50-5.90) Hemoglobin 8.2 GM/DL (13.0-17.0) 8.9 GM/DL (13.0-17.0) 9.5 GM/DL (13.0-17.0) Hematocrit 25.3 % (39.0-51.0) 27.0 % (39.0-51.0) 29.4 % (39.0-51.0) Mean Corpuscular Volume 89.8 FL (80.0-100.0) 91.0 FL (80.0-100.0) 90.0 FL (80.0-100.0) Mean Corpuscular Hemoglobin 29.1 PG (27.0-34.0) 30.0 PG (27.0-34.0) 29.1 PG (27.0-34.0) Mean Corpuscular Hemoglobin Concent 32.3 % (32.0-36.0) 33.0 % (32.0-36.0) 32.3 % (32.0-36.0) Red Cell Distribution Width 16.8 % (11.6-17.2) 17.4 % (11.6-17.2) 17.4 % (11.6-17.2) Platelet Count 252 TH/MM3 (150-450) 313 TH/MM3 (150-450) 318 TH/MM3 (150-450) Mean Platelet Volume 9.0 FL (7.0-11.0) 9.1 FL (7.0-11.0) 8.8 FL (7.0-11.0) Neutrophils (%) (Auto) 73.5 % (16.0-70.0) Lymphocytes (%) (Auto) 13.2 % (9.0-44.0) Monocytes (%) (Auto) 8.2 % (0.0-8.0) Eosinophils (%) (Auto) 4.2 % (0.0-4.0) Basophils (%) (Auto) 0.9 % (0.0-2.0) Neutrophils # (Auto) 4.9 TH/MM3 (1.8-7.7) Lymphocytes # (Auto) 0.9 TH/MM3 (1.0-4.8) Monocytes # (Auto) 0.5 TH/MM3 (0-0.9) Eosinophils # (Auto) 0.3 TH/MM3 (0-0.4) Basophils # (Auto) 0.1 TH/MM3 (0-0.2) CBC Comment DIFF FINAL Differential Comment Blood Urea Nitrogen 10 MG/DL (7-18) 7 MG/DL (7-18) 5 MG/DL (7-18) Creatinine 0.69 MG/DL (0.60-1.30) 0.70 MG/DL (0.60-1.30) 0.62 MG/DL (0.60-1.30) Random Glucose 135 MG/DL (74-106) 102 MG/DL (74-106) 94 MG/DL (74-106) Total Protein 6.4 GM/DL (6.4-8.2) Albumin 1.8 GM/DL (3.4-5.0) Calcium Level 7.9 MG/DL (8.5-10.1) 8.0 MG/DL (8.5-10.1) 8.3 MG/DL (8.5-10.1) Phosphorus Level 3.7 MG/DL (2.5-4.9) Magnesium Level 2.2 MG/DL (1.5-2.5) Alkaline Phosphatase 87 U/L (45-117) Aspartate Amino Transf (AST/SGOT) 44 U/L (15-37) Alanine Aminotransferase (ALT/SGPT) 34 U/L (12-78) Total Bilirubin 0.3 MG/DL (0.2-1.0) Sodium Level 142 MEQ/L (136-145) 141 MEQ/L (136-145) 142 MEQ/L (136-145) Potassium Level 3.8 MEQ/L (3.5-5.1) 3.9 MEQ/L (3.5-5.1) 3.7 MEQ/L (3.5-5.1) Chloride Level 110 MEQ/L (98-107) 108 MEQ/L (98-107) 109 MEQ/L (98-107) Carbon Dioxide Level 24.8 MEQ/L (21.0-32.0) 24.2 MEQ/L (21.0-32.0) 27.0 MEQ/L (21.0-32.0) Anion Gap 7 MEQ/L (5-15) 9 MEQ/L (5-15) 6 MEQ/L (5-15) Estimat Glomerular Filtration Rate 111 ML/MIN (>89) 109 ML/MIN (>89) 125 ML/MIN (>89) . Result Diagram: 07/05/17 0552 07/05/17 0552 Microbiology Microbiology Date/Time Source Procedure Growth Status 06/26/17 10:46 Blood Peripheral Aerobic Blood Culture - Final NO GROWTH IN 5 DAYS Complete 06/26/17 10:46 Blood Peripheral Anaerobic Blood Culture - Final NO GROWTH IN 5 DAYS Complete 06/26/17 07:55 Sputum Endotracheal Gram Stain - Final Complete 06/26/17 07:55 Sputum Endotracheal Sputum Culture - Final NO GROWTH IN 48 HOURS. Complete 06/26/17 07:55 Urine Catheterized Urine Urine Culture - Final NO GROWTH IN 48 HOURS. Complete . Imaging Last Impressions Chest X-Ray 07/03/17 0600 Signed Impressions: Service Date/Time: Monday, July 03, 2017 04:06 - CONCLUSION: No significant change Nino Hood MD Head CT 06/26/17 0000 Signed Impressions: Service Date/Time: Monday, June 26, 2017 15:50 - CONCLUSION: 1. Mild generalized atrophy. 2. No evidence of acute infarct, hemorrhage, mass or edema. 3. Paranasal sinus fluid accumulation likely related to nasogastric tube and endotracheal tube. Mike Andrade MD Abdomen/Pelvis CT 06/26/17 0000 Signed Impressions: Service Date/Time: Monday, June 26, 2017 15:52 - CONCLUSION: 1. There is an infrarenal abdominal aortic aneurysm measuring 5 cm x 4.5 cm. 2. Scattered diverticulosis of the descending and sigmoid colon without definite inflammatory changes. 3. Nonspecific edema in the lower abdominal wall. 4. Small bilateral pleural effusions with bibasilar atelectasis. Slade Olivo MD Abdomen Ultrasound 06/22/17 0000 Signed Impressions: Service Date/Time: Thursday, June 22, 2017 13:59 - CONCLUSION: 1. Hepatomegaly 2. 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 Nino Roche MD Chest CT 06/18/17 0000 Signed Impressions: Service Date/Time: Sunday, June 18, 2017 05:38 - CONCLUSION: 1. Bilateral lower lobe multisegmental consolidative infiltrates, left larger than right. Alexys Laurent MD . Procedures * 06/18/17 -Intubation/mechanical ventilation * 06/18/17 -Right internal jugular line placement * 06/18/17 -Left femoral artery line placement * 06/23/17 -EGD * 06/24/17 -colonoscopy with biopsy * 07/03/17 Extubation . . Assessment and Plan Disease Oriented Problem List: (1) Acute hypoxemic respiratory failure Comment: Extubated 07/03/17 . Not to be re-intubated. (2) Pneumonia (3) Atrial fibrillation with RVR (4) Proximal muscle weakness (5) GIB (gastrointestinal bleeding) Comment: Probable diverticular disease. . (6) Coronary artery disease (7) Hyperlipidemia (8) Hypertension (9) Abdominal aortic aneurysm (AAA) 3.0 cm to 5.5 cm in diameter in male Comment: Infra-renal (10) COPD (chronic obstructive pulmonary disease) Comment: Noted on PFTs in 2016. . (11) Rash and nonspecific skin eruption Comment: Bright red , blotchy, erythematous area particularly impacting face. Drug reaction? . Symptom Scale: (1) Pain 0-10 Scale: 0 Comment: Denies (2) Dyspnea 0-10 Scale: 3 Comment: Comfortable post extubation on nasal cannula 02. . . (3) Encephalopathy 0-10 Scale: 0 Comment: Cognitively intact today. . . Pertinent Non-Medical Issues Psychosocial: Lives at home with who is wheelchair bound and need 24 hour 02. Well supported by step children. Spiritual: [employer]. Requests backend java developer support. Legal: No known advance directives. is proxy Ethical issues impacting care: Pt currently incapacitated but might re-gain capacity. . Important Contacts José Lugo (spouse; health care proxy) [phone] . Prognosis Patient had been very hard to wean from the vent even after aggressive treatment of his pneumonia. He was growing progressively weaker even before he developed the pneumonia. He was successfully extubated 07/03/17 per patient/ family wishes. Given his decline prior to becoming acutely ill, and the challenge to get him off the vent, he will remain at high risk for setbacks and future infections. . . Code Status: No Code Plan == Code Status: NO CODE per conversation directly with patient at time of extubation. == Decision Making: Patient is awake, alert and able to converse post extubation on 07/03/17. He appears capacitated to make his own health care decision. There is a high likelihood of setback. Should he become incapacitated again, at this time there is no known written designation of healthcare surrogate. As per [place] statue, proxy healthcare decision making therefore falls to his spouse Jessheather Lugo. has accepted this role and is fully supported by patient's children. == Goals of medical treatment: Will continue aggressive care short of resuscitation for now. Should patient start to fail from a respiratory standpoint, patient and family would want comfort measures and hospice. Should he stabilize or improve they will want to continue aggressive care and have patient go to correction care. == Symptoms * Pain: Patient did not have any prehospitalization pain syndromes. Current sources of discomfort might include prolonged bedbound status; Hart catheterization; vascular access lines. Patient denies pain during visit today. . Opioid and benzo orders have been added to regimen to be available should patient tire out, show evidence of respiratory decline as he is not to be re- intubated. * Dyspnea: Currently comfortable on nasal cannula 02, but he is not exerting himself. Opioid and benzo orders have been added to regimen to be available should patient tire out, show evidence of respiratory decline as he is not to be re-intubated. == Facial rash may be a drug reaction -- Amiodarone? == Hospice has met with patient and patient is declining services at this time and pursuing skilled rehab. Hospice will be readily available at such time there is a significant setback or patient fails in rehab. == Anticipate discharge to SNF soon, but will need PT/OT here if that is delayed for some reason. == Palliative care will continue to follow to assist with symptom management and to further clarify goals of medical treatment as the clinical course evolves. . Attestation To help prompt me to consider important information that might be impacting today's encounter and assessment, information from prior notes written by myself or my colleagues may have been "brought forward" into today's note. My signature on this note, however, is an attestation that I personally performed the exam, history, and/or decision-making noted today, and, unless otherwise indicated, the interactions with patient, family, and staff as well as the review of records all occurred today. I also attest that the listed assessment and stated plan reflect my best clinical judgment today based on the combination of historical information, prior notes, and today's exam/ interactions. When time spent is documented, it refers only to time spent today by the signer, or if indicated, combined time spent today by collaborating physician/nurse practitioner. . Nick Collins MD Jul 05, 2017 16:26
--- NOTE | 2017-07-05 19:24 | HHI.PR ---
Subjective Remarks Status post extubation. No complications since extubation. No new complaints from the patient. The patient is weak. Objective Vital Signs Date Time Temp Pulse Resp B/P (MAP) Pulse Ox O2 Delivery O2 Flow Rate FiO2 07/05/17 16:00 99.6 86 17 155/70 (98) 97 07/05/17 16:00 88 07/05/17 12:15 98.9 90 24 146/71 (96) 94 07/05/17 12:00 92 07/05/17 08:20 92 Nasal Cannula 4.00 07/05/17 08:10 99.6 91 24 145/73 (97) 94 07/05/17 08:00 Nasal Cannula 4.00 07/05/17 08:00 92 07/05/17 04:00 98.3 92 18 152/67 (95) 93 07/05/17 00:00 98.5 95 20 149/72 (97) 95 07/04/17 20:00 Nasal Cannula 4.00 07/04/17 20:00 98.2 92 20 165/81 (109) 93 07/04/17 19:59 Nasal Cannula 3.00 I/O 07/04/17 07/04/17 07/04/17 07/05/17 07/05/17 07/05/17 07:00 15:00 23:00 07:00 15:00 23:00 Intake Total 120 ml 400 ml 120 ml 180 ml Output Total 2700 ml 0 ml Balance -2580 ml 400 ml 120 ml 180 ml Intake Oral 120 ml 300 ml 120 ml 180 ml IV Total 100 ml Output Urine Total 2500 ml 0 ml Stool Total 200 ml # Voids 4 # Bowel Movements 0 1 Result Diagram: 07/05/17 0552 07/05/17 0552 Objective Remarks GENERAL: NAD, A&Ox3 HEAD: Normocephalic. NECK: Supple, trachea midline. No lymphadenopathy. EYES: No scleral icterus. No injection or drainage. CARDIOVASCULAR: Irregularly irregular rhythm with tachycardic rate. Without murmurs, gallops, or rubs. RESPIRATORY: Breath sounds equal bilaterally. No accessory muscle use. GASTROINTESTINAL: Abdomen soft, non-tender, nondistended. MUSCULOSKELETAL: No cyanosis, or edema. SKIN: Warm and dry. NEURO: No focal neurological deficitis. A/P Problem List: (1) Atrial fibrillation with RVR ICD Code: I48.91 - Unspecified atrial fibrillation Status: Acute (2) Generalized weakness ICD Code: R53.1 - Weakness Status: Acute Assessment and Plan 77-year-old male admitted secondary to A. fib RVR with subsequent respiratory failure. 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
[2017-07-06] VITALS (10 sets, daily range): BP systolic 137–159; BP diastolic 77–89; PULSE 101–127; RESP 19–20; TEMP 97.9–99.7; O2SAT 91–95
[2017-07-06] MEDS: RESP: IPRATROPIUM 0.5 MG/2.5 ML NEB NEB SCH ×6 (00:42→20:15)
[2017-07-06] MEDS: DILTIAZEM HCL 30 MG TAB PO SCH ×4 (01:48→17:49)
[2017-07-06] MEDS: ARTIFICIAL TEARS OPTH SOLN 15 ML BTL EACH EYE SCH ×3 (01:50→17:49)
[2017-07-06 06:21] LABS: HEMOGLOBIN 9.6 GM/DL (13.0-17.0); MEAN CORPUSCULAR HEMOGLOBIN 29.5 PG (27.0-34.0); MEAN CORPUSCULAR HGB CONC 33.1 % (32.0-36.0); MEAN PLATELET VOLUME 8.8 FL (7.0-11.0); PLATELET COUNT 330 TH/MM3 (150-450); RED BLOOD COUNT 3.26 MIL/MM3 (4.50-5.90); RED CELL DISTRIBUTION WIDTH 17.5 % (11.6-17.2); WHITE BLOOD COUNT 7.7 TH/MM3 (4.0-11.0)
[2017-07-06 06:29] LABS: BICARBONATE 25.5 MEQ/L (21.0-32.0); CREATININE 0.61 MG/DL (0.60-1.30)
[2017-07-06] MEDS: RIVAROXABAN 20 MG TAB PO SCH (09:56)
[2017-07-06] MEDS: SODIUM CHLORIDE 0.9% FLUSH 10 ML FLUSH IV FLUSH SCH ×2 (09:56→20:45)
[2017-07-06] MEDS: SENNOSIDES SYRUP 8.8 MG/5 ML CUP NG SCH ×2 (09:57→20:45)
[2017-07-06] MEDS: LANSOPRAZOLE SOLUTAB 30 MG TAB NG SCH (09:57)
[2017-07-06] MEDS: DOCUSATE SODIUM 100 MG/10 ML UDC PO SCH ×2 (09:57→20:45)
[2017-07-06] MEDS: AMIODARONE 200 MG TAB PO SCH ×2 (09:57→20:37)
--- NOTE | 2017-07-06 15:10 | HHI.PR ---
Subjective Remarks Global weakness and debility remains. Patient is not yet ambulatory. SNF needed at discharge, once patient is medically stable for transition to SNF. Objective Vital Signs Date Time Temp Pulse Resp B/P (MAP) Pulse Ox O2 Delivery O2 Flow Rate FiO2 07/06/17 08:11 93 Nasal Cannula 4.00 07/06/17 08:00 119 07/06/17 08:00 98.2 111 20 140/80 (100) 95 07/06/17 07:00 Nasal Cannula 4.00 07/06/17 04:00 99.3 110 19 140/78 (98) 93 07/06/17 04:00 110 07/06/17 00:00 97.9 126 19 137/89 (105) 92 07/06/17 00:00 122 07/05/17 20:23 92 Nasal Cannula 4.00 07/05/17 20:00 99.0 108 20 122/78 (93) 93 07/05/17 20:00 124 07/05/17 16:00 99.6 86 17 155/70 (98) 97 07/05/17 16:00 88 I/O 07/05/17 07/05/17 07/05/17 07/06/17 07/06/17 07/06/17 07:00 15:00 23:00 07:00 15:00 23:00 Intake Total 180 ml 100 ml Balance 180 ml 100 ml Intake Oral 180 ml 100 ml # Voids 4 5 # Bowel Movements 1 1 Result Diagram: 07/06/1752507/06/17 05 Objective Remarks GENERAL: NAD, A&Ox3 HEAD: Normocephalic. NECK: Supple, trachea midline. No lymphadenopathy. EYES: No scleral icterus. No injection or drainage. CARDIOVASCULAR: Irregularly irregular rhythm with tachycardic rate. Without murmurs, gallops, or rubs. RESPIRATORY: Breath sounds equal bilaterally. No accessory muscle use. GASTROINTESTINAL: Abdomen soft, non-tender, nondistended. MUSCULOSKELETAL: No cyanosis, or edema. SKIN: Warm and dry. NEURO: No focal neurological deficitis. A/P Problem List: (1) Atrial fibrillation with RVR ICD Code: I48.91 - Unspecified atrial fibrillation Status: Acute (2) Generalized weakness ICD Code: R53.1 - Weakness Status: Acute Assessment and Plan 77-year-old male admitted secondary to A. fib RVR with subsequent respiratory failure. Monitor for improvement in physical ability. PT in hospital with transfer to SNF when medically stable. 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
[2017-07-07] VITALS (11 sets, daily range): BP systolic 145–174; BP diastolic 75–95; PULSE 108–134; RESP 20–22; TEMP 98.5–99.5; O2SAT 90–96
[2017-07-07] MEDS: RESP: IPRATROPIUM 0.5 MG/2.5 ML NEB NEB SCH ×6 (00:13→20:25)
[2017-07-07] MEDS: ARTIFICIAL TEARS OPTH SOLN 15 ML BTL EACH EYE SCH ×4 (00:36→23:21)
[2017-07-07] MEDS: DILTIAZEM HCL 30 MG TAB PO SCH ×5 (00:36→23:20)
[2017-07-07 06:46] LABS: HEMATOCRIT 29.8 % (39.0-51.0); HEMOGLOBIN 9.8 GM/DL (13.0-17.0); MEAN CELL VOLUME 89.8 FL (80.0-100.0); MEAN CORPUSCULAR HEMOGLOBIN 29.4 PG (27.0-34.0); MEAN CORPUSCULAR HGB CONC 32.7 % (32.0-36.0); PLATELET COUNT 318 TH/MM3 (150-450); RED BLOOD COUNT 3.32 MIL/MM3 (4.50-5.90); RED CELL DISTRIBUTION WIDTH 17.3 % (11.6-17.2); WHITE BLOOD COUNT 7.4 TH/MM3 (4.0-11.0)
[2017-07-07 06:58] LABS: BICARBONATE 28.9 MEQ/L (21.0-32.0); CREATININE 0.54 MG/DL (0.60-1.30)
[2017-07-07] MEDS: SODIUM CHLORIDE 0.9% FLUSH 10 ML FLUSH IV FLUSH SCH ×2 (09:43→20:40)
[2017-07-07] MEDS: AMIODARONE 200 MG TAB PO SCH ×2 (09:43→20:40)
[2017-07-07] MEDS: DOCUSATE SODIUM 100 MG/10 ML UDC PO SCH ×2 (09:43→20:40)
[2017-07-07] MEDS: RIVAROXABAN 20 MG TAB PO SCH (09:43)
[2017-07-07] MEDS: LANSOPRAZOLE SOLUTAB 30 MG TAB NG SCH (09:43)
[2017-07-07] MEDS: SENNOSIDES SYRUP 8.8 MG/5 ML CUP NG SCH ×2 (09:43→20:40)
--- NOTE | 2017-07-07 11:39 | HHI.PR ---
Subjective Remarks Weakness improving slowly. Patient able to sit on the edge of the bed supporting himself today. Pulmonary edema is present. Objective Vital Signs Date Time Temp Pulse Resp B/P (MAP) Pulse Ox O2 Delivery O2 Flow Rate FiO2 07/07/17 08:00 99.5 112 20 149/78 (101) 93 07/07/17 08:00 108 07/07/17 07:54 93 Nasal Cannula 4.00 07/07/17 07:00 Nasal Cannula 4.00 07/07/17 06:27 99.4 117 20 162/84 (110) 93 07/07/17 04:00 119 07/07/17 00:00 128 07/06/17 23:34 99.7 110 20 138/79 (98) 94 07/06/17 20:18 99.5 111 20 155/77 (103) 94 07/06/17 20:17 93 Nasal Cannula 4.00 07/06/17 20:00 Nasal Cannula 4.00 07/06/17 20:00 101 07/06/17 16:00 98.0 122 20 159/86 (110) 93 07/06/17 16:00 112 07/06/17 12:00 98.6 121 20 138/84 (102) 91 07/06/17 12:00 127 I/O 07/06/17 07/06/17 07/06/17 07/07/17 07/07/17 07/07/17 07:00 15:00 23:00 07:00 15:00 23:00 Intake Total 100 ml 0 ml 120 ml Output Total 275 ml Balance 100 ml -275 ml 120 ml Intake Oral 100 ml 0 ml 120 ml Output Urine Total 275 ml # Voids 5 1 3 # Bowel Movements 1 2 Result Diagram: 07/07/1752707/07/1728 Objective Remarks GENERAL: NAD, A&Ox3 HEAD: Normocephalic. NECK: Supple, trachea midline. No lymphadenopathy. EYES: No scleral icterus. No injection or drainage. CARDIOVASCULAR: Irregularly irregular rhythm with tachycardic rate. Without murmurs, gallops, or rubs. RESPIRATORY: Breath sounds equal bilaterally. No accessory muscle use. Crackles bilaterally. GASTROINTESTINAL: Abdomen soft, non-tender, nondistended. MUSCULOSKELETAL: No cyanosis, or edema. SKIN: Warm and dry. NEURO: No focal neurological deficitis. A/P Problem List: (1) Atrial fibrillation with RVR ICD Code: I48.91 - Unspecified atrial fibrillation Status: Acute (2) Generalized weakness ICD Code: R53.1 - Weakness Status: Acute Assessment and Plan 77-year-old male admitted secondary to A. fib RVR with subsequent respiratory failure. Slow improvements. Patient will need detention facility at time of discharge. Lasix provided for pulmonary edema. 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
[2017-07-07] MEDS ORDERED: FUROSEMIDE 40 MG/4 ML VIAL IV PUSH ONE (12:00)
[2017-07-08] VITALS (12 sets, daily range): BP systolic 130–165; BP diastolic 64–73; PULSE 17–108; RESP 17–23; TEMP 97.7–99.8; O2SAT 91–97
[2017-07-08] MEDS: RESP: IPRATROPIUM 0.5 MG/2.5 ML NEB NEB SCH ×7 (04:00→23:57)
[2017-07-08] MEDS: DILTIAZEM HCL 30 MG TAB PO SCH ×4 (06:13→23:35)
[2017-07-08 07:26] LABS: HEMATOCRIT 29.3 % (39.0-51.0); HEMOGLOBIN 9.6 GM/DL (13.0-17.0); MEAN CELL VOLUME 88.7 FL (80.0-100.0); MEAN CORPUSCULAR HGB CONC 32.7 % (32.0-36.0); MEAN PLATELET VOLUME 9.2 FL (7.0-11.0); PLATELET COUNT 361 TH/MM3 (150-450); RED CELL DISTRIBUTION WIDTH 17.6 % (11.6-17.2); WHITE BLOOD COUNT 7.8 TH/MM3 (4.0-11.0)
[2017-07-08 07:53] LABS: BICARBONATE 29.3 MEQ/L (21.0-32.0); CALCIUM 7.9 MG/DL (8.5-10.1); CREATININE 0.6 MG/DL (0.60-1.30)
[2017-07-08] MEDS: AMIODARONE 200 MG TAB PO SCH ×2 (08:28→21:47)
[2017-07-08] MEDS: LANSOPRAZOLE SOLUTAB 30 MG TAB NG SCH (08:28)
[2017-07-08] MEDS: DOCUSATE SODIUM 100 MG/10 ML UDC PO SCH ×2 (08:29→21:47)
[2017-07-08] MEDS: RIVAROXABAN 20 MG TAB PO SCH (08:29)
[2017-07-08] MEDS: SENNOSIDES SYRUP 8.8 MG/5 ML CUP NG SCH ×2 (08:29→21:00)
[2017-07-08] MEDS: ARTIFICIAL TEARS OPTH SOLN 15 ML BTL EACH EYE SCH ×2 (08:29→17:50)
[2017-07-08] MEDS: SODIUM CHLORIDE 0.9% FLUSH 10 ML FLUSH IV FLUSH SCH ×2 (08:35→21:47)
--- NOTE | 2017-07-08 11:52 | HHI.PR ---
Subjective Remarks Slow improvements. Any type of exertion causes patient to have hypoxia despite oxygen use. Is currently on 4 L/min. no new complaints from the patient today. Objective Vital Signs Date Time Temp Pulse Resp B/P (MAP) Pulse Ox O2 Delivery O2 Flow Rate FiO2 07/08/17 08:02 93 Nasal Cannula 4.00 07/08/17 08:00 98.7 85 20 145/65 (91) 91 07/08/17 04:00 97.7 108 23 130/69 (89) 96 07/08/17 04:00 Nasal Cannula 4.00 07/08/17 03:42 82 07/08/17 00:00 98.1 105 20 135/67 (89) 97 07/08/17 00:00 Nasal Cannula 4.00 07/07/17 23:41 118 07/07/17 20:25 92 Nasal Cannula 4.00 07/07/17 20:00 98.8 110 22 145/75 (98) 96 07/07/17 20:00 Nasal Cannula 4.00 07/07/17 19:42 113 07/07/17 16:00 98.5 128 20 149/95 (113) 91 07/07/17 16:00 121 07/07/17 12:00 134 07/07/17 12:00 98.9 125 20 174/90 (118) 90 I/O 07/07/17 07/07/17 07/07/17 07/08/17 07/08/17 07/08/17 07:00 15:00 23:00 07:00 15:00 23:00 Intake Total 120 ml 120 ml 100 ml Balance 120 ml 120 ml 100 ml Intake Oral 120 ml 120 ml 100 ml # Voids 3 2 4 # Bowel Movements 0 0 Result Diagram: 07/08/1760407/08/17604 Objective Remarks GENERAL: NAD, A&Ox3 HEAD: Normocephalic. NECK: Supple, trachea midline. No lymphadenopathy. EYES: No scleral icterus. No injection or drainage. CARDIOVASCULAR: Irregularly irregular rhythm with tachycardic rate. Without murmurs, gallops, or rubs. RESPIRATORY: Breath sounds equal bilaterally. No accessory muscle use. Crackles bilaterally. GASTROINTESTINAL: Abdomen soft, non-tender, nondistended. MUSCULOSKELETAL: No cyanosis, or edema. SKIN: Warm and dry. NEURO: No focal neurological deficitis. A/P Problem List: (1) Atrial fibrillation with RVR ICD Code: I48.91 - Unspecified atrial fibrillation Status: Acute (2) Generalized weakness ICD Code: R53.1 - Weakness Status: Acute Assessment and Plan 77-year-old male admitted secondary to A. fib RVR with subsequent respiratory failure. Slowly improving. Respiratory status needs to improve prior to consideration for discharge. Improved exertion tolerance and ability to improve. 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
--- NOTE | 2017-07-08 19:30 | HHI.HCPN ---
Reason for visit a. To assist with evaluation and management of symptoms including: dyspnea; encephalopathy; generalized weakness b. To assist medical decision maker(s) with: better understanding of current medical conditions; weighing benefits/burdens of medical treatment options; making medical treatment decisions. . Subjective/Interval History Patient relatively stable from a respiratory standpoint since extubation. He is mostly maintaining 02 sats while on 4 L/min while resting in bed. He remains incredibly weak and desaturates with any exertion. PT has been working with him and he is still unable to stand. Has not needed opiates or benzos for pain or dyspnea. Patient denies pain,SOB, at time of my visit. He has no other complaints. CBC and chemistries are stable. BPs labile. No new imaging Awaiting evaluation from [facility] to see if they will accept him for skilled care. . Family/friend interactions No family/friend interactions today. . Advance Directives Living Will: Never completed Health Care Surrogate: Never completed Durable Power of Inventory Management Specialist: Never completed Advance Directive Specifics Date completed: Per , patient has never completed an advanced directive. . Health Care Surrogate(s): The patient has never completed a written designation of healthcare surrogate. . Documented care wishes: We have no written documentation of patient's healthcare goals/preferences. . Significant change in goals: Patient and family desire skilled rehab to see if he is able to gain strength. . Objective Vital Signs Date Time Temp Pulse Resp B/P (MAP) Pulse Ox O2 Delivery O2 Flow Rate FiO2 07/08/17 16:00 98.2 82 20 157/67 (97) 96 07/08/17 12:00 82 07/08/17 12:00 99.8 86 20 165/73 (103) 93 07/08/17 08:02 93 Nasal Cannula 4.00 07/08/17 08:00 85 07/08/17 08:00 98.7 85 20 145/65 (91) 91 07/08/17 07:00 Nasal Cannula 4.00 07/08/17 04:00 97.7 108 23 130/69 (89) 96 07/08/17 04:00 Nasal Cannula 4.00 07/08/17 03:42 82 07/08/17 00:00 98.1 105 20 135/67 (89) 97 07/08/17 00:00 Nasal Cannula 4.00 07/07/17 23:41 118 07/07/17 20:25 92 Nasal Cannula 4.00 07/07/17 20:00 98.8 110 22 145/75 (98) 96 07/07/17 20:00 Nasal Cannula 4.00 07/07/17 19:42 113 . Physical Exam CONSTITUTIONAL/GENERAL: This is an adequately nourished patient, extubated, awake and alert in a surgical intensive care unit bed. No apparent distress. TUBES/LINES/DRAINS: PIV. SKIN: No jaundice. Red, blotchy skin on face. Actinic changes on sun-exposed areas. Skin temperature appropriate. Not diaphoretic. EYES: Pupils equal and round. EOMs intact. No scleral icterus. No injection or drainage. ENT: Hearing grossly normal. Nose without bleeding or purulent drainage. NECK: Trachea midline. Supple. CARDIOVASCULAR: Irregularly irregular heart rhythm. No audible gallops, or rubs. No JVD. RESPIRATORY/CHEST: Symmetric, unlabored respirations. Air movement approximately equal bilaterally. Diminished breath sounds at both bases. No audible wheezes. No coughing heard today. GASTROINTESTINAL: Abdomen is obese, large, round,soft. Bowel sounds present. GENITOURINARY: Without palpable bladder distension. MUSCULOSKELETAL: Extremities without clubbing, cyanosis. 1+ edema present NEUROLOGICAL: Awake, alert, follows commands, moves all extremities. Answers questions appropriately. PSYCHIATRIC:No obvious depression/anxiety/psychosis. . . Diagnostic Tests Laboratory Laboratory Tests Test 07/06/17 05:26 07/07/17 05:28 07/08/17 06:05 White Blood Count 7.7 TH/MM3 (4.0-11.0) 7.4 TH/MM3 (4.0-11.0) 7.8 TH/MM3 (4.0-11.0) Red Blood Count 3.26 MIL/MM3 (4.50-5.90) 3.32 MIL/MM3 (4.50-5.90) 3.30 MIL/MM3 (4.50-5.90) Hemoglobin 9.6 GM/DL (13.0-17.0) 9.8 GM/DL (13.0-17.0) 9.6 GM/DL (13.0-17.0) Hematocrit 29.0 % (39.0-51.0) 29.8 % (39.0-51.0) 29.3 % (39.0-51.0) Mean Corpuscular Volume 89.0 FL (80.0-100.0) 89.8 FL (80.0-100.0) 88.7 FL (80.0-100.0) Mean Corpuscular Hemoglobin 29.5 PG (27.0-34.0) 29.4 PG (27.0-34.0) 29.0 PG (27.0-34.0) Mean Corpuscular Hemoglobin Concent 33.1 % (32.0-36.0) 32.7 % (32.0-36.0) 32.7 % (32.0-36.0) Red Cell Distribution Width 17.5 % (11.6-17.2) 17.3 % (11.6-17.2) 17.6 % (11.6-17.2) Platelet Count 330 TH/MM3 (150-450) 318 TH/MM3 (150-450) 361 TH/MM3 (150-450) Mean Platelet Volume 8.8 FL (7.0-11.0) 9.0 FL (7.0-11.0) 9.2 FL (7.0-11.0) Blood Urea Nitrogen 4 MG/DL (7-18) 4 MG/DL (7-18) 6 MG/DL (7-18) Creatinine 0.61 MG/DL (0.60-1.30) 0.54 MG/DL (0.60-1.30) 0.60 MG/DL (0.60-1.30) Random Glucose 93 MG/DL (74-106) 95 MG/DL (74-106) 94 MG/DL (74-106) Calcium Level 8.0 MG/DL (8.5-10.1) 8.0 MG/DL (8.5-10.1) 7.9 MG/DL (8.5-10.1) Sodium Level 139 MEQ/L (136-145) 140 MEQ/L (136-145) 138 MEQ/L (136-145) Potassium Level 3.6 MEQ/L (3.5-5.1) 3.7 MEQ/L (3.5-5.1) 3.6 MEQ/L (3.5-5.1) Chloride Level 104 MEQ/L (98-107) 102 MEQ/L (98-107) 99 MEQ/L (98-107) Carbon Dioxide Level 25.5 MEQ/L (21.0-32.0) 28.9 MEQ/L (21.0-32.0) 29.3 MEQ/L (21.0-32.0) Anion Gap 10 MEQ/L (5-15) 9 MEQ/L (5-15) 10 MEQ/L (5-15) Estimat Glomerular Filtration Rate 128 ML/MIN (>89) 147 ML/MIN (>89) 130 ML/MIN (>89) . Result Diagram: 07/08/1760407/08/17604 Microbiology Microbiology Date/Time Source Procedure Growth Status 06/26/17 10:46 Blood Peripheral Aerobic Blood Culture - Final NO GROWTH IN 5 DAYS Complete 06/26/17 10:46 Blood Peripheral Anaerobic Blood Culture - Final NO GROWTH IN 5 DAYS Complete 06/26/17 07:55 Sputum Endotracheal Gram Stain - Final Complete 06/26/17 07:55 Sputum Endotracheal Sputum Culture - Final NO GROWTH IN 48 HOURS. Complete 06/26/17 07:55 Urine Catheterized Urine Urine Culture - Final NO GROWTH IN 48 HOURS. Complete . Imaging Last Impressions Chest X-Ray 07/03/17 0600 Signed Impressions: Service Date/Time: Monday, July 03, 2017 04:06 - CONCLUSION: No significant change Nino Hood MD Head CT 06/26/17 0000 Signed Impressions: Service Date/Time: Monday, June 26, 2017 15:50 - CONCLUSION: 1. Mild generalized atrophy. 2. No evidence of acute infarct, hemorrhage, mass or edema. 3. Paranasal sinus fluid accumulation likely related to nasogastric tube and endotracheal tube. Mike Andrade MD Abdomen/Pelvis CT 06/26/17 0000 Signed Impressions: Service Date/Time: Monday, June 26, 2017 15:52 - CONCLUSION: 1. There is an infrarenal abdominal aortic aneurysm measuring 5 cm x 4.5 cm. 2. Scattered diverticulosis of the descending and sigmoid colon without definite inflammatory changes. 3. Nonspecific edema in the lower abdominal wall. 4. Small bilateral pleural effusions with bibasilar atelectasis. Slade Olivo MD Abdomen Ultrasound 06/22/17 0000 Signed Impressions: Service Date/Time: Thursday, June 22, 2017 13:59 - CONCLUSION: 1. Hepatomegaly 2. 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 Nino Roche MD Chest CT 06/18/17 0000 Signed Impressions: Service Date/Time: Sunday, June 18, 2017 05:38 - CONCLUSION: 1. Bilateral lower lobe multisegmental consolidative infiltrates, left larger than right. Alexys Laurent MD . Procedures * 06/18/17 -Intubation/mechanical ventilation * 06/18/17 -Right internal jugular line placement * 06/18/17 -Left femoral artery line placement * 06/23/17 -EGD * 06/24/17 -colonoscopy with biopsy * 07/03/17 Extubation . . Assessment and Plan Disease Oriented Problem List: (1) Acute hypoxemic respiratory failure Comment: Extubated 07/03/17 . Not to be re-intubated. (2) Pneumonia (3) Atrial fibrillation with RVR (4) Proximal muscle weakness (5) GIB (gastrointestinal bleeding) Comment: Probable diverticular disease. . (6) Coronary artery disease (7) Hyperlipidemia (8) Hypertension (9) Abdominal aortic aneurysm (AAA) 3.0 cm to 5.5 cm in diameter in male Comment: Infra-renal (10) COPD (chronic obstructive pulmonary disease) Comment: Noted on PFTs in 2016. . (11) Rash and nonspecific skin eruption Comment: Bright red , blotchy, erythematous area particularly impacting face. Drug reaction? . Symptom Scale: (1) Pain 0-10 Scale: 0 Comment: Denies (2) Dyspnea 0-10 Scale: 3 Comment: Comfortable post extubation on nasal cannula 02. . . (3) Encephalopathy 0-10 Scale: 0 Comment: Cognitively intact today. . . Pertinent Non-Medical Issues Psychosocial: Lives at home with who is wheelchair bound and need 24 hour 02. Well supported by step children. Spiritual: Buddhism. Requests fixture maker support. Legal: No known advance directives. is proxy Ethical issues impacting care: Pt currently incapacitated but might re-gain capacity. . Important Contacts José Lugo (spouse; health care proxy) [phone] . Prognosis Patient had been very hard to wean from the vent even after aggressive treatment of his pneumonia. He was growing progressively weaker even before he developed the pneumonia. He was successfully extubated 07/03/17 per patient/ family wishes. Given his decline prior to becoming acutely ill, and the challenge to get him off the vent, he will remain at high risk for setbacks and future infections. . . Code Status: No Code Plan == Code Status: NO CODE per conversation directly with patient at time of extubation. == Decision Making: Patient is awake, alert and able to converse. . He appears capacitated to make his own health care decision. There is a high likelihood of setback. Should he become incapacitated again, at this time there is no known written designation of healthcare surrogate. As per [place] statue , proxy healthcare decision making therefore falls to his spouse José Lugo. has accepted this role and is fully supported by patient's children. == Goals of medical treatment: Will continue aggressive care short of resuscitation for now. Family opting for prison post dischcharge. Should patient start to fail from a respiratory standpoint, patient and family would want comfort measures and hospice. == Symptoms * Pain: Patient did not have any prehospitalization pain syndromes. Current sources of discomfort might include prolonged bedbound status; vascular access lines. Patient denies pain during visit today. . Opioid and benzo orders have been added to regimen to be available should patient tire out, show evidence of respiratory decline as he is not to be re-intubated. * Dyspnea: Currently comfortable on nasal cannula 02, but he is not exerting himself. Significant de-saturation with any exertion. == Facial rash may be a drug reaction -- Amiodarone? == Hospice has met with patient and patient is declining services at this time and pursuing skilled rehab. Hospice will be readily available at such time there is a significant setback or patient fails in rehab. == Anticipate discharge to SNF soon, but will need PT/OT here if that is delayed for some reason. == Medication reviewed: No further recommendations at this time other than possible concern for his skin rash which may be a drug reaction (amiodarone?) == Palliative care will continue to follow to assist with symptom management and to further clarify goals of medical treatment as the clinical course evolves. . Nick Collins MD Jul 08, 2017 19:30
[2017-07-09] VITALS (12 sets, daily range): BP systolic 120–171; BP diastolic 63–80; PULSE 85–125; RESP 18–20; TEMP 98.4–100.2; O2SAT 90–96
[2017-07-09] MEDS: ARTIFICIAL TEARS OPTH SOLN 15 ML BTL EACH EYE SCH ×3 (01:27→16:31)
[2017-07-09] MEDS: RESP: IPRATROPIUM 0.5 MG/2.5 ML NEB NEB SCH ×5 (04:45→19:33)
[2017-07-09] MEDS: DILTIAZEM HCL 30 MG TAB PO SCH ×3 (05:14→18:00)
[2017-07-09 05:31] LABS: HEMATOCRIT 30.1 % (39.0-51.0); HEMOGLOBIN 9.8 GM/DL (13.0-17.0); MEAN CELL VOLUME 89.2 FL (80.0-100.0); MEAN CORPUSCULAR HEMOGLOBIN 28.9 PG (27.0-34.0); MEAN CORPUSCULAR HGB CONC 32.4 % (32.0-36.0); MEAN PLATELET VOLUME 9.1 FL (7.0-11.0); PLATELET COUNT 373 TH/MM3 (150-450); RED BLOOD COUNT 3.38 MIL/MM3 (4.50-5.90); RED CELL DISTRIBUTION WIDTH 17.5 % (11.6-17.2); WHITE BLOOD COUNT 6.6 TH/MM3 (4.0-11.0)
[2017-07-09 05:52] LABS: BICARBONATE 28.8 MEQ/L (21.0-32.0); CREATININE 0.62 MG/DL (0.60-1.30)
[2017-07-09] MEDS: LANSOPRAZOLE SOLUTAB 30 MG TAB NG SCH (08:24)
[2017-07-09] MEDS: RIVAROXABAN 20 MG TAB PO SCH (08:24)
[2017-07-09] MEDS: DOCUSATE SODIUM 100 MG/10 ML UDC PO SCH ×2 (08:24→21:00)
[2017-07-09] MEDS: SENNOSIDES SYRUP 8.8 MG/5 ML CUP NG SCH ×2 (08:25→21:00)
[2017-07-09] MEDS: SODIUM CHLORIDE 0.9% FLUSH 10 ML FLUSH IV FLUSH SCH ×2 (08:25→21:00)
[2017-07-09] MEDS: AMIODARONE 200 MG TAB PO SCH ×2 (08:39→23:26)
[2017-07-09] MEDS ORDERED: POTASSIUM CHLORIDE 20 MEQ PWD PACKET PO ONE (08:45)
[2017-07-09] MEDS ORDERED: Vancomycin Consult Pharmacy 1 EA OTHER SCH (09:45)
[2017-07-09] MEDS ORDERED: VANCOMYCIN INJ 1,000 MG in SODIUM CHLOR 0.9% 250 ML INJ 250 ML IV SCH (11:00)
[2017-07-09] MEDS: POTASSIUM CHLOR 20 MEQ PREMIX 100 ML IV SCH ×2 (11:34→13:45)
[2017-07-09] MEDS: AZITHROMYCIN INJ 500 MG in SODIUM CHLOR 0.9% 250 ML INJ 250 ML IV SCH (11:37)
[2017-07-09] MEDS ORDERED: metroNIDAZOLE 500 MG INJ 100 ML IV SCH (12:00)
--- NOTE | 2017-07-09 12:21 | HHI.HCPN ---
Reason for visit a. To assist with evaluation and management of symptoms including: dyspnea; encephalopathy; generalized weakness b. To assist medical decision maker(s) with: better understanding of current medical conditions; weighing benefits/burdens of medical treatment options; making medical treatment decisions. . Subjective/Interval History Patient medically extubated on 07/04/17. Currently with increased oxygen requirement, on 6 L from 4 L overnight. Low-grade temperature, max temp 100.2 this morning. Bedside nurse reports patient difficulty with swallowing morning meds. Patient has been placed n.p.o., pending swallow evaluation. Concerns of aspiration pneumonia. Patient seen in his room, he was resting in bed in no acute distress. Alert and oriented x self. Slurred speech, patient sleepy. Denies pain, nausea vomiting or abdominal discomfort. Endorsing shortness of breath with minimal exertion. Unable to elaborate further given sleepiness. Laboratory workup today revealing WBC 6.6, Hgb stable at 9.8. No new imaging for review. Telephone call to patient's Mrs. Lugo. Medical update provided. Patient currently being evaluated by [facility] and rehabilitation, has been declined by [facility]. Discussed with that patient is not likely to be discharge at this time given increasing oxygen requirement on 6L and dysphagia. Goal of therapy is to allow a few more days for clinical improvement. Family receptive to hospice services should patient's clinical condition worsen. Case discussed with bedside RN Norm. . Family/friend interactions See interval note. . Advance Directives Living Will: Never completed Health Care Surrogate: Never completed Durable Power of [place] Diver: Never completed Advance Directive Specifics Date completed: Per , patient has never completed an advanced directive. . Health Care Surrogate(s): The patient has never completed a written designation of healthcare surrogate. . Documented care wishes: We have no written documentation of patient's healthcare goals/preferences. . Significant change in goals: Goals remain aggressive short of no resuscitation. . Objective Vital Signs Date Time Temp Pulse Resp B/P (MAP) Pulse Ox O2 Delivery O2 Flow Rate FiO2 07/09/17 08:00 100.2 109 20 159/72 (101) 91 07/09/17 07:39 91 Nasal Cannula 6.00 07/09/17 04:46 90 Nasal Cannula 6.00 07/09/17 04:46 99.5 117 18 134/78 (96) 90 07/09/17 04:00 Nasal Cannula 4.00 07/09/17 03:58 119 07/09/17 00:42 87 18 135/63 (87) 91 07/09/17 00:00 Nasal Cannula 4.00 07/08/17 23:59 91 Nasal Cannula 6.00 07/08/17 23:53 88 07/08/17 21:35 17 17 140/64 (89) 94 07/08/17 20:11 92 Nasal Cannula 6.00 07/08/17 20:09 88 07/08/17 20:00 Nasal Cannula 4.00 07/08/17 16:00 98.2 82 20 157/67 (97) 96 07/08/17 16:00 80 Physical Exam CONSTITUTIONAL/GENERAL: This is an adequately nourished patient resting in bed in no acute distress. TUBES/LINES/DRAINS: PIV. Nasal cannula. SKIN: No jaundice. Red, blotchy skin on face. Actinic changes on sun-exposed areas. Skin temperature appropriate. Not diaphoretic. EYES: Pupils equal and round. EOMs intact. No scleral icterus. No injection or drainage. ENT: Hearing grossly normal. Nose without bleeding or purulent drainage. NECK: Trachea midline. Supple. CARDIOVASCULAR: Irregularly irregular heart rhythm. No audible gallops, or rubs. No JVD. RESPIRATORY/CHEST: Symmetric, unlabored respirations. Diminished breath sounds at both bases. No audible wheezes. No coughing heard today. GASTROINTESTINAL: Abdomen is obese, large, round,soft. Bowel sounds present. GENITOURINARY: Without palpable bladder distension. MUSCULOSKELETAL: Extremities without clubbing, cyanosis. 1+ edema present NEUROLOGICAL: Awake, alert to self, follows commands, moves all extremities. Slurred speech. Sleepy. PSYCHIATRIC:No obvious depression/anxiety/psychosis. . Diagnostic Tests Laboratory Laboratory Tests Test 07/07/17 05:28 07/08/17 06:05 07/09/17 03:40 White Blood Count 7.4 TH/MM3 (4.0-11.0) 7.8 TH/MM3 (4.0-11.0) 6.6 TH/MM3 (4.0-11.0) Red Blood Count 3.32 MIL/MM3 (4.50-5.90) 3.30 MIL/MM3 (4.50-5.90) 3.38 MIL/MM3 (4.50-5.90) Hemoglobin 9.8 GM/DL (13.0-17.0) 9.6 GM/DL (13.0-17.0) 9.8 GM/DL (13.0-17.0) Hematocrit 29.8 % (39.0-51.0) 29.3 % (39.0-51.0) 30.1 % (39.0-51.0) Mean Corpuscular Volume 89.8 FL (80.0-100.0) 88.7 FL (80.0-100.0) 89.2 FL (80.0-100.0) Mean Corpuscular Hemoglobin 29.4 PG (27.0-34.0) 29.0 PG (27.0-34.0) 28.9 PG (27.0-34.0) Mean Corpuscular Hemoglobin Concent 32.7 % (32.0-36.0) 32.7 % (32.0-36.0) 32.4 % (32.0-36.0) Red Cell Distribution Width 17.3 % (11.6-17.2) 17.6 % (11.6-17.2) 17.5 % (11.6-17.2) Platelet Count 318 TH/MM3 (150-450) 361 TH/MM3 (150-450) 373 TH/MM3 (150-450) Mean Platelet Volume 9.0 FL (7.0-11.0) 9.2 FL (7.0-11.0) 9.1 FL (7.0-11.0) Blood Urea Nitrogen 4 MG/DL (7-18) 6 MG/DL (7-18) 7 MG/DL (7-18) Creatinine 0.54 MG/DL (0.60-1.30) 0.60 MG/DL (0.60-1.30) 0.62 MG/DL (0.60-1.30) Random Glucose 95 MG/DL (74-106) 94 MG/DL (74-106) 94 MG/DL (74-106) Calcium Level 8.0 MG/DL (8.5-10.1) 7.9 MG/DL (8.5-10.1) 8.0 MG/DL (8.5-10.1) Sodium Level 140 MEQ/L (136-145) 138 MEQ/L (136-145) 140 MEQ/L (136-145) Potassium Level 3.7 MEQ/L (3.5-5.1) 3.6 MEQ/L (3.5-5.1) 3.4 MEQ/L (3.5-5.1) Chloride Level 102 MEQ/L (98-107) 99 MEQ/L (98-107) 101 MEQ/L (98-107) Carbon Dioxide Level 28.9 MEQ/L (21.0-32.0) 29.3 MEQ/L (21.0-32.0) 28.8 MEQ/L (21.0-32.0) Anion Gap 9 MEQ/L (5-15) 10 MEQ/L (5-15) 10 MEQ/L (5-15) Estimat Glomerular Filtration Rate 147 ML/MIN (>89) 130 ML/MIN (>89) 125 ML/MIN (>89) Result Diagram: 07/09/17 03407/09/17339 Procedures * 06/18/17 -Intubation/mechanical ventilation * 06/18/17 -Right internal jugular line placement * 06/18/17 -Left femoral artery line placement * 06/23/17 -EGD * 06/24/17 -colonoscopy with biopsy * 07/03/17 Extubation . . Assessment and Plan Disease Oriented Problem List: (1) Acute hypoxemic respiratory failure Comment: Extubated 07/03/17 . Not to be re-intubated. (2) Pneumonia (3) Atrial fibrillation with RVR (4) Proximal muscle weakness (5) GIB (gastrointestinal bleeding) Comment: Probable diverticular disease. . (6) Coronary artery disease (7) Hyperlipidemia (8) Hypertension (9) Abdominal aortic aneurysm (AAA) 3.0 cm to 5.5 cm in diameter in male Comment: Infra-renal (10) COPD (chronic obstructive pulmonary disease) Comment: Noted on PFTs in 2016. . (11) Rash and nonspecific skin eruption Comment: Bright red , blotchy, erythematous area particularly impacting face. Drug reaction? . Symptom Scale: (1) Pain 0-10 Scale: 0 Comment: Denies (2) Dyspnea 0-10 Scale: Unable to quantify Comment: Comfortable post extubation on nasal cannula 02. . . Pertinent Non-Medical Issues Psychosocial: Lives at home with who is wheelchair bound and need 24 hour 02. Well supported by step children. Spiritual: [place]. 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 Legal: No known advance directives. is proxy Ethical issues impacting care: Pt currently incapacitated but might re-gain capacity. . Important Contacts José Lugo (spouse; health care proxy) [phone] . Prognosis Patient had been very hard to wean from the vent even after aggressive treatment of his pneumonia. He was growing progressively weaker even before he developed the pneumonia. He was successfully extubated 07/03/17 per patient/ family wishes. Given his decline prior to becoming acutely ill, and the challenge to get him off the vent, he will remain at high risk for setbacks and future infections. . . Code Status: No Code Plan == Code Status: NO CODE -DNR/DNI per conversation directly with patient at time of extubation. Family supportive of this. == Decision Making: Patient is awake, alert and able to converse. However, intermittent confusion/lethargy. He appears capacitated to make his own health care decision. Should patient become incapacitated again, at this time there is no known written designation of healthcare surrogate. As per [place] statue , proxy healthcare decision making therefore falls to his spouse José Lugo. has accepted this role and is fully supported by patient's children. == Goals of medical treatment: aggressive care short of resuscitation for now. Family opting for half-way post discharge; however, patient with complications over the weekend; concerns of aspiration pneumonia/dysphagia. Should patient start to fail from a respiratory standpoint or in the setting of additional complications, patient and family would receptive to comfort- directed care with hospice. In the meantime, family wishing to allow a few more days for clinical improvement, pending acceptance to half-way facility once medically stable. == Symptoms * Pain: Patient did not have any prehospitalization pain syndromes. Current sources of discomfort might include prolonged bedbound status; vascular access lines. Patient denies pain during visit today. Opioid and benzo orders have been added to regimen to be available should patient tire out, show evidence of respiratory decline as he is not to be re-intubated. * Dyspnea: Currently comfortable on nasal cannula 02, but he is not exerting himself. Significant de-saturation with any exertion. Increased oxygen requirement during the weekend, currently 6 L via nasal cannula. * Dysphagia: Currently n.p.o. Pending swallow evaluation. == Hospice has met with patient and patient is declining services at this time and pursuing skilled rehab. Hospice will be readily available at such time there is a significant setback or patient fails in rehab. == Case discussed with bedside RN Norm. == Palliative care will continue to follow to assist with symptom management and to further clarify goals of medical treatment as the clinical course evolves. . Time Spent Total Floor Time (mins): 33 (Total time to include review medical records, physical exam, goals of care conversation with patient's , case discussion with bedside RN.) >50% Counseling/Coord of Care: Yes Attestation To help prompt me to consider important information that might be impacting today's encounter and assessment, information from prior notes written by myself or my colleagues may have been "brought forward" into today's note. My signature on this note, however, is an attestation that I personally performed the exam, history, and/or decision-making noted today, and, unless otherwise indicated, the interactions with patient, family, and staff as well as the review of records all occurred today. I also attest that the listed assessment and stated plan reflect my best clinical judgment today based on the combination of historical information, prior notes, and today's exam/ interactions. When time spent is documented, it refers only to time spent today by the signer, or if indicated, combined time spent today by collaborating physician/nurse practitioner. Natasha Nielsen Jul 09, 2017 12:21
--- NOTE | 2017-07-09 12:24 | HHI.PR ---
Subjective Remarks Reports of difficulty swallowing pill. Patient has a fever today. His respiratory status has worsened compared to previous day. Risk of aspiration. Objective Vital Signs Date Time Temp Pulse Resp B/P (MAP) Pulse Ox O2 Delivery O2 Flow Rate FiO2 07/09/17 12:08 90 Nasal Cannula 6.00 07/09/17 08:00 100.2 109 20 159/72 (101) 91 07/09/17 07:39 91 Nasal Cannula 6.00 07/09/17 04:46 90 Nasal Cannula 6.00 07/09/17 04:46 99.5 117 18 134/78 (96) 90 07/09/17 04:00 Nasal Cannula 4.00 07/09/17 03:58 119 07/09/17 00:42 87 18 135/63 (87) 91 07/09/17 00:00 Nasal Cannula 4.00 07/08/17 23:59 91 Nasal Cannula 6.00 07/08/17 23:53 88 07/08/17 21:35 17 17 140/64 (89) 94 07/08/17 20:11 92 Nasal Cannula 6.00 07/08/17 20:09 88 07/08/17 20:00 Nasal Cannula 4.00 07/08/17 16:00 98.2 82 20 157/67 (97) 96 07/08/17 16:00 80 I/O 07/08/17 07/08/17 07/08/17 07/09/17 07/09/17 07/09/17 07:00 15:00 23:00 07:00 15:00 23:00 Intake Total 100 ml Balance 100 ml Intake Oral 100 ml # Voids 4 # Bowel Movements 0 Result Diagram: 07/09/17 0340 07/09/17 0340 Objective Remarks GENERAL: NAD, A&Ox3 HEAD: Normocephalic. NECK: Supple, trachea midline. No lymphadenopathy. EYES: No scleral icterus. No injection or drainage. CARDIOVASCULAR: Irregularly irregular rhythm with tachycardic rate. Without murmurs, gallops, or rubs. RESPIRATORY: Breath sounds equal bilaterally. No accessory muscle use. Crackles bilaterally. GASTROINTESTINAL: Abdomen soft, non-tender, nondistended. MUSCULOSKELETAL: No cyanosis, or edema. SKIN: Warm and dry. NEURO: No focal neurological deficitis. A/P Problem List: (1) Atrial fibrillation with RVR ICD Code: I48.91 - Unspecified atrial fibrillation Status: Acute (2) Generalized weakness ICD Code: R53.1 - Weakness Status: Acute Assessment and Plan 77-year-old male admitted secondary to A. fib RVR with subsequent respiratory failure. Patient worse today compared to previous day. Swallow evaluation ordered. He is made nothing by mouth. Light IV hydration started. Zosyn, vancomycin, and azithromycin added for aspiration coverage. Follow CBC and fever trends. 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
[2017-07-09] MEDS ORDERED: SODIUM CHLOR 0.9% 1000 ML INJ 1,000 ML IV SCH (13:00)
[2017-07-09] MEDS: PIPERACIL-TAZO 4.5 GM PREMIX 100 ML IV SCH ×3 (13:51→23:27)
[2017-07-09] MEDS: VANCOMYCIN INJ 1,750 MG in SODIUM CHLORID 0.9% 500 ML INJ 500 ML IV SCH (15:05)
[2017-07-10] VITALS (12 sets, daily range): BP systolic 121–149; BP diastolic 60–82; PULSE 80–131; RESP 16–20; TEMP 97.8–99.9; O2SAT 92–96
[2017-07-10] MEDS: RESP: IPRATROPIUM 0.5 MG/2.5 ML NEB NEB SCH ×7 (00:16→23:41)
[2017-07-10] MEDS: VANCOMYCIN INJ 1,750 MG in SODIUM CHLORID 0.9% 500 ML INJ 500 ML IV SCH ×2 (02:50→14:00)
[2017-07-10] MEDS: ARTIFICIAL TEARS OPTH SOLN 15 ML BTL EACH EYE SCH ×4 (02:50→23:40)
[2017-07-10 05:22] LABS: AUTOMATED NEUTROPHIL # 5.1 TH/MM3 (1.8-7.7); BASOPHIL # 0.1 TH/MM3 (0-0.2); BASOPHIL % 1.1 % (0.0-2.0); EOSINOPHIL % 13.3 % (0.0-4.0); HEMATOCRIT 30.3 % (39.0-51.0); HEMOGLOBIN 9.5 GM/DL (13.0-17.0); LYMPH % 10.5 % (9.0-44.0); LYMPHOCYTE # 0.8 TH/MM3 (1.0-4.8); MEAN CELL VOLUME 89.7 FL (80.0-100.0); MEAN CORPUSCULAR HGB CONC 31.2 % (32.0-36.0); MEAN PLATELET VOLUME 9.1 FL (7.0-11.0); MONO % 7.5 % (0.0-8.0); MONOCYTE # 0.6 TH/MM3 (0-0.9); NEUT % 67.6 % (16.0-70.0); PLATELET COUNT 326 TH/MM3 (150-450); RED BLOOD COUNT 3.38 MIL/MM3 (4.50-5.90); RED CELL DISTRIBUTION WIDTH 17.9 % (11.6-17.2); WHITE BLOOD COUNT 7.5 TH/MM3 (4.0-11.0)
[2017-07-10] MEDS: PIPERACIL-TAZO 4.5 GM PREMIX 100 ML IV SCH ×4 (05:26→23:40)
[2017-07-10] MEDS: DILTIAZEM HCL 30 MG TAB PO SCH ×5 (05:28→23:40)
[2017-07-10 05:32] LABS: ALBUMIN 2.2 GM/DL (3.4-5.0); AST (GOT) 19 U/L (15-37); BICARBONATE 30.7 MEQ/L (21.0-32.0); BLOOD UREA NITROGEN 6 MG/DL (7-18); CALCIUM 7.9 MG/DL (8.5-10.1); CHLORIDE 103 MEQ/L (98-107); CREATININE 0.65 MG/DL (0.60-1.30); GLOMERULAR FILTRATION RATE 119 ML/MIN (>89); GLUCOSE,RANDOM 95 MG/DL (74-106); SODIUM (NA) 140 MEQ/L (136-145)
[2017-07-10 05:34] LABS: ALT (GPT) 14 U/L (12-78)
[2017-07-10 05:36] LABS: ALKALINE PHOSPHATASE 60 U/L (45-117); TOTAL BILIRUBIN ADULT 0.6 MG/DL (0.2-1.0); TOTAL PROTEIN 6.7 GM/DL (6.4-8.2)
[2017-07-10] MEDS: SENNOSIDES SYRUP 8.8 MG/5 ML CUP NG SCH ×2 (09:00→20:48)
[2017-07-10] MEDS: DOCUSATE SODIUM 100 MG/10 ML UDC PO SCH ×2 (09:38→20:47)
[2017-07-10] MEDS: AMIODARONE 200 MG TAB PO SCH ×2 (09:38→20:47)
[2017-07-10] MEDS: RIVAROXABAN 20 MG TAB PO SCH (09:38)
[2017-07-10] MEDS: LANSOPRAZOLE SOLUTAB 30 MG TAB NG SCH (09:38)
[2017-07-10] MEDS: SODIUM CHLORIDE 0.9% FLUSH 10 ML FLUSH IV FLUSH SCH ×2 (09:43→20:48)
[2017-07-10] MEDS: AZITHROMYCIN INJ 500 MG in SODIUM CHLOR 0.9% 250 ML INJ 250 ML IV SCH (11:37)
[2017-07-10] MEDS: ACETAMINOPHEN 650 MG/20.3 ML UDC NG PRN (13:08)
--- NOTE | 2017-07-10 13:12 | HHI.PR ---
Subjective Remarks Respiratory status worse today compared to previous day. Patient is comfortable with a Ventimask. No new complaints from the patient. He did pass a swallow study but is recommended to be on pured diet and honey thickened liquids. Objective Vital Signs Date Time Temp Pulse Resp B/P (MAP) Pulse Ox O2 Delivery O2 Flow Rate FiO2 07/10/17 12:00 99.9 131 16 121/80 (94) 94 07/10/17 09:04 92 Nasal Cannula 6.00 07/10/17 08:00 99.5 80 16 146/75 (98) 93 07/10/17 04:14 Nasal Cannula 5.00 07/10/17 04:14 98.5 81 18 128/60 (82) 96 07/10/17 04:08 81 07/10/17 00:34 94 Nasal Cannula 6.00 07/10/17 00:15 82 07/09/17 23:24 98.4 85 20 142/63 (89) 94 07/09/17 20:21 87 07/09/17 20:00 Nasal Cannula 5.00 07/09/17 20:00 99.6 85 18 135/65 (88) 96 07/09/17 19:37 94 Nasal Cannula 6.00 07/09/17 16:00 98.4 113 20 120/64 (82) 93 I/O 07/09/17 07/09/17 07/09/17 07/10/17 07/10/17 07/10/17 07:00 15:00 23:00 07:00 15:00 23:00 Intake Total 0 ml Balance 0 ml Intake Oral 0 ml # Voids 4 # Bowel Movements 0 Result Diagram: 07/10/17 0407 07/10/17 0407 Objective Remarks GENERAL: NAD, A&Ox3 HEAD: Normocephalic. NECK: Supple, trachea midline. No lymphadenopathy. EYES: No scleral icterus. No injection or drainage. CARDIOVASCULAR: Irregularly irregular rhythm with tachycardic rate. Without murmurs, gallops, or rubs. RESPIRATORY: Breath sounds equal bilaterally. No accessory muscle use. Crackles bilaterally. GASTROINTESTINAL: Abdomen soft, non-tender, nondistended. MUSCULOSKELETAL: No cyanosis, or edema. SKIN: Warm and dry. NEURO: No focal neurological deficitis. A/P Problem List: (1) Atrial fibrillation with RVR ICD Code: I48.91 - Unspecified atrial fibrillation Status: Acute (2) Generalized weakness ICD Code: R53.1 - Weakness Status: Acute Assessment and Plan 77-year-old male admitted secondary to A. fib RVR with subsequent respiratory failure. Patient worse today compared to previous day. Swallow evaluation past, honey thick liquids and pured diet recommended. Monitor respiratory status. He is made nothing by mouth. IV hydration discontinued. Zosyn, vancomycin, and azithromycin added for aspiration coverage. Follow CBC and fever trends. 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
--- NOTE | 2017-07-10 17:30 | HHI.HCPN ---
Reason for visit a. To assist with evaluation and management of symptoms including: dyspnea; encephalopathy; generalized weakness b. To assist medical decision maker(s) with: better understanding of current medical conditions; weighing benefits/burdens of medical treatment options; making medical treatment decisions. . Subjective/Interval History Patient medically extubated on 07/04/17. Remains with increased oxygen requirement, on 6 L via NC. No temperature in the past 24 hours. Patient seen in his room, in bed in no acute distress. Patient alert and oriented x self, place and situation. More alert and interactive than yesterday. Answering questions appropriately. Reporting feeling better than yesterday. Endorsing shortness of breath on exertion, denies pain, nausea/vomiting or abdominal discomfort. Lunch tray at bedside, patient reports that he has no appetite. Declined lunch. Patient remains on pured diet with honey thickened liquids, speech therapy following. Laboratory workup today revealing WBC 7.5, Hgb stable at 9.5, platelet count 326. BUN/creatinine 6/0.65. Telephone call to patient's Mrs. Lugo. Medical update provided. reported that family visited patient earlier today, they had a chance to talk with attending Dr. Vega. Discussed with that patient is not likely to be discharged at this time given increasing oxygen requirement on 6L and dysphagia. Goal of therapy is to allow a few more days for clinical improvement. Family receptive to hospice services should patient's clinical condition worsen. . Family/friend interactions See interval note. . Advance Directives Living Will: Never completed Health Care Surrogate: Never completed Durable Power of Game Farm Helper: Never completed Advance Directive Specifics Date completed: Per , patient has never completed an advanced directive. . Health Care Surrogate(s): The patient has never completed a written designation of healthcare surrogate. . Documented care wishes: We have no written documentation of patient's healthcare goals/preferences. . Significant change in goals: Goal of therapy remain unchanged. . Objective Vital Signs Date Time Temp Pulse Resp B/P (MAP) Pulse Ox O2 Delivery O2 Flow Rate FiO2 07/10/17 16:00 111 07/10/17 12:00 99.9 131 16 121/80 (94) 94 07/10/17 12:00 127 07/10/17 09:04 92 Nasal Cannula 6.00 07/10/17 08:00 99.5 80 16 146/75 (98) 93 07/10/17 08:00 80 07/10/17 07:00 Nasal Cannula 5.00 07/10/17 04:14 Nasal Cannula 5.00 07/10/17 04:14 98.5 81 18 128/60 (82) 96 07/10/17 04:08 81 07/10/17 00:34 94 Nasal Cannula 6.00 07/10/17 00:15 82 07/09/17 23:24 98.4 85 20 142/63 (89) 94 07/09/17 20:21 87 07/09/17 20:00 Nasal Cannula 5.00 07/09/17 20:00 99.6 85 18 135/65 (88) 96 07/09/17 19:37 94 Nasal Cannula 6.00 Intake & Output 07/10/17 07/10/17 07:00 19:00 Intake Total 0 ml Balance 0 ml Intake Oral 0 ml # Voids 4 # Bowel Movements 0 Physical Exam CONSTITUTIONAL/GENERAL: This is an adequately nourished patient resting in bed in no acute distress. TUBES/LINES/DRAINS: PIV. Nasal cannula. SKIN: No jaundice. Red, blotchy skin on face. Actinic changes on sun-exposed areas. Skin temperature appropriate. Not diaphoretic. EYES: Pupils equal and round. EOMs intact. No scleral icterus. No injection or drainage. ENT: Hearing grossly normal. Nose without bleeding or purulent drainage. NECK: Trachea midline. Supple. CARDIOVASCULAR: Irregularly irregular heart rhythm. No audible gallops, or rubs. No JVD. RESPIRATORY/CHEST: Symmetric, unlabored respirations. Diminished breath sounds at both bases. No audible wheezes. No coughing heard today. GASTROINTESTINAL: Abdomen is obese, large, round,soft. Bowel sounds present. GENITOURINARY: Without palpable bladder distension. MUSCULOSKELETAL: Extremities without clubbing, cyanosis. 1+ edema present NEUROLOGICAL: Awake, alert to self, place and situation. follows commands, moves all extremities. More alert and interactive than yesterday. PSYCHIATRIC:No obvious depression/anxiety/psychosis. . Diagnostic Tests Laboratory Laboratory Tests Test 07/08/17 06:05 07/09/17 03:40 07/10/17 04:07 White Blood Count 7.8 TH/MM3 (4.0-11.0) 6.6 TH/MM3 (4.0-11.0) 7.5 TH/MM3 (4.0-11.0) Red Blood Count 3.30 MIL/MM3 (4.50-5.90) 3.38 MIL/MM3 (4.50-5.90) 3.38 MIL/MM3 (4.50-5.90) Hemoglobin 9.6 GM/DL (13.0-17.0) 9.8 GM/DL (13.0-17.0) 9.5 GM/DL (13.0-17.0) Hematocrit 29.3 % (39.0-51.0) 30.1 % (39.0-51.0) 30.3 % (39.0-51.0) Mean Corpuscular Volume 88.7 FL (80.0-100.0) 89.2 FL (80.0-100.0) 89.7 FL (80.0-100.0) Mean Corpuscular Hemoglobin 29.0 PG (27.0-34.0) 28.9 PG (27.0-34.0) 28.0 PG (27.0-34.0) Mean Corpuscular Hemoglobin Concent 32.7 % (32.0-36.0) 32.4 % (32.0-36.0) 31.2 % (32.0-36.0) Red Cell Distribution Width 17.6 % (11.6-17.2) 17.5 % (11.6-17.2) 17.9 % (11.6-17.2) Platelet Count 361 TH/MM3 (150-450) 373 TH/MM3 (150-450) 326 TH/MM3 (150-450) Mean Platelet Volume 9.2 FL (7.0-11.0) 9.1 FL (7.0-11.0) 9.1 FL (7.0-11.0) Blood Urea Nitrogen 6 MG/DL (7-18) 7 MG/DL (7-18) 6 MG/DL (7-18) Creatinine 0.60 MG/DL (0.60-1.30) 0.62 MG/DL (0.60-1.30) 0.65 MG/DL (0.60-1.30) Random Glucose 94 MG/DL (74-106) 94 MG/DL (74-106) 95 MG/DL (74-106) Calcium Level 7.9 MG/DL (8.5-10.1) 8.0 MG/DL (8.5-10.1) 7.9 MG/DL (8.5-10.1) Sodium Level 138 MEQ/L (136-145) 140 MEQ/L (136-145) 140 MEQ/L (136-145) Potassium Level 3.6 MEQ/L (3.5-5.1) 3.4 MEQ/L (3.5-5.1) 3.9 MEQ/L (3.5-5.1) Chloride Level 99 MEQ/L (98-107) 101 MEQ/L (98-107) 103 MEQ/L (98-107) Carbon Dioxide Level 29.3 MEQ/L (21.0-32.0) 28.8 MEQ/L (21.0-32.0) 30.7 MEQ/L (21.0-32.0) Anion Gap 10 MEQ/L (5-15) 10 MEQ/L (5-15) 6 MEQ/L (5-15) Estimat Glomerular Filtration Rate 130 ML/MIN (>89) 125 ML/MIN (>89) 119 ML/MIN (>89) Neutrophils (%) (Auto) 67.6 % (16.0-70.0) Lymphocytes (%) (Auto) 10.5 % (9.0-44.0) Monocytes (%) (Auto) 7.5 % (0.0-8.0) Eosinophils (%) (Auto) 13.3 % (0.0-4.0) Basophils (%) (Auto) 1.1 % (0.0-2.0) Neutrophils # (Auto) 5.1 TH/MM3 (1.8-7.7) Lymphocytes # (Auto) 0.8 TH/MM3 (1.0-4.8) Monocytes # (Auto) 0.6 TH/MM3 (0-0.9) Eosinophils # (Auto) 1.0 TH/MM3 (0-0.4) Basophils # (Auto) 0.1 TH/MM3 (0-0.2) CBC Comment DIFF FINAL Differential Comment Total Protein 6.7 GM/DL (6.4-8.2) Albumin 2.2 GM/DL (3.4-5.0) Alkaline Phosphatase 60 U/L (45-117) Aspartate Amino Transf (AST/SGOT) 19 U/L (15-37) Alanine Aminotransferase (ALT/SGPT) 14 U/L (12-78) Total Bilirubin 0.6 MG/DL (0.2-1.0) Result Diagram: 07/10/1740607/10/17406 Procedures * 06/18/17 -Intubation/mechanical ventilation * 06/18/17 -Right internal jugular line placement * 06/18/17 -Left femoral artery line placement * 06/23/17 -EGD * 06/24/17 -colonoscopy with biopsy * 07/03/17 Extubation . . Assessment and Plan Disease Oriented Problem List: (1) Acute hypoxemic respiratory failure Comment: Extubated 07/03/17 . Not to be re-intubated. (2) Pneumonia (3) Atrial fibrillation with RVR (4) Proximal muscle weakness (5) GIB (gastrointestinal bleeding) Comment: Probable diverticular disease. . (6) Coronary artery disease (7) Hyperlipidemia (8) Hypertension (9) Abdominal aortic aneurysm (AAA) 3.0 cm to 5.5 cm in diameter in male Comment: Infra-renal (10) COPD (chronic obstructive pulmonary disease) Comment: Noted on PFTs in 2016. . (11) Rash and nonspecific skin eruption Comment: Bright red , blotchy, erythematous area particularly impacting face. Drug reaction? . Symptom Scale: (1) Pain 0-10 Scale: 0 Comment: Denies (2) Dyspnea 0-10 Scale: Unable to quantify Comment: Comfortable post extubation on nasal cannula 02. . . Pertinent Non-Medical Issues Psychosocial: Lives at home with who is wheelchair bound and need 24 hour 02. Well supported by step children. Spiritual: Religious. 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 Legal: No known advance directives. is proxy Ethical issues impacting care: Pt currently incapacitated but might re-gain capacity. . Important Contacts José Parish (spouse; health care proxy) [phone] . Prognosis Patient had been very hard to wean from the vent even after aggressive treatment of his pneumonia. He was growing progressively weaker even before he developed the pneumonia. He was successfully extubated 07/03/17 per patient/ family wishes. Given his decline prior to becoming acutely ill, and the challenge to get him off the vent, he will remain at high risk for setbacks and future infections. . . Code Status: No Code Plan == Code Status: NO CODE -DNR/DNI per conversation directly with patient at time of extubation. Family supportive of this. == Decision Making: Patient is awake, alert and able to converse. However, intermittent confusion/lethargy. He appears capacitated to make his own health care decision. Should patient become incapacitated again, at this time there is no known written designation of healthcare surrogate. As per [place] statue , proxy healthcare decision making therefore falls to his spouse José Lugo. has accepted this role and is fully supported by patient's children. == Goals of medical treatment: aggressive care short of resuscitation. Family opting for group home post discharge; however, patient with complications to include increased oxygen requirement; concerns of aspiration pneumonia/ dysphagia. Should patient start to fail from a respiratory standpoint or in the setting of additional complications, patient and family is receptive to comfort-directed care with hospice. In the meantime, family wishing to allow a few more days for clinical improvement, pending acceptance to group home facility once medically stable. == Symptoms * Pain: Patient did not have any prehospitalization pain syndromes. Current sources of discomfort might include prolonged bedbound status; vascular access lines. Patient denies pain during visit today. Opioid and benzo orders have been added to regimen to be available should patient tire out, show evidence of respiratory decline as he is not to be re-intubated. * Dyspnea: Currently comfortable on nasal cannula 02, but he is not exerting himself. Significant de-saturation with any exertion. Increased oxygen requirement during the weekend, currently 6 L via nasal cannula. * Dysphagia: Speech therapy following. == Hospice has met with patient and patient is declining services at this time and pursuing skilled rehab. Hospice will be readily available at such time there is a significant setback or patient fails in rehab. == Case discussed with bedside ELOY Zheng. == Palliative care will continue to follow to assist with symptom management and to further clarify goals of medical treatment as the clinical course evolves. . Time Spent Total Floor Time (mins): 22 (Total time to include review of medical records, physical exam, telephone conversation with patient's .) >50% Counseling/Coord of Care: Yes Attestation To help prompt me to consider important information that might be impacting today's encounter and assessment, information from prior notes written by myself or my colleagues may have been "brought forward" into today's note. My signature on this note, however, is an attestation that I personally performed the exam, history, and/or decision-making noted today, and, unless otherwise indicated, the interactions with patient, family, and staff as well as the review of records all occurred today. I also attest that the listed assessment and stated plan reflect my best clinical judgment today based on the combination of historical information, prior notes, and today's exam/ interactions. When time spent is documented, it refers only to time spent today by the signer, or if indicated, combined time spent today by collaborating physician/nurse practitioner. Natasha Nielsen Jul 10, 2017 17:30
[2017-07-11] VITALS (8 sets, daily range): BP systolic 122–143; BP diastolic 59–70; PULSE 75–84; RESP 18–22; TEMP 98–98.8; O2SAT 93–99
[2017-07-11] MEDS: VANCOMYCIN INJ 1,750 MG in SODIUM CHLORID 0.9% 500 ML INJ 500 ML IV SCH (01:32)
[2017-07-11] MEDS: RESP: IPRATROPIUM 0.5 MG/2.5 ML NEB NEB SCH ×5 (02:40→19:38)
[2017-07-11] MEDS: PIPERACIL-TAZO 4.5 GM PREMIX 100 ML IV SCH ×3 (05:09→17:30)
[2017-07-11] MEDS: DILTIAZEM HCL 30 MG TAB PO SCH ×3 (05:09→17:29)
[2017-07-11] MEDS: SENNOSIDES SYRUP 8.8 MG/5 ML CUP NG SCH ×2 (09:00→20:17)
[2017-07-11] MEDS: DOCUSATE SODIUM 100 MG/10 ML UDC PO SCH ×2 (09:00→20:17)
[2017-07-11] MEDS: SODIUM CHLORIDE 0.9% FLUSH 10 ML FLUSH IV FLUSH SCH ×2 (09:00→20:17)
[2017-07-11] MEDS: AMIODARONE 200 MG TAB PO SCH ×2 (09:00→20:18)
[2017-07-11] MEDS: ARTIFICIAL TEARS OPTH SOLN 15 ML BTL EACH EYE SCH ×2 (09:00→17:30)
[2017-07-11] MEDS: LANSOPRAZOLE SOLUTAB 30 MG TAB NG SCH (09:00)
[2017-07-11] MEDS: RIVAROXABAN 20 MG TAB PO SCH (09:00)
[2017-07-11 09:11] LABS: AUTOMATED NEUTROPHIL # 4.8 TH/MM3 (1.8-7.7); BASOPHIL # 0.1 TH/MM3 (0-0.2); BASOPHIL % 0.8 % (0.0-2.0); EOSINOPHIL # 1.2 TH/MM3 (0-0.4); EOSINOPHIL % 15.6 % (0.0-4.0); HEMATOCRIT 29.9 % (39.0-51.0); HEMOGLOBIN 9.4 GM/DL (13.0-17.0); LYMPH % 11.3 % (9.0-44.0); LYMPHOCYTE # 0.8 TH/MM3 (1.0-4.8); MEAN CELL VOLUME 90.3 FL (80.0-100.0); MEAN CORPUSCULAR HEMOGLOBIN 28.5 PG (27.0-34.0); MEAN CORPUSCULAR HGB CONC 31.5 % (32.0-36.0); MEAN PLATELET VOLUME 8.5 FL (7.0-11.0); MONOCYTE # 0.5 TH/MM3 (0-0.9); NEUT % 65.3 % (16.0-70.0); PLATELET COUNT 332 TH/MM3 (150-450); RED BLOOD COUNT 3.31 MIL/MM3 (4.50-5.90); RED CELL DISTRIBUTION WIDTH 17.3 % (11.6-17.2); WHITE BLOOD COUNT 7.4 TH/MM3 (4.0-11.0)
--- NOTE | 2017-07-11 09:45 | RADRPT ---
EXAM DATE/TIME: 07/11/2017 09:07 [facility] COMPARISON: CHEST SINGLE AP, July 03, 2017, 4:06. INDICATIONS : Short of breath. MEDICAL HISTORY : Hypertension. Chronic obstructive pulmonary disease. Cardiovascular SURGICAL HISTORY : None. ENCOUNTER: Subsequent ACUITY: 1 week PAIN SCORE: 0/10 LOCATION: Bilateral chest FINDINGS: A single view of the chest demonstrates persistent bibasilar airspace disease and possible associated effusions. There may be some slight interval improvement compared to prior, however. Endotracheal an d nasogastric tubes have been removed. Heart size is upper limits of normal. Osseous structures are i ntact. CONCLUSION: 1. Interval removal of the endotracheal and nasogastric tubes. 2. Persistent bibasilar airspace disease with possible associated effusions. There does appear to be slight interval improvement compared to prior, however. Amish Bush MD on July 11, 2017 at 9:41 Board Certified Radiologist. This report was verified electronically.
[2017-07-11 09:54] LABS: ALBUMIN 1.9 GM/DL (3.4-5.0); AST (GOT) 18 U/L (15-37); BLOOD UREA NITROGEN 6 MG/DL (7-18); CALCIUM 8.1 MG/DL (8.5-10.1); CHLORIDE 103 MEQ/L (98-107); GLOMERULAR FILTRATION RATE 130 ML/MIN (>89); GLUCOSE,RANDOM 97 MG/DL (74-106); SODIUM (NA) 141 MEQ/L (136-145)
[2017-07-11 09:56] LABS: ALT (GPT) 11 U/L (12-78)
[2017-07-11 09:58] LABS: ALKALINE PHOSPHATASE 54 U/L (45-117); TOTAL BILIRUBIN ADULT 0.5 MG/DL (0.2-1.0); TOTAL PROTEIN 6.3 GM/DL (6.4-8.2)
[2017-07-11] MEDS: AZITHROMYCIN INJ 500 MG in SODIUM CHLOR 0.9% 250 ML INJ 250 ML IV SCH (11:06)
[2017-07-11] MEDS ORDERED: PHARMACY ORDERED LAB ONE (13:45)
--- NOTE | 2017-07-11 13:58 | HHI.PR ---
Subjective Remarks Patient reports he is feeling ok today. Breathing more comfortable. Objective Vitals Vital Signs Date Time Temp Pulse Resp B/P (MAP) Pulse Ox O2 Delivery O2 Flow Rate FiO2 07/11/17 12:00 98.8 81 18 124/66 (85) 98 07/11/17 08:00 98.4 76 18 122/59 (80) 98 07/11/17 07:49 97 Nasal Cannula 5.00 07/11/17 03:54 79 07/11/17 03:37 98.3 78 22 143/65 (91) 98 07/10/17 23:48 110 07/10/17 23:24 98.6 110 20 133/76 (95) 93 07/10/17 20:54 92 Nasal Cannula 6.00 07/10/17 20:00 107 07/10/17 20:00 98.3 106 20 149/81 (103) 94 07/10/17 16:00 111 07/10/17 16:00 97.8 129 16 134/82 (99) 93 I/O 07/10/17 07/10/17 07/10/17 07/11/17 07/11/17 07/11/17 07:00 15:00 23:00 07:00 15:00 23:00 Intake Total 0 ml 617.5 ml Balance 0 ml 617.5 ml Intake Oral 0 ml 0 ml IV Total 617.5 ml # Voids 4 4 # Bowel Movements 0 0 Result Diagram: 07/11/17 0743 07/11/17 0743 Imaging Last Impressions Chest X-Ray 07/11/17 0000 Signed Impressions: Service Date/Time: June 09:07 - CONCLUSION: 1. Interval removal of the endotracheal and nasogastric tubes. 2. Persistent bibasilar airspace disease with possible associated effusions. There does appear to be slight interval improvement compared to prior, however. Amish Bush MD Head CT 06/26/17 0000 Signed Impressions: Service Date/Time: Monday, June 26, 2017 15:50 - CONCLUSION: 1. Mild generalized atrophy. 2. No evidence of acute infarct, hemorrhage, mass or edema. 3. Paranasal sinus fluid accumulation likely related to nasogastric tube and endotracheal tube. Mike Andrade MD Abdomen/Pelvis CT 06/26/17 0000 Signed Impressions: Service Date/Time: Monday, June 26, 2017 15:52 - CONCLUSION: 1. There is an infrarenal abdominal aortic aneurysm measuring 5 cm x 4.5 cm. 2. Scattered diverticulosis of the descending and sigmoid colon without definite inflammatory changes. 3. Nonspecific edema in the lower abdominal wall. 4. Small bilateral pleural effusions with bibasilar atelectasis. Slade Olivo MD Abdomen Ultrasound 06/22/17 0000 Signed Impressions: Service Date/Time: Thursday, June 22, 2017 13:59 - CONCLUSION: 1. Hepatomegaly 2. 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 Nino Roche MD Chest CT 06/18/17 0000 Signed Impressions: Service Date/Time: Sunday, June 18, 2017 05:38 - CONCLUSION: 1. Bilateral lower lobe multisegmental consolidative infiltrates, left larger than right. Alexys Laurent MD Objective Remarks GENERAL: Elderly and frail male. No acute distress CARDIOVASCULAR: Normal rate and regular rhythm without murmurs, gallops, or rubs. RESPIRATORY: Respiratory effort is fair. Breathing somewhat shallow. Markedly diminished breath sounds at the bases bilaterally. GASTROINTESTINAL: Abdomen soft, non-tender, non-distended. Normal active bowel sounds MUSCULOSKELETAL: Extremities without cyanosis, or edema. NEURO: Alert & Oriented x4 to person, place, time, situation. Moves all ext x4. Generalized weakness PSYCH: Appropriate mood and affect. Date of Insertion: Jun 23, 2017 Line: Central Venous Catheter Side: Left Location: Internal, Jugular A/P Problem List: (1) Atrial fibrillation with RVR ICD Code: I48.91 - Unspecified atrial fibrillation Status: Acute (2) Generalized weakness ICD Code: R53.1 - Weakness Status: Acute (3) Acute hypoxemic respiratory failure ICD Code: J96.01 - Acute respiratory failure with hypoxia (4) Diarrhea ICD Code: R19.7 - Diarrhea, unspecified Assessment and Plan 77-year-old male admitted secondary to A. fib RVR with subsequent respiratory failure. Pulmonary edema Give additional dose of IV Lasix today. Follow with respiratory exams Septic shock Resolved Generalized Weakness Physical Debility (related to sepsis) Continue PT Respiratory failure Interstitial lung disease COPD Status post extubation on 07/04/17 Continue to monitor respiratory status Oxygen supplementation as needed History of seizure Follow clinically Atrial fibrillation with RVR- resolved 4.4 cm distal femoral aneurysm -54.5 cm infrarenal femoral Coronary artery disease with a history of inferior myocardial infarction Chronic right bundle branch block Continue diltiazem History of hypertension History of dyslipidemia Edematous colonic polyps Follow clinically Add back blood pressure medicines as needed Chronic gastritis Hypoalbuminemia Hepatomegaly Hiatal hernia Elevated AST Continue to monitor LFTs Strep pneumo pneumonia Strep viridian bacteremia/septicemia Treatment completed Rocephin completed DVT prophylaxis SCDs Xarelto Discharge Planning Patient is stable but at risk for further decompensation. Continue current treatment and monitor for progress. Will at least need rehab. Toni Cardenas MD Jul 11, 2017 13:58
[2017-07-11] MEDS ORDERED: FUROSEMIDE 40 MG/4 ML VIAL IV PUSH ONE (15:00)
[2017-07-12] VITALS (10 sets, daily range): BP systolic 110–139; BP diastolic 57–69; PULSE 78–145; RESP 17–20; TEMP 96.3–98.4; O2SAT 93–97
[2017-07-12] MEDS: PIPERACIL-TAZO 4.5 GM PREMIX 100 ML IV SCH ×5 (00:07→22:51)
[2017-07-12] MEDS: ARTIFICIAL TEARS OPTH SOLN 15 ML BTL EACH EYE SCH ×3 (00:07→16:37)
[2017-07-12] MEDS: RESP: IPRATROPIUM 0.5 MG/2.5 ML NEB NEB SCH ×6 (01:05→19:40)
[2017-07-12] MEDS: DILTIAZEM HCL 30 MG TAB PO SCH ×5 (06:07→22:52)
[2017-07-12] MEDS: AMIODARONE 200 MG TAB PO SCH ×2 (07:58→20:50)
[2017-07-12] MEDS: DOCUSATE SODIUM 100 MG/10 ML UDC PO SCH ×2 (07:58→20:49)
[2017-07-12] MEDS: SODIUM CHLORIDE 0.9% FLUSH 10 ML FLUSH IV FLUSH SCH ×2 (07:58→20:50)
[2017-07-12] MEDS: LANSOPRAZOLE SOLUTAB 30 MG TAB NG SCH (07:58)
[2017-07-12] MEDS: SENNOSIDES SYRUP 8.8 MG/5 ML CUP NG SCH ×2 (07:58→20:50)
[2017-07-12] MEDS: RIVAROXABAN 20 MG TAB PO SCH (07:59)
[2017-07-12 08:37] LABS: BICARBONATE 34.4 MEQ/L (21.0-32.0); CALCIUM 8.4 MG/DL (8.5-10.1); CREATININE 0.77 MG/DL (0.60-1.30)
[2017-07-12] MEDS ORDERED: FUROSEMIDE 40 MG/4 ML VIAL IV PUSH ONE (09:30)
[2017-07-12] MEDS: AZITHROMYCIN INJ 500 MG in SODIUM CHLOR 0.9% 250 ML INJ 250 ML IV SCH (09:46)
--- NOTE | 2017-07-12 10:50 | HHI.PR ---
Subjective Remarks Patient reports his breathing is a little better today. Still requiring 5 L of oxygen on nasal cannula. Objective Vitals Vital Signs Date Time Temp Pulse Resp B/P (MAP) Pulse Ox O2 Delivery O2 Flow Rate FiO2 07/12/17 08:40 Nasal Cannula 5.00 07/12/17 08:00 98.4 82 17 124/61 (82) 94 07/12/17 07:40 93 Nasal Cannula 5.00 07/12/17 07:00 98.4 82 17 124/61 (82) 94 07/12/17 07:00 98.4 82 17 124/61 (82) 94 07/12/17 04:00 98.0 82 18 129/68 (88) 97 07/12/17 04:00 83 07/12/17 00:00 79 07/12/17 00:00 96.3 79 17 110/57 (74) 97 07/12/17 00:00 Nasal Cannula 5.00 07/11/17 20:00 Nasal Cannula 5.00 07/11/17 20:00 98.0 78 18 123/68 (86) 99 07/11/17 20:00 79 07/11/17 19:40 93 Nasal Cannula 5.00 07/11/17 16:00 98.4 79 18 126/70 (88) 94 07/11/17 16:00 76 07/11/17 12:00 84 07/11/17 12:00 98.8 81 18 124/66 (85) 98 I/O 07/11/17 07/11/17 07/11/17 07/12/17 07/12/17 07/12/17 07:00 15:00 23:00 07:00 15:00 23:00 Intake Total 617.5 ml 200 ml Output Total 500 ml Balance 617.5 ml -300 ml Intake Oral 0 ml 0 ml IV Total 617.5 ml 200 ml Output Urine Total 500 ml # Voids 4 # Bowel Movements 0 0 Result Diagram: 07/11/17 0743 07/12/17 0548 Objective Remarks GENERAL: Elderly and frail male. No acute distress CARDIOVASCULAR: Normal rate and regular rhythm without murmurs, gallops, or rubs. RESPIRATORY: Respiratory effort is fair. Breathing somewhat shallow. Markedly diminished breath sounds at the bases bilaterally. GASTROINTESTINAL: Abdomen soft, non-tender, non-distended. Normal active bowel sounds MUSCULOSKELETAL: Extremities without cyanosis, or edema. NEURO: Alert & Oriented x4 to person, place, time, situation. Moves all ext x4. Generalized weakness PSYCH: Appropriate mood and affect. Date of Insertion: Jun 23, 2017 Line: Central Venous Catheter Side: Left Location: Internal, Jugular A/P Problem List: (1) Atrial fibrillation with RVR ICD Code: I48.91 - Unspecified atrial fibrillation Status: Acute (2) Generalized weakness ICD Code: R53.1 - Weakness Status: Acute (3) Acute hypoxemic respiratory failure ICD Code: J96.01 - Acute respiratory failure with hypoxia (4) Diarrhea ICD Code: R19.7 - Diarrhea, unspecified Assessment and Plan 77-year-old male admitted secondary to A. fib RVR with subsequent respiratory failure. Pulmonary edema Give another dose of IV Lasix today. Follow with respiratory exams Septic shock Resolved Generalized Weakness Physical Debility (related to sepsis) Continue PT Respiratory failure Interstitial lung disease COPD Status post extubation on 07/04/17 Continue to monitor respiratory status Oxygen supplementation as needed History of seizure Follow clinically Atrial fibrillation with RVR- resolved 4.4 cm distal femoral aneurysm -54.5 cm infrarenal femoral Coronary artery disease with a history of inferior myocardial infarction Chronic right bundle branch block Continue diltiazem History of hypertension History of dyslipidemia Edematous colonic polyps Follow clinically Antihypertensives as needed Chronic gastritis Hypoalbuminemia Hepatomegaly Hiatal hernia Elevated AST Continue to monitor LFTs Strep pneumo pneumonia Strep viridian bacteremia/septicemia Treatment completed Rocephin completed DVT prophylaxis SCDs Xarelto Discharge Planning Patient is stable but at risk for further decompensation. Continue current treatment and monitor for progress. Will at least need rehab. Still requiring high amount of supplemental oxygen. Toni Cardenas MD Jul 12, 2017 10:50
--- NOTE | 2017-07-12 14:43 | HHI.HCPN ---
Reason for visit a. To assist with evaluation and management of symptoms including: dyspnea; encephalopathy; generalized weakness b. To assist medical decision maker(s) with: better understanding of current medical conditions; weighing benefits/burdens of medical treatment options; making medical treatment decisions. . Subjective/Interval History Patient medically extubated on 07/04/17. Remains with increased oxygen requirement, on 5L via NC. Remains afebrile, stable hemodynamically. Chest x- ray today revealing persistent bibasilar airspace disease with possible associated effusions, although appears some improvement. Patient alert and oriented x self, place and situation. Verbal, able to communicate needs. Denies pain, nausea vomiting or abdominal discomfort. Endorsing shortness of breath at rest and on minimal exertion. Reports poor appetite. Patient appears to have a good understanding of his clinical condition. Reviewed his past medical history, events leading to this hospitalization, clinical course and current medical management. Patient verbalized feeling very weak. He will like to go to rehabilitation to attempt physical strengthening, however, verbalized knowing that he is "very weak". Reviewed concerns of his ability to rehabilitate or tolerate PT given dyspnea and profound physical deconditioning. Goal of therapy is to maximize his medical management short of no resuscitation. Patient reiterated not wishing for any invasive management or surgeries. Patient signed community DNR. Patient receptive to hospice if he is unable to tolerate rehabilitation or in the setting of additional complications or additional decline. Telephone conversation with patient's Mrs. Lugo, separate telephone conversation with daughter Criss. Medical update provided. Family fully supportive of patient's wishes. Copies of community DNR left at bedside. . Family/friend interactions See interval note. . Advance Directives Living Will: Never completed Health Care Surrogate: Never completed Durable Power of Communications Coordinator: Never completed Advance Directive Specifics Date completed: Per , patient has never completed an advanced directive. . Health Care Surrogate(s): The patient has never completed a written designation of healthcare surrogate. . Documented care wishes: We have no written documentation of patient's healthcare goals/preferences. . Significant change in goals: Conservative management short of no resuscitation. . Objective Vital Signs Date Time Temp Pulse Resp B/P (MAP) Pulse Ox O2 Delivery O2 Flow Rate FiO2 07/12/17 12:00 127 07/12/17 11:00 96.7 83 18 131/67 (88) 95 07/12/17 08:40 Nasal Cannula 5.00 07/12/17 08:00 80 07/12/17 08:00 98.4 82 17 124/61 (82) 94 07/12/17 07:40 93 Nasal Cannula 5.00 07/12/17 07:00 98.4 82 17 124/61 (82) 94 07/12/17 07:00 98.4 82 17 124/61 (82) 94 07/12/17 04:00 98.0 82 18 129/68 (88) 97 07/12/17 04:00 83 07/12/17 00:00 79 07/12/17 00:00 96.3 79 17 110/57 (74) 97 07/12/17 00:00 Nasal Cannula 5.00 07/11/17 20:00 Nasal Cannula 5.00 07/11/17 20:00 98.0 78 18 123/68 (86) 99 07/11/17 20:00 79 07/11/17 19:40 93 Nasal Cannula 5.00 07/11/17 16:00 98.4 79 18 126/70 (88) 94 07/11/17 16:00 76 Intake & Output 07/12/17 07/12/17 07:00 19:00 Intake Total 200 ml Output Total 500 ml Balance -300 ml Intake Oral 0 ml IV Total 200 ml Output Urine Total 500 ml # Bowel Movements 0 Physical Exam CONSTITUTIONAL/GENERAL: This is an adequately nourished patient resting in bed in no acute distress. TUBES/LINES/DRAINS: PIV. Nasal cannula. SKIN: No jaundice. Red, blotchy skin on face. Actinic changes on sun-exposed areas. Skin temperature appropriate. Not diaphoretic. EYES: Pupils equal and round. EOMs intact. No scleral icterus. No injection or drainage. ENT: Hearing grossly normal. Nose without bleeding or purulent drainage. NECK: Trachea midline. Supple. CARDIOVASCULAR: Irregularly irregular heart rhythm. No audible gallops, or rubs. No JVD. RESPIRATORY/CHEST: Symmetric, unlabored respirations. Diminished breath sounds at both bases. No audible wheezes. No coughing heard today. GASTROINTESTINAL: Abdomen is obese, large, round,soft. Bowel sounds present. GENITOURINARY: Without palpable bladder distension. MUSCULOSKELETAL: Extremities without clubbing, cyanosis. 1+ edema present NEUROLOGICAL: Awake, alert to self, place and situation. follows commands, moves all extremities. PSYCHIATRIC:No obvious depression/anxiety/psychosis. calm and cooperative. . Diagnostic Tests Laboratory Laboratory Tests Test 07/10/17 04:07 07/11/17 07:43 07/11/17 13:43 07/12/17 05:48 White Blood Count 7.5 TH/MM3 (4.0-11.0) 7.4 TH/MM3 (4.0-11.0) Red Blood Count 3.38 MIL/MM3 (4.50-5.90) 3.31 MIL/MM3 (4.50-5.90) Hemoglobin 9.5 GM/DL (13.0-17.0) 9.4 GM/DL (13.0-17.0) Hematocrit 30.3 % (39.0-51.0) 29.9 % (39.0-51.0) Mean Corpuscular Volume 89.7 FL (80.0-100.0) 90.3 FL (80.0-100.0) Mean Corpuscular Hemoglobin 28.0 PG (27.0-34.0) 28.5 PG (27.0-34.0) Mean Corpuscular Hemoglobin Concent 31.2 % (32.0-36.0) 31.5 % (32.0-36.0) Red Cell Distribution Width 17.9 % (11.6-17.2) 17.3 % (11.6-17.2) Platelet Count 326 TH/MM3 (150-450) 332 TH/MM3 (150-450) Mean Platelet Volume 9.1 FL (7.0-11.0) 8.5 FL (7.0-11.0) Neutrophils (%) (Auto) 67.6 % (16.0-70.0) 65.3 % (16.0-70.0) Lymphocytes (%) (Auto) 10.5 % (9.0-44.0) 11.3 % (9.0-44.0) Monocytes (%) (Auto) 7.5 % (0.0-8.0) 7.0 % (0.0-8.0) Eosinophils (%) (Auto) 13.3 % (0.0-4.0) 15.6 % (0.0-4.0) Basophils (%) (Auto) 1.1 % (0.0-2.0) 0.8 % (0.0-2.0) Neutrophils # (Auto) 5.1 TH/MM3 (1.8-7.7) 4.8 TH/MM3 (1.8-7.7) Lymphocytes # (Auto) 0.8 TH/MM3 (1.0-4.8) 0.8 TH/MM3 (1.0-4.8) Monocytes # (Auto) 0.6 TH/MM3 (0-0.9) 0.5 TH/MM3 (0-0.9) Eosinophils # (Auto) 1.0 TH/MM3 (0-0.4) 1.2 TH/MM3 (0-0.4) Basophils # (Auto) 0.1 TH/MM3 (0-0.2) 0.1 TH/MM3 (0-0.2) CBC Comment DIFF FINAL DIFF FINAL Differential Comment Blood Urea Nitrogen 6 MG/DL (7-18) 6 MG/DL (7-18) 4 MG/DL (7-18) Creatinine 0.65 MG/DL (0.60-1.30) 0.60 MG/DL (0.60-1.30) 0.77 MG/DL (0.60-1.30) Random Glucose 95 MG/DL (74-106) 97 MG/DL (74-106) 86 MG/DL (74-106) Total Protein 6.7 GM/DL (6.4-8.2) 6.3 GM/DL (6.4-8.2) Albumin 2.2 GM/DL (3.4-5.0) 1.9 GM/DL (3.4-5.0) Calcium Level 7.9 MG/DL (8.5-10.1) 8.1 MG/DL (8.5-10.1) 8.4 MG/DL (8.5-10.1) Alkaline Phosphatase 60 U/L (45-117) 54 U/L (45-117) Aspartate Amino Transf (AST/SGOT) 19 U/L (15-37) 18 U/L (15-37) Alanine Aminotransferase (ALT/SGPT) 14 U/L (12-78) 11 U/L (12-78) Total Bilirubin 0.6 MG/DL (0.2-1.0) 0.5 MG/DL (0.2-1.0) Sodium Level 140 MEQ/L (136-145) 141 MEQ/L (136-145) 143 MEQ/L (136-145) Potassium Level 3.9 MEQ/L (3.5-5.1) 3.7 MEQ/L (3.5-5.1) 3.5 MEQ/L (3.5-5.1) Chloride Level 103 MEQ/L (98-107) 103 MEQ/L (98-107) 101 MEQ/L (98-107) Carbon Dioxide Level 30.7 MEQ/L (21.0-32.0) 34.0 MEQ/L (21.0-32.0) 34.4 MEQ/L (21.0-32.0) Anion Gap 6 MEQ/L (5-15) 4 MEQ/L (5-15) 8 MEQ/L (5-15) Estimat Glomerular Filtration Rate 119 ML/MIN (>89) 130 ML/MIN (>89) 98 ML/MIN (>89) Vancomycin Level Trough 21.7 MCG/ML (5.0-10.0) Result Diagram: 07/11/17 0743 07/12/17 0548 Imaging Last 48 hours Impressions Chest X-Ray 07/11/17 0000 Signed Impressions: Service Date/Time: June 09:07 - CONCLUSION: 1. Interval removal of the endotracheal and nasogastric tubes. 2. Persistent bibasilar airspace disease with possible associated effusions. There does appear to be slight interval improvement compared to prior, however. Amish Bush MD Procedures * 06/18/17 -Intubation/mechanical ventilation * 06/18/17 -Right internal jugular line placement * 06/18/17 -Left femoral artery line placement * 06/23/17 -EGD * 06/24/17 -colonoscopy with biopsy * 07/03/17 Extubation . . Assessment and Plan Disease Oriented Problem List: (1) Acute hypoxemic respiratory failure Comment: Extubated 07/03/17 . Not to be re-intubated. (2) Pneumonia (3) Atrial fibrillation with RVR (4) Proximal muscle weakness (5) GIB (gastrointestinal bleeding) Comment: Probable diverticular disease. . (6) Coronary artery disease (7) Hyperlipidemia (8) Hypertension (9) Abdominal aortic aneurysm (AAA) 3.0 cm to 5.5 cm in diameter in male Comment: Infra-renal (10) COPD (chronic obstructive pulmonary disease) Comment: Noted on PFTs in 2016. . (11) Rash and nonspecific skin eruption Comment: Bright red , blotchy, erythematous area particularly impacting face. Drug reaction? . Symptom Scale: (1) Pain 0-10 Scale: 0 Comment: Denies (2) Dyspnea 0-10 Scale: Unable to quantify Comment: Comfortable post extubation on nasal cannula 02. . . Pertinent Non-Medical Issues Psychosocial: Lives at home with who is wheelchair bound and need 24 hour 02. Well supported by step children. Spiritual: Pentec[employer]al. Requests narcotics and/or vice detective support. Legal: No known advance directives. is proxy Ethical issues impacting care: Pt currently incapacitated but might re-gain capacity. . Important Contacts José Lugo (spouse; health care proxy) [phone] . Prognosis Patient had been very hard to wean from the vent even after aggressive treatment of his pneumonia. He was growing progressively weaker even before he developed the pneumonia. He was successfully extubated 07/03/17 per patient/ family wishes. Given his decline prior to becoming acutely ill, and the challenge to get him off the vent, he will remain at high risk for setbacks and future infections. . . Code Status: No Code Plan == Code Status: NO CODE -DNR/DNI. Community DNR signed and placed in chart. Copies provided to family. == Decision Making: Patient is awake, alert and able to converse. Patient participating in medical decision making, retains the ability to weigh benefits versus burdens of treatment options. Should patient become incapacitated, at this time there is no known written designation of healthcare surrogate. As per [place] statue, proxy healthcare decision making therefore falls to his spouse José Lugo. == Goals of medical treatment: Patient supported by his family has elected continuation of conservative management short of no resuscitation, maximize current medical management. Patient would like to discharge to SNF for physical strengthening; however, verbalized knowing that he is "very weak". Concerns of his ability to tolerate PT given increased symptom burden. Patient reiterated not wishing for any invasive management/intervention or surgeries. Patient and family receptive to hospice if he is unable to tolerate rehabilitation or in the setting of additional complications/decline or increased symptom burden. == Symptoms * Pain: Patient did not have any prehospitalization pain syndromes. Current sources of discomfort might include prolonged bedbound status; vascular access lines. Patient denies pain during visit today. Opioid and benzo orders have been added to regimen to be available should patient tire out, show evidence of respiratory decline as he is not to be re-intubated. * Dyspnea: History of COPD, recent intubation and mechanical ventilation. Currently tolerating O2 via nasal cannula at 5 L, dyspnea present at rest and on minimal exertion. * Dysphagia: Speech therapy following. Currently on mechanical soft diet and honey thickened consistency liquids. * Debility: Multifactorial given prolonged hospitalization and multiple acute on chronic comorbidities. PT following, PT at rehab recommended. Patient has been accepted to [facility] and rehab pending medical clearance. Concerns of patient's ability to tolerate PT given increased symptom burden. == Palliative care will continue to follow to assist with symptom management and to further clarify goals of medical treatment as the clinical course evolves. . Time Spent Total Floor Time (mins): 41 (Total time to include review medical records, physical exam, goals of care conversation with patient, telephone conversation with patient's , separate telephone conversation with patient's daughter Criss , assistance with completion of community DNR.) >50% Counseling/Coord of Care: Yes Attestation To help prompt me to consider important information that might be impacting today's encounter and assessment, information from prior notes written by myself or my colleagues may have been "brought forward" into today's note. My signature on this note, however, is an attestation that I personally performed the exam, history, and/or decision-making noted today, and, unless otherwise indicated, the interactions with patient, family, and staff as well as the review of records all occurred today. I also attest that the listed assessment and stated plan reflect my best clinical judgment today based on the combination of historical information, prior notes, and today's exam/ interactions. When time spent is documented, it refers only to time spent today by the signer, or if indicated, combined time spent today by collaborating physician/nurse practitioner. Natasha Nielsen Jul 12, 2017 14:43
[2017-07-13] VITALS (12 sets, daily range): BP systolic 129–148; BP diastolic 59–70; PULSE 70–80; RESP 18–20; TEMP 97.9–98.8; O2SAT 94–99
[2017-07-13] MEDS: ARTIFICIAL TEARS OPTH SOLN 15 ML BTL EACH EYE SCH ×4 (00:43→23:53)
[2017-07-13] MEDS: RESP: IPRATROPIUM 0.5 MG/2.5 ML NEB NEB SCH ×7 (00:45→23:55)
[2017-07-13] MEDS: DILTIAZEM HCL 30 MG TAB PO SCH ×4 (05:43→23:47)
[2017-07-13] MEDS: PIPERACIL-TAZO 4.5 GM PREMIX 100 ML IV SCH ×4 (05:43→23:50)
--- NOTE | 2017-07-13 09:38 | RADRPT ---
EXAM DATE/TIME: 07/13/2017 09:12 [facility] COMPARISON: CHEST SINGLE AP, July 11, 2017, 9:07. INDICATIONS : Shortness of breath. MEDICAL HISTORY : Cardiovascular disease. Hypertension. Chronic obstructive pulmonary disease. SURGICAL HISTORY : None. ENCOUNTER: Subsequent ACUITY: 1 week PAIN SCORE: 0/10 LOCATION: Bilateral chest FINDINGS: Bibasilar parenchymal changes in both base is stable in the interval. The heart remains enlarged. T he vascularity is normal. The portion of the bony skeleton visualized is unremarkable. CONCLUSION: Stable chest. Gadiel Bradshaw MD FACR on July 13, 2017 at 9:35 Board Certified Radiologist. This report was verified electronically.
[2017-07-13] MEDS: DOCUSATE SODIUM 100 MG/10 ML UDC PO SCH ×2 (09:50→21:00)
[2017-07-13] MEDS: RIVAROXABAN 20 MG TAB PO SCH (09:50)
[2017-07-13] MEDS: AMIODARONE 200 MG TAB PO SCH ×2 (09:50→21:28)
[2017-07-13] MEDS: SODIUM CHLORIDE 0.9% FLUSH 10 ML FLUSH IV FLUSH SCH ×2 (09:51→21:29)
[2017-07-13] MEDS: LANSOPRAZOLE SOLUTAB 30 MG TAB NG SCH (09:51)
[2017-07-13] MEDS: SENNOSIDES SYRUP 8.8 MG/5 ML CUP NG SCH ×2 (09:52→21:29)
[2017-07-13 10:40] LABS: HEMATOCRIT 30.1 % (39.0-51.0); HEMOGLOBIN 9.6 GM/DL (13.0-17.0); MEAN CELL VOLUME 89.1 FL (80.0-100.0); MEAN CORPUSCULAR HEMOGLOBIN 28.4 PG (27.0-34.0); MEAN CORPUSCULAR HGB CONC 31.9 % (32.0-36.0); MEAN PLATELET VOLUME 8.6 FL (7.0-11.0); PLATELET COUNT 356 TH/MM3 (150-450); RED BLOOD COUNT 3.38 MIL/MM3 (4.50-5.90); RED CELL DISTRIBUTION WIDTH 17.3 % (11.6-17.2); WHITE BLOOD COUNT 6.8 TH/MM3 (4.0-11.0)
[2017-07-13 10:58] LABS: BICARBONATE 36.7 MEQ/L (21.0-32.0); CALCIUM 8.3 MG/DL (8.5-10.1); CREATININE 0.68 MG/DL (0.60-1.30)
--- NOTE | 2017-07-13 15:12 | HHI.PR ---
Subjective Remarks Patient reports he is feeling better. Breathing more comfortably. Still weak. Objective Vitals Vital Signs Date Time Temp Pulse Resp B/P (MAP) Pulse Ox O2 Delivery O2 Flow Rate FiO2 07/13/17 12:00 97.9 77 20 146/67 (93) 95 07/13/17 08:24 95 Nasal Cannula 5.00 07/13/17 08:00 97.9 78 20 146/70 (95) 95 07/13/17 08:00 Nasal Cannula 5.00 07/13/17 04:25 77 07/13/17 04:09 Nasal Cannula 5.00 07/13/17 04:00 97.9 70 18 142/66 (91) 99 07/13/17 01:49 76 07/13/17 00:00 97.9 74 18 129/59 (82) 98 07/13/17 00:00 Nasal Cannula 5.00 07/12/17 20:00 Nasal Cannula 5.00 07/12/17 20:00 97.7 78 20 139/69 (92) 95 07/12/17 20:00 82 07/12/17 19:41 95 Nasal Cannula 5.00 07/12/17 16:00 97.2 125 17 134/63 (86) 94 07/12/17 16:00 145 I/O 07/12/17 07/12/17 07/12/17 07/13/17 07/13/17 07/13/17 07:00 15:00 23:00 07:00 15:00 23:00 Intake Total 200 ml 250 ml 550 ml 680 ml Output Total 500 ml 650 ml Balance -300 ml 250 ml 550 ml 30 ml Intake Oral 0 ml 550 ml 480 ml IV Total 200 ml 250 ml 200 ml Output Urine Total 500 ml 650 ml # Voids 3 # Bowel Movements 0 3 Result Diagram: 07/13/1741 07/13/1741 Objective Remarks GENERAL: Elderly and frail male. No acute distress CARDIOVASCULAR: Normal rate and regular rhythm without murmurs, gallops, or rubs. RESPIRATORY: Respiratory effort is fair. Breathing somewhat shallow. Markedly diminished breath sounds at the bases bilaterally. GASTROINTESTINAL: Abdomen soft, non-tender, non-distended. Normal active bowel sounds MUSCULOSKELETAL: Extremities without cyanosis, or edema. NEURO: Alert & Oriented x4 to person, place, time, situation. Moves all ext x4. Generalized weakness PSYCH: Appropriate mood and affect. Date of Insertion: Jun 23, 2017 Line: Central Venous Catheter Side: Left Location: Internal, Jugular A/P Problem List: (1) Atrial fibrillation with RVR ICD Code: I48.91 - Unspecified atrial fibrillation Status: Acute (2) Generalized weakness ICD Code: R53.1 - Weakness Status: Acute (3) Acute hypoxemic respiratory failure ICD Code: J96.01 - Acute respiratory failure with hypoxia (4) Diarrhea ICD Code: R19.7 - Diarrhea, unspecified Assessment and Plan 77-year-old male admitted secondary to A. fib RVR with subsequent respiratory failure. Pulmonary edema Improved with IV Lasix. 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 Discontinue Zosyn. DVT prophylaxis SCDs Xarelto Discharge Planning Patient is improving. Anticipate discharge to rehab in 1-2 days. Continue to wean down oxygen. Toni Cardenas MD Jul 13, 2017 15:12
[2017-07-13] MEDS ORDERED: POTASSIUM CHLORIDE 10 MEQ CONTROLLED RELEASE TAB PO ONE (15:15)
[2017-07-13] MEDS: FUROSEMIDE 40 MG TAB PO SCH (17:20)
[2017-07-14] VITALS (12 sets, daily range): BP systolic 118–140; BP diastolic 63–77; PULSE 64–113; RESP 18–20; TEMP 97.3–97.9; O2SAT 90–98
[2017-07-14] MEDS: RESP: IPRATROPIUM 0.5 MG/2.5 ML NEB NEB SCH ×6 (03:59→23:49)
[2017-07-14 05:21] LABS: BICARBONATE 37.4 MEQ/L (21.0-32.0); CALCIUM 8.4 MG/DL (8.5-10.1); CREATININE 0.64 MG/DL (0.60-1.30)
[2017-07-14] MEDS: PIPERACIL-TAZO 4.5 GM PREMIX 100 ML IV SCH ×4 (06:05→23:54)
[2017-07-14] MEDS: DILTIAZEM HCL 30 MG TAB PO SCH (06:05)
[2017-07-14] MEDS: DOCUSATE SODIUM 100 MG/10 ML UDC PO SCH ×2 (09:03→22:31)
[2017-07-14] MEDS: SODIUM CHLORIDE 0.9% FLUSH 10 ML FLUSH IV FLUSH SCH ×2 (09:03→22:33)
[2017-07-14] MEDS: SENNOSIDES SYRUP 8.8 MG/5 ML CUP NG SCH ×2 (09:04→22:31)
[2017-07-14] MEDS: RIVAROXABAN 20 MG TAB PO SCH (09:04)
[2017-07-14] MEDS: LANSOPRAZOLE SOLUTAB 30 MG TAB NG SCH (09:04)
[2017-07-14] MEDS: FUROSEMIDE 40 MG TAB PO SCH (09:04)
[2017-07-14] MEDS: AMIODARONE 200 MG TAB PO SCH ×2 (09:04→22:30)
[2017-07-14] MEDS: ARTIFICIAL TEARS OPTH SOLN 15 ML BTL EACH EYE SCH ×3 (09:05→23:56)
--- NOTE | 2017-07-14 10:21 | HHI.PR ---
Subjective Remarks Breathing better. Using less oxygen. Still having episodes of uncontrolled heart rate. Objective Vitals Vital Signs Date Time Temp Pulse Resp B/P (MAP) Pulse Ox O2 Delivery O2 Flow Rate FiO2 07/14/17 08:00 Nasal Cannula 3.00 Humidified 07/14/17 08:00 97.3 103 20 132/75 (94) 90 07/14/17 07:55 93 Nasal Cannula 3.00 07/14/17 04:01 103 07/14/17 04:00 97.9 107 19 118/63 (81) 96 07/14/17 00:06 106 07/14/17 00:00 97.8 111 18 133/64 (87) 91 07/13/17 21:30 Nasal Cannula 4.00 Humidified 07/13/17 20:36 94 Nasal Cannula 3.00 07/13/17 20:03 78 07/13/17 20:00 98.8 80 18 132/62 (85) 94 07/13/17 16:00 79 07/13/17 16:00 Nasal Cannula 4.00 07/13/17 16:00 98.3 77 20 148/67 (94) 94 07/13/17 12:00 77 07/13/17 12:00 97.9 77 20 146/67 (93) 95 07/13/17 12:00 Nasal Cannula 4.00 I/O 07/13/17 07/13/17 07/13/17 07/14/17 07/14/17 07/14/17 07:00 15:00 23:00 07:00 15:00 23:00 Intake Total 680 ml 480 ml 220 ml 100 ml Output Total 650 ml 1000 ml Balance 30 ml 480 ml -780 ml 100 ml Intake Oral 480 ml 480 ml 120 ml IV Total 200 ml 100 ml 100 ml Output Urine Total 650 ml 1000 ml # Voids 4 2 # Bowel Movements 0 Result Diagram: 07/13/17 0941 07/14/17 0400 Objective Remarks GENERAL: Elderly and frail male. No acute distress CARDIOVASCULAR: Normal rate and regular rhythm without murmurs, gallops, or rubs. RESPIRATORY: Respiratory effort is fair. Breathing somewhat shallow. Markedly diminished breath sounds at the bases bilaterally. GASTROINTESTINAL: Abdomen soft, non-tender, non-distended. Normal active bowel sounds MUSCULOSKELETAL: Extremities without cyanosis, or edema. NEURO: Alert & Oriented x4 to person, place, time, situation. Moves all ext x4. Generalized weakness PSYCH: Appropriate mood and affect. Date of Insertion: Jun 23, 2017 Line: Central Venous Catheter Side: Left Location: Internal, Jugular A/P Problem List: (1) Atrial fibrillation with RVR ICD Code: I48.91 - Unspecified atrial fibrillation Status: Acute (2) Generalized weakness ICD Code: R53.1 - Weakness Status: Acute (3) Acute hypoxemic respiratory failure ICD Code: J96.01 - Acute respiratory failure with hypoxia (4) Diarrhea ICD Code: R19.7 - Diarrhea, unspecified Assessment and Plan 77-year-old male admitted secondary to A. fib RVR with subsequent respiratory failure. Pulmonary edema Improved with IV Lasix. Patient was transitioned to oral Lasix. Using less oxygen. 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 Increase Cardizem to 90 mg every 6 hours for better rate control. History of hypertension History of dyslipidemia Edematous colonic polyps Follow clinically Antihypertensives as needed Chronic gastritis Hypoalbuminemia Hepatomegaly Hiatal hernia Elevated AST Continue to monitor LFTs Strep pneumo pneumonia Strep viridian bacteremia/septicemia Treatment completed Status post Rocephin and Zosyn. DVT prophylaxis SCDs Xarelto Discharge Planning Patient is improving. Anticipate discharge to rehab tomorrow if he remains stable. Continue to wean down oxygen. oTni Cardenas MD Jul 14, 2017 10:21
[2017-07-14] MEDS: DILTIAZEM HCL 90 MG TAB PO SCH ×3 (11:54→23:54)
[2017-07-14] MEDS: POTASSIUM CHLORIDE 20 MEQ CONTROLLED RELEASE TAB PO SCH ×2 (11:54→22:30)
[2017-07-15] VITALS (10 sets, daily range): BP systolic 123–140; BP diastolic 52–70; PULSE 66–106; RESP 18–20; TEMP 97.3–98.1; O2SAT 91–95
[2017-07-15] MEDS: RESP: IPRATROPIUM 0.5 MG/2.5 ML NEB NEB SCH ×4 (02:44→15:10)
[2017-07-15] MEDS: PIPERACIL-TAZO 4.5 GM PREMIX 100 ML IV SCH ×2 (05:30→12:47)
[2017-07-15] MEDS: DILTIAZEM HCL 90 MG TAB PO SCH ×2 (05:30→12:47)
[2017-07-15] MEDS ORDERED: DILT360C12 PO (08:40)
[2017-07-15] MEDS ORDERED: FURO40TA PO (08:40)
[2017-07-15] MEDS ORDERED: AMIO200T PO (08:40)
[2017-07-15] MEDS ORDERED: POTA20TA5 PO (08:40)
[2017-07-15] MEDS ORDERED: XARE20TA PO (08:40)
[2017-07-15] MEDS ORDERED: Ipratropium Bromide NEB (08:40)
--- NOTE | 2017-07-15 08:40 | HHI.DS ---
Discharge Summary Admission Date Jun 13, 2017 at 11:17 Discharge Date: Jul 15, 2017 Admitting Diagnosis afib with rvr, gen weakness (1) Atrial fibrillation with RVR ICD Code: I48.91 - Unspecified atrial fibrillation Status: Acute (2) Generalized weakness ICD Code: R53.1 - Weakness Status: Acute (3) Acute hypoxemic respiratory failure ICD Code: J96.01 - Acute respiratory failure with hypoxia (4) Diarrhea ICD Code: R19.7 - Diarrhea, unspecified Procedures Intubation and extubation Brief History - From Admission HPI from the admitting physician: Mr. Lugo is a 77-year-old male. He is here secondary to weakness and chest pain. He is found to have an acute onset of atrial fibrillation with RVR. He cannot recall any prior history of atrial fibrillation but he is on Cardizem baseline and may take Coumadin. However, this may be new onset atrial fibrillation. He is chest pain-free when seen. At time of admit and with chest pain his heart rate have been in the 170s. She is now in the 130s when seen in the ER. Symptoms are improved. 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 He reports that he had a recent workup with cardiology and cannot recall any concerning findings on the workup. He has no other complaints at this time. he's been started on IV diltiazem and will be admitted to the ICU. CBC/BMP: 07/13/17 0941 07/14/17 0400 Significant Findings Laboratory Tests Test 07/13/17 09:41 07/14/17 04:00 Red Blood Count 3.38 MIL/MM3 (4.50-5.90) Hemoglobin 9.6 GM/DL (13.0-17.0) Hematocrit 30.1 % (39.0-51.0) Mean Corpuscular Hemoglobin Concent 31.9 % (32.0-36.0) Red Cell Distribution Width 17.3 % (11.6-17.2) Blood Urea Nitrogen 4 MG/DL (7-18) 3 MG/DL (7-18) Calcium Level 8.3 MG/DL (8.5-10.1) 8.4 MG/DL (8.5-10.1) Potassium Level 3.2 MEQ/L (3.5-5.1) 3.2 MEQ/L (3.5-5.1) Carbon Dioxide Level 36.7 MEQ/L (21.0-32.0) 37.4 MEQ/L (21.0-32.0) Imaging Last Impressions Chest X-Ray 07/13/17 0000 Signed Impressions: Service Date/Time: Thursday, July 13, 2017 09:12 - CONCLUSION: Stable chest. Gadiel Bradshaw MD FACR Head CT 06/26/17 0000 Signed Impressions: Service Date/Time: Monday, June 26, 2017 15:50 - CONCLUSION: 1. Mild generalized atrophy. 2. No evidence of acute infarct, hemorrhage, mass or edema. 3. Paranasal sinus fluid accumulation likely related to nasogastric tube and endotracheal tube. Mike Andrade MD Abdomen/Pelvis CT 06/26/17 0000 Signed Impressions: Service Date/Time: Monday, June 26, 2017 15:52 - CONCLUSION: 1. There is an infrarenal abdominal aortic aneurysm measuring 5 cm x 4.5 cm. 2. Scattered diverticulosis of the descending and sigmoid colon without definite inflammatory changes. 3. Nonspecific edema in the lower abdominal wall. 4. Small bilateral pleural effusions with bibasilar atelectasis. Slade Olivo MD Abdomen Ultrasound 06/22/17 0000 Signed Impressions: Service Date/Time: Thursday, June 22, 2017 13:59 - CONCLUSION: 1. Hepatomegaly 2. 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 Nino Roche MD Chest CT 06/18/17 0000 Signed Impressions: Service Date/Time: Sunday, June 18, 2017 05:38 - CONCLUSION: 1. Bilateral lower lobe multisegmental consolidative infiltrates, left larger than right. Alexys Laurent MD PE at Discharge GENERAL: Elderly and frail male. No acute distress CARDIOVASCULAR: Normal rate and regular rhythm without murmurs, gallops, or rubs. RESPIRATORY: Respiratory effort is fair. Breathing somewhat shallow. Markedly diminished breath sounds at the bases bilaterally. GASTROINTESTINAL: Abdomen soft, non-tender, non-distended. Normal active bowel sounds MUSCULOSKELETAL: Extremities without cyanosis, or edema. NEURO: Alert & Oriented x4 to person, place, time, situation. Moves all ext x4. Generalized weakness PSYCH: Appropriate mood and affect. Pt update on day of discharge Patient reports he is feeling better. Breathing more comfortably. Still admits to feeling weak. Hospital Course 77-year-old gentleman with history of hypertension, hyperlipidemia, atrial fibrillation, COPD admitted on 06/13 in [place] with generalized worsening weakness and chest pain. Patient was treated with Cardizem drip and cardiology was consulted. Throughout the hospitalization patient had a gradual worsening hypoxia requiring nonrebreather mask and BiPAP. Pulmonology was consulted and patient had a CT chest that showed possible ILD and pneumonia. The patient ultimately did not respond to BiPAP and therefore was intubated. He had a prolonged course in the ICU requiring full support including pressors. The patient improved and was moved to the floor. His oxygen requirement decreased. However he is very debilitated from his multiple comorbid conditions. He has improved enough for SNF placement for rehabilitation. However family understand that his poor functional status and multiple comorbid conditions put him at risk for further setbacks. Palliative care followed the patient. Family is receptive to hospice if the patient declined further. Conditions treated detailed below: Pulmonary edema Improved with IV Lasix. Patient was transitioned to oral Lasix. Using less oxygen. On 3 L nasal cannula by the time of discharge. Septic shock Resolved. Patient was treated with IV antibiotics. Generalized Weakness/debility Physical Debility Continue PT at SNF. Respiratory failure Interstitial lung disease COPD Status post extubation on 07/04/17 Continue to monitor respiratory status Oxygen supplementation History of seizure Follow clinically Atrial fibrillation with RVR- resolved 4.4 cm distal femoral aneurysm -54.5 cm infrarenal femoral Coronary artery disease with a history of inferior myocardial infarction Chronic right bundle branch block Continue diltiazem, amiodarone. Continue statin. On Xarelto. History of hypertension History of dyslipidemia Edematous colonic polyps Follow clinically Antihypertensives as needed Chronic gastritis GI bleeding Hypoalbuminemia Hepatomegaly Hiatal hernia Elevated AST Patient received multiple blood transfusion. S he underwent EGD and colonoscopy which found gastritis, colon polyps. No active bleeding. Strep pneumo pneumonia Strep viridian bacteremia/septicemia Treatment completed Status post Rocephin and Zosyn. DVT prophylaxis SCDs Xarelto Pt Condition on Discharge: Stable Discharge Disposition: Discharge to SNF Discharge Time: > 30 minutes Discharge Instructions DIET: Follow Instructions for: Heart Healthy Diet Speech Therapy-Diet Recommends: Honey Thickened Liquids, Pureed Activities you can perform: Regular-No Restrictions Follow up Referrals: Cardiology PCP Follow-up SNF/[facility]/ with [facility] New Medications: Amoxicillin-Clavulanate (Augmentin) 875-125 Mg Tab 1 TAB PO BID for Infection, #10 TAB 0 Refills Amiodarone (Amiodarone) 200 Mg Tab 200 MG PO Q12HR, #60 TAB Furosemide (Furosemide) 40 Mg Tab 40 MG PO DAILY, #30 TAB Potassium Chloride Microencaps (Potassium Chloride Microencaps) 20 Meq Tab 20 MEQ PO Q12HR, #60 TAB Rivaroxaban (Xarelto) 20 Mg Tab 20 MG PO DAILY, #30 TAB [Ipratropium [place]] () 0.5 MG/2.5 ML NEBU 0.5 MG NEB Q4HR NEB, #30 INH Changed Medications: Diltiazem CD 24 HR (Diltiazem CD 24 HR) 360 Mg Capcr 360 MG PO DAILY, #30 CAP 0 Refills (Changed from: Diltiazem CD 24 HR (Cardizem CD 24 HR) 240 Mg Caper 240 Mg PO AM #30 CAP Ref 0) Continued Medications: Simvastatin (Simvastatin) 20 Mg Tab 20 MG PO DAILY for Cholesterol Management, #30 TAB 0 Refills Discontinued Medications: Diltiazem (Cardizem) 120 Mg Tab 120 MG PO QID for Angina, #120 TAB 0 Refills Toni Cardenas MD Jul 15, 2017 08:40
[2017-07-15] MEDS: AMIODARONE 200 MG TAB PO SCH (09:36)
[2017-07-15] MEDS: RIVAROXABAN 20 MG TAB PO SCH (09:36)
[2017-07-15] MEDS: LANSOPRAZOLE SOLUTAB 30 MG TAB NG SCH (09:36)
[2017-07-15] MEDS: POTASSIUM CHLORIDE 20 MEQ CONTROLLED RELEASE TAB PO SCH (09:36)
[2017-07-15] MEDS: FUROSEMIDE 40 MG TAB PO SCH (09:36)
[2017-07-15] MEDS: SODIUM CHLORIDE 0.9% FLUSH 10 ML FLUSH IV FLUSH SCH (09:37)
[2017-07-15] MEDS: DOCUSATE SODIUM 100 MG/10 ML UDC PO SCH (09:37)
[2017-07-15] MEDS: SENNOSIDES SYRUP 8.8 MG/5 ML CUP NG SCH (09:38)
[2017-07-15] MEDS: ARTIFICIAL TEARS OPTH SOLN 15 ML BTL EACH EYE SCH (09:39)
[2017-07-15 10:14] LABS: BICARBONATE 34.4 MEQ/L (21.0-32.0); CALCIUM 8.8 MG/DL (8.5-10.1); CREATININE 0.73 MG/DL (0.60-1.30)
[2017-07-15] MEDS ORDERED: AUGM875T3 PO (11:07)
== END 2017-07-15 16:25 | DRG 308 ==
LOC: PHED 09:46 → PHEDA 11:17 → PHICU 13:11 → N03A 06-18 10:40 → N03B 06-24 15:40 → N03A 06-24 15:42 → N04A 07-04 14:30
PROVIDERS: ADMIT Family Medicine; ATTEND Family Medicine
PROC: 5A1955Z Respiratory Ventilation, Greater than 96 Consecutive Hours (ICD-10-PCS; principal; 2017-06-18)
PROC: 04HY32Z Insertion of Monitoring Device into Lower Artery, Percutaneous Approach (ICD-10-PCS; 2017-06-18)
PROC: 0BH17EZ Insertion of Endotracheal Airway into Trachea, Via Natural or Artificial Opening (ICD-10-PCS; 2017-06-18)
PROC: 06HM33Z Insertion of Infusion Device into Right Femoral Vein, Percutaneous Approach (ICD-10-PCS; 2017-06-18)
PROC: 30233N1 Transfusion of Nonautologous Red Blood Cells into Peripheral Vein, Percutaneous Approach (ICD-10-PCS; 2017-06-18)
PROC: 5A09357 Assistance with Respiratory Ventilation, Less than 24 Consecutive Hours, Continuous Positive Airway Pressure (ICD-10-PCS; 2017-06-18)
PROC: 4A133B1 Monitoring of Arterial Pressure, Peripheral, Percutaneous Approach (ICD-10-PCS; 2017-06-18)
PROC: 4A133J1 Monitoring of Arterial Pulse, Peripheral, Percutaneous Approach (ICD-10-PCS; 2017-06-18)
PROC: 0T9B70Z Drainage of Bladder with Drainage Device, Via Natural or Artificial Opening (ICD-10-PCS; 2017-06-18)
PROC: 05HM33Z Insertion of Infusion Device into Right Internal Jugular Vein, Percutaneous Approach (ICD-10-PCS; 2017-06-20)
PROC: 30233K1 Transfusion of Nonautologous Frozen Plasma into Peripheral Vein, Percutaneous Approach (ICD-10-PCS; 2017-06-22)
PROC: 05HN33Z Insertion of Infusion Device into Left Internal Jugular Vein, Percutaneous Approach (ICD-10-PCS; 2017-06-22)
PROC: 0DB98ZX Excision of Duodenum, Via Natural or Artificial Opening Endoscopic, Diagnostic (ICD-10-PCS; 2017-06-23)
PROC: 0DB68ZX Excision of Stomach, Via Natural or Artificial Opening Endoscopic, Diagnostic (ICD-10-PCS; 2017-06-23)
PROC: 0DBK8ZX Excision of Ascending Colon, Via Natural or Artificial Opening Endoscopic, Diagnostic (ICD-10-PCS; 2017-06-24)
PROC: 0DBL8ZX Excision of Transverse Colon, Via Natural or Artificial Opening Endoscopic, Diagnostic (ICD-10-PCS; 2017-06-24)
PROC: 0DBN8ZX Excision of Sigmoid Colon, Via Natural or Artificial Opening Endoscopic, Diagnostic (ICD-10-PCS; 2017-06-24)
PROC: 0DBM8ZX Excision of Descending Colon, Via Natural or Artificial Opening Endoscopic, Diagnostic (ICD-10-PCS; 2017-06-24)
DX: I48.1 Persistent atrial fibrillation (principal); J96.01 Acute respiratory failure with hypoxia; A41.1 Sepsis due to other specified staphylococcus; A41.89 Other specified sepsis; R65.21 Severe sepsis with septic shock; J13 Pneumonia due to Streptococcus pneumoniae; G92 Toxic encephalopathy; J84.10 Pulmonary fibrosis, unspecified; I11.0 Hypertensive heart disease with heart failure; J44.0 Chronic obstructive pulmonary disease with (acute) lower respiratory infection; I50.9 Heart failure, unspecified; E87.2 Acidosis; K92.1 Melena; E87.0 Hyperosmolality and hypernatremia; D62 Acute posthemorrhagic anemia; D68.59 Other primary thrombophilia; J98.11 Atelectasis; E78.5 Hyperlipidemia, unspecified; Z79.01 Long term (current) use of anticoagulants; I08.0 Rheumatic disorders of both mitral and aortic valves; I45.10 Unspecified right bundle-branch block; Z66 Do not resuscitate; Z87.11 Personal history of peptic ulcer disease; I25.2 Old myocardial infarction; I25.10 Atherosclerotic heart disease of native coronary artery without angina pectoris; Z82.3 Family history of stroke; Z87.891 Personal history of nicotine dependence; Z51.5 Encounter for palliative care; M62.81 Muscle weakness (generalized); K57.30 Diverticulosis of large intestine without perforation or abscess without bleeding; K44.9 Diaphragmatic hernia without obstruction or gangrene; K31.9 Disease of stomach and duodenum, unspecified; K59.00 Constipation, unspecified; E88.09 Other disorders of plasma-protein metabolism, not elsewhere classified; E83.51 Hypocalcemia; E83.39 Other disorders of phosphorus metabolism; G40.909 Epilepsy, unspecified, not intractable, without status epilepticus; I71.4 Abdominal aortic aneurysm, without rupture; K29.50 Unspecified chronic gastritis without bleeding; I72.4 Aneurysm of artery of lower extremity; R13.10 Dysphagia, unspecified; D12.2 Benign neoplasm of ascending colon; D12.4 Benign neoplasm of descending colon; D12.5 Benign neoplasm of sigmoid colon; D12.3 Benign neoplasm of transverse colon; R21 Rash and other nonspecific skin eruption; R19.7 Diarrhea, unspecified; R16.0 Hepatomegaly, not elsewhere classified
CPT/HCPCS: 36430; 36556; 36600; 70450; 71045; 71250; 74177; 76700; 76937; 80048; 80053; 80076; 80162; 80202; 81001; 82140; 82550; 82552; 82805; 82948; 83036; 83605; 83735; 83880; 84100; 84132; 84155; 84439; 84443; 84484; 85007; 85025; 85027; 85384; 85610; 85730; 86850; 86900; 86901; 86920; 86927; 87040; 87070; 87086; 87186; 87205; 87449; 87641; 87804; 88305; 88312; 93005; 93306; 93308; 94002; 94003; 94150; 94640; 94664; 95819; 96374; C9113; J0282; J0330; J0456; J0696; J1120; J1160; J1644; J1650; J1940; J2212; J2250; J2370; J2543; J2997; J3010; J3370; J3430; J3480; J7030; J7040; J7050; J7060; J7120; J7512; J7614; J7644; P9016; P9017; P9045; P9047; Q9963; Q9967

== ENCOUNTER 2018-03-11 05:26 | Inpatient (IN) ==
[2018-03-11] MEDS ORDERED: Ketorolac Inj 30 MG/ML (IVP) Vial IV.PUSH ONE (06:01)
--- NOTE | 2018-03-11 06:01 | ED ---
HPI General Chief Complaint: Extremity Injury, Lower Stated Complaint: Right hip pain/Fall Time Seen by Provider: 03/11/18 06:00 Source: patient Mode of arrival: ambulatory Limitations: no limitations History of Present Illness HPI Narrative: Patient comes in with slip and fall with injury to right hip at approximately 9:30 PM last night. Patient has increasing pain and discomfort. Generally good health with no significant medical problems Related Data Home Medications Medication Instructions Recorded Confirmed simvastatin 20 mg PO QPM 03/11/18 03/11/18 warfarin 2.5 mg PO DAILY 03/11/18 03/11/18 Allergies Allergy/AdvReac Type Severity Reaction Status Date / Time No Known Allergies Allergy Verified 03/11/18 05:40 Review of Systems ROS: all other systems reviewed are negative [facility] Medical History Medical History Atrial fibrillation (Acute) High cholesterol (Acute) Pneumonia (Acute) Surgical History Surgical History No history of previous surgery (Acute) Social History Social History Substance History: No History of Abuse Second Hand Smoke Exposure: No Smoking Status: Former smoker How Often Do You Have a Drink Containing Alcohol: Never Immunization History Tetanus Immunization: Unsure Exam Narrative Exam Narrative: GENERAL: Alert and oriented SKIN: Focused skin assessment warm/dry. CARDIOVASCULAR: Regular rate and rhythm. No murmur appreciated. RESPIRATORY: No accessory muscle use. Clear to auscultation. Breath sounds equal bilaterally. GASTROINTESTINAL: Abdomen soft, non-tender, nondistended. Hepatic and splenic margins not palpable. MUSCULOSKELETAL: No obvious deformities. No clubbing. No cyanosis. No edema. Right leg shortened and rotated laterally with pain to hip with range of motion. NEUROLOGICAL: Awake and alert. Motor grossly within normal limits. Normal speech. PSYCHIATRIC: Appropriate mood and affect; insight and judgment normal. Course Initial Documented Vital Signs Temperature 98.4 F 03/11/18 05:30 Pulse Rate 84 03/11/18 05:30 Respiratory Rate 18 03/11/18 05:30 Blood Pressure 182/98 H 03/11/18 05:30 Pulse Oximetry 94 L 03/11/18 05:30 Last Documented Vital Signs Temperature 98.4 F 03/11/18 05:30 Pulse Rate 79 03/11/18 05:45 Respiratory Rate 18 03/11/18 05:45 Blood Pressure 162/89 H 03/11/18 05:45 Pulse Oximetry 94 L 03/11/18 05:45 Medical Decision Making MDM Narrative Medical decision making narrative: Patient presents with impacted femoral head fracture that needs to be transferred to the [facility]. Patient otherwise stable with no other significant injury. Medical Screen Exam Complete: Yes Emergency Medical Condition: Yes Imaging Data Radiologist's impression: Chest X-Ray 03/11/18 06:11 CONCLUSION: Mildly prominent cardiac silhouette. No other acute cardiopulmonary disease identified. Hip X-Ray 03/11/18 06:11 CONCLUSION: 1. Acute right femoral neck fracture with mild impaction. 2. 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 Discharge Plan Discharge Disposition Patient Disposition: ED Admit(ED Internal Use Only) Discharge Condition Condition: Stable Discharge Order Discharge Orders: ED Use Only Admit Order (Routine); Ordered 03/11/18 Ordered By: Ciro Carrera Discharge Details Diagnosis: Fracture of hip Physicians Team ED Provider: Ciro Carrera Primary Care Provider: Jaky Ragland Rxs /Orders / Referrals /Forms Prescriptions: No Action warfarin 2.5 mg Tablet 2.5 mg PO DAILY RF: 0 simvastatin 20 mg Tablet 20 mg PO QPM RF: 0 Discharge Interventions Interventions: Vital Signs Last Done: 03/11/18 05:45 Status ED Status: With Doctor
[2018-03-11] MEDS ORDERED: HYDROmorphone PF Inj 1 MG/ML Ampul IV.PUSH ONE (06:03)
--- NOTE | 2018-03-11 06:39 | XR ---
EXAM DATE: 03/11/2018 6:36 AM EST AGE/SEX: 77 years / Male INDICATIONS: Fall. Congestion. CLINICAL DATA: This is the patient's subsequent encounter. Patient reports that signs and symptoms h ave been present for 1 day and indicates a pain score of 6/10. MEDICAL/SURGICAL HISTORY: None. None. COMPARISON: No prior exams available for comparison. FINDINGS: Single AP view the chest. The lungs are clear. Mild cardiac silhouette enlargement. No jamel dence of pleural effusion or pneumothorax. CONCLUSION: Mildly prominent cardiac silhouette. No other acute cardiopulmonary disease identified. Electronically signed by: Ciro Bradley MD 03/11/2018 6:38 AM EST
--- NOTE | 2018-03-11 06:44 | XR ---
EXAM DATE: 03/11/2018 6:41 AM EST AGE/SEX: 77 years / Male INDICATIONS: Fall. Right hip pain. CLINICAL DATA: This is the patient's initial encounter. Patient reports that signs and symptoms have been present for 1 day and indicates a pain score of 9/10. MEDICAL/SURGICAL HISTORY: None. None. COMPARISON: No prior exams available for comparison. FINDINGS: 3 views of the right hip. There is a right femoral neck fracture with 1.5 cm of bony overlap on the A P view and 1 cm displacement. Hip joint alignment within normal limits. Small hip osteophytes. CONCLUSION: 1. Acute right femoral neck fracture with mild impaction. 2. 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 Electronically signed by: Ciro Bradley MD 03/11/2018 6:43 AM EST
[2018-03-11] MEDS: Sod Chloride 0.9% Inj 1,000 ML IV.CONT SCH ×2 (08:39→22:10)
[2018-03-11 08:53] LABS: Hematocrit 43.3 % (39.0-51.0); Hemoglobin 13.9 gm/dL (13.0-17.0); Mean Corpuscular HGB Conc 32.1 % (32.0-36.0); Mean Corpuscular Hemoglobin 28.2 pg (27.0-34.0); Mean Corpuscular Volume 87.7 fL (80.0-100.0); Mean Platelet Volume 9.2 fL (7.0-11.0); Platelet Count 149 th/mm3 (150-450); Red Blood Count 4.94 mil/mm3 (4.50-5.90); Red Cell Distribution Width 16.7 % (11.6-17.2); White Blood Count 8.3 th/mm3 (4.0-11.0)
[2018-03-11 08:58] LABS: Chloride 106 meq/L (98-107); Sodium 143 meq/L (136-145)
[2018-03-11 09:01] LABS: Albumin 3.7 g/dL (3.4-5.0); Anion Gap 12 meq/L (5-15); Calcium 7.8 mg/dL (8.5-10.1); Carbon Dioxide 24.9 meq/L (21.0-32.0); Prothrombin Time 20.7 sec (9.8-11.6)
[2018-03-11 09:02] LABS: Blood Urea Nitrogen 17 mg/dL (7-18); Glucose,Random 96 mg/dL (74-106)
[2018-03-11 09:05] LABS: Alanine Aminotransferase 33 U/L (12-78); Aspartate Aminotransferase 43 U/L (15-37); Glomerular Filtration Rate 59 mL/min (>89)
[2018-03-11 09:06] LABS: Total Protein 7.7 g/dL (6.4-8.2)
[2018-03-11 09:07] LABS: Alkaline Phosphatase 93 U/L (45-117)
[2018-03-11] MEDS: Morphine Inj 4 MG/ML Vial IV.PUSH PRN ×3 (09:14→20:15)
[2018-03-11] MEDS: Senna/Docusate Sodium 8.6/50 MG Tablet PO SCH ×2 (09:24→20:16)
--- NOTE | 2018-03-11 12:12 | P.HPIM ---
History of Present Illness Primary Care Physician: Jaky Ragland MD Chief Complaint: right hip pain History of Present Illness: patient is a 77 y/o male with history of dyslipidemia, atrial fibrillation who presented to ER with right hip pain after a fall. he says that he was trying to get out of the chair to go to bedroom he tripped and fell and landed on his right hip. he doesn't repot any prodromal symptoms like chest pain, dizziness or sob. he doesn't report any head trauma or syncopal episode. he denies any abdominal pain, nausea, vomiting. pain was mild to moderte at the time of my evaluation. Inpatient Certification Inpatient Certification: I certify that the inpatient services were ordered in accordance with Medicare regulations governing the order. This includes certification that hospital inpatient services are reasonable and necessary and in the case of services not specified as inpatient-only under 42 CFR 419.22(n), that they are appropriately provided as inpatient services in accordance to with the 2-midnight benchmark under 43 CFR 412.3(e) Estimated Total Length of Stay (Days): 2 Plans for Post Hospital Care: Not yet determined Review of Systems Review of Systems: all other systems reviewed are negative [facility] Medical History Medical History Atrial fibrillation (Acute) High cholesterol (Acute) Pneumonia (Acute) Surgical History Surgical History No history of previous surgery (Acute) Social History Social History Substance History: No History of Abuse Second Hand Smoke Exposure: No Smoking Status: Former smoker How Often Do You Have a Drink Containing Alcohol: Never Immunization History Tetanus Immunization: Unsure Medications and Allergies Allergies Allergy/AdvReac Type Severity Reaction Status Date / Time No Known Allergies Allergy Verified 03/11/18 05:40 Home Medications Medication Instructions Recorded Confirmed Type simvastatin 20 mg PO QPM 03/11/18 03/11/18 History warfarin 2.5 mg PO DAILY 03/11/18 03/11/18 History Active Medications: Active Medications Acetaminophen (Tylenol) 650 mg PO Q4H PRN PRN Reason: Temp > 100.4, pain 1-2 Sodium Chloride (Ns Inj) 1,000 mls @ 75 mls/hr IV.CONT .[id number] [facility] Stop: 03/12/18 11:09 Last Infusion: 03/11/18 11:52 Dose: 75 mls/hr Morphine Sulfate (Morphine Inj) 4 mg IV.PUSH Q4H PRN PRN Reason: BREAKTHROUGH PAIN Last Admin: 03/11/18 09:14 Dose: 4 mg Ondansetron HCl (Zofran Inj) 4 mg IV.PUSH Q6H PRN PRN Reason: NAUSEA OR VOMITING Oxycodone HCl (Roxicodone) 5 mg PO Q4H PRN PRN Reason: pain 3-10 Pravastatin Sodium (Pravachol) 40 mg PO [facility] Senna/Docusate Sodium ([place]-Colace) 1 tab PO BID [facility] Last Admin: 03/11/18 09:24 Dose: Not Given Sodium Chloride (Ns Flush) 2 ml IV.FLUSH BID [facility] Last Admin: 03/11/18 09:23 Dose: Not Given Sodium Chloride (Ns Flush) 2 ml IV.FLUSH PRN PRN PRN Reason: FLUSH AFTER USING IV ACCESS Physical Exam Vital signs: Last Vital Signs Temp 98.4 F 03/11/18 05:30 Pulse 89 03/11/18 10:09 Resp 18 03/11/18 10:09 BP 152/79 H 03/11/18 10:09 Pulse Ox 96 03/11/18 10:09 Intake & Output 03/09/18 03/10/18 03/11/18 03/12/18 06:59 06:59 06:59 06:59 Intake Total 150 / 150 Output Total 500 / 500 Balance -350 / -350 Weight 99.79 kg Constitutional no acute distress Routine HEENT Exam Eye: Present PERRL Routine Neck Exam Present supple Routine Respiratory Exam Present CTA bilaterally Routine Cardiovascular Exam Present RRR Routine Abdominal Exam Present soft Routine Extremities Exam Comments: right lower extremity in external rotation. Routine Neurological Exam Present alert and oriented X3 Results Labs CBC & Chem 7: 03/11/18 08:30 03/11/18 08:30 Imaging Impressions Chest X-Ray 03/11/18 06:11 CONCLUSION: Mildly prominent cardiac silhouette. No other acute cardiopulmonary disease identified. Hip X-Ray 03/11/18 06:11 CONCLUSION: 1. Acute right femoral neck fracture with mild impaction. 2. 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 Caprini VTE Risk Assessment Caprini VTE Risk Assessment: Moderate/High Risk (score >= 2) Caprini Risk Assessment Model: Point Value = 1 Point Value = 2 Point Value = 3 Point Value = 5 Age 41-60 Minor surgery BMI > 25 kg/m2 Swollen legs Varicose veins or History of unexplained or recurrent spontaneous Oral contraceptives or hormone replacement Sepsis (< 1 month) Serious lung disease, including pneumonia (< 1 month) Abnormal pulmonary function Acute myocardial infarction Congestive heart failure (< 1 month) History of inflammatory bowel disease Medical patient at bed rest Age 61-74 Arthroscopic surgery Major open surgery (> 45 min) Laparoscopic surgery (> 45 min) Malignancy Confined to bed (> 72 hours) Immobilizing plaster cast Central venous access Age >= 75 History of VTE Family history of VTE Factor V Leiden Prothrombin [id number] Lupus anticoagulant Anticardiolipin antibodies Elevated serum homocysteine Heparin-induced thrombocytopenia Other congenital or acquired thrombophilia Stroke (< 1 month) Elective arthroplasty Hip, pelvis, or leg fracture Acute spinal cord injury (< 1 month) Prophylaxis Regimen: Total Risk Factor Score Risk Level Prophylaxis Regimen 0-1 Low Early ambulation 2 Moderate Order ONE of the following: *Sequential Compression Device (SCD) *Heparin 5000 units SQ BID 3-4 Higher Order ONE of the following medications: *Heparin 5000 units SQ TID *Enoxaparin/Lovenox 40 mg SQ daily (WT < 150 kg, CrCl > 30 mL/min) *Enoxaparin/Lovenox 30 mg SQ daily (WT < 150 kg, CrCl > 10-29 mL/min) *Enoxaparin/Lovenox 30 mg SQ BID (WT < 150 kg, CrCl > 30 mL/min) AND/OR *Sequential Compression Device (SCD) 5 or more Highest Order ONE of the following medications: *Heparin 5000 units SQ TID (Preferred with Epidurals) *Enoxaparin/Lovenox 40 mg SQ daily (WT < 150 kg, CrCl > 30 mL/min) *Enoxaparin/Lovenox 30 mg SQ daily (WT < 150 kg, CrCl > 10-29 mL/min) *Enoxaparin/Lovenox 30 mg SQ BID (WT < 150 kg, CrCl > 30 mL/min) AND *Sequential Compression Device (SCD) Assessment and Plan Plan A/P - right hip fracture after a fall; keep NPO- continue pain control- ortho consulted. will give one dose of po vitamin K for coumadin reversal in preparation for surgery. -a-fib- HR controlled; hod coumadin till ortho evaluation/ intervention. -dyslipidemia; resume statin -DVT prophylaxis; will resume Couamdin after ortho evaluation/ intervention. Discussed Condition With: the patient.
[2018-03-11] MEDS ORDERED: Phytonadione 5 MG/SWFI 5 ML Oral Syringe PO ONE (15:00)
--- NOTE | 2018-03-11 19:18 | P.CONOP ---
[facility] Orthopedics Consult Note - [facility] Consult date: 03/11/18 Chief complaint: Fractured Hip Narrative: This patient is a 77-year-old man who has a history of atrial fibrillation currently on Coumadin, and dyslipidemia who had a fall last night and sustained significant pain about the right hip. The patient states that he was trying to get out of the chair in order to go to the bathroom and tripped and fell. He says that the right hip specifically has not had any real significant problems in the past but he does have generalized weakness of the legs because he had pneumonia back earlier in this year. He went to a rehab facility after the pneumonia and ultimately went from a walker to a cane. He says that he was able to get back to the ability to drive but would usually use a cane when he was out of the house but did not require the cane when he was in the house. Currently patient denies any specific numbness or tingling radiating down the right lower extremity but he describes all of his pain around the right hip with a lot of difficulty with any motion of the hip due to pain. He denies loss of consciousness. I have discussed this situation with the ER physician and had recommended the patient be transferred from the [place] emergency room up to the [facility] hospital and also for the patient to begin having administration of FFP in order to move forward with surgical management. The patient's INR was 2. Family history noncontributory. Review of Systems All other systems reviewed negative except as stated in [facility] - History History Provided By: Patient - Medical History Medical History: Medical History (Last Reviewed 03/11/18 @ 19:13 by Cornell Brink MD) Atrial fibrillation High cholesterol Pneumonia - Surgical History Surgical History: Surgical History (Last Reviewed 03/11/18 @ 19:13 by Cornell Brink MD) No history of previous surgery - Tobacco History Second Hand Smoke Exposure: No Tobacco Use In Past 30 Days: No Smoking Status: Former smoker - Alcohol History How Often Do You Have a Drink Containing Alcohol: Monthly or less - Substance Use History Substance History: No History of Abuse - Immunization History Tetanus Immunization: Never Vaccinated Hx Influenza Vaccine This Season: No Medications and Allergies Active Medications: Active Medications Acetaminophen (Tylenol) 650 mg PO Q4H PRN PRN Reason: Temp > 100.4, pain 1-2 Sodium Chloride (Ns Inj) 1,000 mls @ 75 mls/hr IV.CONT .[id number] [facility] Stop: 03/12/18 11:09 Last Infusion: 03/11/18 11:52 Dose: 75 mls/hr Morphine Sulfate (Morphine Inj) 4 mg IV.PUSH Q4H PRN PRN Reason: BREAKTHROUGH PAIN Last Admin: 03/11/18 12:10 Dose: 4 mg Ondansetron HCl (Zofran Inj) 4 mg IV.PUSH Q6H PRN PRN Reason: NAUSEA OR VOMITING Oxycodone HCl (Roxicodone) 5 mg PO Q4H PRN PRN Reason: pain 3-10 Last Admin: 03/11/18 17:40 Dose: 5 mg Pravastatin Sodium (Pravachol) 40 mg PO [facility] Senna/Docusate Sodium ([place]-Colace) 1 tab PO BID [facility] Last Admin: 03/11/18 09:24 Dose: Not Given Sodium Chloride (Ns Flush) 2 ml IV.FLUSH BID [facility] Last Admin: 03/11/18 09:23 Dose: Not Given Sodium Chloride (Ns Flush) 2 ml IV.FLUSH PRN PRN PRN Reason: FLUSH AFTER USING IV ACCESS Allergies Allergy/AdvReac Type Severity Reaction Status Date / Time No Known Allergies Allergy Verified 03/11/18 05:40 Home Medications Medication Instructions Recorded Confirmed Type simvastatin 20 mg PO QPM 03/11/18 03/11/18 History warfarin 2.5 mg PO DAILY 03/11/18 03/11/18 History Exam Vital signs: Vital Signs 03/11/18 05:30 03/11/18 05:45 03/11/18 08:04 Temperature 98.4 F Pulse Rate 84 79 88 Respiratory Rate 18 18 18 Blood Pressure 182/98 H 162/89 H 156/84 H Pulse Oximetry 94 L 94 L 90 L 03/11/18 08:05 03/11/18 08:42 03/11/18 10:09 Temperature Pulse Rate 89 Respiratory Rate 18 Blood Pressure 152/79 H Pulse Oximetry 90 L 96 96 03/11/18 16:00 03/11/18 16:31 Temperature 98.1 F 97.1 F L Pulse Rate 86 76 Respiratory Rate 16 18 Blood Pressure 113/54 L 184/87 H Pulse Oximetry 94 L 98 Intake & Output 03/11/18 03/11/18 03/12/18 06:59 18:59 06:59 Intake Total 1450 / 1450 Output Total 900 / 900 Balance 550 / 550 Weight 99.79 kg 102 kg Intake: IV 150 / 150 NS Inj 1,000 ML @ 75 mls/hr IV. 150 / 150 CONT .[id number] [facility] Rx#: [id number] Oral 1300 / 1300 Intake (Blood Product) Amt 0 / 0 Plasma Thawed 5 Day Cp2d Unit 0 / 0 [id number] Output: Urine 900 / 900 Other: # Bowel Movements 0 Weight On Admission 102 kg Narrative: GENERAL: The patient is awake, alert and oriented x3. The patient is no significant distress. PSYCHIATRIC: Normal affect, insight, and judgment. HEENT: Head is atraumatic. Oropharynx is moist. Extraocular muscles are intact. NECK: Non-tender and supple. LUNGS: No audible wheezing. He has normal inspiratory effort with no signs of dyspnea HEART: Regular rate and rhythm. ABDOMEN: Soft, nontender, and nondistended. BACK: No CVA tenderness. EXTREMITIES/SKIN/NEURO/VASCULAR: The right hip has some mild swelling. No wounds were noted anterior or laterally. The patient does move the toes well on both feet. He has a 2+ dorsalis pedis pulse on the right foot with normal sensation distally. He has some mild swelling about the bilateral lower extremities. The upper extremities have good active range of motion. Results - Labs Result Diagrams: 03/11/18 08:30 03/11/18 08:30 Labs: Laboratory Results - last 24 hr 03/11/18 03/11/18 03/11/18 08:30 08:30 08:30 WBC 8.3 RBC 4.94 Hgb 13.9 Hct 43.3 MCV 87.7 MCH 28.2 MCHC 32.1 RDW 16.7 Plt Count 149 L MPV 9.2 PT 20.7 H INR 2.0 Sodium 143 Potassium 4.0 Chloride 106 Carbon Dioxide 24.9 Anion Gap 12 BUN 17 Creatinine 1.20 Estimated GFR 59 L POC Glucose Random Glucose 96 Calcium 7.8 L Total Bilirubin 0.4 AST 43 H ALT 33 Alkaline Phosphatase 93 Total Protein 7.7 Albumin 3.7 Blood Bank Comment 03/11/18 03/11/18 08:30 18:23 WBC RBC Hgb Hct MCV MCH MCHC RDW Plt Count MPV PT INR Sodium Potassium Chloride Carbon Dioxide Anion Gap BUN Creatinine Estimated GFR POC Glucose 100 Random Glucose Calcium Total Bilirubin AST ALT Alkaline Phosphatase Total Protein Albumin Blood Bank Comment - Diagnostic results Imaging: Impressions Chest X-Ray 03/11/18 06:11 CONCLUSION: Mildly prominent cardiac silhouette. No other acute cardiopulmonary disease identified. Hip X-Ray 03/11/18 06:11 CONCLUSION: 1. Acute right femoral neck fracture with mild impaction. 2. 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 I have reviewed the images for this radiology study. I agree with the interpretation given by the radiologist. This is a mildly displaced femoral neck fracture. Assessment and Plan - Assessment and Plan 77-year-old man with history of atrial fibrillation on Coumadin with right hip mildly displaced femoral neck fracture. We discussed that this is a serious condition effecting this patient's extremity. Nonoperative and operative options were discussed and reviewed. Potential consequences of both of these options were reviewed. The patient does not want to move forward with surgical management for the right hip. We discussed that surgery would consist of a right hip hemiarthroplasty. We discussed the risks and benefits of surgical management along with the postoperative rehabilitation in detail. The patient is currently having his anticoagulation reversed with FFP. We will move forward with surgical management tomorrow assuming we can obtain adequate INR. The patient would like to move forward with urgent surgical management for this condition. This is surgery should be considered non-elective, given that this patient presented emergently to the hospital, and the decision to proceed with surgery was derived from this presentation. Significantly delaying surgery ( other than for medical clearance) has the potential to adversely effect the outcome for this patient's extremity. Management of pain associated with surgery will likely require the use of parental controlled substances. The risks and benefits of surgical management have been discussed in detail. The risks of surgery include, but are not limited to, injury to nerves, blood vessels, bleeding, infection, non-healing; loss of range on motion, leg length discrepancy, dislocation, dysfunction or weakness of the associated joints; blood clots, pneumonia, stroke, heart attack, and . - Attending Attestation Attending Attestation: A mid level provider in my office, nurse practitioner or PA, may see this patient on a follow up basis and continue to implement the plan including: starting or adjusting medications, injections of muscle, tendons, bursa or joints, cast application, orthotic or brace application, physical therapy, further radiographic studies including X-ray, MRI, CT, ultrasound or bone scan , vascular studies, neurological studies, or other specialist consultations, and proceeding with surgical management as appropriate.
--- NOTE | 2018-03-11 19:48 | XR ---
EXAM DATE: 03/11/2018 7:45 PM EST AGE/SEX: 77 years / Male INDICATIONS: Patient complains of right hip pain status post fall. CLINICAL DATA: This is the patient's initial encounter. Patient reports that signs and symptoms have been present for 2 days and indicates a pain score of 7/10. MEDICAL/SURGICAL HISTORY: None. None. COMPARISON: [facility], HIP RIGHT 2V, 03/11/2018. . FINDINGS: Examination of the pelvis demonstrates intertrochanteric fracture right hip. Bony mineralization is normal. There is no widening of the sacroiliac joints. No foreign body is identified. Degenerative changes of both hips. CONCLUSION: Intertrochanteric fracture right hip. Electronically signed by: Yoni Navarro MD 03/11/2018 7:47 PM EST
[2018-03-12] MEDS: Morphine Inj 4 MG/ML Vial IV.PUSH PRN ×2 (00:09→10:24)
[2018-03-12] MEDS ORDERED: Chlorhexidine Gluconate 2% 1 Pack (2 Cloths) TOPICAL ONE (00:36)
[2018-03-12] MEDS ORDERED: Sodium Chlor 0.9% Inj 500 ML IV.SIG SCH (01:00)
[2018-03-12 06:03] LABS: Baso % (Auto) 0.9 % (0.0-2.0); Eos # (Auto) 0.4 th/mm3 (0.0-0.4); Eos % (Auto) 7.6 % (0.0-4.0); Hematocrit 36.7 % (39.0-51.0); Hemoglobin 11.9 gm/dL (13.0-17.0); Lymph # (Auto) 0.8 th/mm3 (1.0-4.8); Lymph % (Auto) 15.6 % (9.0-44.0); Mean Corpuscular HGB Conc 32.6 % (32.0-36.0); Mean Corpuscular Hemoglobin 29.5 pg (27.0-34.0); Mean Corpuscular Volume 90.4 fL (80.0-100.0); Mean Platelet Volume 8.6 fL (7.0-11.0); Mono # (Auto) 0.5 th/mm3 (0.0-0.9); Neut # (Auto) 3.6 th/mm3 (1.8-7.7); Neut % (Auto) 66.9 % (16.0-70.0); Platelet Count 106 th/mm3 (150-450); Red Blood Count 4.06 mil/mm3 (4.50-5.90); Red Cell Distribution Width 17.7 % (11.6-17.2); White Blood Count 5.4 th/mm3 (4.0-11.0)
[2018-03-12 06:09] LABS: INR 1.4 Ratio; Prothrombin Time 14.1 sec (9.8-11.6)
[2018-03-12 06:44] LABS: Albumin 3.1 g/dL (3.4-5.0); Anion Gap 6 meq/L (5-15); Aspartate Aminotransferase 22 U/L (15-37); Blood Urea Nitrogen 14 mg/dL (7-18); Chloride 107 meq/L (98-107); Glomerular Filtration Rate 65 mL/min (>89); Glucose,Random 95 mg/dL (74-106); Potassium 4.1 meq/L (3.5-5.1); Sodium 142 meq/L (136-145)
[2018-03-12 06:46] LABS: Alanine Aminotransferase 24 U/L (12-78)
[2018-03-12 06:48] LABS: Alkaline Phosphatase 73 U/L (45-117); Total Protein 6.5 g/dL (6.4-8.2)
[2018-03-12] MEDS: Senna/Docusate Sodium 8.6/50 MG Tablet PO SCH ×2 (09:21→20:09)
--- NOTE | 2018-03-12 09:27 | P.PNIM ---
Subjective Interval history: f/u; hip fracture in no acute distress. pain is fairly controlled. no new complaints. d/w the RN and no acute issues over night. awaiting ortho intervention. Physical Exam Vital signs: Last Vital Signs Temp 98.5 F 03/12/18 00:00 Pulse 90 03/12/18 00:00 Resp 18 03/12/18 00:00 BP 155/74 H 03/12/18 00:00 Pulse Ox 94 L 03/12/18 00:00 Intake & Output 03/10/18 03/11/18 03/12/18 03/13/18 06:59 06:59 06:59 06:59 Intake Total 2085 / 2085 Output Total 1700 / 1700 Balance 385 / 385 Weight 99.79 kg 102.5 kg Constitutional no acute distress Routine Respiratory Exam Present CTA bilaterally Routine Cardiovascular Exam Present RRR Routine Abdominal Exam Present soft Routine Extremities Exam Comments: no pedal edema. Routine Neurological Exam Present oriented X3 Results Labs CBC & Chem 7: 03/12/18 04:45 03/12/18 04:45 Imaging Imaging: Impressions Pelvis X-Ray 03/11/18 00:00 CONCLUSION: Intertrochanteric fracture right hip. Assessment and Plan Plan A/P - right hip fracture after a fall; keep NPO- continue pain control- ortho consulted. plan for ortho intervention later today. -a-fib- HR controlled; hold coumadin for ortho intervention. -dyslipidemia; resumed statin -DVT prophylaxis; will resume Couamdin after ortho intervention. Progress Note: Quality VTE Deep Vein Thrombosis/Pulmonary Embolism Present on Admission: No
[2018-03-12 10:43] LABS: INR 1.2 Ratio; Prothrombin Time 12.6 sec (9.8-11.6)
[2018-03-12] MEDS ORDERED: Bupivacaine/Epinephrine Inj 0.25% 50 ML Vial ONE (13:25)
[2018-03-12] MEDS ORDERED: Sodium Chlor 0.9% Inj 250 ML ONE (13:26)
[2018-03-12] MEDS ORDERED: ceFAZolin 2 GM Premix Inj 2 GM/50 ML PIGGYBACK IV.SIG ONE (13:33)
[2018-03-12] MEDS ORDERED: Tranexamic Acid Inj 1,025 MG in Sodium Chlor 0.9% Inj 100 ML IV.SIG SCH (14:00)
[2018-03-12] MEDS ORDERED: fentaNYL Citrate Inj 100 MCG/2 ML Ampul ONE ×2 (15:11→16:14)
[2018-03-12] MEDS ORDERED: Zolpidem Tartrate 5 MG Tablet PO PRN (15:32)
[2018-03-12] MEDS ORDERED: Morphine Inj 4 MG/ML Vial IV.PUSH PRN (15:32)
[2018-03-12] MEDS ORDERED: Post-op Orders (for Pharmacy) OTHER STA (15:32)
[2018-03-12] MEDS ORDERED: Bisacodyl 10 MG Supp RECTAL PRN (15:32)
[2018-03-12] MEDS ORDERED: Aluminum/Magnesium/Simethacone Susp 30 ML UDC PO PRN (15:32)
--- NOTE | 2018-03-12 15:40 | P.OP ---
Preoperative Diagnosis: Right hip displaced femoral neck fracture Postoperative Diagnosis: Same Date of procedure: 03/12/18 Procedure: Right hip hemiarthroplasty Anesthesia: GETA Surgeon: Cornell Brink MD Adjunct Instructor: KITA Mcclure The surgical procedure was assisted by my Advanced Registered Nurse Practitioner. My DEVELOPMENT PLANNER presence was necessary throughout this case for the manipulation and positioning of the surgical extremity. My DEVELOPMENT PLANNER was assisting me throughout the duration of this procedure. The skill set of an Advance Registered Nurse Practitioner was medically necessary to complete this procedure. During the surgical case, the surgical product sales consultant was working at the back table and the Advance Registered Nurse Practitioner was directly assisting me. Operation and Findings: IMPLANT DESCRIPTION (QRusouy): 1. Corail femoral stem size 15, no collar, standard offset. 2. Bipolar femoral head/neck 28/57, +8.5. ESTIMATED BLOOD LOSS: 300 cc. PROCEDURE: The patient was brought back to the operative theatre. Adequate anesthesia was obtained. The patient received intravenous vancomycin and Ancef. The patient was carefully placed on the operative table in the lateral decubitus position with an axillary roll and a well-padded down leg. The lower extremity was prepped and draped in the usual sterile fashion. We proceeded with a standard curvilinear incision centered around the tip of the greater trochanter. We then dissected through the deep fascia and placed a Charnley retractor protecting the sciatic nerve. The greater trochanteric bursa was reflected. We then incised through the piriformis attachment and tagged this with a #2 FiberWire. We then incised through the capsule in a T- shaped fashion and tagged this with a #2 FiberWire as well. We identified a displaced femoral neck fracture. An osteotomy was performed through the residual femoral neck. This bone was then removed followed by removal of the femoral head. The acetabulum was inspected and adequate cartilage stock was identified. We then trialed the femoral head in the acetabulum. The proximal femur was prepared with a rongeur, then a box osteotome, then a canal finder followed by a lateralizing reamer. We sequentially broached the proximal femur. We calcar planed the proximal femur and irrigated removing any remnants of the bone. We trialed the hip with the broach in place. The final femoral stem was impacted into position. Leg lengths were evaluated. We evaluated stability of the hip with the hip in the "position of sleep" and the hip flexed up to 90 degrees and internally rotated. We additionally tested both a "shuck" test and hip extension, confirming there was no undue tension while flexing the knee to 90 degrees during full hip extension. The final bipolar head was impacted and the hip was reduced. Once again we irrigated. We then repaired the capsule and the piriformis with the FiberWire suture. The deep fascia was closed with a #2 Stratafix, followed by 2-0 Vicryl in the skin and gerardo. The post-op plan is to weight-bear as tolerated. We will follow posterior total hip precautions, including the use of a canvas knee splint. DVT prophylaxis will be performed with MERCEDES Solis, early mobilization, and Lovenox followed by aspirin.
[2018-03-12] MEDS ORDERED: *Meperidine Inj 25 MG/ML Vial PERIprocedural Use ONLY ONE (16:25)
--- NOTE | 2018-03-12 16:54 | XR ---
EXAM DATE: 03/12/2018 4:51 PM EST AGE/SEX: 77 years / Male INDICATIONS: Status post right hip ORIF. CLINICAL DATA: This is the patient's initial encounter. Patient reports that signs and symptoms have been present for 1 day and indicates a pain score of 2/10. MEDICAL/SURGICAL HISTORY: None. None. COMPARISON: [facility] [place], PELVIS AP 1V, 03/11/2018. . FINDINGS: Multiple views of the right hip and pelvis were obtained and demonstrate the patient is status post r ight hip arthroplasty. The femoral acetabular components are intact and in normal alignment. There is overlying soft tissue swelling and gas. There are mild degenerative changes in the left hip. There i s mild osteopenia. CONCLUSION: Expected postoperative changes status post arthroplasty. Electronically signed by: Moy Gandhi MD 03/12/2018 4:53 PM EST
[2018-03-12] MEDS ORDERED: Tranexamic Acid Inj 1,025 MG in Sodium Chlor 0.9% Inj 100 ML IV.SIG ONE (17:00)
[2018-03-12] MEDS: Sod Chloride 0.9% Inj 1,000 ML IV.CONT SCH (17:15)
[2018-03-12] MEDS: ceFAZolin 1 GM Premix Inj 1 GM/50 ML PIGGYBACK IV.SIG SCH (20:08)
[2018-03-12] MEDS: Multivitamin/Minerals Therapeutic Tablet PO SCH (20:09)
--- NOTE | 2018-03-12 21:34 | ECG ---
Date Performed: 03/12/2018 Time Performed: 08:04:26 PTAGE: 77 years EKG: Sinus rhythm RIGHT BUNDLE BRANCH BLOCK ABNORMAL ECG PREVIOUS TRACING : 06/26/2017 08.05 Since the previous tracing, no significant change noted DOCTOR: Christofer Parr Interpretating Date/Time 03/12/2018 21:34:03
[2018-03-13] MEDS: Acetaminophen 325 MG Tablet PO PRN ×2 (01:23→09:37)
[2018-03-13] MEDS: ceFAZolin 1 GM Premix Inj 1 GM/50 ML PIGGYBACK IV.SIG SCH ×2 (01:24→08:45)
[2018-03-13] MEDS: Sod Chloride 0.9% Inj 1,000 ML IV.CONT SCH (06:11)
[2018-03-13 07:01] LABS: Hematocrit 34.6 % (39.0-51.0); Hemoglobin 11.3 gm/dL (13.0-17.0)
[2018-03-13 07:05] LABS: INR 1.1 Ratio; Prothrombin Time 11.1 sec (9.8-11.6)
--- NOTE | 2018-03-13 07:46 | P.PNOP ---
Subjective Interval history: The patient is resting comfortably in bed in no acute distress. The patient reports mild pain to the right hip. Physical Exam Vital signs: Vital Signs 03/12/18 08:00 03/12/18 16:01 03/12/18 16:15 Temperature 98.0 F 98.8 F Pulse Rate 79 109 H 106 H Respiratory Rate 18 24 24 Blood Pressure 148/75 H 128/72 159/67 H Pulse Oximetry 93 L 95 95 03/12/18 16:30 03/12/18 16:45 03/12/18 17:00 Temperature Pulse Rate 101 H 93 H 91 H Respiratory Rate 25 H 18 18 Blood Pressure 150/67 H 137/60 127/58 L Pulse Oximetry 92 L 92 L 94 L 03/12/18 17:15 03/12/18 17:30 03/12/18 20:00 Temperature 97.6 F 100.0 F H Pulse Rate 91 H 94 H 101 H Respiratory Rate 16 20 18 Blood Pressure 139/63 128/82 140/65 Pulse Oximetry 92 L 95 94 L 03/13/18 02:14 03/13/18 04:00 Temperature 99.7 F H 98.6 F Pulse Rate 71 Respiratory Rate 18 Blood Pressure 128/60 Pulse Oximetry 95 Intake & Output 03/12/18 03/13/18 03/13/18 18:59 06:59 18:59 Intake Total 1360.25 / 1360.25 1220 / 1220 Output Total 500 / 500 650 / 650 Balance 860.25 / 860.25 570 / 570 Weight 106.3 kg Intake: IV 110.25 / 110.25 1100 / 1100 NS Inj 1,000 ML @ 80 mls/hr IV. 1000 / 1000 CONT .[id number] [facility] Rx#:[id number] Cyklokapron Inj 1,025 MG In NS 110.25 / 110.25 Inj 100 ML @ 200 mls/hr IV.SIG ONCE ONE Rx#:[id number] Ancef 1 GM Premix Inj 1 gm In 100 / 100 50 ml @ 100 mls/hr IV.SIG Q6H [facility] Rx#:[id number] Oral 120 / 120 Anesthesia Amount 1250 / 1250 Output: Urine 450 / 450 Estimated Blood Loss 200 / 200 Urine Amount (Catheter) 300 / 300 200 / 200 Indwelling Urethral Catheter 300 / 300 200 / 200 Other: Date of Last Bowel Movement 03/10/18 Narrative: The patient's dressing is clean, dry, and intact. EHL/TA/G are intact. 2+ pedal pulse. The patient's calf is soft and nontender. Sensation is intact to light touch distally. The patient's knee immobilizer is in place. - Urinary Catheter Management Indwelling Urethral Catheter Cath placed during this visit: yes, but has since been removed by the nurse Reason for continuing: Decision to DC catheter Insertion date: 03/12/18 Removal date: 03/13/18 Removal time: 06:00 Results - Labs CBC & Chem 7: 03/13/18 05:51 03/12/18 04:45 Laboratory Results - last 24 hr 03/12/18 03/13/18 03/13/18 10:20 05:51 05:51 Hgb 11.3 L Hct 34.6 L PT 12.6 H 11.1 INR 1.2 1.1 - Imaging Impressions Hip X-Ray 03/12/18 15:31 CONCLUSION: Expected postoperative changes status post arthroplasty. - Procedures Right hip hemiarthroplasty Assessment and Plan - Assessment and Plan POD #1: [Right] hip hemiarthroplasty 1. Weightbearing as tolerated on [right] lower extremity. 2. Resume normal dose of Coumadin (2.5 mg daily). The patient will use a Lovenox bridge for 3 days until therapeutic with his Coumadin for DVT prophylaxis. 3. Ice as needed for swelling. 4. Stable per ortho for discharge to home health versus a jail facility. 5. The patient will follow up with Dr. Brink and/or KITA Kulkarni in 1- 2 weeks. 6. The patient will maintain postoperative posterior hip precautions for 6 weeks.
[2018-03-13] MEDS ORDERED: Dexamethasone Inj 20 MG/5 ML Vial IV.PUSH ONE (08:00)
[2018-03-13] MEDS: Senna/Docusate Sodium 8.6/50 MG Tablet PO SCH (08:46)
[2018-03-13] MEDS: Multivitamin/Minerals Therapeutic Tablet PO SCH (08:46)
[2018-03-13] MEDS ORDERED: Enoxaparin Inj 40 MG/0.4 ML Syringe SQ SCH ×2 (09:00→15:00)
--- NOTE | 2018-03-13 11:00 | P.PNIM ---
Subjective Interval history: f/u; right hip fracture in no acute distress. pain is controlled. looks fairly comfortable. no new complaints. Physical Exam Vital signs: Last Vital Signs Temp 98.6 F 03/13/18 04:00 Pulse 71 03/13/18 04:00 Resp 18 03/13/18 04:00 BP 128/60 03/13/18 04:00 Pulse Ox 94 L 03/13/18 10:08 Intake & Output 03/11/18 03/12/18 03/13/18 03/14/18 06:59 06:59 06:59 06:59 Intake Total 2085 / 2085 2580.25 / 2580.25 Output Total 1700 / 1700 1150 / 1150 Balance 385 / 385 1430.25 / 1430.25 Weight 99.79 kg 102.5 kg 106.3 kg Constitutional no acute distress Routine Respiratory Exam Present CTA bilaterally Routine Cardiovascular Exam Present RRR Routine Abdominal Exam Present soft Routine Extremities Exam Comments: no pedal edema. Routine Neurological Exam Present alert and oriented X3 Urinary Catheter Management Indwelling Urethral Catheter: Cath placed during this visit: yes, but has since been removed by the nurse Insertion date: 03/12/18 Removal date: 03/13/18 Removal time: 06:00 Results Labs CBC & Chem 7: 03/13/18 05:51 03/12/18 04:45 Imaging Imaging: Impressions Hip X-Ray 03/12/18 15:31 CONCLUSION: Expected postoperative changes status post arthroplasty. Procedures Procedures: Right hip hemiarthroplasty Assessment and Plan Plan A/P - right hip fracture after a fall; s/p right hip hemiarthroplasty- continue pain control and PT- cleared by ortho for discharge. -a-fib- HR controlled;resumed Coumadin- will monitor PT/INR- Lovenox was added for bridging till INR is therapeutioc. -dyslipidemia; resumed statin -DVT prophylaxis; on Coumadin/ Lovenox ( will dc Lovenox when INR is therapeutic ) will dc to rehab when arrangements made. Progress Note: Quality VTE Deep Vein Thrombosis/Pulmonary Embolism Present on Admission: No
--- NOTE | 2018-03-13 11:05 | P.DS ---
DS: Providers Date of admission: 03/11/18 07:21 Primary care physician: Jaky Ragland MD Consults: 03/11/18 08:25 Consult to Orthopedic Surgery Routine Consulting Provider: Cornell Brink Reason for Consultation: Femur fracture Notified:: Office Spoke with:: Jeaneth Date Notified:: 03/11/18 Time Notified:: 08:41 Ordering Provider: NANDA 03/12/18 10:38 HUB Only Consult Order Routine Consulting Provider: Wilmar Urban 03/13/18 09:00 HUB Only Consult Order Routine [facility] Brief History from admission: patient is a 77 y/o male with history of dyslipidemia, atrial fibrillation who presented to ER with right hip pain after a fall. he says that he was trying to get out of the chair to go to bedroom he tripped and fell and landed on his right hip. he doesn't repot any prodromal symptoms like chest pain, dizziness or sob. he doesn't report any head trauma or syncopal episode. he denies any abdominal pain, nausea, vomiting. pain was mild to moderte at the time of my evaluation. DS: Summary - right hip fracture after a fall; s/p right hip hemiarthroplasty- continue pain control and PT- cleared by ortho for discharge. -a-fib- HR controlled;resumed Coumadin- will monitor PT/INR- Lovenox was added for bridging till INR is therapeutioc. -dyslipidemia; resumed statin -DVT prophylaxis; on Coumadin/ Lovenox ( will dc Lovenox when INR is therapeutic ) Time Spent with Patient Total time spent providing and/or coordinating discharge services: Quality: VTE Deep Vein Thrombosis/Pulmonary Embolism Present on Admission: No Exam Narrative Exam Narrative: in no acute distress and looks comfortable. bilateral air entry on lung exam. no pedal edema. abdomen is soft with no tenderness. Results Procedures completed during hospitalization: Right hip hemiarthroplasty Labs on day of discharge: Labs from last 24 hours 03/13/18 03/13/18 05:51 05:51 Hgb 11.3 L Hct 34.6 L PT 11.1 INR 1.1 Impressions ITS Impressions Pelvis X-Ray 03/11/18 00:00 CONCLUSION: Intertrochanteric fracture right hip. Chest X-Ray 03/11/18 06:11 CONCLUSION: Mildly prominent cardiac silhouette. No other acute cardiopulmonary disease identified. Hip X-Ray 03/12/18 15:31 CONCLUSION: Expected postoperative changes status post arthroplasty. Discharge Plan Discharge Disposition Patient Disposition: 03 Discharge to SNF Discharge Condition Condition: Stable Discharge Order Discharge Orders: Discharge Order (Routine); Ordered 03/13/18 Ordered By: Cesilia Armenta Physicians Team ED Provider: Ciro Carrera Primary Care Provider: Jaky Ragland Attending Provider: Cesilia Armenta Other Providers: Cornell Brink ; Wilmar Urban ; [facility] Rxs /Orders / Referrals /Forms Prescriptions: New hydrocodone-acetaminophen [Zebulon] 5-325 mg Tablet 1 - 2 tab PO Q4-6H Qty: 50 RF: 0 Continue warfarin 2.5 mg Tablet 2.5 mg PO DAILY RF: 0 simvastatin 20 mg Tablet 20 mg PO QPM RF: 0 Ambulatory Orders / Order Sets / DME: Adjustable Commode 3-in-1 (1 each) (Routine) Location: Determined by Patient Ordered By: Bonifacio Gamez Walker With Front Wheels (1 each) (Routine) Location: Determined by Patient Ordered By: Bonifacio Gamez Referrals: Cornell Brink MD [Physician] - See Instructions (F/U in the office with Dr. Brink or Amish Gamez APRN as previously scheduled.) Jaky Ragland MD [Primary Care Provider] - See Instructions [facility] [Agency] - See Instructions Discharge Instructions Patient Printed Instructions: Hydrocodone/Acetaminophen (By mouth), Total Hip Replacement (DC) Additional Instructions: weightbearing as tolerated to right lower extremity ice as needed for swelling maintain postoperative posterior hip precautions for 6 weeks Status ED Status: Left Department Discharge Information Discharge Date/Time: 03/13/18 18:02
== END 2018-03-13 18:02 ==
LOC: PHED 05:26 → PHEDA 07:21 → N07 10:30
PROVIDERS: ADMIT Internal Medicine; ATTEND Internal Medicine